=== PATIENT | male | born 1980 | race Caucasian/White ===

== ENCOUNTER 2016-07-17 18:23 | Emergency (ER) | payer MEDICARE, MEDICAID ==
[2016-07-17] MEDS ORDERED: HYDROmorphone 1 MG/ML SYRINGE IVP STA (19:01)
[2016-07-17] MEDS ORDERED: HYDROmorphone 1 MG/ML SYRINGE ONE (19:15)
[2016-07-17] MEDS ORDERED: IOPAMIDOL-300 100 ML VIAL IVP ONE (19:52)
[2016-07-17] MEDS ORDERED: KETOROLAC 60 MG/2 ML VIAL IVP STA (20:34)
[2016-07-17] MEDS ORDERED: KETOROLAC 30 MG/ML VIAL ONE (20:39)
== END 2016-07-17 20:57 | disposition home or self-care (01) ==
DX: R10.32 Left lower quadrant pain (principal); R03.0 Elevated blood-pressure reading, without diagnosis of hypertension; K42.9 Umbilical hernia without obstruction or gangrene; F31.9 Bipolar disorder, unspecified; F43.10 Post-traumatic stress disorder, unspecified; F17.200 Nicotine dependence, unspecified, uncomplicated
CPT/HCPCS: 36415; 74177; 80053; 80306; 81003; 83690; 85025; 96374; 96375; 99283; 99284; J1170; Q9967

== ENCOUNTER 2016-12-06 15:19 | Outpatient (CLI) | payer MEDICARE, MEDICAID ==
--- NOTE | 2016-12-06 17:11 | XRAY Report ---
EXAM: RIGHT HAND RADIOGRAPHY EXAM DATE: 12/06/2016 03:30 PM. CLINICAL HISTORY: Pain in right hand. COMPARISON: None. TECHNIQUE: 3 views. FINDINGS: Bones: Normal. No fractures or bone lesions. Joints: Normal. No subluxations. Soft Tissues: Normal. No soft tissue swelling. IMPRESSION: Normal hand radiography. [facility] Referring Provider Line: [phone] SITE ID: [id number]
== END 2016-12-06 15:20 | disposition home or self-care (01) ==
LOC: DI.N 15:19
PROVIDERS: ATTEND Nurse Practitioner Gerontology
DX: M79.641 Pain in right hand (principal)

== ENCOUNTER 2016-12-11 13:00 | Emergency (ER) | payer MEDICARE, MEDICAID ==
--- NOTE | 2016-12-11 13:11 | ED Physician Documentation ---
PD HPI UPPER EXT INJURY - Stated complaint Stated Complaint: ARM/HAND PX - Chief complaint Chief Complaint: Ext Problem - History obtained from History obtained from: Patient - History of Present Illness Location: Right, Shoulder, Forearm, Finger (thumb) Type of injury: Fall (he was carrying 2x4 wood in right hand and slipped, falling onto right side. The wood piece caused distraction mechanism to thumb base, and he had injury to elbow and shoulder. These have continued to hurt him , especially the thumb. Seen in Clinic yesterday and had IM injection vs. tirgger point of posterior shoulder, and was given forearm band for presumed tendonitis of elbow. xray of thumb without fracture, no focal treatment. He says his thumb is hurting more but the strap is helping the elbow.) Where injury occurred: Work Timing - onset: How many weeks ago (2) Timing - duration: Weeks (2) Improved by: Rest Worsened by: Moving (hurts to pull up or abduct thumb), Palpating Associated symptoms: Discolored (he had bruising of the thumb base initially.). No: Weakness, Numbness, Tingling Contributing factors: No: Anticoagulated, Prior ortho surgery Similar symptoms before: Has not had sx before Recently seen: Clinic (seen at clinic yesterday, see above) Review of Systems Constitutional: denies: Fever, Chills Skin: denies: Abrasion (s), Laceration (s) Musculoskeletal: denies: Neck pain, Back pain Neurologic: denies: Focal weakness, Numbness PD PAST MEDICAL HISTORY - Past Medical History Respiratory: None Psych: Bipolar disorder, Post traumatic stress disorder Musculoskeletal: None - Past Surgical History Past Surgical History: No - Present Medications Home Medications: Ambulatory Orders Medication Instructions Recorded Confirmed Gabapentin 1,200 mg PO TID 12/19/14 12/11/16 Olanzapine [Zyprexa] 20 mg PO DAILY 12/19/14 12/11/16 Bupropion HCl [Wellbutrin Xl] 300 mg PO DAILY 07/17/16 12/11/16 FLUoxetine [PROzac] 40 mg PO DAILY 07/17/16 12/11/16 Ranitidine HCl [Zantac] 300 mg PO DAILY 07/17/16 12/11/16 Oxycodone HCl/Acetaminophen 1 each PO Q6H PRN #15 tablet 12/11/16 [Percocet 5-325 mg Tablet] - Allergies Allergies/Adverse Reactions: Allergies Allergy/AdvReac Type Severity Reaction Status Date / Time Penicillins Allergy Intermediate Edema Verified 08/13/14 22:37 tramadol Allergy Intermediate Edema Verified 08/13/14 22:37 morphine Allergy Anaphylaxis Verified 07/17/16 18:29 Sulfa (Sulfonamide Allergy Unknown Verified 12/19/14 14:31 Antibiotics) ibuprofen AdvReac Nausea Verified 12/11/16 13:07 - Social History Does the pt smoke?: Yes Smoking Status: Current every day smoker Does the pt drink ETOH?: Yes Does the pt have substance abuse?: Yes - POLST Patient has POLST: No PD ED PE NORMAL - Vitals Vital signs reviewed: Yes - General General: Alert and oriented X 3, No acute distress, Well developed/nourished - Neck Neck: Supple, no meningeal sign, No bony TTP, No adenopathy - Derm Derm: Normal color, Warm and dry - Extremities Extremities: Other (right shoulder with some tenderness posteriorly; no AC tenderness. Right elbow with some tenderness lateral epicondyle without effusion , redness. Good ROM including flex/ext/rotational. Right thumb with tenderness at base and ulnar side and pain with UCL distraction but not obvious laxity, c/ w partial tear likely, though might be full tear partly healed after 2 weeks. ) - Neuro Neuro: No motor deficit, No sensory deficit Results - Vitals Vitals: Oxygen O2 Source Room air PD MEDICAL DECISION MAKING - ED course Complexity details: reviewed old records (xray from yesterday), considered differential, d/w patient Departure - Departure Disposition: Home, Self Care Clinical Impression: Right shoulder strain Qualifiers: Encounter type: initial encounter Qualified Code(s): S46.911A - Strain of unspecified muscle, fascia and tendon at shoulder and upper arm level, right arm , initial encounter Strain of elbow, right Qualifiers: Encounter type: initial encounter Qualified Code(s): S56.911A - Strain of unspecified muscles, fascia and tendons at forearm level, right arm, initial encounter Rupture of ulnar collateral ligament of right thumb Qualifiers: Encounter type: initial encounter Qualified Code(s): S63.641A - Sprain of metacarpophalangeal joint of right thumb, initial encounter Condition: Stable Record reviewed to determine appropriate education?: Yes Instructions: Skier's Thumb Follow-Up: Brynn Christine, DIAL PRINTER [Primary Care Provider] - Prescriptions: Oxycodone HCl/Acetaminophen [Percocet 5-325 mg Tablet] 1 each PO Q6H PRN #15 tablet PRN Reason: Pain Comments: Seems like a partial tear/tear of the ligament at the base of the thumb, but usually heals over a month. Use thumb splint to support thumb. There is apparently strain of the elbow and shoulder too, so less heavy use of the arm. Continue the forearm band to help with elbow tendon. Tylenol or oxycodone as needed for pains, for short term. Follow up PCP next week. Discharge Date/Time: 12/11/16 14:10
[2016-12-11] MEDS ORDERED: KETOROLAC 60 MG/2 ML VIAL IM STA (13:38)
[2016-12-11] MEDS ORDERED: oxyCOD/ACETAMIN 5 MG/325 MG TABLET PO STA (13:38)
[2016-12-11] MEDS ORDERED: oxyCOD/ACETAMIN 5 MG/325 MG TABLET PO ONE (13:44)
[2016-12-11] MEDS ORDERED: KETOROLAC 60 MG/2 ML VIAL ONE (13:44)
[2016-12-11 14:10] VITALS: BP 160/115
== END 2016-12-11 14:10 | disposition home or self-care (01) ==
LOC: ED 13:00
DX: S46.911A Strain of unspecified muscle, fascia and tendon at shoulder and upper arm level, right arm, initial encounter (principal); S63.641A Sprain of metacarpophalangeal joint of right thumb, initial encounter; S56.911A Strain of unspecified muscles, fascia and tendons at forearm level, right arm, initial encounter; W01.0XXA Fall on same level from slipping, tripping and stumbling without subsequent striking against object, initial encounter; Y93.89 Activity, other specified; Y99.0 Civilian activity done for income or pay; F17.200 Nicotine dependence, unspecified, uncomplicated
CPT/HCPCS: 96372; 99283; A9270

== ENCOUNTER 2017-01-05 12:05 | Emergency (ER) | payer MEDICARE, MEDICAID ==
--- NOTE | 2017-01-05 13:17 | ED Physician Documentation ---
History of Present Illness - Stated complaint Stated Complaint: LT FOOT INJ - Chief complaint Chief Complaint: Ext Problem - History obtained from History obtained from: Patient, Family - History of Present Illness Timing: How many days ago (several) Pain level max: 5 Pain level now: 5 Improved by: nothing Worsened by: walking - Additonal information Additional information: Patient is a 36-year-old male who presents to the emergency department with multiple medical problems, the first is bilateral lower extremity swelling for the past several weeks, recently the right has become more swollen than the left. He also complains of intermittent numbness to the bilateral feet, states stepped on a lit cigarette a few days ago causing a burn to the plantar aspect of the right foot, near the base of the second toe. Also complains of falling last night and striking his fifth toe on the left foot on a table last night. Noticed some bruising this morning. Denies any fevers or chills. Ran out of his lisinopril recently, and is going to follow-up with his doctor about this. He has no nausea or vomiting. No coughing. No back pain. 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 - Past Surgical History Past Surgical History: Yes Derm: Skin grafts - Present Medications Home Medications: Ambulatory Orders Medication Instructions Recorded Confirmed Gabapentin 1,200 mg PO BID 12/19/14 01/05/17 Olanzapine [Zyprexa] 15 mg PO DAILY 12/19/14 01/05/17 Bupropion HCl [Wellbutrin Xl] 75 mg PO DAILY 07/17/16 01/05/17 Ranitidine HCl [Zantac] 150 mg PO DAILY 07/17/16 01/05/17 Clindamycin HCl 300 mg PO Q6H #40 capsule 01/05/17 - Allergies Allergies/Adverse Reactions: Allergies Allergy/AdvReac Type Severity Reaction Status Date / Time Penicillins Allergy Intermediate Edema Verified 01/05/17 12:19 tramadol Allergy Intermediate Edema Verified 01/05/17 12:19 morphine Allergy Anaphylaxis Verified 01/05/17 12:19 Sulfa (Sulfonamide Allergy Unknown Verified 01/05/17 12:19 Antibiotics) ibuprofen AdvReac Nausea Verified 01/05/17 12:19 - Social History Does the pt smoke?: Yes Smoking Status: Current every day smoker Does the pt drink ETOH?: No Does the pt have substance abuse?: Yes Substance Use and Type: Marijuana - Immunizations Immunizations are current?: Yes - POLST Patient has POLST: No PD ED PE NORMAL - Vitals Vital signs reviewed: Yes - General General: Alert and oriented X 3, No acute distress - HEENT HEENT: Moist mucous membranes - Neck Neck: Supple, no meningeal sign - Cardiac Cardiac: RRR - Respiratory Respiratory: No respiratory distress, Clear bilaterally - Abdomen Abdomen: Soft, Non tender - Derm Derm: Warm and dry - Extremities Extremities: Other (B LE swelling, R> L. Erythema to the midfoot on the R leg. 1x1cm wound to the plantar aspect of the R foot. Mild ecchymosis to the base of the L 5th toe. Mild decreased sensation B. ) - Neuro Neuro: Alert and oriented X 3 - Psych Psych: Normal mood, Normal affect Results - Vitals Vitals: Vital Signs - 24 hr 01/05/17 01/05/17 01/05/17 12:10 12:17 15:12 Temperature 37.1 C 37.2 C 37.1 C Heart Rate 118 H 111 H 98 Respiratory 18 20 20 Rate Blood Pressure 190/100 H 161/96 H 152/95 H O2 Saturation 92 92 97 Oxygen O2 Source Room air - Rads (name of study) L foot xray Radiology: Prelim report reviewed, EMP read contemporaneously, See rad report ( No acute intracranial abnormality is identified. ) duplex US RLE Radiology: Prelim report reviewed, EMP read contemporaneously, See rad report ( no DVT) PD MEDICAL DECISION MAKING - ED course Complexity details: reviewed results, re-evaluated patient, considered differential, d/w patient, d/w family ED course: Patient is a 36-year-old male who presents with multiple complaints. He is found to have swelling and cellulitis to the right lower extremity. Will place on oral antibiotics and see how he progresses. No fevers. No chills. He is well-appearing, nontoxic. Afebrile. Also has a fracture of the left fifth toe , placed in a postoperative shoe for comfort. He states that he will follow-up with his doctor regarding his hypertension and his blood pressure medications. Patient counseled regarding signs and symptoms for which I believe and urgent re-evaluation would be necessary. Patient with good understanding of and agreement to plan and is comfortable going home at this time This document was made in part using voice recognition software. While efforts are made to proofread this document, sound alike and grammatical errors may occur. Wound was cleansed and bandaged in the emergency department Departure - Departure Disposition: 01 Home, Self Care Clinical Impression: Cellulitis Qualifiers: Site of cellulitis: extremity Site of cellulitis of extremity: lower extremity Laterality: right Qualified Code(s): L03.115 - Cellulitis of right lower limb Toe fracture, left Qualifiers: Encounter type: initial encounter Toe: lesser toe Fracture type: closed Phalanx : unspecified phalanx Fracture alignment: nondisplaced Qualified Code(s): S92.505A - Nondisplaced unspecified fracture of left lesser toe(s), initial encounter for closed fracture Condition: Good Instructions: ED Infec Skin Cellulitis, ED Fx Toe Closed Follow-Up: your,doctor in 1 week [Other] Prescriptions: Clindamycin HCl 300 mg PO Q6H #40 capsule Comments: Take all antibiotics until gone. Return if you worsen. The swelling and redness should decrease over the next few days. Your toe should heal without complication as well. Wear the postoperative shoe as this will help with the discomfort from walking and help to stabilize your foot. Discharge Date/Time: 01/05/17 15:12
--- NOTE | 2017-01-05 14:04 | Ultrasound Preliminary Report ---
Exam: US Duplex Ext Veins Right IMPRESSION: 1. No evidence of right lower extremity deep venous thrombosis. [facility] SITE ID: [id number]
--- NOTE | 2017-01-05 14:07 | Ultrasound Report ---
EXAM: RIGHT LOWER EXTREMITY VENOUS ULTRASOUND EXAM DATE: 01/05/2017 01:54 PM. CLINICAL HISTORY: Right lower semi-swelling for 5 days. Right lower extremity pain for 2 days. COMPARISON: None. TECHNIQUE: Real-time sonographic vascular imaging was performed by the shower doors and panels fabricator through the lower extremity utilizing both color-flow and Doppler spectral analysis. Multiple financial sales representative static gregor ges were saved for review. FINDINGS: Common Femoral Vein (CFV): Normal. CFV-GSV Junction: Normal. Profunda Femoral Vein (PFV): Normal. Femoral Vein (FV) Prox: Normal. Femoral Vein (FV) Mid: Normal. Femoral Vein (FV) Dist: Normal. Popliteal Vein: Normal. Posterior Tibial Veins: Normal. Peroneal Veins: Normal. Contralateral Side CFV: Normal. Other: None. IMPRESSION: 1. No evidence of right lower extremity deep venous thrombosis. [facility] Referring Provider Line: [phone] SITE ID: [id number]
--- NOTE | 2017-01-05 14:37 | XRAY Preliminary Report ---
Exam: XR Foot 3 View LT IMPRESSION: 1. Left fifth proximal and distal phalanx fractures. 2. Status post ORIF of distal left fifth metatarsal. [facility] SITE ID: [id number]
--- NOTE | 2017-01-05 14:39 | XRAY Report ---
EXAM: LEFT FOOT RADIOGRAPHY EXAM DATE: 01/05/2017 02:17 PM. CLINICAL HISTORY: L foot injury, base 5th toe. Toe pain. COMPARISON: None. TECHNIQUE: 3 views. FINDINGS: Bones: Minimally distracted fracture is present involving the left fifth distal phalanx as well as th e proximal third of the left fifth proximal phalanx. There has been prior fixation of the distal aspe ct of the left fifth metatarsal with a left lateral fixation plate and 4 fixation screws. Joints: Degenerative changes of the left mid foot and left first MTP joint. No dislocation. Soft Tissues: Soft tissue swelling. IMPRESSION: 1. Left fifth proximal and distal phalanx fractures. 2. Status post ORIF of distal left fifth metatarsal. [facility] Referring Provider Line: [phone] SITE ID: [id number]
[2017-01-05] MEDS ORDERED: CLINDAMYCIN 150 MG CAPSULE PO STA (14:50)
[2017-01-05] MEDS ORDERED: CLINDAMYCIN 150 MG CAPSULE PO ONE (14:55)
[2017-01-05 15:14] VITALS: BP 152/95
== END 2017-01-05 15:12 | disposition home or self-care (01) ==
LOC: ED 12:05
DX: S92.535A Nondisplaced fracture of distal phalanx of left lesser toe(s), initial encounter for closed fracture (principal); S92.515A Nondisplaced fracture of proximal phalanx of left lesser toe(s), initial encounter for closed fracture; X58.XXXA Exposure to other specified factors, initial encounter; L03.116 Cellulitis of left lower limb; I10 Essential (primary) hypertension; F17.200 Nicotine dependence, unspecified, uncomplicated
CPT/HCPCS: 73630; 93971; 99283; A9270

== ENCOUNTER 2017-03-07 12:55 | Emergency (ER) | payer MEDICARE, MEDICAID ==
[2017-03-07 13:31] LABS: PH,URINE 5.5 PH (5.0-7.5)
[2017-03-07 13:35] LABS: BILIRUBIN,URINE NEGATIVE (NEGATIVE); UA w/ MICROSCOPIC CHARGE YES
[2017-03-07 13:56] LABS: UR CULTURE IF IND NOT INDICATED; WBC,URINE 0-3 /HPF (0-3)
--- NOTE | 2017-03-07 14:46 | ED Physician Documentation ---
PD HPI ABD PAIN - Stated complaint Stated Complaint: ABD PX, VOMITTING, BACK PX, MALE - Chief complaint Chief Complaint: Abd Pain - History obtained from History obtained from: Patient - History of Present Illness Timing - onset: Other (36-year-old gentleman with bipolar disorder presents with 2 complaints. For the last 4 weeks he has had lower abdominal pain, constantly, the worsens after eating. It has started on the left lower quadrant and radiated across the pelvis as of about 2 weeks ago. He is mildly constipated. No nausea or vomiting with this. He also complains of intermittent priapism after starting invega 2 weeks ago, it is not active now.) Review of Systems Ten Systems: 10 systems reviewed and negative Constitutional: denies: Fever, Chills Throat: reports: Reviewed and negative Cardiac: reports: Chest pain / pressure Respiratory: reports: Reviewed and negative PD PAST MEDICAL HISTORY - Past Medical History Cardiovascular: Hypertension Respiratory: None Neuro: Seizure disorder, Other Psych: Bipolar disorder, Post traumatic stress disorder Musculoskeletal: None - Past Surgical History Past Surgical History: Yes Derm: Skin grafts - Present Medications Home Medications: Ambulatory Orders Medication Instructions Recorded Confirmed Gabapentin 1,200 mg PO BID 12/19/14 01/05/17 Olanzapine [Zyprexa] 10 mg PO DAILY 12/19/14 01/05/17 Paliperidone [Invega] 3 mg PO 03/07/17 - Allergies Allergies/Adverse Reactions: Allergies Allergy/AdvReac Type Severity Reaction Status Date / Time Penicillins Allergy Intermediate Edema Verified 01/05/17 12:19 tramadol Allergy Intermediate Edema Verified 01/05/17 12:19 morphine Allergy Anaphylaxis Verified 01/05/17 12:19 Sulfa (Sulfonamide Allergy Unknown Verified 01/05/17 12:19 Antibiotics) ibuprofen AdvReac Nausea Verified 01/05/17 12:19 lurasidone HCl * AdvReac Itching Verified 03/07/17 13:08 [From Latuda] - Social History Does the pt smoke?: Yes Smoking Status: Current every day smoker Does the pt drink ETOH?: No Does the pt have substance abuse?: Yes - Immunizations Immunizations are current?: Yes - POLST Patient has POLST: No PD ED PE NORMAL - Vitals Vital signs reviewed: Yes - General General: Alert and oriented X 3, No acute distress - Respiratory Respiratory: No respiratory distress, Clear bilaterally - Abdomen Abdomen: Normal bowel sounds, Soft, Non tender - Neuro Neuro: Alert and oriented X 3, Normal speech - Psych Psych: Normal mood, Normal affect Results - Vitals Vitals: Vital Signs - 24 hr 03/07/17 13:05 Temperature 36.0 C L Heart Rate 99 Respiratory 18 Rate Blood Pressure 170/111 H O2 Saturation 98 Oxygen O2 Source Room air - Labs Labs: Laboratory Tests 03/07/17 03/07/17 03/07/17 13:15 14:52 14:52 WBC 11.6 H RBC 4.82 Hgb 15.0 Hct 43.8 MCV 90.8 MCH 31.2 H MCHC 34.3 RDW 14.2 Plt Count 167 MPV 9.1 Neut # 8.5 H Lymph # 2.3 Brule # 0.6 Eos # 0.1 Baso # 0.1 Absolute Nucleated RBC 0.00 Nucleated RBCs 0.0 Sodium 137 Potassium 3.7 Chloride 97 L Carbon Dioxide 30 Anion Gap 10.0 BUN 8 Creatinine 0.9 Estimated GFR (MDRD) 95 Glucose 84 Calcium 9.2 Total Bilirubin 1.4 H AST 30 ALT 44 Alkaline Phosphatase 90 Total Protein 7.8 Albumin 4.6 Globulin 3.2 Albumin/Globulin Ratio 1.4 Lipase 34 Urine Color YELLOW Urine Clarity CLEAR Urine pH 5.5 Ur Specific [place] >=1.030 H Urine Protein NEGATIVE Urine Glucose (UA) NEGATIVE Urine Ketones NEGATIVE Urine Occult Blood SMALL H Urine Nitrite NEGATIVE Urine Bilirubin NEGATIVE Urine Urobilinogen 0.2 (NORMAL) Ur Leukocyte Esterase NEGATIVE Urine RBC 0-5 Urine WBC 0-3 Ur Squamous Epith Cells Not Reportable Urine Bacteria None Seen Urine Mucus Moderate Strands Ur Microscopic Review INDICATED Urine Culture Comments NOT INDICATED - Rads (name of study) CT KUB Radiology: EMP read contemporaneously (Mild diverticulosis, small hiatal and umbilical hernias.) PD MEDICAL DECISION MAKING - ED course ED course: Priapism is a known side effect of the antipsychotic he is on in the time course suggests that that is causative. I recommended that he talk with his psychiatric prescriber about an alternative. The abdominal pain worries him more than anything else, this is similar to his visit last July where no specific diagnosis was found, it is causing him a lot of anxiety and he felt better after negative workup. Departure - Departure Disposition: 01 Home, Self Care Clinical Impression: Abdominal pain Qualifiers: Abdominal location: lower abdomen, unspecified Qualified Code(s): R10.30 - Lower abdominal pain, unspecified Condition: Good Record reviewed to determine appropriate education?: Yes Instructions: ED Abdominal Pain Unkn Cause Male Comments: Talk with your prescriber at [facility] about the invega which is likely causing the painful erections (priapism). Return if this lasts or is persistent. Call your doctor to arrange a follow-up appointment, make the next available appointment. In the interim, return anytime if worse or if new symptoms develop. Your blood pressure was elevated today on check into the emergency department. This does not mean that you have hypertension, it is a common phenomenon to come to the emergency department and have elevated blood pressure. I recommend that she see your primary care physician within the week to have it rechecked when you are feeling better.
[2017-03-07 15:00] LABS: BASOPHILS # (AUTO) 0.1 10^3/uL (0.0-0.1); BASOPHILS % (AUTO) 0.6 %; EOSINOPHILS # (AUTO) 0.1 10^3/uL (0.0-0.7); HCT - HEMATOCRIT 43.8 % (42.0-52.0); LYMPHOCYTES # (AUTO) 2.3 10^3/uL (1.5-3.5); LYMPHOCYTES % (AUTO) 20.1 %; MEAN CORPUSCULAR HEMOGLOBIN 31.2 pg (27.0-31.0); MEAN CORPUSCULAR HGB CONC 34.3 g/dL (32.0-36.0); MEAN CORPUSCULAR VOLUME 90.8 fL (80.0-94.0); MEAN PLATELET VOLUME 9.1 fL (7.4-11.4); MONOCYTES # (AUTO) 0.6 10^3/uL (0.0-1.0); MONOCYTES % (AUTO) 5.3 %; NEUTROPHILS # (AUTO) 8.5 10^3/uL (1.5-6.6); RED BLOOD COUNT 4.82 10^6/uL (4.70-6.10); RED CELL DISTRIBUTION WIDTH 14.2 % (12.0-15.0); UNCORRECTED WHITE BLOOD COUNT 11.6 x10^3/uL; WHITE BLOOD COUNT 11.6 x10^3/uL (4.8-10.8)
[2017-03-07 15:13] LABS: ALBUMIN/GLOBULIN RATIO 1.4 (1.0-2.2); BILIRUBIN,TOTAL 1.4 mg/dL (0.2-1.0); CALCIUM 9.2 mg/dL (8.5-10.3); CREATININE 0.9 mg/dL (0.6-1.2); POTASSIUM 3.7 mmol/L (3.5-5.0); TOTAL PROTEIN 7.8 g/dL (6.7-8.2)
--- NOTE | 2017-03-07 15:48 | CT Preliminary Report ---
Exam: CT Abdomen/Pelvis W/O IMPRESSION: 1. No kidney or ureteral stones or obstruction. 2. Mild diverticulosis without diverticulitis or other acute bowel abnormality. 3. Small hiatal hernia. 4. Stable small fat-containing umbilical hernia. [facility] SITE ID: [id number]
--- NOTE | 2017-03-07 15:50 | CT Report ---
EXAM: CT ABDOMEN AND PELVIS (CT KUB) EXAM DATE: 03/07/2017 03:19 PM. CLINICAL HISTORY: Right flank pain and generalized abdomen pain. COMPARISONS: 07/17/2016. TECHNIQUE: Routine axial helical CT imaging was performed through the abdomen and pelvis without IV c ontrast. Reconstructions: Coronal and sagittal. In accordance with CT protocol optimization, one or more of the following dose reduction techniques w ere utilized for this exam: automated exposure control, adjustment of mA and/or KV based on patient s ize, or use of iterative reconstructive technique. FINDINGS: Lung Bases: Small hiatal hernia, otherwise unremarkable. Right Kidney/Ureter: No stones, hydronephrosis, or hydroureter. No perinephric fat stranding. Left Kidney/Ureter: No stones, hydronephrosis, or hydroureter. No perinephric fat stranding. Other Solid Organs: Noncontrast images of the solid organs are grossly unremarkable. Gallbladder/Bile Ducts: Unremarkable. Peritoneal Cavity: No free fluid, free air or mine adenopathy. Mild diverticulosis, otherwise the jose wel is grossly unremarkable. Normal appendix noted. Pelvic Organs: The prostate and bladder are unremarkable. Vasculature: Unremarkable. Other: Stable small fat-containing umbilical hernia. IMPRESSION: 1. No kidney or ureteral stones or obstruction. 2. Mild diverticulosis without diverticulitis or other acute bowel abnormality. 3. Small hiatal hernia. 4. Stable small fat-containing umbilical hernia. [facility] Referring Provider Line: [phone] SITE ID: [id number]
[2017-03-07 16:31] VITALS: BP 151/91
== END 2017-03-07 16:31 | disposition home or self-care (01) ==
LOC: ED 12:55
DX: R10.30 Lower abdominal pain, unspecified (principal); I10 Essential (primary) hypertension; F17.200 Nicotine dependence, unspecified, uncomplicated
CPT/HCPCS: 36415; 74176; 80053; 81001; 81003; 83690; 85025; 87086; 99283; 99284

== ENCOUNTER 2017-03-14 13:35 | Outpatient (CLI) | payer MEDICARE, MEDICAID ==
[2017-03-14 19:18] LABS: BASOPHILS # (AUTO) 0.1 10^3/uL (0.0-0.1); EOSINOPHILS # (AUTO) 0.2 10^3/uL (0.0-0.7); EOSINOPHILS % (AUTO) 2.3 %; HCT - HEMATOCRIT 42.9 % (42.0-52.0); HGB - HEMOGLOBIN 14.4 g/dL (14.0-18.0); LYMPHOCYTES # (AUTO) 2.8 10^3/uL (1.5-3.5); MEAN CORPUSCULAR HEMOGLOBIN 31.2 pg (27.0-31.0); MEAN CORPUSCULAR HGB CONC 33.5 g/dL (32.0-36.0); MEAN CORPUSCULAR VOLUME 93.3 fL (80.0-94.0); MEAN PLATELET VOLUME 9.9 fL (7.4-11.4); MONOCYTES # (AUTO) 0.6 10^3/uL (0.0-1.0); MONOCYTES % (AUTO) 6.8 %; NEUTROPHILS # (AUTO) 5.4 10^3/uL (1.5-6.6); NEUTROPHILS % (AUTO) 58.9 %; NUCLEATED RED BLOOD CELLS AUTO 0.1 /100WBC; RED CELL DISTRIBUTION WIDTH 14.3 % (12.0-15.0); UNCORRECTED WHITE BLOOD COUNT 9.2 x10^3/uL; WHITE BLOOD COUNT 9.2 x10^3/uL (4.8-10.8)
[2017-03-14 19:42] LABS: ALBUMIN/GLOBULIN RATIO 1.6 (1.0-2.2); BILIRUBIN,TOTAL 0.7 mg/dL (0.2-1.0); CALCIUM 8.6 mg/dL (8.5-10.3); CREATININE 0.8 mg/dL (0.6-1.2); POTASSIUM 3.6 mmol/L (3.5-5.0); TOTAL PROTEIN 6.5 g/dL (6.7-8.2)
== END 2017-03-14 13:36 | disposition home or self-care (01) ==
LOC: LAB.N 13:35
PROVIDERS: ATTEND Nurse Practitioner Gerontology
DX: D72.829 Elevated white blood cell count, unspecified (principal); R10.9 Unspecified abdominal pain
CPT/HCPCS: 36415; 80053; 85025

== ENCOUNTER 2017-09-03 16:25 | Emergency (ER) | payer MEDICARE, MEDICAID ==
[2017-09-03 17:03] LABS: BASOPHILS % (AUTO) 0.5 %; EOSINOPHILS % (AUTO) 0.3 %; HGB - HEMOGLOBIN 16.1 g/dL (14.0-18.0); LYMPHOCYTES # (AUTO) 3.1 10^3/uL (1.5-3.5); LYMPHOCYTES % (AUTO) 33.5 %; MEAN CORPUSCULAR HEMOGLOBIN 31.1 pg (27.0-31.0); MEAN CORPUSCULAR HGB CONC 33.4 g/dL (32.0-36.0); MEAN CORPUSCULAR VOLUME 93.2 fL (80.0-94.0); MEAN PLATELET VOLUME 9.6 fL (7.4-11.4); MONOCYTES # (AUTO) 0.5 10^3/uL (0.0-1.0); NEUTROPHILS # (AUTO) 5.6 10^3/uL (1.5-6.6); NEUTROPHILS % (AUTO) 60.7 %; PLT - PLATELET COUNT 211 10^3/uL (130-450); RED BLOOD COUNT 5.16 10^6/uL (4.70-6.10); RED CELL DISTRIBUTION WIDTH 14.1 % (12.0-15.0); WHITE BLOOD COUNT 9.2 x10^3/uL (4.8-10.8)
[2017-09-03 17:13] LABS: ALBUMIN 4.8 g/dL (3.2-5.5); ALBUMIN/GLOBULIN RATIO 1.5 (1.0-2.2); CALCIUM 9.1 mg/dL (8.5-10.3); CREATININE 0.9 mg/dL (0.6-1.2); TOTAL PROTEIN 7.9 g/dL (6.7-8.2)
[2017-09-03 17:58] LABS: BILIRUBIN,URINE NEGATIVE (NEGATIVE); GLUCOSE, URINE (UA) NEGATIVE (NEGATIVE); KETONES,URINE (UA) NEGATIVE (NEGATIVE); LEUKOCYTE ESTERASE, URINE NEGATIVE (NEGATIVE); NITRITE,URINE NEGATIVE (NEGATIVE); OCCULT BLOOD,URINE NEGATIVE (NEGATIVE); PH,URINE 5.5 PH (5.0-7.5); PROTEIN,URINE NEGATIVE (NEGATIVE); UROBILINOGEN,URINE 0.2 (NORMAL) E.U./dL (NORMAL)
[2017-09-03 18:02] LABS: CLARITY,URINE CLEAR (CLEAR)
--- NOTE | 2017-09-03 18:37 | ED Physician Documentation ---
PD HPI ABD PAIN - Stated complaint Stated Complaint: ABD PX FROM LIFTING - Chief complaint Chief Complaint: Abd Pain - History obtained from History obtained from: Patient - History of Present Illness Timing - onset: How many weeks ago (few weeks to a month of increased low back pain over his baseline. Also noted some upper abd pain intermittently, not associated directly with eating. Has had URI symptoms with cough and abd upper hurts when he coughs.) Timing - duration: Weeks Timing - details: Intermittant Quality: Aching, Pain Location: Other (upper abd both sides.) Radiation: Lower back Improved by: No: Eating Worsened by: No: Eating Associated symptoms: Nausea. No: Fever, Vomiting, Hematemesis, Diarrhea, Dysuria, Near syncope / syncope, Loss of appetite Similar symptoms before: No diagnosis (has chronic low back pain and so this feels familar though it is worse than usual, and he does not usually have upper abd pains.) Review of Systems Constitutional: denies: Fever, Chills Nose: denies: Rhinorrhea / runny nose, Congestion Throat: denies: Sore throat Cardiac: denies: Chest pain / pressure, Palpitations Respiratory: denies: Cough GI: reports: Abdominal Pain, Nausea, Constipation. denies: Abdominal Swelling, Vomiting, Diarrhea Skin: denies: Rash, Lesions PD PAST MEDICAL HISTORY - Past Medical History Cardiovascular: Hypertension Respiratory: None Neuro: Seizure disorder, Other Psych: Bipolar disorder, Post traumatic stress disorder Musculoskeletal: None - Past Surgical History Past Surgical History: Yes Derm: Skin grafts - Present Medications Home Medications: Ambulatory Orders Medication Instructions Recorded Confirmed Gabapentin 1,200 mg PO BID 12/19/14 01/05/17 Olanzapine [Zyprexa] 10 mg PO DAILY 12/19/14 01/05/17 Dexamethasone [Decadron] 4 mg PO DAILY #5 tablet 09/03/17 Divalproex Sodium [Depakote] 500 mg PO 09/03/17 Docusate Sodium [Dss] 250 mg PO DAILY #30 capsule 09/03/17 HYDROcod/ACETAM 5/325 [[place] 5/325] 1 tab PO Q6H PRN #15 tablet 09/03/17 Methocarbamol [Robaxin] 500 mg PO Q6H PRN #25 tablet 09/03/17 - Allergies Allergies/Adverse Reactions: Allergies Allergy/AdvReac Type Severity Reaction Status Date / Time Penicillins Allergy Intermediate Edema Verified 09/03/17 16:42 tramadol Allergy Intermediate Edema Verified 09/03/17 16:42 morphine Allergy Anaphylaxis Verified 09/03/17 16:42 Sulfa (Sulfonamide Allergy Unknown Verified 09/03/17 16:42 Antibiotics) ibuprofen AdvReac Nausea Verified 09/03/17 16:42 lurasidone HCl * AdvReac Itching Verified 09/03/17 16:42 [From Latuda] - Social History Does the pt smoke?: Yes Smoking Status: Current every day smoker Does the pt drink ETOH?: No Does the pt have substance abuse?: Yes - Immunizations Immunizations are current?: Yes - POLST Patient has POLST: No PD ED PE NORMAL - Vitals Vital signs reviewed: Yes (moderately talkative without pressuring nor tangential. Just a bit odd seem) - General General: Alert and oriented X 3, No acute distress, Well developed/nourished - HEENT HEENT: EOMI, Pharynx benign - Neck Neck: Supple, no meningeal sign, No adenopathy - Cardiac Cardiac: RRR, No murmur - Respiratory Respiratory: No respiratory distress - Abdomen Abdomen: Soft, Non distended, Other (tender mid to epigastric stomach area. ). No: Normal bowel sounds (diminished) - Back Back: No CVA TTP - Derm Derm: Normal color, Warm and dry - Extremities Extremities: No tenderness to palpate, Normal ROM s pain, No edema, No calf tenderness / cord - Neuro Neuro: Alert and oriented X 3, No motor deficit, Normal speech Results - Vitals Vitals: Oxygen O2 Source Room air - Labs Labs: Laboratory Tests 09/03/17 09/03/17 09/03/17 16:50 16:54 16:54 WBC 9.2 RBC 5.16 Hgb 16.1 Hct 48.1 MCV 93.2 MCH 31.1 H MCHC 33.4 RDW 14.1 Plt Count 211 MPV 9.6 Neut # 5.6 Lymph # 3.1 [place] # 0.5 Eos # 0.0 Baso # 0.0 Absolute Nucleated RBC 0.00 Nucleated RBC % 0.0 Sodium 140 Potassium 3.8 Chloride 104 Carbon Dioxide 24 Anion Gap 12.0 BUN 9 Creatinine 0.9 Estimated GFR (MDRD) 95 Glucose 96 Calcium 9.1 Total Bilirubin 1.0 AST 24 ALT 28 Alkaline Phosphatase 101 Total Protein 7.9 Albumin 4.8 Globulin 3.1 Albumin/Globulin Ratio 1.5 Lipase 87 H Urine Color YELLOW Urine Clarity CLEAR Urine pH 5.5 Ur Specific [place] >=1.030 H Urine Protein NEGATIVE Urine Glucose (UA) NEGATIVE Urine Ketones NEGATIVE Urine Occult Blood NEGATIVE Urine Nitrite NEGATIVE Urine Bilirubin NEGATIVE Urine Urobilinogen 0.2 (NORMAL) Ur Leukocyte Esterase NEGATIVE Ur Microscopic Review NOT INDICATED Urine Culture Comments NOT INDICATED PD MEDICAL DECISION MAKING - ED course Complexity details: considered differential (has low back pain that was worse with lifting, but is having some upper abd pains at times, with normal GB U/S. consider gastric or duodenal. Then also consider muscular pain from coughing and lifting. he has also been constipated and the pain is improved by having BM couple of times. ), d/w patient Departure - Departure Disposition: 01 Home, Self Care Clinical Impression: Upper abdominal pain Low back pain Qualifiers: Chronicity: acute Back pain laterality: bilateral Sciatica presence: without sciatica Qualified Code(s): M54.5 - Low back pain Condition: Stable Record reviewed to determine appropriate education?: Yes Instructions: ED Abdominal Pain Unkn Cause, ED Low Back Pain Injury Follow-Up: Brynn Christine ARNP [Primary Care Provider] - Prescriptions: Dexamethasone [Decadron] 4 mg PO DAILY #5 tablet Docusate Sodium [Dss] 250 mg PO DAILY #30 capsule HYDROcod/ACETAM 5/325 [[place] 5/325] 1 tab PO Q6H PRN #15 tablet PRN Reason: Pain Methocarbamol [Robaxin] 500 mg PO Q6H PRN #25 tablet PRN Reason: Spasms Comments: For the abdomen pain, I do not know the cause for sure. There is no signs of gallstones or inflammation of the gallbladder. Liver and pancreas numbers appeared good on blood tests. It may been intestinal and related to constipation perhaps. For the low back, use heat and gentle stretching. Decadron daily for 5 days for inflammation. Robaxin muscle relaxant. Add Tylenol or hydrocodone if needed for pain. Use a daily stool softener initially twice daily for the first few days. Discharge Date/Time: 09/03/17 20:56
[2017-09-03] MEDS ORDERED: KETOROLAC 60 MG/2 ML VIAL IM STA (18:54)
[2017-09-03] MEDS ORDERED: TRIAMCINOLONE 40 MG/ML VIAL IM STA (18:55)
--- NOTE | 2017-09-03 20:17 | Ultrasound Preliminary Report ---
Exam: US ABDOMEN LIMITED IMPRESSION: 1. Normal. No cholelithiasis or cholecystitis. 2. Patient has been medicated such that the negative Olivas's sign is not reliable. [facility] SITE ID: [id number]
--- NOTE | 2017-09-03 20:26 | Ultrasound Report ---
EXAM: ABDOMEN ULTRASOUND LIMITED, RUQ EXAM DATE: 09/03/2017 07:54 PM. CLINICAL HISTORY: Intermittent right upper quadrant pain for one month. COMPARISON: No prior abdominal ultrasound. CT abdomen and pelvis 03/07/2017. TECHNIQUE: Real-time scanning was performed with static images obtained. FINDINGS: Liver: Moderate uniform increased echogenicity without focal mass lesions. 18.2 cm. Main portal vein flow: Hepatopetal. Gallbladder: Normal. No stones, wall thickening, or sonographic Olivas's sign. Please note that the p atient has been medicated. Biliary System: CBD measures 3.8 mm. No intrahepatic or extrahepatic ductal dilatation. Other: Normal right kidney. IMPRESSION: 1. Normal. No cholelithiasis or cholecystitis. 2. Patient has been medicated such that the negative Olivas's sign is not reliable. [facility] Referring Provider Line: [phone] SITE ID: [id number]
[2017-09-03] MEDS ORDERED: HYDROcod/ACETAM 5/325 MG TABLET PO STA (20:39)
[2017-09-03] MEDS ORDERED: METHOCARBAMOL 500 MG TABLET PO STA (20:39)
[2017-09-03 20:53] VITALS: BP 137/99
== END 2017-09-03 20:56 | disposition home or self-care (01) ==
LOC: ED 16:25
DX: R10.13 Epigastric pain (principal); M54.5 Low back pain; I10 Essential (primary) hypertension; F17.200 Nicotine dependence, unspecified, uncomplicated
CPT/HCPCS: 36415; 76705; 80053; 81003; 83690; 85025; 96372; 99283; A9270; 81001; 87086

== ENCOUNTER 2017-10-09 11:20 | Outpatient (CLI) | payer MEDICARE, MEDICAID ==
[2017-10-09 19:08] LABS: BASOPHILS # (AUTO) 0.1 10^3/uL (0.0-0.1); BASOPHILS % (AUTO) 0.6 %; EOSINOPHILS # (AUTO) 0.1 10^3/uL (0.0-0.7); HGB - HEMOGLOBIN 14.6 g/dL (14.0-18.0); LYMPHOCYTES # (AUTO) 3.9 10^3/uL (1.5-3.5); LYMPHOCYTES % (AUTO) 30.6 %; MEAN CORPUSCULAR HEMOGLOBIN 31.4 pg (27.0-31.0); MEAN CORPUSCULAR HGB CONC 32.7 g/dL (32.0-36.0); MEAN CORPUSCULAR VOLUME 96.1 fL (80.0-94.0); MEAN PLATELET VOLUME 10.3 fL (7.4-11.4); MONOCYTES # (AUTO) 0.7 10^3/uL (0.0-1.0); MONOCYTES % (AUTO) 5.4 %; NEUTROPHILS % (AUTO) 62.4 %; PLT - PLATELET COUNT 175 10^3/uL (130-450); RED BLOOD COUNT 4.65 10^6/uL (4.70-6.10); RED CELL DISTRIBUTION WIDTH 14.1 % (12.0-15.0); WHITE BLOOD COUNT 12.8 x10^3/uL (4.8-10.8)
[2017-10-09 19:19] LABS: HB2 TOTAL 16.3 g/dL; HEMOGLOBIN A1C 0.57 g/dL; HEMOGLOBIN A1C % 5.4 % (4.6-6.2)
[2017-10-09 19:29] LABS: ALBUMIN 4.2 g/dL (3.2-5.5); ALKALINE PHOSPHATASE 81 IU/L (42-121); ALT ALANINE AMINOTRANSFERASE 22 IU/L (10-60); AST ASPARTATE AMINOTRANSFERASE 19 IU/L (10-42); BILIRUBIN,DIRECT < 0.1 mg/dL (0.1-0.5); CHOLESTEROL 180 mg/dL; HDL CHOLESTEROL 30 mg/dL; LDL CHOLESTEROL,CALCULATED 127 mg/dL; LDL/HDL RATIO 4.2 (<3.6); TOTAL PROTEIN 6.8 g/dL (6.7-8.2); VALPROIC ACID (DEPAKOTE) 39.3 ug/mL; VLDL CHOLESTEROL 23 mg/dL
== END 2017-10-09 11:21 | disposition home or self-care (01) ==
LOC: LAB.N 11:20
PROVIDERS: ATTEND Registered Nurse
DX: F31.9 Bipolar disorder, unspecified (principal)
CPT/HCPCS: 36415; 80061; 80076; 80164; 83036; 83721; 85025

== ENCOUNTER 2017-11-20 08:48 | Outpatient (CLI) | payer MEDICARE, MEDICAID ==
[2017-11-20 12:39] LABS: VALPROIC ACID (DEPAKOTE) 45.5 ug/mL
== END 2017-11-20 08:49 | disposition home or self-care (01) ==
LOC: LAB.N 08:48
PROVIDERS: ATTEND Registered Nurse
DX: F31.9 Bipolar disorder, unspecified (principal)
CPT/HCPCS: 36415; 80164

== ENCOUNTER 2017-12-03 12:22 | Day surgery (SDC) | payer MEDICARE, MEDICAID ==
[2017-12-03] MEDS ORDERED: LACTATED RINGERS 1,000 ML IV ONE ×2 (13:05→14:05)
[2017-12-03] MEDS ORDERED: fentaNYL 250 MCG/5 ML VIAL IVP ONE (14:31)
[2017-12-03] MEDS ORDERED: MIDAZOLAM 2 MG/2 ML VIAL IVP ONE (14:31)
[2017-12-03 14:55] VITALS: BP 148/97
== END 2017-12-03 12:23 | disposition home or self-care (01) ==
LOC: SDS 12:22
PROVIDERS: ATTEND Internal Medicine
PROC: 0DB68ZX Excision of Stomach, Via Natural or Artificial Opening Endoscopic, Diagnostic (ICD-10-PCS; 2017-12-03)
PROC: 0DBM8ZX Excision of Descending Colon, Via Natural or Artificial Opening Endoscopic, Diagnostic (ICD-10-PCS; principal; 2017-12-03 13:30)
PROC: 0DB98ZX Excision of Duodenum, Via Natural or Artificial Opening Endoscopic, Diagnostic (ICD-10-PCS; 2017-12-03 13:30)
DX: K21.0 Gastro-esophageal reflux disease with esophagitis (principal); K44.9 Diaphragmatic hernia without obstruction or gangrene; K64.8 Other hemorrhoids; D12.4 Benign neoplasm of descending colon; F17.200 Nicotine dependence, unspecified, uncomplicated
CPT/HCPCS: 43239; 45380; J3010; J7120

== ENCOUNTER 2018-01-11 16:44 | Emergency (ER) | payer MEDICARE, MEDICAID ==
--- NOTE | 2018-01-11 18:08 | ED Physician Documentation ---
History of Present Illness - Stated complaint Stated Complaint: RT EAR PX - Chief complaint Chief Complaint: Heent - History obtained from History obtained from: Patient - History of Present Illness Timing: How many days ago (3) Pain level max: 4 Pain level now: 3 Improved by: nothing Worsened by: nothing - Additonal information Additional information: 37 year old male with R ear pain, nasal congestion and nausea for the past 3 days. States subjective fevers. Chills. Had diarrhea once. Nothing makes it better or worse. Review of Systems Ten Systems: 10 systems reviewed and negative Constitutional: reports: Fever, Chills Ears: reports: Ear pain Nose: reports: Rhinorrhea / runny nose, Congestion Skin: denies: Rash Musculoskeletal: denies: Neck pain, Back pain Neurologic: denies: Headache PD PAST MEDICAL HISTORY - Past Medical History Past Medical History: Yes Cardiovascular: Hypertension Respiratory: None Psych: Bipolar disorder, Post traumatic stress disorder Musculoskeletal: None - Past Surgical History Past Surgical History: Yes Derm: Skin grafts - Present Medications Home Medications: Ambulatory Orders Medication Instructions Recorded Confirmed Olanzapine [Zyprexa] 20 mg PO DAILY PM 12/19/14 01/05/17 Divalproex Sodium [Depakote] 1,000 mg BID 12/02/17 Gabapentin 800 mg QID 12/02/17 Azithromycin [Zithromax] 250 mg PO DAILY #4 tablet 01/11/18 Cetirizine HCl/Pseudoephedrine 1 each PO BID PRN #30 tab.er.12h 01/11/18 [Zyrtec-D Tablet] - Allergies Allergies/Adverse Reactions: Allergies Allergy/AdvReac Type Severity Reaction Status Date / Time Penicillins Allergy Intermediate Edema Verified 01/11/18 17:53 tramadol Allergy Intermediate Edema Verified 01/11/18 17:53 morphine Allergy Anaphylaxis Verified 01/11/18 17:53 Sulfa (Sulfonamide Allergy Unknown Verified 01/11/18 17:53 Antibiotics) ibuprofen AdvReac Nausea Verified 01/11/18 17:53 lurasidone HCl * AdvReac Itching Verified 01/11/18 17:53 [From Latuda] - Social History Does the pt smoke?: Yes Smoking Status: Current every day smoker Does the pt drink ETOH?: No Does the pt have substance abuse?: Yes Substance Use and Type: Marijuana - Immunizations Immunizations are current?: Yes - POLST Patient has POLST: No PD ED PE NORMAL - Vitals Vital signs reviewed: Yes - General General: Alert and oriented X 3, No acute distress, Well developed/nourished - HEENT HEENT: PERRL, Moist mucous membranes, Pharynx benign, Other (R TM normal. R ear canal with small abrasion. L TM is retracted with fluid present.) - Neck Neck: Supple, no meningeal sign, No adenopathy - Cardiac Cardiac: RRR, Strong equal pulses - Respiratory Respiratory: No respiratory distress, Clear bilaterally - Abdomen Abdomen: Soft, Non tender, Non distended - Back Back: No CVA TTP, No spinal TTP - Derm Derm: Warm and dry, No rash - Extremities Extremities: No edema - Neuro Neuro: Alert and oriented X 3 - Psych Psych: Normal mood, Normal affect Results - Vitals Vitals: Vital Signs - 24 hr 01/11/18 01/11/18 16:45 18:23 Temperature 36.4 C L 36.4 C L Heart Rate 83 60 Respiratory 18 16 Rate Blood Pressure 162/105 H 142/100 H O2 Saturation 97 97 Oxygen O2 Source Room air PD MEDICAL DECISION MAKING - ED course Complexity details: reviewed results, re-evaluated patient, considered differential, d/w patient ED course: Patient is a 37-year-old male with what appears to be a left acute otitis media. Also complains of a mild sore throat, therefore dexamethasone given. We will continue supportive care in place on decongestants as well. He is well- appearing, nontoxic. Afebrile. Tolerating p.o. without difficulty. No evidence of retropharyngeal or peritonsillar abscess. Patient counseled regarding signs and symptoms for which I believe and urgent re-evaluation would be necessary. Patient with good understanding of and agreement to plan and is comfortable going home at this time This document was made in part using voice recognition software. While efforts are made to proofread this document, sound alike and grammatical errors may occur. - Sepsis Event Vital Signs: Vital Signs - 24 hr 01/11/18 01/11/18 16:45 18:23 Temperature 36.4 C L 36.4 C L Heart Rate 83 60 Respiratory 18 16 Rate Blood Pressure 162/105 H 142/100 H O2 Saturation 97 97 Oxygen O2 Source Room air Departure - Departure Disposition: 01 Home, Self Care Clinical Impression: Viral syndrome Otitis media Qualifiers: Otitis media type: suppurative Chronicity: acute Laterality: bilateral Recurrence: not specified as recurrent Spontaneous tympanic membrane rupture: without spontaneous rupture Qualified Code(s): H66.003 - Acute suppurative otitis media without spontaneous rupture of ear drum, bilateral Condition: Good Instructions: ED Otitis Media Acute Adult, ED Viral Syndrome Follow-Up: Brynn Christine ARNP [Primary Care Provider] - Within 1 week Prescriptions: Azithromycin [Zithromax] 250 mg PO DAILY #4 tablet Cetirizine HCl/Pseudoephedrine [Zyrtec-D Tablet] 1 each PO BID PRN #30 tab.er.12h PRN Reason: Nasal Congestion Comments: Take all antibiotics until gone. Return if you worsen. Discharge Date/Time: 01/11/18 18:31
[2018-01-11] MEDS ORDERED: AZITHROMYCIN 250 MG TABLET PO STA (18:22)
[2018-01-11] MEDS ORDERED: DEXAMETHASONE 10 MG/ML VIAL PO STA (18:22)
[2018-01-11 18:24] VITALS: BP 142/100
[2018-01-11] MEDS ORDERED: CHERRY SYRUP 10 ML UDC PO ONE (18:39)
== END 2018-01-11 18:31 | disposition home or self-care (01) ==
LOC: ED 16:44
DX: H66.003 Acute suppurative otitis media without spontaneous rupture of ear drum, bilateral (principal); B34.9 Viral infection, unspecified; J02.9 Acute pharyngitis, unspecified; I10 Essential (primary) hypertension; F17.200 Nicotine dependence, unspecified, uncomplicated
CPT/HCPCS: 99283; A9270

== ENCOUNTER 2018-03-13 10:20 | Outpatient (CLI) | payer MEDICARE, MEDICAID ==
[2018-03-13 12:32] LABS: VALPROIC ACID (DEPAKOTE) 75.8 ug/mL
== END 2018-03-13 10:21 | disposition home or self-care (01) ==
LOC: LAB.N 10:20
PROVIDERS: ATTEND Registered Nurse
DX: R10.30 Lower abdominal pain, unspecified (principal); R30.0 Dysuria; F31.9 Bipolar disorder, unspecified; R39.12 Poor urinary stream; Z79.899 Other long term (current) drug therapy
CPT/HCPCS: 36415; 80164; 84153

== ENCOUNTER 2018-11-17 08:00 | Outpatient (CLI) | payer MEDICARE, MEDICAID ==
[2018-11-17 19:03] LABS: BASOPHILS # (AUTO) 0.1 10^3/uL (0.0-0.1); BASOPHILS % (AUTO) 0.6 %; EOSINOPHILS # (AUTO) 0.1 10^3/uL (0.0-0.7); EOSINOPHILS % (AUTO) 0.6 %; HGB - HEMOGLOBIN 15.1 g/dL (14.0-18.0); LYMPHOCYTES # (AUTO) 3.8 10^3/uL (1.5-3.5); LYMPHOCYTES % (AUTO) 26.6 %; MEAN CORPUSCULAR HEMOGLOBIN 31.6 pg (27.0-31.0); MEAN CORPUSCULAR HGB CONC 32.9 g/dL (32.0-36.0); MEAN CORPUSCULAR VOLUME 96.1 fL (80.0-94.0); MEAN PLATELET VOLUME 10.3 fL (7.4-11.4); MONOCYTES # (AUTO) 0.5 10^3/uL (0.0-1.0); MONOCYTES % (AUTO) 3.3 %; NEUTROPHILS # (AUTO) 9.8 10^3/uL (1.5-6.6); NEUTROPHILS % (AUTO) 68.9 %; PLT - PLATELET COUNT 186 10^3/uL (130-450); RED BLOOD COUNT 4.77 10^6/uL (4.70-6.10); RED CELL DISTRIBUTION WIDTH 13.6 % (12.0-15.0); WHITE BLOOD COUNT 14.3 x10^3/uL (4.8-10.8)
[2018-11-17 19:18] LABS: ALBUMIN 4.1 g/dL (3.2-5.5); ALBUMIN/GLOBULIN RATIO 1.6 (1.0-2.2); ALKALINE PHOSPHATASE 69 IU/L (42-121); ALT ALANINE AMINOTRANSFERASE 27 IU/L (10-60); AST ASPARTATE AMINOTRANSFERASE 23 IU/L (10-42); BILIRUBIN,TOTAL 0.6 mg/dL (0.2-1.0); BUN - BLOOD UREA NITROGEN 7 mg/dL (6-20); CALCIUM 8.7 mg/dL (8.5-10.3); CARBON DIOXIDE - CO2 25 mmol/L (21-32); CHLORIDE 105 mmol/L (101-111); CHOL/HDL RATIO 6.8 (<5.0); CHOLESTEROL 169 mg/dL; CREATININE 0.9 mg/dL (0.6-1.2); GFR - MDRD 94 (>89); GLUCOSE 94 mg/dL (70-100); HDL CHOLESTEROL 25 mg/dL; LDL CHOLESTEROL,CALCULATED 104 mg/dL; LDL/HDL RATIO 4.2 (<3.6); SODIUM 141 mmol/L (135-145); TOTAL PROTEIN 6.6 g/dL (6.7-8.2); VALPROIC ACID (DEPAKOTE) 30.1 ug/mL; VLDL CHOLESTEROL 40 mg/dL
== END 2018-11-17 23:59 | disposition home or self-care (01) ==
LOC: LAB.N 08:00
PROVIDERS: ATTEND Registered Nurse
DX: F31.9 Bipolar disorder, unspecified (principal); Z79.899 Other long term (current) drug therapy
CPT/HCPCS: 36415; 80053; 80061; 80164; 83721; 85025

== ENCOUNTER 2018-11-27 15:52 | Emergency (ER) | payer MEDICARE, MEDICAID ==
[2018-11-27 15:59] VITALS: BP 150/103
--- NOTE | 2018-11-27 18:03 | ED Physician Documentation ---
History of Present Illness - Stated complaint Stated Complaint: CAN'T SWALLOW/SOA - Chief complaint Chief Complaint: General - History obtained from History obtained from: Patient - History of Present Illness Timing: Other (He has basically long-term dysphasia, his psychiatrist thinks it may be related to the olanzapine. He has had a negative barium swallow and negative EGDs with the exception of gastritis and esophagitis. For the last week he has had increased difficulty swallowing especially his pills with a sensation of swelling especially in the right side of the neck radiating up into the occiput and down to both sides in both years. He has a mild runny nose and sore throat but no significant cough. Denies fevers.) Review of Systems Constitutional: denies: Fever, Chills Respiratory: denies: Dyspnea GI: denies: Abdominal Pain, Nausea, Vomiting : denies: Dysuria, Frequency PD PAST MEDICAL HISTORY - Past Medical History Cardiovascular: None, Hypertension Respiratory: None, Other Endocrine/Autoimmune: None GI: GERD, Hiatal hernia : Other HEENT: None Psych: Bipolar disorder, Depression, Anxiety, Post traumatic stress disorder, Other Musculoskeletal: None, Chronic back pain Derm: Other - Past Surgical History Past Surgical History: Yes General: EGD, Colonoscopy Ortho: Other Derm: Skin grafts - Present Medications Home Medications: Ambulatory Orders Medication Instructions Recorded Confirmed Olanzapine [Zyprexa] 20 mg PO DAILY PM 12/19/14 01/05/17 Gabapentin 800 mg QID 12/02/17 Divalproex Sodium [Depakote ER] 1,000 mg PO QPM 03/03/18 03/04/18 Azithromycin [Zithromax] 1 tab PO DAILY #6 tablet 11/27/18 - Allergies Allergies/Adverse Reactions: Allergies Allergy/AdvReac Type Severity Reaction Status Date / Time Penicillins Allergy Intermediate Edema Verified 11/27/18 15:59 tramadol Allergy Intermediate Edema Verified 11/27/18 15:59 morphine Allergy Anaphylaxis Verified 11/27/18 15:59 paliperidone [From Invega] Allergy painful Verified 11/27/18 15:59 erections Sulfa (Sulfonamide Allergy Unknown Verified 11/27/18 15:59 Antibiotics) ibuprofen AdvReac Nausea Verified 11/27/18 15:59 lurasidone HCl * AdvReac Itching Verified 11/27/18 15:59 [From Latuda] - Social History Does the pt smoke?: Yes Smoking Status: Current every day smoker Does the pt drink ETOH?: No Does the pt have substance abuse?: Yes - Immunizations Immunizations are current?: Yes - POLST Patient has POLST: No PD ED PE NORMAL - Vitals Vital signs reviewed: Yes - General General: Alert and oriented X 3, No acute distress - HEENT HEENT: Other (Modest right sided anterior cervical adenopathy with normal oropharynx and voice. Cranial nerves are normal.) - Neck Neck: Supple, no meningeal sign, No bony TTP - Cardiac Cardiac: RRR, No murmur - Respiratory Respiratory: No respiratory distress, Clear bilaterally - Abdomen Abdomen: Non tender - Neuro Neuro: Alert and oriented X 3, Normal speech Results - Vitals Vitals: Vital Signs - 24 hr 11/27/18 15:55 Temperature 36.3 C L Heart Rate 90 Respiratory 18 Rate Blood Pressure 150/103 H O2 Saturation 98 Oxygen O2 Source Room air PD MEDICAL DECISION MAKING - ED course ED course: This is a 38-year-old gentleman with psychiatric illness and anxiety presents with an acute worsening of his dysphasia which on examination is likely Related to mild case of lymphadenitis for which he is treated with antibiotics. He has an appoint with his primary care physician. Departure - Departure Disposition: 01 Home, Self Care Clinical Impression: Lymphadenitis Condition: Good Record reviewed to determine appropriate education?: Yes Instructions: ED Cervical Adenitis Abx Tx Prescriptions: Azithromycin [Zithromax] 1 tab PO DAILY #6 tablet Comments: Keep the appointment as scheduled with your primary care physician, return for new or worsening symptoms.
== END 2018-11-27 18:07 | disposition home or self-care (01) ==
LOC: ED 15:52
DX: I88.9 Nonspecific lymphadenitis, unspecified (principal); R13.10 Dysphagia, unspecified; F41.9 Anxiety disorder, unspecified; I10 Essential (primary) hypertension; K21.9 Gastro-esophageal reflux disease without esophagitis; F17.200 Nicotine dependence, unspecified, uncomplicated
CPT/HCPCS: 99283

== ENCOUNTER 2018-12-16 08:00 | Outpatient (CLI) | payer MEDICARE, MEDICAID ==
[2018-12-16 19:32] LABS: HGB - HEMOGLOBIN 15.1 g/dL (14.0-18.0); LYMPHOCYTES % (AUTO) 34.1 %; MEAN CORPUSCULAR HEMOGLOBIN 31.6 pg (27.0-31.0); MEAN CORPUSCULAR HGB CONC 32.3 g/dL (32.0-36.0); MEAN CORPUSCULAR VOLUME 97.9 fL (80.0-94.0); MEAN PLATELET VOLUME 11.7 fL (7.4-11.4); NEUTROPHILS % (AUTO) 59.3 %; PLT - PLATELET COUNT 207 10^3/uL (130-450); RED BLOOD COUNT 4.78 10^6/uL (4.70-6.10); WHITE BLOOD COUNT 11.1 x10^3/uL (4.8-10.8)
[2018-12-16 19:33] LABS: BASOPHILS # (AUTO) 0.1 10^3/uL (0.0-0.1); BASOPHILS % (AUTO) 0.5 %; EOSINOPHILS # (AUTO) 0.1 10^3/uL (0.0-0.7); EOSINOPHILS % (AUTO) 0.8 %; LYMPHOCYTES # (AUTO) 3.8 10^3/uL (1.5-3.5); MONOCYTES # (AUTO) 0.6 10^3/uL (0.0-1.0); NEUTROPHILS # (AUTO) 6.6 10^3/uL (1.5-6.6)
[2018-12-16 19:44] LABS: CALCIUM 9.1 mg/dL (8.5-10.3)
== END 2018-12-16 23:59 | disposition home or self-care (01) ==
LOC: LAB.N 08:00
PROVIDERS: ATTEND Physician Assistant Medical
DX: E04.9 Nontoxic goiter, unspecified (principal)
CPT/HCPCS: 36415; 80048; 84443; 85025

== ENCOUNTER 2018-12-24 17:14 | Outpatient (CLI) | payer MEDICARE, MEDICAID ==
--- NOTE | 2018-12-25 08:30 | Ultrasound Report ---
Reason: ENLARGED THYROID, DIFFICULTY SWALLOWING Procedure Date: 12/24/2018 Accession Number: [id number] / [id number] Procedure: US - Head or Neck Soft Tissue CPT Code: FULL RESULT: EXAM: THYROID ULTRASOUND EXAM DATE: 12/24/2018 05:54 PM. CLINICAL HISTORY: ENLARGED THYROID, DIFFICULTY SWALLOWING. COMPARISON: None. TECHNIQUE: Real time sonographic imaging of the thyroid was performed by the planning management it specialist. Multiple shared services representative static images were saved for review. FINDINGS: THYROID GLAND: Right Lobe: 5.6 x 2 x 1.9 cm, volume 11.5 cc. Normal background echotexture. Right Lobe Nodules: None. Left Lobe: 5.7 x 1.4 x 1.6 cm, volume 6.4 cc. Normal background echotexture. Left Lobe Nodules: None. Isthmus: 0.37 cm AP. Isthmic Nodules: None. LYMPH NODES: No adenopathy demonstrated in the central or lateral compartment. OTHER: None. IMPRESSION: Normal thyroid ultrasound. Management recommendations are based on 2015 [place] [employer] Management Guidelines for Adult Patients with Thyroid Nodules and Differentiated Thyroid Cancer. [facility]
== END 2018-12-24 17:15 | disposition home or self-care (01) ==
LOC: DI 17:14
PROVIDERS: ATTEND Physician Assistant Medical
DX: E04.9 Nontoxic goiter, unspecified (principal); R13.10 Dysphagia, unspecified
CPT/HCPCS: 76536

== ENCOUNTER 2019-03-02 08:00 | Outpatient (CLI) | payer MEDICARE, MEDICAID | END 2019-03-02 23:59 | LOC: LAB.R 08:00 | PROVIDERS: ATTEND Physician Assistant Medical | DX: R13.10 Dysphagia, unspecified (principal) | CPT/HCPCS: 87070; 87077 ==

== ENCOUNTER 2019-05-24 10:20 | Outpatient (CLI) | payer MEDICARE, MEDICAID ==
--- NOTE | 2019-05-24 12:26 | SLEEP CARE CONSULTATION ---
Information from patient questionnaire entered by Pat Isaac. I have reviewed and concur with the information entered by Pat Isaac. This document represents the service I personally performed and the decisions made by me, Abigail Peterson MD, [facility]. History of Present Illness Reason for Visit: New patient Chief Complaint: reports: Unrefreshed sleep, Other (startling awake,trouble falling/staying asleep) Duration of Symptoms: years Usual bedtime: 2100 Time it takes to fall asleep: 2-3 hours Snores at night: No Observed to quit breathing while asleep: No Sleeps alone due to snoring: No Number of times waking at night: 3-10 Reasons for waking at night: reports: Gasping for air, Pain Toss, Turn, or Twitch while sleeping: Yes Recalls having dreams: Yes Usually gets out of bed at: 0600 Feels refreshed in the morning: No Morning headache: No Sleepy or fatigued during the day: Yes Ever fallen asleep while driving: No Takes day naps: Yes Dreams during day naps: No Prior sleep studies: No Additional HPI information: I had the pleasure of seeing Mr. Isaac today regarding the possibility of him having a sleep disorder. As you know, he is a 38 year old gentleman who complains of insomnia all his life. He took trazodone for decades because he did not want to be dependent on it. He complains of waking up gasping for air at night. The patient tells me that he normally goes to bed around 9 pm, and it takes him approximately 2 3 hours to fall asleep. He has not been told that he snores loudly or irregularly at night. He has never been observed to stop breathing in his sleep. His can still sleep in the same bed. He can recall waking up on the average of 3 - 10 times during the night. Most of the time he wakes up because of pain. He has awakened occasionally because of his own snoring, choking, and having to gasp for air. There is a lot of tossing and turning in his sleep. He has somniloquy (sleep talking) but not somnambulism (sleep walking). Generally he can recall having dreams. In the morning he usually gets up out of the bed around 6 - 9 a.m. not feeling refreshed nor rested. He usually does not have a morning headache. During the day he complains of feeling sleepy and fatigued. His score on [place] Sleepiness Scale is 4 out of 24. He has never fallen asleep while driving nor has had any accident due to sleepiness. He usually takes naps during the day. Upon falling asleep during the day he denies having vivid dreams. He has never had sleep paralysis, experienced cataplexy but reports symptoms of restless leg syndrome. He reports having impaired concentration during the day. Subjective Initial [place] Sleepiness Scale score: 4 Past Medical History Past Medical History: reports: Dysphagia, Anxiety, Depression, Mood disorder, GERD, Other (BiPolar, PTSD, Seizure disorder, chronic back pain) Social History The patient's occupation is not employed. Patient is and lives in [place]. Have you smoked in the past 12 months: Yes Cigarettes per day (20/pack): 20 Years of smokin Smoking Pack Years: 20.0 Alcohol use: No Caffeine use: Yes Caffeine amount and frequency: pot of coffee/day Family History Family history of sleep disordered breathing: No Family Hx Sleep Apnea: Father: Snoring Allergies and Home Medications Drug allergies reviewed: Yes Home medication list reviewed: Yes Allergy and home medication list: Meds: olanzapine, lansoprazole, and gabapentin Allergies: penicillin, sulfa drugs, and morphine Review of Systems Cardiovascular: reports: high blood pressure Respiratory: denies: shortness of breath, wheeze, sputum production, chronic cough, other Gastrointestinal: reports: heartburn, difficulty swallowing, other (GERD) Urinary: denies: incontinence, frequency, urgency, impotence, other Neurological: reports: seizure Psychiatric: reports: anxiety, depression, mood disorder Ear/Nose/Throat: reports: wisdom teeth removed Endocrine: denies: thyroid disease, history of goiter, sluggishness, too hot or cold, excessive thirst, increased appetite, increased urination, unexplained weakness, other Musculoskeletal: reports: joint pain, back pain, muscle pain or cramping Immunologic: denies: sneezing, rash, itching, allergies to food or environment, other Physical Exam Vital signs obtained and entered by: Dr. Peterson Blood Pressure: 164/110 Cuff size: regular Heart Rate: 106 O2 Saturation: 95 Height: 5 ft 11 in Weight: 234 lb Body Mass Index: 32.6 BMI Classification: Obesity Class 1 Neck circumference: 17 Mood/affect: normal HEENT: No craniofacial malformation Nostrils: patent to airflow Turbinates: normal Septum: midline Mouth and throat: narrow oropharynx Soft palate: long Hard palate: normal Uvula: normal Uvula visualization: 50% Mallampati Class II Tongue: normal in size Tonsils: small Chin and jaw: normal size and position Neck: normal w/o lymphadenopathy or thyromegaly Heart: regular rate and rhythm Lungs: wheeze Abdomen: soft, non-tender Extremities: no edema or clubbing Neurologic: intact, no focal deficits Impression and Plan IMPRESSION: 1. Possible Obstructive Sleep Apnea-Hypopnea Syndrome, as suggested by history of frequent awakenings during the night, nocturnal choking, unrefreshed sleep, cognitive impairment, and daytime hypersomnolence. Narrow oropharynx and obesity are common predisposing factors for obstructive sleep apnea-hypopnea syndrome. Pathophysiology of sleep-disordered breathing was discussed. I recommend proceeding to polysomnography to confirm the diagnosis and to assess severity. If he has significant sleep disordered breathing, a manual CPAP titration study will also be performed to find the optimal treatment pressure. I informed the patient of what the sleep studies involve and after some discussion, he agreed to proceed. 2. Insomnia, due to excessive time spent in bed at night and naps during the day. He also smokes heavily and nicotine is an alerting substance. Because of his social situation and agoraphobia, insomnia will be hard to treat. I reassured him that overall he is getting enough sleep. Plan: 1. Schedule polysomnography + manual CPAP titration study 2. Avoid long distance driving or when feeling sleepy. 3. Avoid alcohol, sedative and muscle relaxant around bedtime. 4. Attempt to lose weight. 5. Quit smoking cigarettes, at least in the evening. 6. Allow no more than 8 hours a day for sleeping, naps included. 7. Return in 1 to 2 weeks after the study to discuss results and initiate therapy. I spent 100% of this 20 minute visit face to face with the patient with greater than 50% of this was spent time counseling the patient and coordination of care.
[2019-05-24 12:27] VITALS: BP 164/110
== END 2019-05-24 10:21 | disposition home or self-care (01) ==
LOC: SC 10:20
PROVIDERS: ATTEND Internal Medicine Pulmonary Disease
DX: G47.10 Hypersomnia, unspecified (principal); G47.8 Other sleep disorders; R41.89 Other symptoms and signs involving cognitive functions and awareness; G47.00 Insomnia, unspecified; F17.210 Nicotine dependence, cigarettes, uncomplicated; E66.9 Obesity, unspecified; Z68.32 Body mass index [BMI] 32.0-32.9, adult
CPT/HCPCS: 99203; G0463; 99212

== ENCOUNTER 2019-06-20 20:15 | Outpatient (CLI) | payer MEDICARE, MEDICAID | END 2019-06-20 20:16 | disposition home or self-care (01) | LOC: SC 20:15 | PROVIDERS: ATTEND Internal Medicine Pulmonary Disease | DX: G47.10 Hypersomnia, unspecified (principal); R00.0 Tachycardia, unspecified | CPT/HCPCS: 95810 ==

== ENCOUNTER 2019-07-13 10:56 | Outpatient (CLI) | payer MEDICARE, MEDICAID ==
--- NOTE | 2019-07-13 11:39 | SLEEP CARE CONSULTATION ---
Information from patient questionnaire entered by Pat Isaac. I have reviewed and concur with the information entered by Pat Isaac. This document represents the service I personally performed and the decisions made by me, Abigail Peterson MD, [facility]. History of Present Illness Initial [place] Sleepiness Scale score: 4 Current [place] Sleepiness Scale score: 5 Additional HPI information: HPI: Mr. Isaac returned with his for follow up of the sleep study he had on 06/20/2019. The polysomnography showed that the patient had normal sleep efficiency. The sleep architecture was normal as well. Respiratory monitoring showed no significant sleep disordered breathing (AHI = 0.8) or hypoxia (ade oxygen saturation of 88%). The patient slept adequately in supine position (supine AHI = 0.6; non-supine = 1.07). Snore was loud in intensity. There was no significant periodic leg movement of sleep. Cardiac rhythm was normal sinus rhythm with occasional sinus tachycardia.. No abnormal behavior (parasomnia) observed during the night. The patient was informed of these findings. I explained to him that except for occasional sinus tachycardia, the sleep study was normal. The patient states that he was on lisinopril a few months ago but stopped taking it because he cannot swallow pills. His insomnia is better with less time spent in bed. Allergies and Home Medications Drug allergies reviewed: Yes Home medication list reviewed: Yes Allergy and home medication list: Current Medications: olanzapine, lansoprazole, and gabapentin. Allergies: penicillin, sulfa drugs, and morphine Review of Systems Review of systems same as previous: Yes Physical Exam Height: 5 ft 11 in Weight: 234 lb Body Mass Index: 32.6 BMI Classification: Obesity Class 1 Impression and Plan IMPRESSION: 1. Sinus Tachycardia - ICD R00.1. during sleep with heart rate averaging at 86 beats per minute and as high as 114 beats per minute. Further evaluation is recommended. 2. Insomnia, due to excessive time spent in bed, in turn, secondary to depression. The patient working on limiting time spent in bed to no more than 8 hours a night and no naps during the day. PLAN: 1. follow up with primary care provider 2. Return to the sleep center on as needed basis. I spent 100% of this visit face to face with the patient with greater than 50% of this was spent time counseling the patient and coordination of care.
== END 2019-07-13 10:57 | disposition home or self-care (01) ==
LOC: SC 10:56
PROVIDERS: ATTEND Internal Medicine Pulmonary Disease
DX: R00.0 Tachycardia, unspecified (principal); G47.00 Insomnia, unspecified; E66.9 Obesity, unspecified; Z68.32 Body mass index [BMI] 32.0-32.9, adult
CPT/HCPCS: 99213; G0463; 99212

== ENCOUNTER 2019-08-19 13:08 | Outpatient (CLI) | payer MEDICARE, MEDICAID ==
--- NOTE | 2019-08-19 15:56 | XRAY Report ---
Reason: FOOT PAIN Procedure Date: 08/19/2019 Accession Number: [id number] / [id number] Procedure: XRN - Foot 3 View RT CPT Code: Final Report FULL RESULT: EXAM: RIGHT FOOT RADIOGRAPHY EXAM DATE: 08/19/2019 01:26 PM. CLINICAL HISTORY: FOOT PAIN. Heel pain for 2 weeks when standing. Pain now extending to the medial ankle. COMPARISON: RT FOOT 02/04/2006 12:24 PM. TECHNIQUE: 3 views. FINDINGS: Bones: Tiny Achilles calcaneal enthesophyte. No fractures or bone lesions. Joints: Normal. No subluxations. Soft Tissues: Normal. No soft tissue swelling. IMPRESSION: Negative right foot series without findings to explain pain. RADIA
== END 2019-08-19 13:09 | disposition home or self-care (01) ==
LOC: DI.N 13:08
PROVIDERS: ATTEND Family Medicine
DX: M79.671 Pain in right foot (principal)

== ENCOUNTER 2019-08-23 19:12 | Emergency (ER) | payer MEDICARE, MEDICAID ==
[2019-08-23] MEDS ORDERED: KETOROLAC 60 MG/2 ML VIAL IM STA (19:30)
--- NOTE | 2019-08-23 19:32 | ED Physician Documentation ---
PD HPI BACK PAIN - Stated complaint Stated Complaint: BACK PAIN - Chief complaint Chief Complaint: Back Pain - History obtained from History obtained from: Patient - History of Present Illness Timing - onset: Other (38-year-old gentleman with chronic recurrent back pain presents with an increase of his usual since yesterday after moving furniture. His low back pain radiating the left leg with some tingling in the left leg but denies saddle anesthesia, fever, incontinence, or numbness. He has had this many times before and says a Toradol shot is always helpful.) Review of Systems Constitutional: denies: Fever, Chills, Myalgias Cardiac: denies: Chest pain / pressure GI: denies: Nausea, Vomiting, Diarrhea : denies: Dysuria, Frequency, Hesitancy, Incontinent PD PAST MEDICAL HISTORY - Past Medical History Past Medical History: Yes Cardiovascular: None, Hypertension Respiratory: None, Other Endocrine/Autoimmune: None GI: GERD, Hiatal hernia : Other HEENT: None Psych: Bipolar disorder, Depression, Anxiety, Post traumatic stress disorder, Other Musculoskeletal: None, Chronic back pain Derm: Other - Past Surgical History Past Surgical History: Yes General: EGD, Colonoscopy Ortho: Other Derm: Skin grafts - Present Medications Home Medications: Ambulatory Orders Medication Instructions Recorded Confirmed Olanzapine [Zyprexa] 20 mg PO DAILY PM 12/19/14 01/05/17 Gabapentin 400 mg QID 12/02/17 Hydrocodone/Acetaminophen 1 - 2 each PO Q6H PRN #7 tablet 08/23/19 [Hydrocodon-Acetaminophen 5-325] Lansoprazole [Prevacid] 15 mg PO DAILY 08/23/19 08/23/19 - Allergies Allergies/Adverse Reactions: Allergies Allergy/AdvReac Type Severity Reaction Status Date / Time Penicillins Allergy Intermediate Edema Verified 08/23/19 19:18 tramadol Allergy Intermediate Edema Verified 08/23/19 19:18 Cephalosporins Allergy Unknown Verified 08/23/19 19:18 morphine Allergy Anaphylaxis Verified 08/23/19 19:18 paliperidone [From Invega] Allergy painful Verified 08/23/19 19:18 erections Sulfa (Sulfonamide Allergy Unknown Verified 08/23/19 19:18 Antibiotics) ibuprofen AdvReac Nausea Verified 08/23/19 19:18 lurasidone HCl * AdvReac Itching Verified 03/09/20 19:18 [From Latuda] - Social History Does the pt smoke?: Yes Smoking Status: Current every day smoker Does the pt drink ETOH?: No Does the pt have substance abuse?: Yes - Immunizations Immunizations are current?: Yes - POLST Patient has POLST: No PD ED PE NORMAL - Vitals Vital signs reviewed: Yes - General General: Alert and oriented X 3, Other (He appears comfortable at rest but winces a little bit with motion) - Back Back: No spinal TTP, Other (The patient has equal and normal Achilles and patellar reflexes bilaterally. Normal sensation in all areas of the legs. Patient denies saddle anesthesia. Normal strength in flexion-extension at the ankles, knees, and flexion of the hips.) - Extremities Extremities: No deformity Results - Vitals Vitals: Vital Signs - 24 hr 08/23/19 19:15 Temperature 37.2 C Heart Rate 97 Respiratory 16 Rate Blood Pressure 166/108 H O2 Saturation 99 Oxygen O2 Source Room air PD MEDICAL DECISION MAKING - ED course ED course: This patient has seemingly uncomplicated musculoskeletal back pain. The patient has no "red flags." Specifically denies IV drug use, fevers, incontinence, saddle anesthesia. Spinal epidural abscess was considered, given that the patient has no fever, is not diabetic, has no spinal tenderness, does not use IV drugs, and has no bilateral neurologic symptoms, the diagnosis of spinal epidural abscess is considered exceedingly unlikely. Departure - Departure Disposition: 01 Home, Self Care Clinical Impression: Sciatica Qualifiers: Laterality: left Qualified Code(s): M54.32 - Sciatica, left side Condition: Good Record reviewed to determine appropriate education?: Yes Instructions: ED Sciatica Prescriptions: Hydrocodone/Acetaminophen [Hydrocodon-Acetaminophen 5-325] 1 - 2 each PO Q6H PRN #7 tablet PRN Reason: pain Comments: Call your doctor to arrange a follow-up appointment, make the next available appointment. In the interim, return anytime if worse or if new symptoms develop.
[2019-08-23 19:49] VITALS: BP 156/103
== END 2019-08-23 19:51 | disposition home or self-care (01) ==
LOC: ED 19:12
DX: M54.42 Lumbago with sciatica, left side (principal); I10 Essential (primary) hypertension; F17.200 Nicotine dependence, unspecified, uncomplicated
CPT/HCPCS: 96372; 99283

== ENCOUNTER 2019-09-24 15:06 | Emergency (ER) | payer MEDICARE, MEDICAID ==
[2019-09-24 15:29] VITALS: BP 156/95
[2019-09-24] MEDS ORDERED: MELOXICAM 7.5 MG TABLET PO STA (16:18)
--- NOTE | 2019-09-24 16:21 | ED Physician Documentation ---
History of Present Illness - Stated complaint Stated Complaint: LT ARM PX/TINGLING - Chief complaint Chief Complaint: Ext Problem - History obtained from History obtained from: Patient - History of Present Illness Timing: How many days ago (3-4) Pain level max: 7 Pain level now: 6 - Additonal information Additional information: 38-year-old male presents to the emergency department with a left neck shoulder and arm pain for the past 3 to 4 days. Occasionally burning sensation down the inner aspect of the arm. Worse with movement and better with rest. Has not taken anything for this. Does not recall any trauma. No back pain. No fevers. No recent illnesses. Does not use IV drugs. Review of Systems Constitutional: denies: Fever, Chills Throat: denies: Sore throat Cardiac: denies: Chest pain / pressure, Palpitations Respiratory: denies: Cough GI: denies: Vomiting, Diarrhea Skin: denies: Rash Musculoskeletal: denies: Back pain Neurologic: denies: Focal weakness, Confused, Altered mental status PD PAST MEDICAL HISTORY - Past Medical History Cardiovascular: None, Hypertension Respiratory: None, Other Endocrine/Autoimmune: None GI: GERD, Hiatal hernia : Other HEENT: None Psych: Bipolar disorder, Depression, Anxiety, Post traumatic stress disorder, Other Musculoskeletal: None, Chronic back pain Derm: Other - Past Surgical History Past Surgical History: Yes General: EGD, Colonoscopy Ortho: Other Derm: Skin grafts - Present Medications Home Medications: Ambulatory Orders Medication Instructions Recorded Confirmed Olanzapine [Zyprexa] 20 mg PO DAILY PM 12/19/14 01/05/17 Gabapentin 400 mg QID 12/02/17 Hydrocodone/Acetaminophen 1 - 2 each PO Q6H PRN #7 tablet 08/23/19 [Hydrocodon-Acetaminophen 5-325] Lansoprazole [Prevacid] 15 mg PO DAILY 08/23/19 08/23/19 Meloxicam [Mobic] 7.5 mg PO BID PRN #20 tablet 09/24/19 - Allergies Allergies/Adverse Reactions: Allergies Allergy/AdvReac Type Severity Reaction Status Date / Time Penicillins Allergy Intermediate Edema Verified 09/24/19 15:29 tramadol Allergy Intermediate Edema Verified 09/24/19 15:29 Cephalosporins Allergy Unknown Verified 09/24/19 15:29 morphine Allergy Anaphylaxis Verified 09/24/19 15:29 paliperidone [From Invega] Allergy painful Verified 09/24/19 15:29 erections Sulfa (Sulfonamide Allergy Unknown Verified 09/24/19 15:29 Antibiotics) ibuprofen AdvReac Nausea Verified 09/24/19 15:29 lurasidone HCl * AdvReac Itching Verified 09/24/19 15:29 [From Latuda] - Social History Does the pt smoke?: Yes Smoking Status: Current every day smoker Does the pt drink ETOH?: No Does the pt have substance abuse?: Yes - Immunizations Immunizations are current?: Yes - POLST Patient has POLST: No PD ED PE NORMAL - Vitals Vital signs reviewed: Yes - General General: Alert and oriented X 3, No acute distress, Well developed/nourished - HEENT HEENT: Moist mucous membranes - Neck Neck: Supple, no meningeal sign, No bony TTP, No JVD, No bruit - Cardiac Cardiac: RRR - Respiratory Respiratory: No respiratory distress, Clear bilaterally - Derm Derm: Warm and dry - Extremities Extremities: No deformity, Other (Mild pain with range of motion of the left shoulder, positive Spurling test to the left. Neurovascularly intact. Normal pulses. No swelling.) - Neuro Neuro: Alert and oriented X 3 - Psych Psych: Normal mood, Normal affect Results - Vitals Vitals: Vital Signs - 24 hr 09/24/19 09/24/19 15:26 16:37 Temperature 37.1 C Heart Rate 107 H 88 Respiratory 16 Rate Blood Pressure 156/95 H O2 Saturation 96 100 Oxygen O2 Source Room air PD MEDICAL DECISION MAKING - ED course Complexity details: considered differential, d/w patient ED course: Patient with what appears to be a left cervical radiculopathy. He cannot take steroids due to his bipolar with jory. We will trial on NSAIDs. No JVD. No bruits. No evidence of dissection. Patient counseled regarding signs and symptoms for which I believe and urgent re-evaluation would be necessary. Patient with good understanding of and agreement to plan and is comfortable going home at this time This document was made in part using voice recognition software. While efforts are made to proofread this document, sound alike and grammatical errors may occur. Departure - Departure Disposition: 01 Home, Self Care Clinical Impression: Cervical radiculopathy Condition: Good Instructions: ED Cervical Radiculopathy Follow-Up: Sandeep Rodas PA-C [Primary Care Provider] - Within 1 week Prescriptions: Meloxicam [Mobic] 7.5 mg PO BID PRN #20 tablet PRN Reason: Pain Comments: Return if you worsen. Follow up with your doctor for further care. This should improve over the next week.
== END 2019-09-24 16:38 | disposition home or self-care (01) ==
LOC: ED 15:06
DX: M54.12 Radiculopathy, cervical region (principal); I10 Essential (primary) hypertension; F31.9 Bipolar disorder, unspecified
CPT/HCPCS: 99282; 99284; A9270

== ENCOUNTER 2019-11-23 08:50 | Emergency (ER) | payer MEDICARE, MEDICAID ==
--- NOTE | 2019-11-23 09:43 | ED Physician Documentation ---
PD HPI BACK PAIN - Stated complaint Stated Complaint: BACK PX - Chief complaint Chief Complaint: Back Pain - History obtained from History obtained from: Patient, Family - History of Present Illness Timing - onset: How many days ago (5) Timing - duration: Days (5) Timing - details: Gradual onset, Still present Location: Lower, Left Quality: Pain, Spasm, Sharp, Similar to prior episodes Associated symptoms: Other (felt like he needed to go but then not and when he looked he had already gone.). No: Fever, Weakness, Numbness, Incontinent of urine, Unable to urinate, Hematuria, Incontinent of stool Improves with: Rest, Position Worsened by: Movement Contributing factors: Lifting, Twisting Similar symptoms before: Diagnosis (sciatica) Recently seen: Not recently seen - Additional information Additional information: 39-year-old bipolar male with a history of sciatica has developed symptoms over the past 5 days he has been using a heating pack ice and he is not getting relief. His symptoms have worsened his knee gave out on him yesterday when he tried to walk. Review of Systems Constitutional: denies: Fever, Chills, Myalgias Eyes: denies: Decreased vision Ears: denies: Ear pain Nose: denies: Congestion Throat: denies: Sore throat Cardiac: denies: Chest pain / pressure Respiratory: denies: Cough GI: denies: Abdominal Pain, Nausea, Vomiting : denies: Dysuria, Frequency, Incontinent Musculoskeletal: reports: Back pain, Extremity pain. denies: Neck pain Neurologic: denies: Generalized weakness, Focal weakness, Numbness PD PAST MEDICAL HISTORY - Past Medical History Cardiovascular: None, Hypertension Respiratory: None, Other Endocrine/Autoimmune: None GI: GERD, Hiatal hernia : Other HEENT: None Psych: Bipolar disorder, Depression, Anxiety, Post traumatic stress disorder, Other Musculoskeletal: None, Chronic back pain Derm: Other - Past Surgical History Past Surgical History: Yes General: EGD, Colonoscopy Ortho: Other Derm: Skin grafts - Present Medications Home Medications: Ambulatory Orders Medication Instructions Recorded Confirmed Olanzapine [Zyprexa] 20 mg PO DAILY PM 12/19/14 01/05/17 Gabapentin 400 mg QID 12/02/17 Hydrocodone/Acetaminophen 1 - 2 each PO Q6H PRN #7 tablet 08/23/19 [Hydrocodon-Acetaminophen 5-325] Lansoprazole [Prevacid] 15 mg PO DAILY 08/23/19 08/23/19 Meloxicam [Mobic] 7.5 mg PO BID PRN #20 tablet 09/24/19 Cyclobenzaprine [Flexeril] 10 mg PO TID PRN #20 tablet 11/23/19 Hydrocodone/Acetaminophen 1 - 2 each PO Q6H PRN #14 tablet 11/23/19 [Hydrocodon-Acetaminophen 5-325] - Allergies Allergies/Adverse Reactions: Allergies Allergy/AdvReac Type Severity Reaction Status Date / Time Penicillins Allergy Intermediate Edema Verified 09/24/19 15:29 tramadol Allergy Intermediate Edema Verified 09/24/19 15:29 Cephalosporins Allergy Unknown Verified 09/24/19 15:29 morphine Allergy Anaphylaxis Verified 09/24/19 15:29 paliperidone [From Invega] Allergy painful Verified 09/24/19 15:29 erections Sulfa (Sulfonamide Allergy Unknown Verified 09/24/19 15:29 Antibiotics) ibuprofen AdvReac Nausea Verified 09/24/19 15:29 lurasidone HCl * AdvReac Itching Verified 09/24/19 15:29 [From Latuda] - Social History Does the pt smoke?: Yes Smoking Status: Current every day smoker Does the pt drink ETOH?: No Does the pt have substance abuse?: Yes - Immunizations Immunizations are current?: Yes - POLST Patient has POLST: No PD ED PE NORMAL - Vitals Vital signs reviewed: Yes (hypertensive ) - HEENT HEENT: Atraumatic, PERRL, EOMI - Respiratory Respiratory: No respiratory distress - Back Back: No CVA TTP, No spinal TTP, Other (There is pain specifically to the left sciatic notch. There is no midline tenderness, no mass or redness. ) - Derm Derm: Normal color, Warm and dry, No rash - Extremities Extremities: No deformity, No edema - Neuro Neuro: Alert and oriented X 3, blower feeder dyed raw stock 2-12 intact, No motor deficit, No sensory deficit, Normal speech Eye Opening: Spontaneous Motor: Obeys Commands Verbal: Oriented GCS Score: 15 - Psych Psych: Normal mood, Normal affect Results - Vitals Vitals: Vital Signs - 24 hr 11/23/19 08:56 Temperature 36.9 C Heart Rate 99 Respiratory 16 Rate Blood Pressure 148/98 H O2 Saturation 97 Oxygen O2 Source Room air PD MEDICAL DECISION MAKING - ED course Complexity details: reviewed results, re-evaluated patient, considered differential, d/w patient, d/w family ED course: 39-year-old male with sciatica on the left side has a bipolar disorder and steroids have caused jory. Previously. He states that he expects that he will get some relief with use of the Toradol. And he request this specifically. I have offered pain medication a muscle relaxant and the patient is grateful to have access to pain relief.He is administered Toradol 60 mg IM.I have recommended to the patient that he seek MRI of the back and to seek this urgently if he has more symptoms of cauda equina syndrome. Specifically I have asked him to return for numbness to the perineum incontinence of stool or bladder. Departure - Departure Disposition: 01 Home, Self Care Clinical Impression: Sciatica Qualifiers: Laterality: left Qualified Code(s): M54.32 - Sciatica, left side Condition: Stable Instructions: ED Sciatica Follow-Up: [facility] [Provider Group] Prescriptions: Cyclobenzaprine [Flexeril] 10 mg PO TID PRN #20 tablet PRN Reason: Spasms Hydrocodone/Acetaminophen [Hydrocodon-Acetaminophen 5-325] 1 - 2 each PO Q6H PRN #14 tablet PRN Reason: pain Comments: Today you are being treated for sciatica and one symptom that you had, with being unaware of a bowel movement, is concerning for something called cauda equina syndrome. If you have further symptoms similar to this or you notice numbness to the perineum follow-up urgently for MRI of the lumbar spine. This is a study that requires prior authorization from your primary care doctor.
[2019-11-23] MEDS: KETOROLAC 60 MG/2 ML VIAL IM STA (09:54)
[2019-11-23 10:14] VITALS: BP 161/103
== END 2019-11-23 10:17 | disposition home or self-care (01) ==
LOC: ED 08:50
DX: M54.42 Lumbago with sciatica, left side (principal); I10 Essential (primary) hypertension; F31.9 Bipolar disorder, unspecified; F17.200 Nicotine dependence, unspecified, uncomplicated
CPT/HCPCS: 96372; 99283; 99284

== ENCOUNTER 2019-12-19 22:38 | Emergency (ER) | payer MEDICARE, MEDICAID ==
[2019-12-19 22:50] VITALS: BP 133/78
[2019-12-19] MEDS ORDERED: LIDOCAINE 1% 2 ML VIAL ONE (23:36)
[2019-12-20] MEDS ORDERED: BACITRACIN ZINC OINT 1 PACKET TOP STA (00:03)
--- NOTE | 2019-12-20 00:07 | ED Physician Documentation ---
PD HPI LOWER EXT INJURY - Stated complaint Stated Complaint: LT LEG KNIFE WOUND - Chief complaint Chief Complaint: Laceration - History obtained from History obtained from: Patient - Additional information Additional information: Patient comes emergency department complaining of a laceration to his left lower extremity with a knife, while cutting an apple on his lap. Patient states the knife slipped through and stabbed him in his medial thigh. Patient denies any other injuries. He states the wound does not hurt unless he stands up to walk at which time he feels a sharp pain. Patient states that he is not sure exactly how far the knife went in but he suspects maybe an inch. He denies any numbness or tingling in his lower leg. He states the knife did cut through his pants. Patient does note that his last tetanus shot was within the last 10 years. Review of Systems Ten Systems: 10 systems reviewed and negative Constitutional: reports: Reviewed and negative Eyes: reports: Reviewed and negative Ears: reports: Reviewed and negative Nose: reports: Reviewed and negative Throat: reports: Reviewed and negative Cardiac: reports: Reviewed and negative Respiratory: reports: Reviewed and negative GI: reports: Reviewed and negative : reports: Reviewed and negative Skin: reports: Laceration (s) Musculoskeletal: reports: Reviewed and negative Neurologic: reports: Reviewed and negative Psychiatric: reports: Reviewed and negative Endocrine: reports: Reviewed and negative Immunocompromised: reports: Reviewed and negative PD PAST MEDICAL HISTORY - Past Medical History Past Medical History: Yes Cardiovascular: None, Hypertension Respiratory: None, Other Endocrine/Autoimmune: None GI: GERD, Hiatal hernia : Other HEENT: None Psych: Bipolar disorder, Depression, Anxiety, Post traumatic stress disorder, Other Musculoskeletal: None, Chronic back pain Derm: Other - Past Surgical History Past Surgical History: Yes General: EGD, Colonoscopy Ortho: Other Derm: Skin grafts - Present Medications Home Medications: Ambulatory Orders Medication Instructions Recorded Confirmed Olanzapine [Zyprexa] 20 mg PO DAILY PM 12/19/14 12/19/19 Gabapentin 400 mg QID 12/02/17 12/19/19 Lansoprazole [Prevacid] 15 mg PO DAILY 08/23/19 12/19/19 Meloxicam [Mobic] 7.5 mg PO BID PRN #20 tablet 09/24/19 12/19/19 Cyclobenzaprine [Flexeril] 10 mg PO TID PRN #20 tablet 11/23/19 12/19/19 Escitalopram Oxalate [Lexapro] 5 mg PO QPM 12/19/19 12/19/19 - Allergies Allergies/Adverse Reactions: Allergies Allergy/AdvReac Type Severity Reaction Status Date / Time Penicillins Allergy Intermediate Edema Verified 12/19/19 22:46 tramadol Allergy Intermediate Edema Verified 12/19/19 22:46 Cephalosporins Allergy Unknown Verified 12/19/19 22:46 morphine Allergy Anaphylaxis Verified 12/19/19 22:46 paliperidone [From Invega] Allergy painful Verified 12/19/19 22:46 erections Sulfa (Sulfonamide Allergy Unknown Verified 12/19/19 22:46 Antibiotics) ibuprofen AdvReac Nausea Verified 12/19/19 22:46 lurasidone HCl * AdvReac Itching Verified 12/19/19 22:46 [From Latuda] - Social History Does the pt smoke?: Yes Smoking Status: Current every day smoker Does the pt drink ETOH?: No Does the pt have substance abuse?: Yes - Immunizations Immunizations are current?: Yes - POLST Patient has POLST: No PD ED PE NORMAL - Vitals Vital signs reviewed: Yes - General General: Alert and oriented X 3, No acute distress, Well developed/nourished - HEENT HEENT: Atraumatic, PERRL, EOMI, Moist mucous membranes - Neck Neck: Supple, no meningeal sign - Cardiac Cardiac: Strong equal pulses - Respiratory Respiratory: No respiratory distress - Derm Derm: Normal color, Warm and dry, No rash, Other (2 cm laceration to the medial aspect of the patient's mid left thigh. Bleeding is controlled. Adipose tissue is noted within the wound. No muscular injury is visible. No foreign body.) - Extremities Extremities: No deformity, No edema, Other (Patient has intact range of motion, though flexion at the knee does cause pain in the area of the laceration.) - Neuro Neuro: Alert and oriented X 3, reclamation supervisor 2-12 intact, No motor deficit, No sensory deficit, Normal speech - Psych Psych: Normal mood, Normal affect Results - Vitals Vitals: Oxygen O2 Source Room air Procedures - Laceration (location) L leg Length in cm: 2 Wound type: Linear, Into subcut fat, Clean Neurovascular status: Sensory intact, Motor intact, Vascular intact Tendon involvement: No: Tendon Injury Anesthesia: Lidocaine 1% Wound Preparation: Betadine, Irrigated copiously NS, Wound explored. No: FB identified (4.0) Skin layer closure: Nylon, Size #-0 - enter number (4.0), Sutures - enter # (4) Other: Patient tolerated well, No complications, Neurovascular intact, Dressing applied, Tetanus UTD Complexity: Intermediate PD MEDICAL DECISION MAKING - ED course Complexity details: considered differential, d/w patient, d/w family ED course: Patient's wound was repaired as above. We have discussed home management of the wound, as well as the usual indications for return. We have discussed that patient should have his sutures removed in 7 days, and we have also discussed the signs of infection. Departure - Departure Disposition: 01 Home, Self Care Clinical Impression: Laceration Condition: Stable Instructions: ED Laceration Ext Sutr Stap Tape Comments: Please keep your wound clean and dry, in general. You may let water and soap run over it in the shower, but do not immerse, rub, or scrub the wound until the sutures are removed.You should have the sutures removed in 7 days by a medical professional, either walk-in clinic, urgent care, or your primary care physician's office. If you cannot be seen in any of the settings, please return to the emergency department for suture removal. If you develop redness or swelling spreading away from the wound, or if the wound had dried, but becomes moist and "mushy" and begins to have drainage, you should have the wound rechecked immediately, also. Discharge Date/Time: 12/20/19 00:15
== END 2019-12-20 00:15 | disposition home or self-care (01) ==
LOC: ED 22:38
DX: S71.112A Laceration without foreign body, left thigh, initial encounter (principal); W26.0XXA Contact with knife, initial encounter; Y93.G1 Activity, food preparation and clean up; F17.200 Nicotine dependence, unspecified, uncomplicated; M51.36 Other intervertebral disc degeneration, lumbar region; M51.37 Other intervertebral disc degeneration, lumbosacral region; M47.26 Other spondylosis with radiculopathy, lumbar region; M47.817 Spondylosis without myelopathy or radiculopathy, lumbosacral region; M48.061 Spinal stenosis, lumbar region without neurogenic claudication
CPT/HCPCS: 12031; 72148; 99282; A9270

== ENCOUNTER 2019-12-20 15:51 | Outpatient (CLI) | payer MEDICARE, MEDICAID ==
--- NOTE | 2019-12-20 17:27 | MRI Report ---
PROCEDURE: Lumbar Spine W/O INDICATIONS: SCATICA, LT TECHNIQUE: Noncontrast sagittal T1 spin echo and T2 fast echo, sagittal STIR, axial T1 and T2 fast spin echo thr ough the lumbar spine. In cases with scoliosis, additional coronal T2 fast spin echo may be performe d. COMPARISON: None. FINDINGS: Image quality: Excellent. Alignment and Curvature: There is normal bony alignment. Bone Marrow: Marrow is of normal overall signal. No acute vertebral body compression fractures. Spinal Cord: Conus medullaris terminates at the T12 level. Visualized cord demonstrates normal sign al and size. Paraspinous Soft Tissues: No paravertebral masses. T12-L1: Normal in appearance. L1-L2: Normal in appearance. L2-L3: Normal in appearance. L3-L4: Loss of disc signal. Mild, diffuse disc bulge. No central stenosis. Mild bilateral neural fo raminal narrowing. No neural compression. L4-L5: Loss of disc signal. Mild, diffuse disc bulge. Mild bilateral facet hypertrophy. Mild narrow ing of the central canal. Moderate to severe right and mild left neural foraminal narrowing with slig ht compression of the exiting right L4 nerve root. Fissure noted in the left central posterior annulu s. L5-S1: Loss of disc signal. Mild, diffuse disc bulge. Mild bilateral facet hypertrophy. No central stenosis. No neural foraminal narrowing. No neural compression. Fissure noted in the posterior left c entral annulus. IMPRESSION: 1. Mild multilevel degenerative disc disease. 2. Mild multilevel facet arthropathy. 3. Mild L4-L5 central canal narrowing. 4. Moderate to severe right and mild left L4-L5 neural foraminal narrowing. Mild bilateral L3-L4 neur al foraminal narrowing. 5. Slight compression of the exiting right L4 nerve root secondary to right L4-L5 neural foraminal na rrowing. Please correlate with clinical data. 6. L4-L5 and L5-S1 disc annulus fissures. Reviewed by: Jackie Burnette MD, PhD on 12/20/2019 5:26 PM PDT Approved by: Jackie Burnette MD, PhD on 12/20/2019 5:26 PM PDT Station ID: [id number]
== END 2019-12-20 15:52 | disposition home or self-care (01) ==
LOC: DI 15:51
PROVIDERS: ATTEND Family Medicine
DX: M51.36 Other intervertebral disc degeneration, lumbar region (principal); M51.37 Other intervertebral disc degeneration, lumbosacral region; M47.26 Other spondylosis with radiculopathy, lumbar region; M47.817 Spondylosis without myelopathy or radiculopathy, lumbosacral region; M48.061 Spinal stenosis, lumbar region without neurogenic claudication
CPT/HCPCS: 72148

== ENCOUNTER 2020-01-06 08:00 | Outpatient (CLI) | payer MEDICARE, MEDICAID | END 2020-01-06 08:01 | disposition home or self-care (01) | LOC: LAB.R 08:00 | PROVIDERS: ATTEND Family Medicine | DX: J06.9 Acute upper respiratory infection, unspecified (principal) ==

== ENCOUNTER 2020-04-05 08:00 | Outpatient (CLI) | payer MEDICARE, MEDICAID ==
--- NOTE | 2020-04-05 14:45 | XRAY Report ---
PROCEDURE: Foot 3 View LT INDICATIONS: L FOOT PAIN TECHNIQUE: 3 views of the foot were acquired. COMPARISON: X-ray foot 01/05/2017. FINDINGS: Bones: No fractures or dislocations. No suspicious bony lesions. ORIF of the distal fifth metatars al is again noted. Hardware is intact without evidence of hardware fracture or periprosthetic looseni ng. Ill-defined lucency is noted at the base of the fifth proximal phalanx, also noted in 2017. Soft tissues: No tibiotalar joint effusion. Achilles tendon appears normal. IMPRESSION: 1. Fifth metacarpal ORIF, stable. 2. No visualized acute fracture or dislocation. However, occult injury cannot be excluded. Recommend short interval imaging follow-up in 7-10 days as clinically indicated for additional evaluation. Reviewed by: Faiza Haney MD on 04/05/2020 2:43 PM PDT Approved by: Faiza Haney MD on 04/05/2020 2:43 PM PDT Station ID: [id number]
== END 2020-04-05 23:59 | disposition home or self-care (01) ==
LOC: DI.WCP 08:00
PROVIDERS: ATTEND Nurse Practitioner Family
DX: M79.672 Pain in left foot (principal)

== ENCOUNTER 2020-04-20 21:06 | Outpatient (CLI) | payer MEDICARE, MEDICAID | END 2020-04-20 21:07 | disposition home or self-care (01) | LOC: COV 21:06 | PROVIDERS: ATTEND Family Medicine | DX: R05 Cough (principal); M79.10 Myalgia, unspecified site; R53.83 Other fatigue; R68.83 Chills (without fever); R09.81 Nasal congestion; R11.2 Nausea with vomiting, unspecified; Z20.828 Contact with and (suspected) exposure to other viral communicable diseases ==

== ENCOUNTER 2020-05-09 11:45 | Outpatient (CLI) | payer MEDICARE, MEDICAID | END 2020-05-09 23:59 | disposition home or self-care (01) | LOC: LAB.R 11:45 | PROVIDERS: ATTEND Family Medicine | DX: J06.9 Acute upper respiratory infection, unspecified (principal); Z20.828 Contact with and (suspected) exposure to other viral communicable diseases ==

== ENCOUNTER 2020-07-12 12:11 | Outpatient (CLI) | payer MEDICARE, MEDICAID ==
[2020-07-12 19:12] LABS: BASOPHILS # (AUTO) 0.1 10^3/uL (0.0-0.1); BASOPHILS % (AUTO) 0.4 %; EOSINOPHILS # (AUTO) 0.1 10^3/uL (0.0-0.7); EOSINOPHILS % (AUTO) 0.4 %; HGB - HEMOGLOBIN 15.7 g/dL (14.0-18.0); LYMPHOCYTES # (AUTO) 2.9 10^3/uL (1.5-3.5); LYMPHOCYTES % (AUTO) 21.6 %; MEAN CORPUSCULAR HEMOGLOBIN 33.3 pg (27.0-31.0); MEAN CORPUSCULAR HGB CONC 33.3 g/dL (32.0-36.0); MEAN PLATELET VOLUME 11.8 fL (7.4-11.4); MONOCYTES # (AUTO) 0.7 10^3/uL (0.0-1.0); MONOCYTES % (AUTO) 4.8 %; NEUTROPHILS # (AUTO) 9.8 10^3/uL (1.5-6.6); NEUTROPHILS % (AUTO) 72.4 %; PLT - PLATELET COUNT 231 10^3/uL (130-450); RED BLOOD COUNT 4.72 10^6/uL (4.70-6.10); RED CELL DISTRIBUTION WIDTH 14.4 % (12.0-15.0); WHITE BLOOD COUNT 13.5 x10^3/uL (4.8-10.8)
[2020-07-12 19:16] LABS: ALBUMIN 4.3 g/dL (3.2-5.5); ALBUMIN/GLOBULIN RATIO 1.7 (1.0-2.2); BILIRUBIN,TOTAL 0.6 mg/dL (0.2-1.0); CALCIUM 8.9 mg/dL (8.5-10.3); CREATININE 0.8 mg/dL (0.6-1.2); TOTAL PROTEIN 6.8 g/dL (6.7-8.2)
== END 2020-07-12 23:59 | disposition home or self-care (01) ==
LOC: LAB.N 12:11
PROVIDERS: ATTEND Family Medicine
DX: R10.9 Unspecified abdominal pain (principal)
CPT/HCPCS: 36415; 80053; 85025

== ENCOUNTER 2020-07-13 11:43 | Outpatient (CLI) | payer MEDICARE, MEDICAID ==
[2020-07-13] MEDS ORDERED: IOVERSOL 320 100 ML VIAL IVP ONE ×2 (11:57→13:40)
[2020-07-13] MEDS ORDERED: IOPAMIDOL-300 50 ML VIAL ONE (11:57)
[2020-07-13] MEDS ORDERED: IOPAMIDOL-300 50 ML VIAL PO ONE (13:39)
--- NOTE | 2020-07-13 17:14 | CT Report ---
PROCEDURE: Abdomen/Pelvis W INDICATIONS: ABD PAIN CONTRAST: IV CONTRAST: Optiray 320 ml: 100 PO CONTRAST: Isovue 300 ml50 TECHNIQUE: After the administration of both oral and weight appropriate dose of intravenous contrast, 5 mm thick sections acquired from the diaphragms to the symphysis. 5 mm thick coronal and sagittal reformats w ere acquired. For radiation dose reduction, the following was used: automated exposure control, adj ustment of mA and/or kV according to patient size. COMPARISON: 07/17/2016. FINDINGS: Image quality: Excellent. ABDOMEN: Lung bases: Lung bases are clear. Heart size is normal. Solid organs: Liver and spleen are normal in size and enhancement. Gallbladder is within normal phillips its. Biliary system is non dilated. Pancreas enhances normally. No adrenal nodules. Kidneys demon strate normal size and enhancement, without hydronephrosis. Peritoneum and bowel: A few scant colonic diverticula are noted. No evidence for acute diverticuliti s. Normal appendix. Bowel loops demonstrate normal wall thickness and caliber. No free fluid or air. Nodes and vessels: No retroperitoneal or mesenteric adenopathy by size criteria. Aorta and inferior vena cava are normal in size. Miscellaneous: Small fat-containing umbilical hernia without acute inflammation. PELVIS: Genitourinary: Bladder wall thickness is normal for degree of distention. Miscellaneous: No inguinal hernias or adenopathy. Bones: No suspicious bony lesions. No acute vertebral body compression fractures. IMPRESSION: 1. CT abdomen and pelvis without acute abnormalities. 2. A few scant colonic diverticula without evidence for acute diverticulitis. 3. Normal appendix. 4. Small fat-containing umbilical hernia without acute inflammation. Reviewed by: Flaco Peterson MD on 07/13/2020 5:13 PM PST Approved by: Flaco Peterson MD on 07/13/2020 5:13 PM PST Station ID: [id number]
== END 2020-07-13 11:44 | disposition home or self-care (01) ==
LOC: DI 11:43
PROVIDERS: ATTEND Family Medicine
DX: K57.90 Diverticulosis of intestine, part unspecified, without perforation or abscess without bleeding (principal); K42.9 Umbilical hernia without obstruction or gangrene
CPT/HCPCS: 74177; Q9967

== ENCOUNTER 2020-09-21 19:27 | Emergency (ER) | payer MEDICARE, MEDICAID ==
[2020-09-21 19:45] LABS: BASOPHILS # (AUTO) 0.1 10^3/uL (0.0-0.1); BASOPHILS % (AUTO) 0.4 %; BILIRUBIN,URINE NEGATIVE (NEGATIVE); EOSINOPHILS # (AUTO) 0.2 10^3/uL (0.0-0.7); EOSINOPHILS % (AUTO) 1.4 %; GLUCOSE, URINE (UA) NEGATIVE (NEGATIVE); HCT - HEMATOCRIT 45.1 % (42.0-52.0); HGB - HEMOGLOBIN 15.1 g/dL (14.0-18.0); KETONES,URINE (UA) NEGATIVE (NEGATIVE); LEUKOCYTE ESTERASE, URINE NEGATIVE (NEGATIVE); LYMPHOCYTES # (AUTO) 3.1 10^3/uL (1.5-3.5); LYMPHOCYTES % (AUTO) 23.5 %; MEAN CORPUSCULAR HEMOGLOBIN 32.9 pg (27.0-31.0); MEAN CORPUSCULAR HGB CONC 33.5 g/dL (32.0-36.0); MEAN CORPUSCULAR VOLUME 98.3 fL (80.0-94.0); MEAN PLATELET VOLUME 10.5 fL (7.4-11.4); MONOCYTES # (AUTO) 0.9 10^3/uL (0.0-1.0); MONOCYTES % (AUTO) 6.6 %; NEUTROPHILS # (AUTO) 8.9 10^3/uL (1.5-6.6); NEUTROPHILS % (AUTO) 67.8 %; NITRITE,URINE NEGATIVE (NEGATIVE); OCCULT BLOOD,URINE NEGATIVE (NEGATIVE); PLT - PLATELET COUNT 216 10^3/uL (130-450); PROTEIN,URINE NEGATIVE (NEGATIVE); RED BLOOD COUNT 4.59 10^6/uL (4.70-6.10); RED CELL DISTRIBUTION WIDTH 14.1 % (12.0-15.0); UROBILINOGEN,URINE 0.2 (NORMAL) E.U./dL (NORMAL); WHITE BLOOD COUNT 13.2 x10^3/uL (4.8-10.8)
[2020-09-21 19:48] LABS: CLARITY,URINE CLEAR (CLEAR)
[2020-09-21 19:58] LABS: ALBUMIN 4.4 g/dL (3.2-5.5); ALBUMIN/GLOBULIN RATIO 1.5 (1.0-2.2); BILIRUBIN,TOTAL 0.6 mg/dL (0.2-1.0); CALCIUM 8.8 mg/dL (8.5-10.3); CREATININE 0.8 mg/dL (0.6-1.2); POTASSIUM 3.8 mmol/L (3.5-5.0); TOTAL PROTEIN 7.4 g/dL (6.7-8.2)
[2020-09-21] MEDS ORDERED: IOPAMIDOL-300 100 ML VIAL ONE (20:28)
--- NOTE | 2020-09-21 20:29 | ED Physician Documentation ---
PD HPI ABD PAIN - Stated complaint Stated Complaint: RT FLANK PX - Chief complaint Chief Complaint: Abd Pain - History obtained from History obtained from: Patient - Additional information Additional information: Patient comes emergency department chief complaint of right upper quadrant and right flank pain creasing for the last several days. Patient states that symptoms started actually on the left side and patient felt as though he was constipated. He states he has not been able to have a "full" bowel movement for about the last week or week and a half. He has been able to have bowel movemen ts but states he does not feel that he fully evacuates. He has been taking a mineral oil laxative which does not seem to be really helping. Patient states he has been a little nauseated but denies vomiting. He states he has been so anxious wondering what is wrong but he has not been able to sleep at night and now his right neck feels tight. Patient denies chest pain. He states it is hard to get a deep breath because of the discomfort in his right upper quadrant. No history of gallstones. Patient denies fevers or chills. No dysuria. No blood in his urine. He states he now has a hemorrhoid from pushing so hard to try to get his stools out. No other complaints at this time. Review of Systems Ten Systems: 10 systems reviewed and negative Constitutional: reports: Reviewed and negative Eyes: reports: Reviewed and negative Ears: reports: Reviewed and negative Nose: reports: Reviewed and negative Throat: reports: Reviewed and negative Cardiac: reports: Reviewed and negative Respiratory: reports: Reviewed and negative GI: reports: Abdominal Pain, Nausea, Constipation. denies: Vomiting : reports: Reviewed and negative Skin: reports: Reviewed and negative Musculoskeletal: reports: Reviewed and negative Neurologic: reports: Reviewed and negative Psychiatric: reports: Reviewed and negative Endocrine: reports: Reviewed and negative Immunocompromised: reports: Reviewed and negative PD PAST MEDICAL HISTORY - Past Medical History Cardiovascular: None, Hypertension Respiratory: None, Other Endocrine/Autoimmune: None GI: GERD, Hiatal hernia : Other HEENT: None Psych: Bipolar disorder, Depression, Anxiety, Post traumatic stress disorder, Other Musculoskeletal: None, Chronic back pain Derm: Other - Past Surgical History Past Surgical History: Yes General: EGD, Colonoscopy Ortho: Other Derm: Skin grafts - Present Medications Home Medications: Ambulatory Orders Medication Instructions Recorded Confirmed Olanzapine [Zyprexa] 20 mg PO DAILY PM 12/19/14 09/21/20 Gabapentin 400 mg QID 12/02/17 09/21/20 Lansoprazole [Prevacid] 15 mg PO DAILY 08/23/19 09/21/20 Escitalopram Oxalate [Lexapro] 5 mg PO QPM 12/19/19 09/21/20 buprenorphine HCL [Buprenorphine 8 mg SL BID 09/21/20 09/21/20 HCl] - Allergies Allergies/Adverse Reactions: Allergies Allergy/AdvReac Type Severity Reaction Status Date / Time Penicillins Allergy Intermediate Edema Verified 09/21/20 19:29 tramadol Allergy Intermediate Edema Verified 09/21/20 19:29 Cephalosporins Allergy Unknown Verified 09/21/20 19:29 morphine Allergy Anaphylaxis Verified 09/21/20 19:29 paliperidone [From Invega] Allergy painful Verified 09/21/20 19:29 erections Sulfa (Sulfonamide Allergy Unknown Verified 09/21/20 19:29 Antibiotics) ibuprofen AdvReac Nausea Verified 09/21/20 19:29 lurasidone HCl * AdvReac Itching Verified 09/21/20 19:29 [From Latuda] - Social History Does the pt smoke?: Yes Smoking Status: Current every day smoker Does the pt drink ETOH?: No Does the pt have substance abuse?: Yes - Immunizations Immunizations are current?: Yes - POLST Patient has POLST: No PD ED PE NORMAL - Vitals Vital signs reviewed: Yes - General General: Alert and oriented X 3, No acute distress, Well developed/nourished - HEENT HEENT: Atraumatic, PERRL, EOMI, Moist mucous membranes - Neck Neck: Supple, no meningeal sign - Cardiac Cardiac: RRR, No murmur, Strong equal pulses - Respiratory Respiratory: No respiratory distress, Clear bilaterally - Abdomen Abdomen: Soft, Non distended, Other (Moderate right upper and mid quadrant tenderness, no rebound or guarding. Mild right flank tenderness.) - Back Back: Other (Mild right CVA tenderness. No left CVA tenderness.) - Derm Derm: Normal color, Warm and dry, No rash - Extremities Extremities: No deformity, No edema, No calf tenderness / cord - Neuro Neuro: Alert and oriented X 3, joint setter 2-12 intact, Normal speech - Psych Psych: Normal mood, Normal affect Results - Vitals Vitals: Oxygen O2 Source Room air - Labs Labs: Laboratory Tests 09/21/20 09/21/20 09/21/20 19:42 19:42 19:42 WBC 13.2 H RBC 4.59 L Hgb 15.1 Hct 45.1 MCV 98.3 H MCH 32.9 H MCHC 33.5 RDW 14.1 Plt Count 216 MPV 10.5 Neut # (Auto) 8.9 H Lymph # (Auto) 3.1 [place] # (Auto) 0.9 Eos # (Auto) 0.2 Baso # (Auto) 0.1 Absolute Nucleated RBC 0.00 Nucleated RBC % 0.0 Sodium 134 L Potassium 3.8 Chloride 100 L Carbon Dioxide 25 Anion Gap 9.0 BUN 8 Creatinine 0.8 Estimated GFR (MDRD) 108 Glucose 118 H Calcium 8.8 Total Bilirubin 0.6 AST 18 ALT 14 Alkaline Phosphatase 106 Total Protein 7.4 Albumin 4.4 Globulin 3.0 Albumin/Globulin Ratio 1.5 Lipase 35 Urine Color YELLOW Urine Clarity CLEAR Urine pH 6.0 Ur Specific [place] 1.015 Urine Protein NEGATIVE Urine Glucose (UA) NEGATIVE Urine Ketones NEGATIVE Urine Occult Blood NEGATIVE Urine Nitrite NEGATIVE Urine Bilirubin NEGATIVE Urine Urobilinogen 0.2 (NORMAL) Ur Leukocyte Esterase NEGATIVE Ur Microscopic Review NOT INDICATED Urine Culture Comments NOT INDICATED - Rads (name of study) CT abd/pelvis Radiology: Final report received, EMP read indepedently, See rad report PD MEDICAL DECISION MAKING - ED course Complexity details: reviewed results, re-evaluated patient, considered differential, d/w patient ED course: The patient was worked up with laboratory studies and urinalysis, all of which were unremarkable. CT scan of the abdomen and pelvis was performed, and showed no acute pathology. There was some nondistention of the distal colon with suggestion of mild wall thickening according to radiologist which could be normal or possibly mild colitis. The patient had not had diarrhea suggestive of colitis, and his symptoms were more toward the right upper quadrant. I discussed with the patient that his CT findings do not suggest a backup of stool at this point and that it is best to leave off use of the laxatives. I explain ed to him that we have not found a emergent cause of his symptoms, and have attempted to discuss symptomatic management with the patient. However, because patient became irate at the suggestion that he did not have the findings he expected, stating that "I came here for nothing" and yelling at physician, stating that he was not given anything to eat or drink here and was dissatisfied with his care. I did explain to him that when being evaluated for abdominal discomfort, especially with CT imaging, nothing is given orally in terms of food or drink, in case of the need of surgery. Patient became even angrier, yelling that "nobody ever came in to give me another blanket!" and then became more upset when the right sided bed railing was lowered for him instead of the left. Patient is discharged home. He is given the usual indications for return. Departure - Departure Disposition: Home, Self Care Clinical Impression: Abdominal pain Qualifiers: Abdominal location: right upper quadrant Qualified Code(s): R10.11 - Right upper quadrant pain Condition: Stable Instructions: ED Abdominal Pain Unkn Cause Comments: Your labs and CT scan look good. There is actually no evidence of backup of stool in your bowels, and if anything, your large intestine appears to be fairly well empty. Most likely, the gurgling you are experiencing is because of the laxative you are taking, which does cause greater hyperactivity of the intestines, as well as more fluid output into the intestines. At this point in time, it is best if you transition off the laxatives and instead, focus on eating a higher fiber diet, which includes more fresh fruits and vegetables. No emergent condition has been found at this time. Please follow-up with your doctor as needed. Discharge Date/Time: 09/21/20 22:00
[2020-09-21] MEDS ORDERED: IOPAMIDOL-300 100 ML VIAL IVP ONE (20:56)
--- NOTE | 2020-09-21 21:11 | CT Report ---
PROCEDURE: Abdomen/Pelvis W INDICATIONS: R abd pain CONTRAST: IV CONTRAST: Isovue 300 ml: 100 PO CONTRAST: *NO PO CONTRAST TECHNIQUE: After the administration of intravenous contrast, 5 mm thick sections acquired from the diaphragms to the symphysis. 5 mm thick coronal and sagittal reformats were acquired. For radiation dose reducti on, the following was used: automated exposure control, adjustment of mA and/or kV according to dipak ent size. COMPARISON: None. FINDINGS: Image quality: Excellent. ABDOMEN: Lung bases: Lung bases are clear. Heart size is normal. There is a small hiatal hernia. Solid organs: Evaluation of the liver demonstrates no focal hepatic lesions. Gallbladder appears wit hin normal limits without calcified gallstones. Biliary system is non dilated. The spleen is normal in size. Pancreas enhances normally without peripancreatic fat stranding or fluid collections. No ad renal nodules. Kidneys demonstrate no hydronephrosis. Peritoneum and bowel: Small bowel loops demonstrate normal wall thickness and caliber. The appendix i s normal in appearance. The descending and sigmoid colon are nondistended with suggestion of mild wal l thickening. There is colonic diverticulosis without acute diverticulitis. No free fluid or air. Nodes and vessels: No retroperitoneal or mesenteric adenopathy by size criteria. Aorta and inferior vena cava are normal in size. Miscellaneous: No ventral hernias. PELVIS: Genitourinary: Bladder wall thickness is normal. Miscellaneous: No inguinal hernias or adenopathy. Bones: No suspicious bony lesions. No vertebral body compression fractures. IMPRESSION: 1. No definite acute findings to correlate with patient's right abdominal pain. Specifically, no appe ndicitis or obstructive uropathy. 2. Nondistention of the distal colon with suggestion of mild wall thickening which may represent a mi ld colitis or artifact from nondistention. Reviewed by: Brian Fernández MD on 09/21/2020 9:09 PM PDT Approved by: Brian Fernández MD on 09/21/2020 9:09 PM PDT Station ID: [id number]
[2020-09-21 22:12] VITALS: BP 135/86
== END 2020-09-21 22:00 | disposition home or self-care (01) ==
LOC: ED 19:27
DX: R10.11 Right upper quadrant pain (principal); R11.0 Nausea; I10 Essential (primary) hypertension; F17.200 Nicotine dependence, unspecified, uncomplicated
CPT/HCPCS: 36415; 74177; 80053; 81003; 83690; 85025; 99284; Q9967; 81001; 87086

== ENCOUNTER 2020-11-20 13:18 | Outpatient (CLI) | payer MEDICARE, MEDICAID ==
--- NOTE | 2020-11-20 14:16 | XRAY Report ---
PROCEDURE: Shoulder 2 View RT INDICATIONS: STRAIN OF MUSCLE AND TENDONS, RIGHT SHOULDER TECHNIQUE: 2 views of the shoulder were acquired. COMPARISON: None. FINDINGS: Bones: No fractures or dislocations. No suspicious bony lesions. Visualized ribs appear intact. M oderate articular osteophyte formation at the, clavicular joint. Mild periarticular osteophyte format ion at the glenohumeral joint. Soft tissues: No suspicious soft tissue calcifications. IMPRESSION: Osteoarthritis. No acute fracture. No osseous lesion. If symptoms and/or clinical suspic ion for pathology continue, further assessment with repeat plain films, or advanced imaging (e.g., CT , MRI, or bone scan) is recommended for further assessment. Reviewed by: Sherrill St MD on 11/20/2020 2:15 PM PDT Approved by: Sherrill St MD on 11/20/2020 2:15 PM PDT Station ID: [id number]
== END 2020-11-20 23:59 | disposition home or self-care (01) ==
LOC: DI.N 13:18
PROVIDERS: ATTEND Family Medicine
DX: M19.011 Primary osteoarthritis, right shoulder (principal)

== ENCOUNTER 2021-02-09 17:23 | Outpatient (CLI) | payer MEDICARE, MEDICAID | END 2021-02-09 17:24 | disposition critical access hospital (66) | LOC: EMS 17:23 | DX: R07.9 Chest pain, unspecified (principal); R10.9 Unspecified abdominal pain; K59.00 Constipation, unspecified | CPT/HCPCS: A0425; A0429 ==

== ENCOUNTER 2021-02-09 17:45 | Emergency (ER) | payer MEDICARE, MEDICAID ==
[2021-02-09] MEDS ORDERED: MAGNESIUM CITRATE 296 ML BOTTLE PO STA (17:52)
--- NOTE | 2021-02-09 17:53 | ED Physician Documentation ---
PD HPI ABD PAIN - Stated complaint Stated Complaint: AB PX, CHEST PX - History obtained from History obtained from: Patient - Additional information Additional information: 40-year-old gentleman with history of hypertension, bipolar disorder. He has been constipated for the last 3 days despite laxatives, has had no bowel output. Started develop increasing abdominal tightness and feeling like there is a doughnut around his waist. Yesterday pain radiated up into the chest and left arm. Seen at the urgent care and EKG was done but sent here for further evaluation. Patient notes it started with an ingrown hair on the left side of the groin. Review of Systems Ten Systems: 10 systems reviewed and negative Constitutional: reports: Reviewed and negative Ears: reports: Reviewed and negative Nose: reports: Reviewed and negative Throat: reports: Reviewed and negative PD PAST MEDICAL HISTORY - Past Medical History Cardiovascular: None, Hypertension Respiratory: None, Other Endocrine/Autoimmune: None GI: GERD, Hiatal hernia : Other HEENT: None Psych: Bipolar disorder, Depression, Anxiety, Post traumatic stress disorder, Other Musculoskeletal: None, Chronic back pain Derm: Other - Past Surgical History Past Surgical History: Yes General: EGD, Colonoscopy Ortho: Other Derm: Skin grafts - Present Medications Home Medications: Ambulatory Orders Medication Instructions Recorded Confirmed OLANZapine [Zyprexa] 20 mg PO DAILY PM 12/19/14 09/21/20 Gabapentin 400 mg QID 12/02/17 09/21/20 Lansoprazole [Prevacid] 15 mg PO DAILY 08/23/19 09/21/20 Escitalopram Oxalate [Lexapro] 5 mg PO QPM 12/19/19 09/21/20 buprenorphine HCL [Buprenorphine 8 mg SL BID 09/21/20 09/21/20 HCl] - Allergies Allergies/Adverse Reactions: Allergies Allergy/AdvReac Type Severity Reaction Status Date / Time Penicillins Allergy Intermediate Edema Verified 02/09/21 18:00 tramadol Allergy Intermediate Edema Verified 02/09/21 18:00 Cephalosporins Allergy Unknown Verified 02/09/21 18:00 morphine Allergy Anaphylaxis Verified 02/09/21 18:00 paliperidone [From Invega] Allergy painful Verified 02/09/21 18:00 erections Sulfa (Sulfonamide Allergy Unknown Verified 02/09/21 18:00 Antibiotics) ibuprofen AdvReac Nausea Verified 02/09/21 18:00 lurasidone HCl * AdvReac Itching Verified 02/09/21 18:00 [From Latuda] - Social History Does the pt smoke?: Yes Smoking Status: Current every day smoker Does the pt drink ETOH?: No Does the pt have substance abuse?: Yes - Immunizations Immunizations are current?: Yes - POLST Patient has POLST: No PD ED PE NORMAL - Vitals Vital signs reviewed: Yes - General General: Alert and oriented X 3, No acute distress - HEENT HEENT: PERRL, EOMI - Neck Neck: Supple, no meningeal sign, No bony TTP - Cardiac Cardiac: RRR, No murmur - Respiratory Respiratory: No respiratory distress, Clear bilaterally - Abdomen Abdomen: Other (There is a small ingrown hair on the left side of the groin without real signs of infection. Abdomen is otherwise soft and nontender, may be slightly distended.) - Derm Derm: Normal color, Warm and dry - Extremities Extremities: Other (Trace symmetric pitting pedal edema) - Neuro Neuro: Alert and oriented X 3, Normal speech Results - Vitals Vitals: Vital Signs - 24 hr 02/09/21 02/09/21 02/09/21 17:50 18:13 19:05 Temperature 37.2 C Heart Rate 69 74 Respiratory 16 18 18 Rate Blood Pressure 145/92 H 147/97 H O2 Saturation 93 93 Oxygen O2 Source Room air - EKG (time done) 1827 Rate: Rate (enter#) (59) Rhythm: NSR [place]: Normal Intervals: Normal [place] QRS: Normal Ischemia: Normal ST segments - Labs Labs: Laboratory Tests 02/09/21 02/09/21 02/09/21 18:02 18:02 18:02 WBC 11.4 H RBC 4.52 L Hgb 14.4 Hct 43.6 MCV 96.5 H MCH 31.9 H MCHC 33.0 RDW 13.7 Plt Count 187 MPV 10.8 Neut # (Auto) 7.7 H Lymph # (Auto) 2.9 [place] # (Auto) 0.6 Eos # (Auto) 0.1 Baso # (Auto) 0.0 Absolute Nucleated RBC 0.00 Nucleated RBC % 0.0 Sodium 138 Potassium 4.0 Chloride 104 Carbon Dioxide 26 Anion Gap 8.0 BUN 12 Creatinine 0.9 Estimated GFR (MDRD) 93 Glucose 108 H Calcium 8.6 Magnesium 2.1 Total Bilirubin 0.7 AST 23 ALT 22 Alkaline Phosphatase 99 Troponin I High Sens 3.0 Total Protein 7.0 Albumin 4.3 Globulin 2.7 Albumin/Globulin Ratio 1.6 - Rads (name of study) 1v chest xr Radiology: EMP read contemporaneously (NAD) ct a/p Radiology: EMP read contemporaneously PD MEDICAL DECISION MAKING - ED course ED course: 40-year-old gentleman presents with very odd abdominal pain, rating to the legs and the now the chest and left arm. No pertinent positive findings on work-up here. No evidence of active coronary disease. CT of the belly was normal. Chest x-ray normal. He was quite frustrated. States that this always happens to him. He is very anxious but declined anxiety medicines. He is using marijuana heavily and daily and discussed with him that this may be causative but he is reluctant to quit as that is what he is using for his anxiety. He states he has had several upper and lower endoscopies with findings only of esophagitis. He is on a PPI. Departure - Departure Disposition: 01 Home, Self Care Clinical Impression: Abdominal pain Qualifiers: Abdominal location: generalized Qualified Code(s): R10.84 - Generalized abdominal pain Condition: Good Record reviewed to determine appropriate education?: Yes Instructions: ED Abdominal Pain Unkn Cause Male Comments: I know is frustrating not to have a specific cause for your symptoms. I do wonder if your heavy marijuana use might be relevant, and I recommend quitting for a couple months to see if that helps. Also close follow-up with your primary care physician and psychiatrist. Return if you worsen.
[2021-02-09] MEDS ORDERED: IOPAMIDOL-300 50 ML VIAL ONE (18:03)
[2021-02-09 18:05] LABS: BASOPHILS % (AUTO) 0.4 %; EOSINOPHILS # (AUTO) 0.1 10^3/uL (0.0-0.7); EOSINOPHILS % (AUTO) 0.9 %; HCT - HEMATOCRIT 43.6 % (42.0-52.0); HGB - HEMOGLOBIN 14.4 g/dL (14.0-18.0); LYMPHOCYTES # (AUTO) 2.9 10^3/uL (1.5-3.5); LYMPHOCYTES % (AUTO) 25.4 %; MEAN CORPUSCULAR HEMOGLOBIN 31.9 pg (27.0-31.0); MEAN CORPUSCULAR VOLUME 96.5 fL (80.0-94.0); MEAN PLATELET VOLUME 10.8 fL (7.4-11.4); MONOCYTES # (AUTO) 0.6 10^3/uL (0.0-1.0); MONOCYTES % (AUTO) 5.3 %; NEUTROPHILS # (AUTO) 7.7 10^3/uL (1.5-6.6); NEUTROPHILS % (AUTO) 67.6 %; PLT - PLATELET COUNT 187 10^3/uL (130-450); RED BLOOD COUNT 4.52 10^6/uL (4.70-6.10); RED CELL DISTRIBUTION WIDTH 13.7 % (12.0-15.0); WHITE BLOOD COUNT 11.4 x10^3/uL (4.8-10.8)
[2021-02-09 18:18] LABS: ALBUMIN 4.3 g/dL (3.2-5.5); ALBUMIN/GLOBULIN RATIO 1.6 (1.0-2.2); BILIRUBIN,TOTAL 0.7 mg/dL (0.2-1.0); CALCIUM 8.6 mg/dL (8.5-10.3); CREATININE 0.9 mg/dL (0.6-1.2); MAGNESIUM 2.1 mg/dL (1.7-2.8)
--- NOTE | 2021-02-09 18:24 | XRAY Report ---
PROCEDURE: Chest 1 View X-Ray INDICATIONS: chest pain TECHNIQUE: One view of the chest was acquired. COMPARISON: 02/08/2015. FINDINGS: Surgical changes and devices: None. Lungs and pleura: No pleural effusions or pneumothorax. Lungs are clear. Mediastinum: Mediastinal contours appear normal. Heart size is normal. Bones and chest wall: No suspicious bony lesions. Overlying soft tissues appear unremarkable. IMPRESSION: No acute cardiopulmonary disease process. Reviewed by: Jackie Burnette MD, PhD on 02/09/2021 6:23 PM PDT Approved by: Jackie Burnette MD, PhD on 02/09/2021 6:23 PM PDT Station ID: [id number]
--- NOTE | 2021-02-09 19:11 | CT Report ---
PROCEDURE: Abdomen/Pelvis W INDICATIONS: IV onlly, abd pain CONTRAST: IV CONTRAST: Isovue 300 ml: 100 PO CONTRAST: *NO PO CONTRAST TECHNIQUE: After the administration of intravenous contrast, 5 mm thick sections acquired from the diaphragms to the symphysis. 5 mm thick coronal and sagittal reformats were acquired. For radiation dose reducti on, the following was used: automated exposure control, adjustment of mA and/or kV according to dipak ent size. COMPARISON: None. FINDINGS: Image quality: Excellent. ABDOMEN: Lung bases: Lung bases are clear. Heart size is normal. Solid organs: Liver and spleen are normal in size and enhancement. Gallbladder is normal. Biliary system is non dilated. Pancreas enhances normally. No adrenal nodules. Kidneys demonstrate normal size and enhancement, without hydronephrosis. Peritoneum and bowel: Bowel loops demonstrate normal wall thickness and caliber. Few scattered colon ic diverticuli without evidence diverticulitis No free fluid or air. Appendix is normal. Nodes and vessels: No retroperitoneal or mesenteric adenopathy by size criteria. Aorta and inferior vena cava are normal in size. Miscellaneous: Small fat-containing paraumbilical hernia. PELVIS: Genitourinary: Bladder wall thickness is normal. Miscellaneous: No inguinal hernias or adenopathy. Bones: No suspicious bony lesions. No vertebral body compression fractures. Spine degenerative disc disease and facet arthropathy are noted. IMPRESSION: No acute disease process. Reviewed by: Jackie Burntete MD, PhD on 02/09/2021 7:09 PM PDT Approved by: Jackie Burnette MD, PhD on 02/09/2021 7:09 PM PDT Station ID: [id number]
[2021-02-09] MEDS ORDERED: IOPAMIDOL-300 50 ML VIAL IVP ONE (19:16)
[2021-02-09 20:02] VITALS: BP 139/93
== END 2021-02-09 20:01 | disposition home or self-care (01) ==
LOC: EDUNIT# → ED 17:45 → SUPCPDRO 17:45 → ED 20:01
DX: R10.84 Generalized abdominal pain (principal); I10 Essential (primary) hypertension; F17.200 Nicotine dependence, unspecified, uncomplicated
CPT/HCPCS: 36415; 71045; 74177; 80053; 83735; 84484; 85025; 93005; 99284; A9270; Q9967

== ENCOUNTER 2021-05-03 11:59 | Outpatient (CLI) | payer MEDICARE, MEDICAID ==
--- NOTE | 2021-05-03 16:20 | XRAY Report ---
PROCEDURE: Foot 2 View LT INDICATIONS: LEFT FOOT PAIN TECHNIQUE: 2 views of the foot were acquired. COMPARISON: Plain films dated 04/05/2020 are not available for comparison FINDINGS: Bones: No acute fractures or dislocations. No suspicious bony lesions. ORIF of the fifth metacarpa l neck. Ununited fracture of the distal portion of the proximal phalanx of the fifth digit involving the distal interphalangeal joint, which appears chronic. Soft tissues: No tibiotalar joint effusion. Achilles tendon appears normal. IMPRESSION: 1. Postsurgical sequelae. 2. 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 Reviewed by: Sherrill St MD on 05/03/2021 4:19 PM PST Approved by: Sherrill St MD on 05/03/2021 4:19 PM PST Station ID: [id number]
== END 2021-05-03 23:59 | disposition home or self-care (01) ==
LOC: DI.N 11:59
PROVIDERS: ATTEND Nurse Practitioner
DX: S92.532K Displaced fracture of distal phalanx of left lesser toe(s), subsequent encounter for fracture with nonunion (principal)

== ENCOUNTER 2021-05-07 16:00 | Outpatient (CLI) | payer MEDICARE, MEDICAID | END 2021-05-07 23:59 | disposition home or self-care (01) | LOC: LAB 16:00 | PROVIDERS: ATTEND Physician Assistant Medical | DX: R05.9 Cough, unspecified (principal); Z20.822 Contact with and (suspected) exposure to COVID-19 ==

== ENCOUNTER 2021-05-15 22:50 | Outpatient (CLI) | payer MEDICARE, MEDICAID | END 2021-05-15 22:51 | disposition critical access hospital (66) | LOC: EMS 22:50 | DX: S00.11XA Contusion of right eyelid and periocular area, initial encounter (principal); M25.522 Pain in left elbow; W01.198A Fall on same level from slipping, tripping and stumbling with subsequent striking against other object, initial encounter; Y92.002 Bathroom of unspecified non-institutional (private) residence as the place of occurrence of the external cause | CPT/HCPCS: A0425; A0429 ==

== ENCOUNTER 2021-05-15 23:07 | Emergency (ER) | payer MEDICARE, MEDICAID ==
--- NOTE | 2021-05-16 00:26 | ED Physician Documentation ---
PD HPI Fall - Stated complaint Stated Complaint: FELL, LEFT SHOULDER/NECK PAIN, EYE LAC - Chief complaint Chief Complaint: Trauma Hd/Nk - History obtained from History obtained from: Patient, EMS - History of Present Illness Mechanism of injury: Lost balance (see narrative, below (thinks he started to f all asleep while standing and by the time he realized he was falling, it was too late to right himself)) Fall distance: Standing position Where injury occurred: Home Timing - onset: Enter time (approximately 9:30 PM tonight), Today Injury(ies) location: Head, Face Pain level now: 4 Quality of pain: Pain Associated symptoms: No: LOC, AMS, Neck pain Contributing factors: No: Anticoagulated, Intoxicated Recently seen: Not recently seen - Additional information Additional information: BIBA. patient says he fell while standing in his bathroom at home tonight at approximately 9:30 PM. He says he was very tired and thinks he started to fall asleep while standing, causing him to fall. he struck his face on the edge of the bathtub. He does not think he lost consciousness. He denies generalized headache although he has pain and swelling right eye/right periorbit. PD PAST MEDICAL HISTORY - Past Medical History Cardiovascular: None, Hypertension Respiratory: None, Other Endocrine/Autoimmune: None GI: GERD, Hiatal hernia : Other HEENT: None Psych: Bipolar disorder, Depression, Anxiety, Post traumatic stress disorder, Other Musculoskeletal: None, Chronic back pain Derm: Other - Past Surgical History Past Surgical History: Yes General: EGD, Colonoscopy Ortho: Other Derm: Skin grafts - Present Medications Home Medications: Ambulatory Orders Medication Instructions Recorded Confirmed OLANZapine [Zyprexa] 20 mg PO DAILY PM 12/19/14 09/21/20 Gabapentin 400 mg QID 12/02/17 09/21/20 Lansoprazole [Prevacid] 15 mg PO DAILY 08/23/19 09/21/20 Escitalopram Oxalate [Lexapro] 5 mg PO QPM 12/19/19 09/21/20 buprenorphine HCL [Buprenorphine 8 mg SL BID 09/21/20 09/21/20 HCl] - Allergies Allergies/Adverse Reactions: Allergies Allergy/AdvReac Type Severity Reaction Status Date / Time Penicillins Allergy Intermediate Edema Verified 02/09/21 18:00 tramadol Allergy Intermediate Edema Verified 02/09/21 18:00 Cephalosporins Allergy Unknown Verified 02/09/21 18:00 morphine Allergy Anaphylaxis Verified 02/09/21 18:00 paliperidone [From Invega] Allergy painful Verified 02/09/21 18:00 erections Sulfa (Sulfonamide Allergy Unknown Verified 02/09/21 18:00 Antibiotics) ibuprofen AdvReac Nausea Verified 02/09/21 18:00 lurasidone HCl * AdvReac Itching Verified 02/09/21 18:00 [From Latuda] - Social History Does the pt smoke?: Yes Smoking Status: Current every day smoker Does the pt drink ETOH?: No Does the pt have substance abuse?: Yes Substance Use and Type: Marijuana - Immunizations Immunizations are current?: Yes - POLST Patient has POLST: No PD ED PE NORMAL - Vitals Vital signs reviewed: Yes - General General: No acute distress, Well developed/nourished, Other (drowsy but awakens to voice, answers appropriately and follows commands) - HEENT HEENT: PERRL, EOMI, Other (right periorbital swelling and echymosis) - Neck Neck: No bony TTP, Other (cervical collar in place) - Cardiac Cardiac: RRR, No murmur - Respiratory Respiratory: No respiratory distress, Clear bilaterally - Abdomen Abdomen: Soft, Non tender - Neuro Neuro: rubber off 2-12 intact, No motor deficit, No sensory deficit, Normal speech Eye Opening: To Voice Motor: Obeys Commands Verbal: Oriented GCS Score: 14 PD ED PE EXPANDED - HEENT HEENT: Other (0.5 cm laceration immediately medial and inferior to right inner canthus. two lower lid (right) lacerations , each 0.5 cm length, without extrusion of soft/adipose tissue) HEENT Visual: 1 - laceration (0.5 cm laceration) 2 - laceration (0.5 cm laceration) Results - Vitals Vitals: Vital Signs - 24 hr 05/15/21 05/15/21 05/16/21 23:16 23:48 00:00 Temperature 36.6 C Heart Rate 78 76 Respiratory 20 19 Rate Blood Pressure 164/104 H 137/106 H O2 Saturation 94 92 88 L 05/16/21 05/16/21 05/16/21 00:01 00:30 02:46 Temperature Heart Rate 69 68 Respiratory Rate Blood Pressure 133/88 H 148/90 H O2 Saturation 96 94 94 05/16/21 04:00 Temperature Heart Rate 66 Respiratory 16 Rate Blood Pressure 153/97 H O2 Saturation 93 Oxygen O2 Source Room air - Labs Labs: Laboratory Tests 05/16/21 05/16/21 01:34 01:34 WBC 12.0 H RBC 4.52 L Hgb 14.0 Hct 43.5 MCV 96.2 H MCH 31.0 MCHC 32.2 RDW 13.2 Plt Count 167 MPV 11.4 Neut # (Auto) 7.1 H Lymph # (Auto) 3.5 [place] # (Auto) 1.1 H Eos # (Auto) 0.3 Baso # (Auto) 0.1 Absolute Nucleated RBC 0.00 Nucleated RBC % 0.0 Sodium 137 Potassium 4.3 Chloride 100 L Carbon Dioxide 29 Anion Gap 8.0 BUN 17 Creatinine 0.8 Estimated GFR (MDRD) 107 Glucose 94 Calcium 8.8 - Rads (name of study) CT head Radiology: Prelim report reviewed, See rad report CT cervical spine Radiology: Prelim report reviewed, See rad report CT orbits Radiology: Prelim report reviewed, See rad report PD MEDICAL DECISION MAKING - ED course Complexity details: reviewed results, re-evaluated patient, considered differential, d/w patient ED course: CT cervical spine interpreted as "no acute fracture" by radiologist. Cervical collar removed by me and he has FROM neck flexion, extension, rotation ( right/left) without pain. CT orbits demonstrates right nasal bone fracture as well as right orbital floor fracture. On reexam, EOMI and he denies double vision (clinical exam is inconsistent with entrapment) CTH demonstrates "8 mm hyperdensity involving the left frontal region which is suspicious for extra-axial versus small petechial hemorrhage. Recommend follow- up in [address]" (per radiology). I discussed these results with patient and recommended he stay in ED so that we can repeat the CT head as per radiologist's recommendation. I explained the finding and the concern that it could represents bleeding inside of the skull, a potentially serious finding which, if it were to progress in size, could lead to permanent disability and if untreated. The best way to determine if it is increasing in size would be to monitor him in the emergency department for 6 hours for worsening symptoms, and then to repeat the CT 6 hours after initial scan. He expressed understanding of this and was agreeable to stay. However, he subsequently abruptly left the ED. I heard him yelling about frustration that someone was waiting for hours in the parking lot for him but he left before I was able to reassess him and try to persuade him to wait until the repeat CT could be performed. I also had concerns regarding the small laceration that is medial and inferior to his right inner canthus (the lower lid lacerations were also to be reassessed, but initial impression is they would not need suture repair). my concern was proximity to lacrimal duct. Due to his leaving the ED, I was unable to reassess these injuries Departure - Departure Disposition: ED Elope Clinical Impression: Fall Qualifiers: Encounter type: initial encounter Qualified Code(s): W19.XXXA - Unspecified fall, initial encounter Nasal bone fracture Qualifiers: Encounter type: initial encounter Fracture type: closed Qualified Code(s): S02.2XXA - Fracture of nasal bones, initial encounter for closed fracture Orbital floor fracture Qualifiers: Encounter type: initial encounter Fracture type: closed Laterality: right Qualified Code(s): S02.31XA - Fracture of orbital floor, right side, initial encounter for closed fracture Condition: Stable Discharge Date/Time: 05/16/21 05:04
[2021-05-16 01:43] LABS: BASOPHILS # (AUTO) 0.1 10^3/uL (0.0-0.1); BASOPHILS % (AUTO) 0.4 %; EOSINOPHILS # (AUTO) 0.3 10^3/uL (0.0-0.7); EOSINOPHILS % (AUTO) 2.1 %; HCT - HEMATOCRIT 43.5 % (42.0-52.0); LYMPHOCYTES # (AUTO) 3.5 10^3/uL (1.5-3.5); LYMPHOCYTES % (AUTO) 28.9 %; MEAN CORPUSCULAR HGB CONC 32.2 g/dL (32.0-36.0); MEAN CORPUSCULAR VOLUME 96.2 fL (80.0-94.0); MEAN PLATELET VOLUME 11.4 fL (7.4-11.4); MONOCYTES # (AUTO) 1.1 10^3/uL (0.0-1.0); MONOCYTES % (AUTO) 8.8 %; NEUTROPHILS # (AUTO) 7.1 10^3/uL (1.5-6.6); NEUTROPHILS % (AUTO) 59.4 %; PLT - PLATELET COUNT 167 10^3/uL (130-450); RED BLOOD COUNT 4.52 10^6/uL (4.70-6.10); RED CELL DISTRIBUTION WIDTH 13.2 % (12.0-15.0)
[2021-05-16 01:50] LABS: CALCIUM 8.8 mg/dL (8.5-10.3); CREATININE 0.8 mg/dL (0.6-1.2); POTASSIUM 4.3 mmol/L (3.5-5.0)
--- NOTE | 2021-05-16 01:53 | CT Report ---
PROCEDURE: CERVICAL SPINE WO INDICATIONS: fall, neck pain TECHNIQUE: Noncontrast 3 mm thick sections acquired from the skull base to the T4 level. Sagittal and coronal r eformats were then constructed. For radiation dose reduction, the following was used: automated exp osure control, adjustment of mA and/or kV according to patient size. COMPARISON: None. FINDINGS: Image quality: Excellent. Bones: No fractures or dislocations. Straightening of the normal lordotic curvature. Scattered mult ilevel endplate spurring and diffuse facet arthropathy. Diffuse mild to moderate mid to lower cervica l disc space narrowing. Visualized superior ribs are intact. Soft tissues: Prevertebral soft tissues are normal in thickness. No paravertebral hematomas. No ap ical pneumothoraces. IMPRESSION: No acute fracture Reviewed by: Eleuterio Loomis MD on 05/16/2021 1:52 AM PST Approved by: Eleuterio Loomis MD on 05/16/2021 1:52 AM PST Station ID: [id number]
--- NOTE | 2021-05-16 02:00 | CT Report ---
PROCEDURE: ORBITS WO INDICATIONS: fall, head injury, right eye injury TECHNIQUE: Noncontrast 3.0 mm axial images acquired through the orbits. COMPARISON: None. FINDINGS: Image quality: Excellent. Orbits: Globes are symmetrical. No metallic foreign bodies. The optic nerves are normal in size. No retrobulbar masses or fat abnormalities. The extra-ocular muscles are normal and symmetrical in a ppearance. Lacrimal glands are normal in size. Optic chiasm is normal. Intracranial: Visualized portions of the cerebral hemispheres, brainstem, and spinal cord are normal . Bones and sinuses: Right nasal bone fracture. Right orbital floor fracture. There is presentation the region of the right ostiomeatal complex. Right periorbital and facial soft tissue swelling IMPRESSION: Right periorbital and facial soft tissue swelling. Normal CT appearance of the right globe and lens. No definite retro-orbital abnormality. Right nasal bone fracture. Right orbital floor fracture. Reviewed by: Eleuterio Babin MD on 05/16/2021 1:58 AM PST Approved by: Eleuterio Babin MD on 05/16/2021 1:58 AM PST Station ID: [id number]
--- NOTE | 2021-05-16 02:03 | CT Report ---
PROCEDURE: HEAD WO INDICATIONS: fall, head injury TECHNIQUE: Noncontrast 4.5 mm thick angled axial sections acquired from the foramen magnum to the vertex. For r adiation dose reduction, the following was used: automated exposure control, adjustment of mA and/or kV according to patient size. COMPARISON: None. FINDINGS: Image quality: Excellent. CSF spaces: Basal cisterns are patent. No extra-axial fluid collections. Ventricles are normal in size and shape. Brain: No midline shift. No intracranial masses. Hypodensity involving the left frontal region, whi ch could be extra-axial versus parenchymal Boudreaux-white matter interface is normal. Skull and face: Right nasal bone fracture. Right facial soft tissue swelling. Indeterminate Sinuses: Visualized sinuses and mastoids are clear. IMPRESSION: Right facial soft tissue swelling and right nasal bone fracture. 8 mm hyperdensity involving the left frontal region which is suspicious for extra-axial versus small petechial hemorrhage. Recommend follow-up in [address] Findings (including all critical results) and findings of the contemporaneous orbital CT and recommen dations were personally telephoned and discussed with Dr. Bob on 05-16-21 01:58 Reviewed by: Eleuterio Babin MD on 05/16/2021 2:02 AM PST Approved by: Eleuterio Babin MD on 05/16/2021 2:02 AM PST Station ID: [id number]
[2021-05-16 04:07] VITALS: BP 153/97
== END 2021-05-16 05:04 | disposition left against medical advice (07) ==
LOC: EDUNIT# → SUPCPDRO 23:07 → ED 23:07
DX: S01.111A Laceration without foreign body of right eyelid and periocular area, initial encounter (principal); S02.2XXA Fracture of nasal bones, initial encounter for closed fracture; S06.9X0A Unspecified intracranial injury without loss of consciousness, initial encounter; S02.31XA Fracture of orbital floor, right side, initial encounter for closed fracture; W22.8XXA Striking against or struck by other objects, initial encounter; W18.39XA Other fall on same level, initial encounter; Y92.002 Bathroom of unspecified non-institutional (private) residence as the place of occurrence of the external cause; I10 Essential (primary) hypertension; F17.200 Nicotine dependence, unspecified, uncomplicated
CPT/HCPCS: 0202U; 36415; 80048; 85025; 99283; 99284

== ENCOUNTER 2021-05-16 11:21 | Emergency (ER) | payer MEDICARE, MEDICAID ==
[2021-05-16 11:28] VITALS: BP 166/100
--- NOTE | 2021-05-16 12:24 | CT Report ---
PROCEDURE: HEAD WO INDICATIONS: possible bleed last night, recheck TECHNIQUE: Noncontrast 4.5 mm thick angled axial sections acquired from the foramen magnum to the vertex. For r adiation dose reduction, the following was used: automated exposure control, adjustment of mA and/or kV according to patient size. COMPARISON: 05/16/2021 at 0111 hours. FINDINGS: Image quality: Excellent. CSF spaces: Basal cisterns are patent. No extra-axial fluid collections. Ventricles are normal in size and shape. Brain: No midline shift. No intracranial masses or hemorrhage. Boudreaux-white matter interface is norm al. Skull and face: Calvarium and visualized facial bones are intact, without suspicious lesions. Sinuses: Visualized sinuses and mastoids are clear. IMPRESSION: 1. No acute intracranial disease process. 2. No intracranial hemorrhage. Reviewed by: Jackie Burnette MD, PhD on 05/16/2021 12:23 PM PST Approved by: Jackie Burnette MD, PhD on 05/16/2021 12:23 PM PST Station ID: [id number]
--- NOTE | 2021-05-16 13:00 | ED Physician Documentation ---
PD HPI HEAD INJURY - Stated complaint Stated Complaint: FACE INJURY/RETURN VISIT - Chief complaint Chief Complaint: Trauma Hd/Nk - History obtained from History obtained from: Patient - Additional information Additional information: Patient comes emergency department chief complaint of head injury yesterday and returning to find out CT results. Patient states that yesterday while in the emergency department, he had a panic attack and became upset and left. Patient states he was called at home and told to come back. He states he feels very contrite and regretful about his behavior yesterday and just wants to make sure everything is okay. The patient denies any new pain or other symptoms since leaving. No vomiting, increasing headache, or neurologic compromise. He states he continues to have little bit of blurry vision in his right eye but this does not seem to be worsening. No diplopia. Review of patient's records reveals that he had CT scans of the cervical spine, which was unremarkable, the face, which showed nondisplaced nasal bone and orbital floor fractures on the right, and a head CT, which showed a possible petechial hemorrhage in the left frontal lobe. A repeat CT was recommended in 6 hours, but the patient had already left the emergency department. Review of Systems Ten Systems: 10 systems reviewed and negative Constitutional: reports: Reviewed and negative Eyes: reports: Reviewed and negative Ears: reports: Reviewed and negative Nose: reports: Reviewed and negative Throat: reports: Reviewed and negative Cardiac: reports: Reviewed and negative Respiratory: reports: Reviewed and negative GI: reports: Reviewed and negative : reports: Reviewed and negative Skin: reports: Reviewed and negative Musculoskeletal: reports: Reviewed and negative Neurologic: reports: Head injury Psychiatric: reports: Reviewed and negative Endocrine: reports: Reviewed and negative Immunocompromised: reports: Reviewed and negative PD PAST MEDICAL HISTORY - Past Medical History Cardiovascular: None, Hypertension Respiratory: None, Other Endocrine/Autoimmune: None GI: GERD, Hiatal hernia : Other HEENT: None Psych: Bipolar disorder, Depression, Anxiety, Post traumatic stress disorder, Other Musculoskeletal: None, Chronic back pain Derm: Other - Past Surgical History Past Surgical History: Yes General: EGD, Colonoscopy Ortho: Other Derm: Skin grafts - Present Medications Home Medications: Ambulatory Orders Medication Instructions Recorded Confirmed OLANZapine [Zyprexa] 20 mg PO DAILY PM 12/19/14 09/21/20 Gabapentin 400 mg QID 12/02/17 09/21/20 Lansoprazole [Prevacid] 15 mg PO DAILY 08/23/19 09/21/20 Escitalopram Oxalate [Lexapro] 5 mg PO QPM 12/19/19 09/21/20 buprenorphine HCL [Buprenorphine 8 mg SL BID 09/21/20 09/21/20 HCl] Cefpodoxime Proxetil [Vantin] 100 mg PO Q12H #14 tablet 05/16/21 - Allergies Allergies/Adverse Reactions: Allergies Allergy/AdvReac Type Severity Reaction Status Date / Time Penicillins Allergy Intermediate Edema Verified 05/16/21 11:25 tramadol Allergy Intermediate Edema Verified 05/16/21 11:25 Cephalosporins Allergy Unknown Verified 05/16/21 11:25 morphine Allergy Anaphylaxis Verified 05/16/21 11:25 paliperidone [From Invega] Allergy painful Verified 05/16/21 11:25 erections Sulfa (Sulfonamide Allergy Unknown Verified 05/16/21 11:25 Antibiotics) ibuprofen AdvReac Nausea Verified 05/16/21 11:25 lurasidone HCl * AdvReac Itching Verified 05/16/21 11:25 [From Latuda] - Social History Does the pt smoke?: Yes Smoking Status: Current every day smoker Does the pt drink ETOH?: No Does the pt have substance abuse?: Yes Substance Use and Type: Marijuana - Immunizations Immunizations are current?: Yes - POLST Patient has POLST: No PD ED PE NORMAL - Vitals Vital signs reviewed: Yes - General General: Alert and oriented X 3, No acute distress, Well developed/nourished - HEENT HEENT: PERRL, EOMI, Moist mucous membranes, Other (Moderate edema periorbitally on the right, with periorbital contusion. No entrapment. 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, Normal speech - Psych Psych: Normal mood, Normal affect Results - Vitals Vitals: Vital Signs - 24 hr 05/16/21 05/16/21 11:25 11:35 Temperature 36.8 C Heart Rate 90 Respiratory 18 18 Rate Blood Pressure 166/100 H O2 Saturation 94 Oxygen O2 Source Room air - Rads (name of study) CT head Radiology: Final report received, EMP read indepedently, See rad report (Negative) PD MEDICAL DECISION MAKING - ED course Complexity details: reviewed results, re-evaluated patient, considered differential, d/w patient ED course: The patient was sent for repeat head CT, which was read as negative by the radiologist. He was started on antibiotics for his orbital floor fracture. I discussed with him that he will need to follow-up with maxillofacial surgery regarding his orbital floor fracture. He does not have any entrapment and should continue the antibiotics. We discussed the usual indications for return. Departure - Departure Disposition: 01 Home, Self Care Clinical Impression: Orbital floor fracture Qualifiers: Encounter type: initial encounter Fracture type: closed Laterality: right Qualified Code(s): S02.31XA - Fracture of orbital floor, right side, initial encounter for closed fracture Closed head injury Qualifiers: Encounter type: initial encounter Qualified Code(s): S09.90XA - Unspecified injury of head, initial encounter Nasal bone fracture Qualifiers: Encounter type: initial encounter Fracture type: closed Qualified Code(s): S02.2XXA - Fracture of nasal bones, initial encounter for closed fracture Condition: Stable Instructions: ED Head Injury Closed, ED Fx Face, ED Fx Nasal Conf W X Ray Follow-Up: YOEL JENSEN [Physician No Access] - Yoel Jensen DDS [Provider Admit Priv/Credential] - Prescriptions: Cefpodoxime Proxetil [Vantin] 100 mg PO Q12H #14 tablet Comments: Your CT scan of the head today showed no evidence of any bleeding. Your CT scan of the face from yesterday showed breaks in both the bone of your nose as well as the bottom of your eye socket. It is important you take antibiotics for this, as the bacteria from the sinus, which sits right underneath the bottom of your eye socket, can spread up into your eye socket when the bone is broken. Is important that you follow-up with Dr. Jensen, the maxillofacial surgeon, to determine whether you need a surgical repair or not.
[2021-05-16] MEDS: CEFPODOXIME PROXETIL 100 MG TABLET PO STA (13:02)
== END 2021-05-16 13:19 | disposition home or self-care (01) ==
LOC: ED 11:21
DX: S01.111A Laceration without foreign body of right eyelid and periocular area, initial encounter (principal); S02.2XXA Fracture of nasal bones, initial encounter for closed fracture; S06.9X0A Unspecified intracranial injury without loss of consciousness, initial encounter; S02.31XA Fracture of orbital floor, right side, initial encounter for closed fracture; W22.8XXA Striking against or struck by other objects, initial encounter; W18.39XA Other fall on same level, initial encounter; Y92.002 Bathroom of unspecified non-institutional (private) residence as the place of occurrence of the external cause; I10 Essential (primary) hypertension; F17.200 Nicotine dependence, unspecified, uncomplicated
CPT/HCPCS: 36415; 70450; 70480; 72125; 80048; 85025; 99283; 99284; A9270; 0202U

== ENCOUNTER 2021-05-23 10:25 | Outpatient (CLI) | payer MEDICARE, MEDICAID ==
--- NOTE | 2021-05-23 12:08 | XRAY Report ---
PROCEDURE: Chest 2 View X-Ray INDICATIONS: ACUTE BRONCHITIS TECHNIQUE: 2 view(s) of the chest. COMPARISON: February 09, 2021. FINDINGS: SUPPORT DEVICES: None. LUNGS/PLEURA: No focal consolidation, pleural effusion or space-occupying pneumothorax. MEDIASTINUM: The cardiomediastinal silhouette is within normal limits. BONES/SOFT TISSUES: No acute abnormality. IMPRESSION: 1.No acute cardiopulmonary abnormality. Reviewed by: Jonathan Cary MD on 05/23/2021 12:06 PM [facility] Approved by: Jonathan Cary MD on 05/23/2021 12:06 PM [facility] Station ID: [id number]
== END 2021-05-23 10:26 | disposition home or self-care (01) ==
LOC: DI.N 10:25
PROVIDERS: ATTEND Family Medicine
DX: J20.9 Acute bronchitis, unspecified (principal); R05.9 Cough, unspecified

== ENCOUNTER 2021-06-26 08:00 | Outpatient (CLI) | payer MEDICARE, MEDICAID | END 2021-06-26 23:59 | LOC: LAB.N 08:00 | PROVIDERS: ATTEND Nurse Practitioner | DX: R05.9 Cough, unspecified (principal); R06.2 Wheezing; Z20.822 Contact with and (suspected) exposure to COVID-19 | CPT/HCPCS: 87275; 87276; U0004 ==

== ENCOUNTER 2021-09-12 14:29 | Outpatient (CLI) | payer MEDICARE, MEDICAID | END 2021-09-12 14:30 | disposition EMS.NT | LOC: EMS 14:29 | DX: F41.9 Anxiety disorder, unspecified (principal); I10 Essential (primary) hypertension ==

== ENCOUNTER 2022-03-21 08:35 | Outpatient (CLI) | payer MEDICARE, MEDICAID ==
[2022-03-21 12:06] LABS: BASOPHILS # (AUTO) 0.1 10^3/uL (0.0-0.1); BASOPHILS % (AUTO) 0.5 %; EOSINOPHILS # (AUTO) 0.2 10^3/uL (0.0-0.7); EOSINOPHILS % (AUTO) 1.9 %; HCT - HEMATOCRIT 45.4 % (42.0-52.0); HGB - HEMOGLOBIN 15.2 g/dL (14.0-18.0); LYMPHOCYTES # (AUTO) 3.1 10^3/uL (1.5-3.5); LYMPHOCYTES % (AUTO) 34.4 %; MEAN CORPUSCULAR HEMOGLOBIN 31.8 pg (27.0-31.0); MEAN CORPUSCULAR HGB CONC 33.5 g/dL (32.0-36.0); MEAN PLATELET VOLUME 10.9 fL (7.4-11.4); MONOCYTES # (AUTO) 0.6 10^3/uL (0.0-1.0); NEUTROPHILS # (AUTO) 5.1 10^3/uL (1.5-6.6); NEUTROPHILS % (AUTO) 55.7 %; PLT - PLATELET COUNT 222 10^3/uL (130-450); RED BLOOD COUNT 4.78 10^6/uL (4.70-6.10); RED CELL DISTRIBUTION WIDTH 13.6 % (12.0-15.0); WHITE BLOOD COUNT 9.1 x10^3/uL (4.8-10.8)
[2022-03-21 12:42] LABS: ALBUMIN 3.9 g/dL (3.2-5.5); ALBUMIN/GLOBULIN RATIO 1.4 (1.0-2.2); ALKALINE PHOSPHATASE 91 IU/L (42-121); ALT ALANINE AMINOTRANSFERASE 24 IU/L (10-60); AST ASPARTATE AMINOTRANSFERASE 24 IU/L (10-42); BILIRUBIN,TOTAL 0.8 mg/dL (0.2-1.0); BUN - BLOOD UREA NITROGEN 10 mg/dL (6-20); CALCIUM 8.8 mg/dL (8.5-10.3); CARBON DIOXIDE - CO2 31 mmol/L (21-32); CHLORIDE 102 mmol/L (101-111); CHOL/HDL RATIO 4.9 (<5.0); CHOLESTEROL 171 mg/dL; CREATININE 0.8 mg/dL (0.6-1.2); GFR - MDRD 107 (>89); GLUCOSE 96 mg/dL (70-100); HDL CHOLESTEROL 35 mg/dL; LDL CHOLESTEROL,CALCULATED 104 mg/dL; POTASSIUM 4.1 mmol/L (3.5-5.0); SODIUM 137 mmol/L (135-145); THYROID STIMULATING HORMONE 0.86 uIU/mL (0.34-5.60); TOTAL PROTEIN 6.7 g/dL (6.7-8.2); TRIGLYCERIDES 159 mg/dL; VLDL CHOLESTEROL 32 mg/dL
[2022-03-21 12:56] LABS: ESTIMATED AVERAGE GLUCOSE 114 mg/dL (70-100); HEMOGLOBIN A1c% 5.6 % (4.27-6.07)
== END 2022-03-21 08:36 | disposition home or self-care (01) ==
LOC: LAB.N 08:35
PROVIDERS: ATTEND Nurse Practitioner
DX: R53.83 Other fatigue (principal); Z13.220 Encounter for screening for lipoid disorders; E66.9 Obesity, unspecified; R06.02 Shortness of breath
CPT/HCPCS: 36415; 80053; 80061; 83036; 83721; 83880; 84443; 85025

== ENCOUNTER 2022-04-21 09:07 | Outpatient (CLI) | payer MEDICARE, MEDICAID | END 2022-04-21 09:08 | disposition critical access hospital (66) | LOC: EMS 09:07 | DX: R53.1 Weakness (principal); R47.81 Slurred speech; R45.89 Other symptoms and signs involving emotional state | CPT/HCPCS: A0425; A0429 ==

== ENCOUNTER 2022-04-21 09:27 | Emergency (ER) | payer MEDICARE, MEDICAID ==
[2022-04-21] MEDS ORDERED: iohexoL-300 100 ML VIAL IVP ONE (09:50)
[2022-04-21] MEDS ORDERED: iohexoL-300 100 ML VIAL ONE (09:55)
--- NOTE | 2022-04-21 10:01 | CT Report ---
PROCEDURE: Head W/O Contrast - Stroke Protocol INDICATIONS: Neuro deficit, acute, stroke suspected TECHNIQUE: Noncontrast 4.5 mm thick angled axial sections acquired from the foramen magnum to the vertex, with c oronal reformats. For radiation dose reduction, the following was used: automated exposure control, adjustment of mA and/or kV according to patient size. COMPARISON: FINDINGS: Image quality: Excellent. CSF spaces: Basal cisterns are patent. No extra-axial fluid collections. Ventricles are normal in size and shape. Brain: No midline shift. No intracranial masses or hemorrhage. Boudreaux-white matter interface is norm al. Skull and face: Calvarium and visualized facial bones are intact, without suspicious lesions. Sinuses: Visualized sinuses and mastoids are clear. IMPRESSION: Unremarkable CT brain This study fulfills neurological imaging criteria for inclusion or exclusion of acute stroke therapie s based on available published neurological imaging guidelines. Note: Critical results were discussed with Dr. Armstrong at 8:59 AM [place] time on 04/21/2022 Reviewed by: Rod Gann MD on 04/21/2022 9:00 AM AKST Approved by: Rod Gann MD on 04/21/2022 9:00 AM AKST Station ID: [id number]
--- NOTE | 2022-04-21 10:08 | CT Report ---
PROCEDURE: CT angiogram neck with contrast INDICATIONS: CVA CONTRAST: 80ml omni 300 TECHNIQUE: After the administration of intravenous contrast, 1.5 mm axial sections acquired from the aortic arch to the [place]. For radiation dose reduction, the following was used: automated exposure control, adjustment of mA and/or kV according to patient size. COMPARISON: None. FINDINGS: Image quality: Excellent. Carotid system: The great vessels demonstrate a conventional anatomy as they arise from the aortic a rch. The origins of the common carotid arteries appear patent. The common carotid arteries demonstr ate normal calibers and courses. The bifurcation regions appear normal bilaterally. The internal ca rotid arteries demonstrate normal caliber and course. Posterior circulation: The origins of the vertebral arteries appear patent. The more superior porti ons of the vertebral arteries demonstrate normal course and caliber. They join to form a normal appe aring basilar artery. Soft tissues: Visualized neck soft tissues demonstrate no suspicious abnormalities. The thyroid is normal in size and there are no incidental findings. Incidental submandibular adenopathy measures up to 1.2 cm Bones: No suspicious bony lesions. Visualized cervical spine appears normally aligned. Degenerati ve disc disease and arthropathy in the cervical spine. IMPRESSION: Unremarkable CT angiogram the neck. No stenosis. Incidental degenerative disc disease and arthropathy in the cervical spine The estimate of stenosis included in the report of the imaging study was calculated using the NASCET method Reviewed by: Rod Gann MD on 04/21/2022 9:06 AM [place] Approved by: Rod Gann MD on 04/21/2022 9:06 AM [place] Station ID: [id number]
--- NOTE | 2022-04-21 10:12 | CT Report ---
PROCEDURE: CT angiogram brain with contrast INDICATIONS: CVA CONTRAST: 80ml omni 300 TECHNIQUE: Precontrast 4.5 mm thick angled axial sections acquired from the foramen magnum to the ve rtex. After the administration of intravenous contrast, 1 mm thick sections acquired through the Ci rcle of [place]. Postcontrast 4.5 mm thick sections then re-acquired from the foramen magnum to the v ertex. For radiation dose reduction, the following was used: automated exposure control, adjustment of mA and/or kV according to patient size. COMPARISON: None FINDINGS: Image quality: Excellent. Anterior circulation: Intracranial internal carotid arteries are normal in size and flow. The flow within the paired anterior cerebral arteries is normal and symmetric. The flow within the middle cer ebral arteries is normal and symmetric. The anterior communicating artery is seen. No aneurysms are seen. Posterior circulation: Visualized portions of the vertebral arteries demonstrate normal caliber, and join to form a normal appearing basilar artery. Flow within the posterior cerebral arteries is norm al and symmetric. No aneurysms are seen. CSF spaces: Ventricles are normal in size and shape. Basal cisterns are patent. No extra-axial flu id collections. Brain: No midline shift. No intracranial bleeds or masses. Boudreaux-white matter interface appears int act. Skull and face: Calvarium and facial bones appear intact, without suspicious lesions. Sinuses: Visualized sinuses and mastoids are clear. IMPRESSION: Unremarkable CT angiogram of the brain. No large vessel occlusion, aneurysm or vascular malformation Reviewed by: Rod Gann MD on 04/21/2022 9:[address] [facility] Approved by: Rod Gann MD on 04/21/2022 9:[address] [facility] Station ID: [id number]
--- NOTE | 2022-04-21 10:16 | ED Physician Documentation ---
History of Present Illness - Stated complaint Stated Complaint: R SIDED WEAKNESS - Additonal information Additional information: Patient 41-year-old malePast medical significant for hypertension, depression, anxiety, chronic back pain presenting to the emergency department with right- sided weakness. Reports for 1 week he has been having episodes of left-sided facial numbness and left upper extremity weakness. Today woke up with a pain in the back of his neck. States that this developed into right-sided facial numbness and right upper extremity weakness this morning at approximately 8:20 AM. Review of Systems Ten Systems: 10 systems reviewed and negative Constitutional: denies: Fever Eyes: denies: Loss of vision Ears: denies: Loss of hearing Nose: denies: Rhinorrhea / runny nose Throat: denies: Dental pain / toothache Cardiac: denies: Chest pain / pressure Respiratory: denies: Dyspnea GI: denies: Abdominal Pain, Nausea, Vomiting : denies: Dysuria Skin: denies: Rash Musculoskeletal: reports: Neck pain Neurologic: reports: Focal weakness, Numbness Psychiatric: denies: Depressed Endocrine: denies: Polydypsia PD PAST MEDICAL HISTORY - Past Medical History Cardiovascular: None, Hypertension Respiratory: None, Other Endocrine/Autoimmune: None GI: GERD, Hiatal hernia : Other HEENT: None Psych: Bipolar disorder, Depression, Anxiety, Post traumatic stress disorder, Other Musculoskeletal: None, Chronic back pain Derm: Other - Past Surgical History Past Surgical History: Yes General: EGD, Colonoscopy Ortho: Other Derm: Skin grafts - Present Medications Home Medications: Ambulatory Orders Medication Instructions Recorded Confirmed OLANZapine [Zyprexa] 20 mg PO DAILY PM 12/19/14 04/21/22 Lansoprazole [Prevacid] 15 mg PO DAILY 08/23/19 04/21/22 Escitalopram Oxalate [Lexapro] 5 mg PO QPM 12/19/19 04/21/22 buprenorphine HCL [Buprenorphine 8 mg SL BID 09/21/20 04/21/22 HCl] Aspirin EC [Ecotrin] 325 mg PO DAILY #30 tablet 04/21/22 Furosemide [Lasix] 20 mg PO DAILY 04/21/22 04/21/22 Gabapentin [Neurontin] 600 mg PO TID 04/21/22 04/21/22 hydroCHLOROthiazide [Hydrodiuril] 25 mg PO DAILY 04/21/22 04/21/22 - Allergies Allergies/Adverse Reactions: Allergies Allergy/AdvReac Type Severity Reaction Status Date / Time Penicillins Allergy Intermediate Edema Verified 04/21/22 09:51 tramadol Allergy Intermediate Edema Verified 04/21/22 09:51 Cephalosporins Allergy Unknown Verified 04/21/22 09:51 morphine Allergy Anaphylaxis Verified 04/21/22 09:51 paliperidone [From Invega] Allergy painful Verified 04/21/22 09:51 erections Sulfa (Sulfonamide Allergy Unknown Verified 04/21/22 09:51 Antibiotics) ibuprofen AdvReac Nausea Verified 04/21/22 09:51 lurasidone HCl * AdvReac Itching Verified 04/21/22 09:51 [From Latuda] - Social History Does the pt smoke?: Yes Smoking Status: Current every day smoker Does the pt drink ETOH?: No Does the pt have substance abuse?: Yes - Immunizations Immunizations are current?: Yes - POLST Patient has POLST: No PD ED PE NORMAL - Vitals Vital signs reviewed: Yes - General General: Alert and oriented X 3, No acute distress, Well developed/nourished - HEENT HEENT: Atraumatic - Neck Neck: Supple, no meningeal sign, No bony TTP, No adenopathy, Thyroid normal - Cardiac Cardiac: RRR, No gallop, Strong equal pulses - Respiratory Respiratory: No respiratory distress, Clear bilaterally - Abdomen Abdomen: Normal bowel sounds - Male Male : Deferred - Rectal Rectal: Deferred - Back Back: No CVA TTP, No spinal TTP - Derm Derm: Normal color - Extremities Extremities: No deformity, No edema - Neuro Neuro: Alert and oriented X 3, No sensory deficit, Normal speech, Other (Right- sided facial droop, right upper extremity 4/5) Results - Vitals Vitals: Vital Signs - 24 hr 04/21/22 04/21/22 04/21/22 09:51 10:25 12:16 Temperature 36.6 C Heart Rate 72 67 62 Respiratory 18 14 12 Rate Blood Pressure 137/89 H 129/82 H 114/74 O2 Saturation 95 92 94 Oxygen O2 Source Room air - EKG (time done) 1056 Rate: Rate (enter#) (67) Rhythm: NSR [place]: Normal Intervals: Normal UT QRS: Normal Ischemia: Normal ST segments Compare to prior EKG: Old EKG unavailable Computer interpretation: Agree with computer - Labs Labs: Laboratory Tests 04/21/22 04/21/22 10:26 10:26 WBC 8.7 RBC 4.55 L Hgb 14.1 Hct 44.0 MCV 96.7 H MCH 31.0 MCHC 32.0 RDW 13.6 Plt Count 167 MPV 11.2 Neut # (Auto) 4.8 Lymph # (Auto) 3.0 [place] # (Auto) 0.6 Eos # (Auto) 0.2 Baso # (Auto) 0.0 Absolute Nucleated RBC 0.00 Nucleated RBC % 0.0 Sodium 138 Potassium 3.8 Chloride 98 L Carbon Dioxide 30 Anion Gap 10.0 BUN 13 Creatinine 1.0 Estimated GFR (MDRD) 82 L Glucose 90 Calcium 8.6 Total Bilirubin 0.5 AST 35 ALT 24 Alkaline Phosphatase 96 Total Protein 6.9 Albumin 4.2 Globulin 2.7 Albumin/Globulin Ratio 1.6 Lipase 45 PD MEDICAL DECISION MAKING - ED course Complexity details: reviewed results, re-evaluated patient, d/w patient ED course: Patient 41-year-old male presenting to the emergency department with right-sided facial droop and right upper extremity weakness. Some facial droop and strength differential noted on initial evaluation. Stroke protocol was started in the emergency department. Blood sugars were reported to be normal per EMS. Patient protecting his airway on arrival. Sent directly for CT. CT, CTA of the head and neck were both benign. Labs obtained in the emergency department were also within normal limits are generally nonactionable. EKG nonacute. On reevaluation patient symptoms had resolved.Overall his presentation is concerning for transient ischemic attack. He does have history of hypertension but was notably hypertensive while in the emergency department. He was offered hospitalization which he is declined at this time. A long and detailed discussion with him about the possibility of recurrent, worsening or remarkable/irreversible symptoms. We discussed the possibility of permanent disability and . He verbalized understanding of these things. 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 Given that his symptoms have resolved at this time and the benign imaging we have available of his head and neck I will initiate a regular strength aspirin and refer for follow-up with primary care. He was given clear follow-up instructions as well as explicit return precautions prior to discharge. Departure - Departure Disposition: 01 Home, Self Care Clinical Impression: TIA (transient ischemic attack) Instructions: ED Transient Ischemic Attack Prescriptions: Aspirin EC [Ecotrin] 325 mg PO DAILY #30 tablet Comments: Thank you for allowing us to care for you today at [facility]. Today in the emergency department you are diagnosed with a transient ischemic attack. As we discussed the chest and we are able to perform in the emergency department today including the CT of your head as well as the scans of the blood vessels in your neck and the base of your brain were all very reassuring howev er I am concerned that You are experiencing what are known as transient ischemic attacks, sometimes referred to as "mini strokes". These are strokelike symptoms that resolved within 24 hours of the onset and can sometimes predict an increased risk for massive or irreversible stroke. You were offered hospitalization which at this time you have declined. I would like you to begin taking a full-strength aspirin daily to decrease your risk. It is very important that you follow-up with your primary care doctor soon as possible in order to make an appointment for medical recheck and further test ing. If it anytime your symptoms return or you have similar symptoms of facial numbness, weakness or weakness that lateralizes to 1 side of your body it is very important that you contact emergency medical services and return to the emergency department as soon as possible.
[2022-04-21 10:31] LABS: BASOPHILS % (AUTO) 0.5 %; EOSINOPHILS # (AUTO) 0.2 10^3/uL (0.0-0.7); EOSINOPHILS % (AUTO) 2.6 %; HGB - HEMOGLOBIN 14.1 g/dL (14.0-18.0); MEAN CORPUSCULAR VOLUME 96.7 fL (80.0-94.0); MEAN PLATELET VOLUME 11.2 fL (7.4-11.4); MONOCYTES # (AUTO) 0.6 10^3/uL (0.0-1.0); MONOCYTES % (AUTO) 6.8 %; NEUTROPHILS # (AUTO) 4.8 10^3/uL (1.5-6.6); NEUTROPHILS % (AUTO) 54.8 %; PLT - PLATELET COUNT 167 10^3/uL (130-450); RED BLOOD COUNT 4.55 10^6/uL (4.70-6.10); RED CELL DISTRIBUTION WIDTH 13.6 % (12.0-15.0); WHITE BLOOD COUNT 8.7 x10^3/uL (4.8-10.8)
[2022-04-21 10:46] LABS: ALBUMIN 4.2 g/dL (3.2-5.5); ALBUMIN/GLOBULIN RATIO 1.6 (1.0-2.2); BILIRUBIN,TOTAL 0.5 mg/dL (0.2-1.0); CALCIUM 8.6 mg/dL (8.5-10.3); POTASSIUM 3.8 mmol/L (3.5-5.0); TOTAL PROTEIN 6.9 g/dL (6.7-8.2)
[2022-04-21] MEDS ORDERED: ASPIRIN 325 MG TABLET PO STA (13:05)
[2022-04-21 13:18] VITALS: BP 116/73
== END 2022-04-21 13:36 | disposition home or self-care (01) ==
LOC: EDUNIT# → ED 09:27
DX: G45.9 Transient cerebral ischemic attack, unspecified (principal); I10 Essential (primary) hypertension; F43.10 Post-traumatic stress disorder, unspecified; F31.9 Bipolar disorder, unspecified; F41.9 Anxiety disorder, unspecified
CPT/HCPCS: 36415; 70450; 70496; 70498; 80053; 83690; 85025; 93005; 99283; 99284; A9270; Q9967

== ENCOUNTER 2022-07-01 09:02 | Outpatient (CLI) | payer MEDICARE, MEDICAID ==
[2022-07-01 12:08] LABS: CALCIUM 9.3 mg/dL (8.5-10.3); CREATININE 0.9 mg/dL (0.6-1.2); POTASSIUM 4.3 mmol/L (3.5-5.0)
== END 2022-07-01 09:03 | disposition home or self-care (01) ==
LOC: LAB.N 09:02
PROVIDERS: ATTEND Family Medicine
DX: R60.0 Localized edema (principal)
CPT/HCPCS: 36415; 80048

== ENCOUNTER 2022-08-05 11:24 | Outpatient (CLI) | payer MEDICARE, MEDICAID ==
[2022-08-05 17:53] LABS: CALCIUM 10.2 mg/dL (8.5-10.3); POTASSIUM 4.7 mmol/L (3.5-5.0)
== END 2022-08-05 11:25 | disposition home or self-care (01) ==
LOC: LAB.N 11:24
PROVIDERS: ATTEND Family Medicine
DX: R60.0 Localized edema (principal)
CPT/HCPCS: 36415; 80048

== ENCOUNTER 2022-08-31 12:53 | Outpatient (CLI) | payer MEDICARE, MEDICAID | END 2022-08-31 12:58 | disposition left against medical advice (07) | LOC: EMS 12:53 | DX: U07.1 COVID-19 (principal); F41.9 Anxiety disorder, unspecified ==

== ENCOUNTER 2022-11-02 08:24 | Outpatient (CLI) | payer MEDICARE, MEDICAID | END 2022-11-02 08:25 | disposition critical access hospital (66) | LOC: EMS 08:24 | DX: R53.1 Weakness (principal); R42 Dizziness and giddiness; R45.1 Restlessness and agitation | CPT/HCPCS: A0425; A0429 ==

== ENCOUNTER 2022-11-02 08:47 | Emergency (ER) | payer MEDICARE, MEDICAID ==
[2022-11-02] MEDS ORDERED: SODIUM CHLORIDE 0.9% 1,000 ML IV STA (08:55)
[2022-11-02] MEDS ORDERED: cefTRIAXone 1 GM in SODIUM CHLORIDE 0.9% MINIBAG 100 ML IV STA (08:55)
[2022-11-02] MEDS ORDERED: DEXAMETHASONE 10 MG/ML VIAL IVP STA (08:56)
--- NOTE | 2022-11-02 09:01 | ED Physician Documentation ---
History of Present Illness - Stated complaint Stated Complaint: GEN WEAKNESS - History obtained from History obtained from: Patient, EMS - History of Present Illness Timing: How many days ago (3) - Additonal information Additional information: 40-year-old male reports 3 days of facial pain sinus congestion cough with dyspnea diaphoresis and weakness. Today his chief complaint is weakness. He feels it is difficult to even lift something with his arms. He feels lightheaded and dizzy. He has an inhaler and this has not been helping. He has been in to see the urologist recently was told he has some urinary retention. He has been having dysuria for the past 6 months. He was started on Flomax and has not started this medication yet. He indicates he has fluid retention and takes furosamide. Review of Systems Constitutional: reports: Chills, Sweats. denies: Fever Eyes: denies: Decreased vision Ears: denies: Ear pain Nose: reports: Rhinorrhea / runny nose, Congestion, Sinus pressure / pain Throat: reports: Sore throat Cardiac: denies: Chest pain / pressure, Palpitations Respiratory: reports: Dyspnea, Cough, Wheezing GI: denies: Abdominal Pain, Nausea, Vomiting, Constipation, Diarrhea : reports: Dysuria (Chronically for the past 6 months) PD PAST MEDICAL HISTORY - Past Medical History Cardiovascular: None, Hypertension Respiratory: None, Other Neuro: CVA, Migraines, Seizure disorder Endocrine/Autoimmune: None GI: GERD, Hiatal hernia : Other HEENT: None Psych: Bipolar disorder, Depression, Anxiety, Post traumatic stress disorder, Other Musculoskeletal: None, Chronic back pain Derm: Other - Past Surgical History Past Surgical History: Yes General: EGD, Colonoscopy Ortho: Other Derm: Skin grafts - Present Medications Home Medications: Ambulatory Orders Medication Instructions Recorded Confirmed OLANZapine [Zyprexa] 20 mg PO DAILY PM 12/19/14 04/21/22 Lansoprazole [Prevacid] 15 mg PO DAILY 08/23/19 04/21/22 Escitalopram Oxalate [Lexapro] 5 mg PO QPM 12/19/19 04/21/22 buprenorphine HCL [Buprenorphine 8 mg SL BID 09/21/20 04/21/22 HCl] Aspirin EC [Ecotrin] 325 mg PO DAILY #30 tablet 04/21/22 Furosemide [Lasix] 20 mg PO DAILY 11/06/22 11/06/22 Gabapentin [Neurontin] 600 mg PO TID 04/21/22 04/21/22 Cefdinir 300 mg PO BID #20 cap 11/02/22 - Allergies Allergies/Adverse Reactions: Allergies Allergy/AdvReac Type Severity Reaction Status Date / Time Penicillins Allergy Intermediate Edema Verified 11/02/22 09:10 tramadol Allergy Intermediate Edema Verified 11/02/22 09:10 Cephalosporins Allergy Unknown Verified 11/02/22 09:10 morphine Allergy Anaphylaxis Verified 11/02/22 09:10 paliperidone [From Invega] Allergy painful Verified 11/02/22 09:10 erections Sulfa (Sulfonamide Allergy Unknown Verified 11/02/22 09:10 Antibiotics) ibuprofen AdvReac Nausea Verified 11/02/22 09:10 lurasidone HCl * AdvReac Itching Verified 11/02/22 09:10 [From Latuda] - Social History Does the pt smoke?: Yes Smoking Status: Current every day smoker Does the pt drink ETOH?: No Does the pt have substance abuse?: Yes - Immunizations Immunizations are current?: Yes - POLST Patient has POLST: No PD ED PE NORMAL - Vitals Vital signs reviewed: Yes - General General: Alert and oriented X 3, No acute distress, Well developed/nourished, Other (appears to have been sweating with wet hair. no distress) - HEENT HEENT: Atraumatic, PERRL, EOMI, Other (both TM's are centrally erythemataous with distortion of the landmarks, .pharynx is generally inflammed) - Neck Neck: Supple, no meningeal sign, No bony TTP - Cardiac Cardiac: RRR, No murmur - Respiratory Respiratory: No respiratory distress, Other (scattered wheezes with fair air movement. ) - Abdomen Abdomen: Soft, Non tender - Back Back: No CVA TTP, No spinal TTP - Derm Derm: Normal color, Warm and dry, No rash - Extremities Extremities: No deformity, No edema - Neuro Neuro: Alert and oriented X 3, bowling ball grader and marker 2-12 intact, No motor deficit, No sensory deficit, Normal speech Eye Opening: Spontaneous Motor: Obeys Commands Verbal: Oriented GCS Score: 15 - Psych Psych: Normal mood, Normal affect Results - Vitals Vitals: Vital Signs - 24 hr 11/02/22 09:06 Temperature 36.8 C Heart Rate 74 Respiratory 20 Rate Blood Pressure 134/94 H O2 Saturation 100 Oxygen O2 Source Room air - Labs Labs: Laboratory Tests 11/02/22 11/02/22 11/02/22 09:25 09:25 09:25 WBC 8.3 RBC 4.81 Hgb 14.8 Hct 45.1 MCV 93.8 MCH 30.8 MCHC 32.8 RDW 13.6 Plt Count 184 MPV 11.2 Neut # (Auto) 5.5 Lymph # (Auto) 2.3 [place] # (Auto) 0.5 Eos # (Auto) 0.0 Baso # (Auto) 0.0 Absolute Nucleated RBC 0.00 Nucleated RBC % 0.0 Sodium 138 Potassium 4.3 Chloride 101 Carbon Dioxide 27 Anion Gap 10.0 BUN 18 Creatinine 0.8 Estimated GFR (MDRD) 106 Glucose 96 Calcium 9.1 Total Bilirubin 0.8 AST 25 ALT 19 Alkaline Phosphatase 98 Total Protein 7.5 Albumin 4.5 Globulin 3.0 Albumin/Globulin Ratio 1.5 Lipase 42 Urine Color Urine Clarity Urine pH Ur Specific [place] Urine Protein Urine Glucose (UA) Urine Ketones Urine Occult Blood Urine Nitrite Urine Bilirubin Urine Urobilinogen Ur Leukocyte Esterase Ur Microscopic Review Urine Culture Comments Nasal Adenovirus (PCR) NOT DETECTED Nasal B. parapertussis DNA (PCR) NOT DETECTED Nasal Coronavir 229E PCR NOT DETECTED Nasal Coronavir HKU1 PCR NOT DETECTED Nasal Coronavir NL63 PCR NOT DETECTED Nasal Coronavir OC43 PCR NOT DETECTED Nasal Enterovir/Rhinovir PCR NOT DETECTED Nasal Influenza B PCR NOT DETECTED Nasal Influenza A PCR NOT DETECTED Nasal Parainfluen 1 PCR NOT DETECTED Nasal Parainfluen 2 PCR NOT DETECTED Nasal Parainfluen 3 PCR NOT DETECTED Nasal Parainfluen 4 PCR NOT DETECTED Nasal RSV (PCR) NOT DETECTED Nasal B.pertussis DNA PCR NOT DETECTED Nasal C.pneumoniae (PCR) NOT DETECTED Naveed Human Metapneumo PCR NOT DETECTED Nasal M.pneumoniae (PCR) NOT DETECTED Nasal SARS-CoV-2 (PCR) NOT DETECTED 11/02/22 10:00 WBC RBC Hgb Hct MCV MCH MCHC RDW Plt Count MPV Neut # (Auto) Lymph # (Auto) [place] # (Auto) Eos # (Auto) Baso # (Auto) Absolute Nucleated RBC Nucleated RBC % Sodium Potassium Chloride Carbon Dioxide Anion Gap BUN Creatinine Estimated GFR (MDRD) Glucose Calcium Total Bilirubin AST ALT Alkaline Phosphatase Total Protein Albumin Globulin Albumin/Globulin Ratio Lipase Urine Color YELLOW Urine Clarity CLEAR Urine pH 6.5 Ur Specific [place] 1.010 Urine Protein NEGATIVE Urine Glucose (UA) NEGATIVE Urine Ketones NEGATIVE Urine Occult Blood NEGATIVE Urine Nitrite NEGATIVE Urine Bilirubin NEGATIVE Urine Urobilinogen 0.2 (NORMAL) Ur Leukocyte Esterase NEGATIVE Ur Microscopic Review NOT INDICATED Urine Culture Comments NOT INDICATED Nasal Adenovirus (PCR) Nasal B. parapertussis DNA (PCR) Nasal Coronavir 229E PCR Nasal Coronavir HKU1 PCR Nasal Coronavir NL63 PCR Nasal Coronavir OC43 PCR Nasal Enterovir/Rhinovir PCR Nasal Influenza B PCR Nasal Influenza A PCR Nasal Parainfluen 1 PCR Nasal Parainfluen 2 PCR Nasal Parainfluen 3 PCR Nasal Parainfluen 4 PCR Nasal RSV (PCR) Nasal B.pertussis DNA PCR Nasal C.pneumoniae (PCR) Naveed Human Metapneumo PCR Nasal M.pneumoniae (PCR) Nasal SARS-CoV-2 (PCR) - Rads (name of study) chest Relevant Findings:: Prelim report reviewed (Impression: No acute process.), EMP independent interpretation of test Procedures - IVC sono (time) 0845 Bedside IVC sono: IVC measures (cm) (1.35), IVC collapsed c insp (cm) (complete), Dehydration (mild about 1 liter deficit) PD Medical Decision Making - ED course Complexity details: reviewed results, re-evaluated patient, considered differential, d/w patient Reviewed Lab Results: We reviewed a complete blood count with normal white blood cell count, hemoglobin, hematocrit and platelets. We reviewed chemistries all of which were normal including electrolytes kidney and liver function. Urinalysis completely unremarkable and a BioFire PCR was negative for everything. These benign laboratory results indicate a likely benign process. ED course: 40-year-old male presents to the emergency department with complaints of weakness and sinusitis. On examination he has otitis and sinusitis and his chief complaints are dizziness and lightheadedness as well as weakness. I interrogated the patient's inferior vena cava with POCUS and found he was minimally dehydrated and we administered saline. The patient had improvement. He was treated for sinusitis with intravenous Rocephin and dexamethasone and at the conclusion of treatment felt much improved. I anticipated finding an electrolyte abnormality to account for his weakness and did not find this. I did not find weakness at discharge. Departure - Departure Disposition: 01 Home, Self Care Clinical Impression: Dehydration Otitis media Qualifiers: Otitis media type: suppurative Chronicity: acute Laterality: bilateral Recurrence: not specified as recurrent Spontaneous tympanic membrane rupture: without spontaneous rupture Qualified Code(s): H66.003 - Acute suppurative otitis media without spontaneous rupture of ear drum, bilateral Sinusitis Qualifiers: Sinusitis location: maxillary Chronicity: acute Recurrence: not specified as recurrent Qualified Code(s): J01.00 - Acute maxillary sinusitis, unspecified Instructions: ED Sinusitis Abx Tx, ED Otitis Media Acute Adult, ED Dehydration Follow-Up: Fernanda Davila ARNP [Primary Care Provider] - Prescriptions: Cefdinir 300 mg PO BID #20 cap Comments: Carroll, today it looks like you have sinusitis and dehydration. There is also evidence of infection in both middle ears. These have likely caused your symptoms. We have given you a dose of dexamethasone which should aid in the drainage of your sinuses in your ears and we have E scribed some antibiotic to the [facility] [place]. Our expectation is continued improvement.
--- NOTE | 2022-11-02 09:17 | XRAY Report ---
PROCEDURE: Chest 1 View X-Ray INDICATIONS: chest pain TECHNIQUE: One view of the chest was acquired. COMPARISON: 05/23/2021 FINDINGS: Surgical changes and devices: None. Lungs and pleura: No pleural effusions or pneumothorax. Lungs are clear. Mediastinum: Mediastinal contours appear normal. Heart size is normal. Bones and chest wall: No suspicious bony lesions. Overlying soft tissues appear unremarkable. IMPRESSION: No acute process. Reviewed by: Sherrill St MD on 11/02/2022 8:15 AM [facility] Approved by: Sherrill St MD on 11/02/2022 8:15 AM [facility] Station ID: [id number]
[2022-11-02 09:41] LABS: BASOPHILS % (AUTO) 0.4 %; EOSINOPHILS % (AUTO) 0.4 %; HCT - HEMATOCRIT 45.1 % (42.0-52.0); HGB - HEMOGLOBIN 14.8 g/dL (14.0-18.0); LYMPHOCYTES # (AUTO) 2.3 10^3/uL (1.5-3.5); LYMPHOCYTES % (AUTO) 27.6 %; MEAN CORPUSCULAR HEMOGLOBIN 30.8 pg (27.0-31.0); MEAN CORPUSCULAR HGB CONC 32.8 g/dL (32.0-36.0); MEAN CORPUSCULAR VOLUME 93.8 fL (80.0-94.0); MEAN PLATELET VOLUME 11.2 fL (7.4-11.4); MONOCYTES # (AUTO) 0.5 10^3/uL (0.0-1.0); MONOCYTES % (AUTO) 6.1 %; NEUTROPHILS # (AUTO) 5.5 10^3/uL (1.5-6.6); NEUTROPHILS % (AUTO) 65.3 %; PLT - PLATELET COUNT 184 10^3/uL (130-450); RED BLOOD COUNT 4.81 10^6/uL (4.70-6.10); RED CELL DISTRIBUTION WIDTH 13.6 % (12.0-15.0); WHITE BLOOD COUNT 8.3 x10^3/uL (4.8-10.8)
[2022-11-02] MEDS ORDERED: cefTRIAXone 1 GM VIAL ONE (09:44)
[2022-11-02 10:25] LABS: BILIRUBIN,URINE NEGATIVE (NEGATIVE); GLUCOSE, URINE (UA) NEGATIVE (NEGATIVE); KETONES,URINE (UA) NEGATIVE (NEGATIVE); LEUKOCYTE ESTERASE, URINE NEGATIVE (NEGATIVE); NITRITE,URINE NEGATIVE (NEGATIVE); OCCULT BLOOD,URINE NEGATIVE (NEGATIVE); PH,URINE 6.5 PH (5.0-7.5); PROTEIN,URINE NEGATIVE (NEGATIVE); UROBILINOGEN,URINE 0.2 (NORMAL) E.U./dL (NORMAL)
[2022-11-02 10:32] LABS: CLARITY,URINE CLEAR (CLEAR)
[2022-11-02 10:37] LABS: ALBUMIN 4.5 g/dL (3.2-5.5); ALBUMIN/GLOBULIN RATIO 1.5 (1.0-2.2); B. PARAPERTUSSIS- RESP PCR PAN NOT DETECTED; B. PERTUSSIS- RESP PCR PANEL NOT DETECTED; BILIRUBIN,TOTAL 0.8 mg/dL (0.2-1.0); C. PNEUMONIAE- RESP PCR PANEL NOT DETECTED; CALCIUM 9.1 mg/dL (8.5-10.3); CORONAVIRUS 229E-RESP PCR NOT DETECTED; CORONAVIRUS HKU1-RESP PCR NOT DETECTED; CORONAVIRUS NL63-RESP PCR NOT DETECTED; CORONAVIRUS OC43-RESP PCR NOT DETECTED; CREATININE 0.8 mg/dL (0.6-1.2); HUMAN METAPNEUMOVIRUS NOT DETECTED; INFLUENZA A- RESP PCR PANEL NOT DETECTED; INFLUENZA B - RESP PCR PANEL NOT DETECTED; M. PNEUMONIAE- RESP PCR PANEL NOT DETECTED; PARAINFLUENZA VIRUS 1 NOT DETECTED; PARAINFLUENZA VIRUS 2 NOT DETECTED; PARAINFLUENZA VIRUS 3 NOT DETECTED; PARAINFLUENZA VIRUS 4 NOT DETECTED; POTASSIUM 4.3 mmol/L (3.5-5.0); RHINOVIRUS/ENTEROVIRUS NOT DETECTED; RSV- RESP PCR PANEL NOT DETECTED; SARS-CoV-2 -RESP PCR PANEL NOT DETECTED; TOTAL PROTEIN 7.5 g/dL (6.7-8.2)
[2022-11-02 12:13] VITALS: BP 134/89
== END 2022-11-02 12:16 | disposition home or self-care (01) ==
LOC: EDUNIT# → EDSEX → ED 08:47
DX: E86.0 Dehydration (principal); H66.003 Acute suppurative otitis media without spontaneous rupture of ear drum, bilateral; J01.00 Acute maxillary sinusitis, unspecified; F17.200 Nicotine dependence, unspecified, uncomplicated; Z20.822 Contact with and (suspected) exposure to COVID-19
CPT/HCPCS: 36415; 80053; 81001; 81003; 83690; 85025; 87086; 87633; 96361; 96365; 96375; 99284

== ENCOUNTER 2022-11-08 09:50 | Emergency (ER) | payer MEDICARE, MEDICAID ==
[2022-11-08 09:59] VITALS: BP 143/95
== END 2022-11-08 11:09 | disposition left against medical advice (07) ==
LOC: ED 09:50
DX: Z53.21 Procedure and treatment not carried out due to patient leaving prior to being seen by health care provider (principal)

== ENCOUNTER 2022-11-11 09:45 | Outpatient (CLI) | payer MEDICARE, MEDICAID | END 2022-11-11 23:59 | disposition critical access hospital (66) | LOC: EMS 09:45 | DX: M54.2 Cervicalgia (principal); R42 Dizziness and giddiness; R20.2 Paresthesia of skin; V00.831A Fall from motorized mobility scooter, initial encounter | CPT/HCPCS: A0425; A0429 ==

== ENCOUNTER 2022-11-11 10:05 | Emergency (ER) | payer MEDICARE, MEDICAID ==
[2022-11-11] MEDS ORDERED: CETIRIZINE 10 MG TABLET PO STA (10:18)
[2022-11-11] MEDS ORDERED: methocarbamoL 500 MG TABLET PO STA (10:18)
[2022-11-11] MEDS ORDERED: DEXAMETHASONE 10 MG/ML VIAL PO STA (10:19)
[2022-11-11] MEDS ORDERED: CHERRY SYRUP 10 ML UDC PO ONE (10:19)
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
[2022-11-11 11:50] VITALS: BP 138/82
== END 2022-11-11 12:16 | disposition home or self-care (01) ==
LOC: EDUNIT# → ED 10:05
DX: H92.02 Otalgia, left ear (principal); S16.1XXA Strain of muscle, fascia and tendon at neck level, initial encounter; W05.2XXA Fall from non-moving motorized mobility scooter, initial encounter; Y93.I9 Activity, other involving external motion; F17.200 Nicotine dependence, unspecified, uncomplicated
CPT/HCPCS: 72125; 99284; A9270

== ENCOUNTER 2022-11-16 05:44 | Outpatient (CLI) | payer MEDICARE, MEDICAID | END 2022-11-16 16:39 | disposition critical access hospital (66) | LOC: EMS 05:44 | DX: R10.32 Left lower quadrant pain (principal); R10.814 Left lower quadrant abdominal tenderness; K59.00 Constipation, unspecified; R11.2 Nausea with vomiting, unspecified | CPT/HCPCS: A0425; A0429 ==

== ENCOUNTER 2022-11-16 06:00 | Emergency (ER) | payer MEDICARE, MEDICAID ==
[2022-11-16] MEDS ORDERED: SODIUM CHLORIDE 0.9% 1,000 ML IV STA (06:14)
[2022-11-16] MEDS ORDERED: BUPRENORPHINE 0.3 MG/ML VIAL IVP ONE (06:15)
--- NOTE | 2022-11-16 06:30 | ED Physician Documentation ---
History of Present Illness - Stated complaint Stated Complaint: ABD PX - Chief complaint Chief Complaint: Abd Pain - History obtained from History obtained from: Patient - History of Present Illness Timing: How many days ago (2) Pain level max: 6 Pain level now: 6 - Additonal information Additional information: Patient is a 42-year-old male who presents to the emergency department with abdominal pain. He states that this has been ongoing for the past several days. Most of the pain is in the left lower quadrant. He states he has had constipation and nausea. He states that he has had 2 manually disimpact himself. He also states that his penis and scrotum feel swollen. No fevers. Has had some chills. No cough. No congestion. He takes Suboxone for pain at home. Review of Systems Constitutional: reports: Chills. denies: Fever Ears: denies: Ear pain Nose: denies: Rhinorrhea / runny nose, Congestion Throat: denies: Oral lesions / sores, Sore throat Cardiac: denies: Chest pain / pressure, Palpitations Respiratory: denies: Dyspnea, Cough, Wheezing GI: reports: Constipation. denies: Diarrhea Skin: denies: Rash Musculoskeletal: denies: Neck pain, Back pain Neurologic: denies: Focal weakness, Numbness, Headache PD PAST MEDICAL HISTORY - Past Medical History Cardiovascular: None, Hypertension Respiratory: None, Other Neuro: CVA, Migraines, Seizure disorder Endocrine/Autoimmune: None GI: GERD, Hiatal hernia : Other HEENT: None Psych: Bipolar disorder, Depression, Anxiety, Post traumatic stress disorder, Other Musculoskeletal: None, Chronic back pain Derm: Other - Past Surgical History Past Surgical History: Yes General: EGD, Colonoscopy Ortho: Other Derm: Skin grafts - Present Medications Home Medications: Ambulatory Orders Medication Instructions Recorded Confirmed Lansoprazole [Prevacid] 15 mg PO DAILY 08/23/19 11/11/22 buprenorphine HCL [Buprenorphine 8 mg SL TID 09/21/20 11/11/22 HCl] Aspirin EC [Ecotrin] 325 mg PO DAILY #30 tablet 04/21/22 11/11/22 Furosemide [Lasix] 40 mg PO DAILY 04/21/22 11/11/22 Gabapentin [Neurontin] 600 mg PO QID 04/21/22 11/11/22 Acetaminophen [Acetaminophen Extra 500 mg PO QID PRN #50 tablet 11/11/22 Strength] Albuterol Sulf [Ventolin Hfa 1 - 2 puffs INH Q4HR PRN 11/11/22 11/11/22 Inhaler] Cetirizine [ZyrTEC] 10 mg PO BID #20 tablet 11/11/22 Doxycycline [Vibramycin] 100 mg PO BID 11/11/22 11/11/22 Lisinopril [Zestril] 20 mg PO DAILY 11/11/22 11/11/22 Venlafaxine HCl [Effexor Xr] 150 mg PO DAILY 11/11/22 11/11/22 dexAMETHasone [Decadron] 4 mg PO DAILY #5 tablet 11/11/22 methocarbamoL [Robaxin] 500 mg PO Q6H PRN #30 tablet 11/11/22 ziprasidone HCL [Geodon] 40 mg PO DAILY PM 11/11/22 11/11/22 - Allergies Allergies/Adverse Reactions: Allergies Allergy/AdvReac Type Severity Reaction Status Date / Time Penicillins Allergy Intermediate Edema Verified 11/11/22 10:12 tramadol Allergy Intermediate Edema Verified 11/11/22 10:12 cefdinir Allergy Itching Verified 11/11/22 10:21 cephalexin Allergy Rash Verified 11/11/22 10:18 Cephalosporins Allergy Unknown Verified 11/11/22 10:12 morphine Allergy Anaphylaxis Verified 11/11/22 10:12 paliperidone [From Invega] Allergy painful Verified 11/11/22 10:12 erections Sulfa (Sulfonamide Allergy Unknown Verified 11/11/22 10:12 Antibiotics) ziprasidone [From Geodon] Allergy Unknown Verified 11/16/22 06:16 ibuprofen AdvReac Nausea Verified 11/11/22 10:12 lurasidone HCl * AdvReac Itching Verified 11/11/22 10:12 [From Latuda] - Social History Does the pt smoke?: Yes Smoking Status: Current every day smoker Does the pt drink ETOH?: No Does the pt have substance abuse?: Yes - Immunizations Immunizations are current?: Yes - POLST Patient has POLST: No PD ED PE NORMAL - Vitals Vital signs reviewed: Yes - General General: Alert and oriented X 3, No acute distress - HEENT HEENT: PERRL - Neck Neck: Supple, no meningeal sign - Cardiac Cardiac: RRR, Strong equal pulses - Respiratory Respiratory: No respiratory distress, Clear bilaterally - Abdomen Abdomen: Normal bowel sounds, Soft, Non distended, Other (Tender to palpation left lower quadrant. No peritoneal signs. Otherwise benign abdominal exam) - Male Male : Other (Normal external exam. No significant scrotal or penile swelling.) - Back Back: No spinal TTP - Derm Derm: Warm and dry - Extremities Extremities: No edema, No calf tenderness / cord - Neuro Neuro: Alert and oriented X 3 - Psych Psych: Normal mood, Normal affect Results - Vitals Vitals: Vital Signs - 24 hr 11/16/22 06:09 Temperature 36.8 C Heart Rate 75 Respiratory 18 Rate Blood Pressure 134/81 H O2 Saturation 95 Oxygen O2 Source Room air - Labs Labs: Laboratory Tests 11/16/22 06:42 WBC 13.7 H RBC 4.75 Hgb 14.8 Hct 44.0 MCV 92.6 MCH 31.2 H MCHC 33.6 RDW 13.6 Plt Count 185 MPV 11.1 Neut # (Auto) 8.3 H Lymph # (Auto) 4.5 H Tyrrell # (Auto) 0.7 Eos # (Auto) 0.1 Baso # (Auto) 0.1 Absolute Nucleated RBC 0.00 Nucleated RBC % 0.0 - Rads (name of study) CT abdomen pelvis Relevant Findings:: See rad report PD Medical Decision Making - ED course Complexity details: considered differential, d/w patient ED course: 42-year-old male with constipation and abdominal pain. I do not see any visible swelling on his scrotum or penis. He is awaiting laboratory testing and CT scan at the time of signout. Please see Dr. Schmidt's note for final disposition. Patient is well-appearing, nontoxic. Afebrile. Disposition will be based upon findings of laboratory testing and CT This document was made in part using voice recognition software. While efforts are made to proofread this document, sound alike and grammatical errors may occur. Departure - Departure Clinical Impression: Abdominal pain Qualifiers: Abdominal location: left lower quadrant Qualified Code(s): R10.32 - Left lower quadrant pain Condition: Stable
[2022-11-16 06:51] LABS: BASOPHILS # (AUTO) 0.1 10^3/uL (0.0-0.1); BASOPHILS % (AUTO) 0.4 %; EOSINOPHILS # (AUTO) 0.1 10^3/uL (0.0-0.7); EOSINOPHILS % (AUTO) 0.9 %; HGB - HEMOGLOBIN 14.8 g/dL (14.0-18.0); LYMPHOCYTES # (AUTO) 4.5 10^3/uL (1.5-3.5); LYMPHOCYTES % (AUTO) 32.9 %; MEAN CORPUSCULAR HEMOGLOBIN 31.2 pg (27.0-31.0); MEAN CORPUSCULAR HGB CONC 33.6 g/dL (32.0-36.0); MEAN CORPUSCULAR VOLUME 92.6 fL (80.0-94.0); MEAN PLATELET VOLUME 11.1 fL (7.4-11.4); MONOCYTES # (AUTO) 0.7 10^3/uL (0.0-1.0); MONOCYTES % (AUTO) 5.2 %; NEUTROPHILS # (AUTO) 8.3 10^3/uL (1.5-6.6); NEUTROPHILS % (AUTO) 60.2 %; PLT - PLATELET COUNT 185 10^3/uL (130-450); RED BLOOD COUNT 4.75 10^6/uL (4.70-6.10); RED CELL DISTRIBUTION WIDTH 13.6 % (12.0-15.0); WHITE BLOOD COUNT 13.7 x10^3/uL (4.8-10.8)
[2022-11-16 07:01] LABS: BILIRUBIN,URINE NEGATIVE (NEGATIVE); GLUCOSE, URINE (UA) NEGATIVE (NEGATIVE); KETONES,URINE (UA) 15 mg/dL (NEGATIVE); LEUKOCYTE ESTERASE, URINE NEGATIVE (NEGATIVE); NITRITE,URINE NEGATIVE (NEGATIVE); OCCULT BLOOD,URINE NEGATIVE (NEGATIVE); PROTEIN,URINE NEGATIVE (NEGATIVE); UROBILINOGEN,URINE 0.2 (NORMAL) E.U./dL (NORMAL)
[2022-11-16 07:02] LABS: CLARITY,URINE CLEAR (CLEAR)
[2022-11-16 07:36] LABS: ALBUMIN 4.3 g/dL (3.2-5.5); ALBUMIN/GLOBULIN RATIO 1.7 (1.0-2.2); BILIRUBIN,TOTAL 0.9 mg/dL (0.2-1.0); CALCIUM 8.8 mg/dL (8.5-10.3); CREATININE 0.8 mg/dL (0.6-1.2); POTASSIUM 3.6 mmol/L (3.5-5.0); TOTAL PROTEIN 6.9 g/dL (6.7-8.2)
--- NOTE | 2022-11-16 08:18 | CT Report ---
PROCEDURE: ABDOMEN/PELVIS W INDICATIONS: LLQ Abdominal pain, diverticulitis suspected CONTRAST: 100ml omni 350 TECHNIQUE: After the administration of IV contrast, 5 mm thick sections acquired from the diaphragms to the symp hysis. 5 mm thick coronal and sagittal reformats were acquired. For radiation dose reduction, the f ollowing was used: automated exposure control, adjustment of mA and/or kV according to patient size. COMPARISON: 09/21/2020 FINDINGS: Image quality: Excellent. Lung bases and heart: Dependent atelectasis in posterior aspect of bilateral lung bases are seen. Hea rt size is normal, no pericardial effusion. Liver: No solid mass. Gallbladder and biliary tree: Gallbladder is within normal limits. No biliary ductal dilatation. Spleen: No splenomegaly. Pancreas: No pancreatic ductal dilation. Adrenals: No adrenal nodule. Kidneys and ureters: No hydronephrosis. No renal cystic lesion which requires follow up. No solid mas s. Bowel and peritoneum: There is no bowel obstruction. No gastric or small bowel wall thickening.. Appe ndix is visualized and is within normal limits. Mild sigmoid colon diverticulosis is seen. Questionab le colonic wall thickening and minimal amount of pericolonic fat stranding involving proximal sigmoid colon in left lower quadrant is seen, very early diverticulitis is suspected. No abscess collection. No free fluid of free air. Lymph nodes: No central or retroperitoneal adenopathy. Vessels: No infrarenal aortic aneurysm. PELVIS Reproductive organs: Unremarkable. Bladder: No abnormal wall thickening, accounting for underdistension. Pelvic lymph nodes: No pelvic adenopathy by size criteria. Bones: No aggressive osseous abnormality. Other: No significant ventral or inguinal hernia. IMPRESSION: 1. Finding is concerning for very early diverticulitis involving proximal sigmoid colon in left lower quadrant. No signs of perforation or abscess collection. 2. No bowel obstruction. Normal appendix. No free fluid of free air. Reviewed by: Kanu Steinberg MD on 11/16/2022 8:16 AM PDT Approved by: Kanu Steinberg MD on 11/16/2022 8:16 AM PDT Station ID: [id number]
[2022-11-16] MEDS ORDERED: MAG HYDROX/AL HYDROX/SIMETH 30 ML UDC PO STA (08:42)
[2022-11-16] MEDS ORDERED: LACTATED RINGERS 1,000 ML IV STA (08:42)
[2022-11-16] MEDS ORDERED: levoFLOXacin 500 MG/100 ML 500 MG/100 ML BAG IV STA (08:42)
[2022-11-16] MEDS ORDERED: FAMOTIDINE 20 MG/2 ML VIAL IVP STA (08:43)
[2022-11-16] MEDS ORDERED: diazePAM INJ 5 MG/ML SYRINGE IVP STA (08:43)
[2022-11-16] MEDS ORDERED: KETOROLAC 15 MG/ML VIAL IVP STA (08:43)
[2022-11-16 10:24] VITALS: BP 148/93
--- NOTE | 2022-11-16 11:01 | ED Physician Documentation ---
ED Addendum - Addendum Addendum: 11/16/22 10:55 The patient care was picked up on change of shift. He was pending the CT and then report. He was having some increased pain in the abdomen and also complained of anxiety. He did describe difficulties with oral intake in the past week or so with irritation of the distal esophagus and stomach. He has a history of reflux. He states he felt like some food and pills were getting stuck in her to have to cough them up. He has been able to drink fluids. He does take lansoprazole regularly. He had been on doxycycline for an ear infection and some anti-inflammatory of Decadron for his of fluid. These may have irritated his gastritis. He also had been started on Geodon for anxiety and had reaction to that with feeling of muscle stiffness. That may be contributing as well. Subsequently the CT report came back showing likely early diverticulitis. Shared decision and discussion is to go with some stool softener and antibiotic for it. We will avoid anti-inflammatories with his other symptoms. I wrote prescriptions for him for the antibiotic and stool softener and diazepam muscle relaxant and. Also added sacral fate to help with his esophagitis type symptoms. No obvious abnormality on the CT scan around the esophageal or stomach area. However it can be irritated. Here in the ER he was given more IV fluids, antiemetic, small dose of diazepam and famotidine. He states these helped quite a bit. He is drinking fluids okay. I given initial dose Levaquin IV for the diverticulitis as he is allergic to penicillin, cephalosporin, sulfa and I think metronidazole would bother his stomach more. I did write for liquid versions of medications to help with his intake. If he persists with esophageal/stomach discomfort, consideration would be for evaluation by surgery or possible EGD. Could also consider H. pylori testing. Disposition: The patient is discharged home in improved condition Diagnoses: 1. Left lower abdominal pain 2. Early diverticulitis 3. Exacerbation of gastritis 4. GERD 5. Anxiety
== END 2022-11-16 10:22 | disposition home or self-care (01) ==
LOC: EDUNIT# → ED 06:00
DX: K21.9 Gastro-esophageal reflux disease without esophagitis (principal); F41.9 Anxiety disorder, unspecified; K29.70 Gastritis, unspecified, without bleeding; R10.32 Left lower quadrant pain; I10 Essential (primary) hypertension; F17.200 Nicotine dependence, unspecified, uncomplicated
CPT/HCPCS: 36415; 74177; 80053; 81003; 83690; 85025; 96374; 96375; 99283; A9270; J0592; J7120; Q9967; 81001; 87086

== ENCOUNTER 2022-12-23 07:14 | Outpatient (CLI) | payer MEDICARE, MEDICAID ==
[2022-12-23 13:17] LABS: BASOPHILS % (AUTO) 0.4 %; EOSINOPHILS # (AUTO) 0.1 10^3/uL (0.0-0.7); EOSINOPHILS % (AUTO) 0.8 %; HCT - HEMATOCRIT 45.6 % (42.0-52.0); HGB - HEMOGLOBIN 15.2 g/dL (14.0-18.0); LYMPHOCYTES # (AUTO) 2.2 10^3/uL (1.5-3.5); LYMPHOCYTES % (AUTO) 23.9 %; MEAN CORPUSCULAR HEMOGLOBIN 31.3 pg (27.0-31.0); MEAN CORPUSCULAR HGB CONC 33.3 g/dL (32.0-36.0); MONOCYTES # (AUTO) 0.5 10^3/uL (0.0-1.0); MONOCYTES % (AUTO) 5.4 %; NEUTROPHILS # (AUTO) 6.4 10^3/uL (1.5-6.6); NEUTROPHILS % (AUTO) 69.2 %; PLT - PLATELET COUNT 222 10^3/uL (130-450); RED BLOOD COUNT 4.85 10^6/uL (4.70-6.10); RED CELL DISTRIBUTION WIDTH 13.3 % (12.0-15.0); WHITE BLOOD COUNT 9.3 x10^3/uL (4.8-10.8)
[2022-12-23 13:43] LABS: ALBUMIN 4.3 g/dL (3.2-5.5); ALBUMIN/GLOBULIN RATIO 1.3 (1.0-2.2); ALKALINE PHOSPHATASE 89 IU/L (42-121); ALT ALANINE AMINOTRANSFERASE 34 IU/L (10-60); AST ASPARTATE AMINOTRANSFERASE 33 IU/L (10-42); BILIRUBIN,TOTAL 0.9 mg/dL (0.2-1.0); BUN - BLOOD UREA NITROGEN 12 mg/dL (6-20); CALCIUM 9.1 mg/dL (8.5-10.3); CARBON DIOXIDE - CO2 29 mmol/L (21-32); CHLORIDE 105 mmol/L (101-111); CHOL/HDL RATIO 5.6 (<5.0); CHOLESTEROL 224 mg/dL; GFR - MDRD 82 (>89); GLUCOSE 139 mg/dL (70-100); HDL CHOLESTEROL 40 mg/dL; LDL CHOLESTEROL,CALCULATED 156 mg/dL; LDL/HDL RATIO 3.9 (<3.6); POTASSIUM 3.8 mmol/L (3.5-5.0); SODIUM 140 mmol/L (135-145); TOTAL PROTEIN 7.5 g/dL (6.7-8.2); TRIGLYCERIDES 139 mg/dL; VLDL CHOLESTEROL 28 mg/dL
[2022-12-23 13:45] LABS: ESTIMATED AVERAGE GLUCOSE 120 mg/dL (70-100); HEMOGLOBIN A1c% 5.8 % (4.27-6.07)
[2022-12-23 13:56] LABS: THYROID STIMULATING HORMONE 0.88 uIU/mL (0.34-5.60)
== END 2022-12-23 07:15 | disposition home or self-care (01) ==
LOC: LAB.N 07:14
PROVIDERS: ATTEND Nurse Practitioner Family
DX: R07.9 Chest pain, unspecified (principal); E66.9 Obesity, unspecified
CPT/HCPCS: 36415; 80053; 80061; 83036; 83721; 84443; 85025

== ENCOUNTER 2022-12-27 08:00 | Outpatient (CLI) | payer MEDICARE, MEDICAID ==
[2022-12-27 12:11] LABS: BASOPHILS % (AUTO) 0.3 %; EOSINOPHILS % (AUTO) 0.3 %; HCT - HEMATOCRIT 46.2 % (42.0-52.0); HGB - HEMOGLOBIN 15.4 g/dL (14.0-18.0); LYMPHOCYTES # (AUTO) 1.7 10^3/uL (1.5-3.5); LYMPHOCYTES % (AUTO) 18.5 %; MEAN CORPUSCULAR HEMOGLOBIN 31.2 pg (27.0-31.0); MEAN CORPUSCULAR HGB CONC 33.3 g/dL (32.0-36.0); MEAN CORPUSCULAR VOLUME 93.5 fL (80.0-94.0); MEAN PLATELET VOLUME 12.1 fL (7.4-11.4); MONOCYTES # (AUTO) 0.4 10^3/uL (0.0-1.0); MONOCYTES % (AUTO) 4.7 %; NEUTROPHILS # (AUTO) 7.1 10^3/uL (1.5-6.6); NEUTROPHILS % (AUTO) 75.9 %; PLT - PLATELET COUNT 226 10^3/uL (130-450); RED BLOOD COUNT 4.94 10^6/uL (4.70-6.10); RED CELL DISTRIBUTION WIDTH 13.3 % (12.0-15.0); WHITE BLOOD COUNT 9.3 x10^3/uL (4.8-10.8)
[2022-12-27 12:59] LABS: ALBUMIN 4.4 g/dL (3.2-5.5); ALBUMIN/GLOBULIN RATIO 1.3 (1.0-2.2); BILIRUBIN,TOTAL 0.8 mg/dL (0.2-1.0); CALCIUM 9.5 mg/dL (8.5-10.3); CREATININE 0.8 mg/dL (0.6-1.2); POTASSIUM 3.7 mmol/L (3.5-5.0); TOTAL PROTEIN 7.7 g/dL (6.7-8.2)
== END 2022-12-27 08:15 | disposition home or self-care (01) ==
LOC: LAB.N 08:00
PROVIDERS: ATTEND Family Medicine
DX: R10.32 Left lower quadrant pain (principal)
CPT/HCPCS: 36415; 80053; 85025

== ENCOUNTER 2022-12-28 09:01 | Outpatient (CLI) | payer MEDICARE, MEDICAID ==
[2022-12-28] MEDS ORDERED: iohexoL-300 100 ML VIAL ONE (09:13)
[2022-12-28] MEDS ORDERED: DIATR MEGLU/DIATRIZOATE SODIUM 120 ML BOTTLE ONE (09:13)
[2022-12-28] MEDS ORDERED: DIATRIZOATE MEGLU/DIATRIZO SOD 30 ML BOTTLE PO ONE (10:46)
[2022-12-28] MEDS ORDERED: iohexoL-300 100 ML VIAL IVP ONE (10:46)
--- NOTE | 2022-12-28 20:54 | CT Report ---
PROCEDURE: ABDOMEN/PELVIS W INDICATIONS: LLQ ABDOMINAL PAIN CONTRAST: 100ml omni 300 TECHNIQUE: After the administration of oral and intravenous contrast, 5 mm thick sections acquired from the diap hragms to the symphysis. 5 mm thick coronal and sagittal reformats were acquired. For radiation dos e reduction, the following was used: automated exposure control, adjustment of mA and/or kV accordin g to patient size. COMPARISON: 11/16/2022 FINDINGS: Image quality: Excellent. Lung bases and heart: Unremarkable. Liver: Hepatic steatosis. No solid hepatic lesions. Gallbladder and biliary tree: No radiopaque stones or wall thickening. No biliary dilation. Spleen: No splenomegaly. Pancreas: No pancreatic ductal dilation. Adrenals: No adrenal nodule. Kidneys and ureters: No hydronephrosis. No renal cystic lesion which requires follow up. No solid mas s. Bilateral ureters are normal in course and caliber. Bowel and peritoneum: No bowel distension. No pathologic free fluid. Diverticulosis without evidence of diverticulitis. Normal appendix. Lymph nodes: No central or retroperitoneal adenopathy. Vessels: No infrarenal aortic aneurysm. PELVIS Reproductive organs: Unremarkable. Bladder: No abnormal wall thickening, accounting for underdistension. Pelvic lymph nodes: No pelvic adenopathy by size criteria. Bones: No aggressive osseous abnormality. No acute compression fractures. Other: Small fat-containing umbilical hernia without acute inflammation. IMPRESSION: 1. CT abdomen and pelvis without acute abnormalities to explain patient's left lower quadrant abdomin al pain. 2. Colonic diverticulosis without acute diverticulitis. 3. Normal appendix. 4. Mild hepatic steatosis. 5. Fat-containing umbilical hernia without acute inflammation. Reviewed by: Flaco Peterson MD on 12/28/2022 7:53 PM ANTHONY Approved by: Flaco Peterson MD on 12/28/2022 7:53 PM AKDT Station ID: [id number]
== END 2022-12-28 09:02 | disposition home or self-care (01) ==
LOC: DI 09:01
PROVIDERS: ATTEND Family Medicine
DX: R10.32 Left lower quadrant pain (principal); K57.30 Diverticulosis of large intestine without perforation or abscess without bleeding; K76.0 Fatty (change of) liver, not elsewhere classified; K42.9 Umbilical hernia without obstruction or gangrene
CPT/HCPCS: 74177; Q9963; Q9967

== ENCOUNTER 2023-02-18 11:30 | Outpatient (CLI) | payer MEDICARE, MEDICAID ==
[2023-02-18 17:57] LABS: BASOPHILS # (AUTO) 0.1 10^3/uL (0.0-0.1); BASOPHILS % (AUTO) 0.8 %; EOSINOPHILS # (AUTO) 0.1 10^3/uL (0.0-0.7); EOSINOPHILS % (AUTO) 0.9 %; HCT - HEMATOCRIT 40.7 % (42.0-52.0); HGB - HEMOGLOBIN 13.3 g/dL (14.0-18.0); LYMPHOCYTES # (AUTO) 1.9 10^3/uL (1.5-3.5); LYMPHOCYTES % (AUTO) 21.8 %; MEAN CORPUSCULAR HGB CONC 32.7 g/dL (32.0-36.0); MEAN CORPUSCULAR VOLUME 97.8 fL (80.0-94.0); MEAN PLATELET VOLUME 11.4 fL (7.4-11.4); MONOCYTES # (AUTO) 0.5 10^3/uL (0.0-1.0); MONOCYTES % (AUTO) 5.9 %; NEUTROPHILS # (AUTO) 6.1 10^3/uL (1.5-6.6); NEUTROPHILS % (AUTO) 70.4 %; PLT - PLATELET COUNT 194 10^3/uL (130-450); RED BLOOD COUNT 4.16 10^6/uL (4.70-6.10); RED CELL DISTRIBUTION WIDTH 13.2 % (12.0-15.0); WHITE BLOOD COUNT 8.6 x10^3/uL (4.8-10.8)
[2023-02-18 18:13] LABS: ALBUMIN/GLOBULIN RATIO 1.9 (1.0-2.2); BILIRUBIN,TOTAL 0.4 mg/dL (0.2-1.0); CREATININE 0.8 mg/dL (0.6-1.3); POTASSIUM 4.5 mmol/L (3.5-4.5); TOTAL PROTEIN 6.1 g/dL (6.4-8.9)
== END 2023-02-18 11:45 | disposition home or self-care (01) ==
LOC: LAB.N 11:30
PROVIDERS: ATTEND Nurse Practitioner
DX: R10.9 Unspecified abdominal pain (principal)
CPT/HCPCS: 36415; 80053; 82150; 83690; 85025

== ENCOUNTER 2023-03-02 10:57 | Emergency (ER) | payer MEDICARE, MEDICAID ==
[2023-03-02 11:36] LABS: BASOPHILS # (AUTO) 0.1 10^3/uL (0.0-0.1); BASOPHILS % (AUTO) 0.7 %; EOSINOPHILS # (AUTO) 0.1 10^3/uL (0.0-0.7); EOSINOPHILS % (AUTO) 0.4 %; HCT - HEMATOCRIT 41.5 % (42.0-52.0); HGB - HEMOGLOBIN 13.8 g/dL (14.0-18.0); LYMPHOCYTES % (AUTO) 26.7 %; MEAN CORPUSCULAR HGB CONC 33.3 g/dL (32.0-36.0); MEAN CORPUSCULAR VOLUME 93.3 fL (80.0-94.0); MEAN PLATELET VOLUME 10.4 fL (7.4-11.4); MONOCYTES # (AUTO) 0.7 10^3/uL (0.0-1.0); MONOCYTES % (AUTO) 5.8 %; NEUTROPHILS # (AUTO) 7.5 10^3/uL (1.5-6.6); NEUTROPHILS % (AUTO) 66.1 %; PLT - PLATELET COUNT 233 10^3/uL (130-450); RED BLOOD COUNT 4.45 10^6/uL (4.70-6.10); RED CELL DISTRIBUTION WIDTH 12.8 % (12.0-15.0); WHITE BLOOD COUNT 11.3 x10^3/uL (4.8-10.8)
[2023-03-02 11:49] LABS: ALBUMIN 4.7 g/dL (3.2-5.5); BILIRUBIN,TOTAL 0.6 mg/dL (0.2-1.0); CALCIUM 9.5 mg/dL (8.5-10.3); CREATININE 0.9 mg/dL (0.6-1.3); POTASSIUM 4.3 mmol/L (3.5-4.5); TOTAL PROTEIN 7.1 g/dL (6.4-8.9)
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
[2023-03-02] MEDS ORDERED: KETOROLAC 15 MG/ML VIAL IVP STA (13:06)
[2023-03-02] MEDS ORDERED: LIDOCAINE VISCOUS 2% 15 ML ORAL SYRINGE MM STA (14:00)
[2023-03-02] MEDS ORDERED: MAG HYDROX/AL HYDROX/SIMETH 30 ML UDC PO STA (14:00)
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
[2023-03-02] MEDS ORDERED: IOVERSOL 320 100 ML VIAL IVP ONE (15:05)
[2023-03-02 15:06] VITALS: BP 128/82; O2SAT 98
== END 2023-03-02 15:41 | disposition home or self-care (01) ==
LOC: ED 10:57
DX: S30.1XXA Contusion of abdominal wall, initial encounter (principal); W22.09XA Striking against other stationary object, initial encounter; Y93.I9 Activity, other involving external motion; F17.200 Nicotine dependence, unspecified, uncomplicated
CPT/HCPCS: 36415; 74177; 80053; 83690; 85025; 96374; 99284; A9270; Q9967

== ENCOUNTER 2023-03-17 11:03 | Outpatient (CLI) | payer MEDICARE, MEDICAID | END 2023-03-17 11:04 | disposition critical access hospital (66) | LOC: EMS 11:03 | DX: R07.89 Other chest pain (principal); R10.13 Epigastric pain; R06.02 Shortness of breath; R53.1 Weakness; R51.9 Headache, unspecified; R50.9 Fever, unspecified | CPT/HCPCS: A0425; A0429 ==

== ENCOUNTER 2023-03-17 11:24 | Emergency (ER) | payer MEDICARE, MEDICAID ==
[2023-03-17 11:52] LABS: BASOPHILS % (AUTO) 0.4 %; EOSINOPHILS % (AUTO) 0.1 %; HCT - HEMATOCRIT 43.8 % (42.0-52.0); HGB - HEMOGLOBIN 14.8 g/dL (14.0-18.0); LYMPHOCYTES # (AUTO) 1.8 10^3/uL (1.5-3.5); LYMPHOCYTES % (AUTO) 16.8 %; MEAN CORPUSCULAR HEMOGLOBIN 31.4 pg (27.0-31.0); MEAN CORPUSCULAR HGB CONC 33.8 g/dL (32.0-36.0); MEAN PLATELET VOLUME 10.8 fL (7.4-11.4); MONOCYTES # (AUTO) 0.5 10^3/uL (0.0-1.0); MONOCYTES % (AUTO) 5.1 %; NEUTROPHILS % (AUTO) 77.3 %; PLT - PLATELET COUNT 205 10^3/uL (130-450); RED BLOOD COUNT 4.71 10^6/uL (4.70-6.10); RED CELL DISTRIBUTION WIDTH 13.2 % (12.0-15.0); WHITE BLOOD COUNT 10.4 x10^3/uL (4.8-10.8)
[2023-03-17 12:06] LABS: ALBUMIN 4.7 g/dL (3.2-5.5); ALBUMIN/GLOBULIN RATIO 1.9 (1.0-2.2); BILIRUBIN,TOTAL 0.7 mg/dL (0.2-1.0); CALCIUM 9.7 mg/dL (8.5-10.3); CREATININE 0.9 mg/dL (0.6-1.3); TOTAL PROTEIN 7.2 g/dL (6.4-8.9)
--- NOTE | 2023-03-17 12:10 | ED Physician Documentation ---
History of Present Illness - Stated complaint Stated Complaint: CP/SOA - Chief complaint Chief Complaint: Resp - Additonal information Additional information: 42-year-old male presents emergency department for constellation of symptoms. Most distressing to him is chest fullness and heaviness especially when supine. He has occasionally had substernal chest pain with radiation to the left arm though none right now. He is scheduled to have a heart monitor placed in the next upcoming weeks. He also has tenderness just below the xiphoid process of his abdomen. States he has GERD but this feels different. No fevers. He does have a cough but not worse in intensity than normal. No sputum production. He is 1/2 pack/day tobacco user. He has also noticed over the last several weeks he is having spikes in his blood pressure to 155/100. Reports compliance with his lisinopril. Review of Systems Eyes: reports: Reviewed and negative Nose: reports: Congestion Cardiac: reports: Chest pain / pressure, Palpitations Respiratory: reports: Dyspnea, Cough. denies: Hemoptysis, Wheezing GI: reports: Abdominal Pain. denies: Nausea, Vomiting : reports: Reviewed and negative Skin: reports: Reviewed and negative PD PAST MEDICAL HISTORY - Past Medical History Cardiovascular: None, Hypertension Respiratory: None, Other Neuro: CVA, Migraines, Seizure disorder Endocrine/Autoimmune: None GI: GERD, Hiatal hernia : Other HEENT: None Psych: Bipolar disorder, Depression, Anxiety, Post traumatic stress disorder, Other Musculoskeletal: None, Chronic back pain Derm: Other - Past Surgical History Past Surgical History: Yes General: EGD, Colonoscopy Ortho: Other Derm: Skin grafts - Present Medications Home Medications: Ambulatory Orders Medication Instructions Recorded Confirmed Lansoprazole [Prevacid] 15 mg PO DAILY 08/23/19 11/11/22 buprenorphine HCL [Buprenorphine 8 mg SL TID 09/21/20 11/11/22 HCl] Aspirin EC [Ecotrin] 325 mg PO DAILY #30 tablet 04/21/22 11/11/22 Furosemide [Lasix] 40 mg PO DAILY 04/21/22 11/11/22 Gabapentin [Neurontin] 600 mg PO QID 04/21/22 11/11/22 Acetaminophen [Acetaminophen Extra 500 mg PO QID PRN #50 tablet 11/11/22 Strength] Albuterol Sulf [Ventolin Hfa 1 - 2 puffs INH Q4HR PRN 11/11/22 11/11/22 Inhaler] Cetirizine [ZyrTEC] 10 mg PO BID #20 tablet 11/11/22 Doxycycline [Vibramycin] 100 mg PO BID 11/11/22 11/11/22 Lisinopril [Zestril] 20 mg PO DAILY 11/11/22 11/11/22 Venlafaxine HCl [Effexor Xr] 150 mg PO DAILY 11/11/22 11/11/22 dexAMETHasone [Decadron] 4 mg PO DAILY #5 tablet 11/11/22 methocarbamoL [Robaxin] 500 mg PO Q6H PRN #30 tablet 11/11/22 ziprasidone HCL [Geodon] 40 mg PO DAILY PM 11/11/22 11/11/22 Ciprofloxacin 500 mg PO BID 7 Days #70 ml 11/16/22 Docusate Sodium 100 mg PO DAILY 10 Days #100 ml 11/16/22 Sucralfate [Carafate] 1 gm PO ACHS 5 Days #200 ml 11/16/22 diazePAM [Diazepam] 5 mg PO BID PRN 5 Days #50 ml 11/16/22 Sucralfate [Carafate] 1 gm PO ACHS #60 tablet 03/02/23 - Allergies Allergies/Adverse Reactions: Allergies Allergy/AdvReac Type Severity Reaction Status Date / Time cefdinir Allergy Severe Itching Verified 11/20/22 14:50 cephalexin Allergy Severe Rash Verified 11/20/22 14:50 Cephalosporins Allergy Severe Unknown Verified 11/20/22 14:50 Penicillins Allergy Intermediate Edema Verified 11/11/22 10:12 tramadol Allergy Intermediate Edema Verified 11/11/22 10:12 morphine Allergy Anaphylaxis Verified 11/11/22 10:12 paliperidone [From Invega] Allergy painful Verified 11/11/22 10:12 erections Sulfa (Sulfonamide Allergy Unknown Verified 11/11/22 10:12 Antibiotics) ziprasidone [From Geodon] Allergy Unknown Verified 11/16/22 06:16 ibuprofen AdvReac Nausea Verified 11/11/22 10:12 lurasidone HCl * AdvReac Itching Verified 11/11/22 10:12 [From Latuda] - Social History Does the pt smoke?: Yes Smoking Status: Current every day smoker Does the pt drink ETOH?: No Does the pt have substance abuse?: Yes - Immunizations Immunizations are current?: Yes - POLST Patient has POLST: No PD ED PE NORMAL - General General: Alert and oriented X 3, No acute distress, Well developed/nourished - HEENT HEENT: Atraumatic - Neck Neck: Supple, no meningeal sign, No adenopathy - Cardiac Cardiac: RRR, No murmur - Respiratory Respiratory: No respiratory distress, Clear bilaterally - Abdomen Abdomen: Normal bowel sounds, Soft. No: Non tender (Mild epigastric tenderness without guarding or rebound. Negative Olivas's. Negative McBurney's.) - Back Back: No CVA TTP - Derm Derm: Warm and dry - Extremities Extremities: No deformity - Neuro Neuro: Alert and oriented X 3, hydrostatic tester 2-12 intact Eye Opening: Spontaneous Motor: Obeys Commands Verbal: Oriented GCS Score: 15 Results - Vitals Vitals: Vital Signs - 24 hr 03/17/23 11:28 Temperature 36.5 C Heart Rate 87 Respiratory 26 H Rate Blood Pressure 138/95 H O2 Saturation 99 Oxygen O2 Source Room air - EKG (time done) 1212 EKG releavant findings:: EKG personally interpreted by author of this note. Relevant findings are: Rate: Rate (enter#) (79) Rhythm: NSR [place]: Normal Intervals: Normal HI. No: Prolonged QT QRS: Low voltage Ischemia: ST elevation c/w repol Compare to prior EKG: Old EKG unavailable Computer interpretation: Agree with computer - Labs Labs: Laboratory Tests 03/17/23 03/17/23 03/17/23 11:47 11:47 11:47 WBC 10.4 RBC 4.71 Hgb 14.8 Hct 43.8 MCV 93.0 MCH 31.4 H MCHC 33.8 RDW 13.2 Plt Count 205 MPV 10.8 Neut # (Auto) 8.0 H Lymph # (Auto) 1.8 [place] # (Auto) 0.5 Eos # (Auto) 0.0 Baso # (Auto) 0.0 Absolute Nucleated RBC 0.00 Nucleated RBC % 0.0 Sodium 138 Potassium 4.0 Chloride 103 Carbon Dioxide 28 Anion Gap 7.0 BUN 12 Creatinine 0.9 Estimated GFR (MDRD) 93 Glucose 108 H Calcium 9.7 Total Bilirubin 0.7 AST 19 ALT 19 Alkaline Phosphatase 98 Troponin I High Sens 2.7 Total Protein 7.2 Albumin 4.7 Globulin 2.5 Albumin/Globulin Ratio 1.9 Lipase 25 - Rads (name of study) cxr Relevant Findings:: EMP independent interpretation of test (No acute cardiopulmonary process) PD Medical Decision Making - ED course Complexity details: reviewed results, re-evaluated patient, d/w patient ED course: 42-year-old male presents emergency department for evaluation of constellation of symptoms that include chest pressure and heaviness with some radiation to the left arm. This has been intermittent for several days. He also has a sensation of pain in his epigastric area but different than previous GERD. No nausea or vomiting. No melena. He is quite anxious. On presentation he is alert and well-appearing. Vital signs that showed just a mild hypertension but no other worrisome abnormalities. Cardiopulmonary auscultation was unremarkable. His EKG is interpreted by myself showed no acute ischemic findings. I did obtain CBC, electrolytes and troponin which were all essentially negative. Effectively ruling out ACS. Patient reports that he is scheduled to have a Holter monitor placed in this upcoming weeks which he should continue with. Chest x-ray did not show findings of pneumonia, pneumothorax or pleural effusion. Respiratory PCR is negative. PERC negative Clinically at this time there is no abnormalities detected on clinical exam or labs and x-ray. I have encouraged patient to follow closely with his primary care doctor. He is concerned that his blood pressure waxes and wanes to the 150s. He is encouraged to keep a journal of these pressures. This point he is discharged home in stable condition with usual emergent return precautions discussed. Departure - Departure Disposition: 01 Home, Self Care Clinical Impression: Chest discomfort Condition: Stable Comments: Carroll your labs EKG and chest x-ray today are all entirely normal in the emergency department. You are not having a heart attack. You do not have pneumonia. The viral testing is all negative. I suspect there is a component of some anxiety driving your symptoms. I would encourage you to continue follow-up with your primary care doctor for the heart monitor that is already been referred. With regards your blood pressure please check it each morning before you take your lisinopril and then check it several hours after the lisinopril. These values may help your doctor decide if you would need to be placed on additional blood pressure medications. Return immediately to the ER if you develop any sudden severe chest pain have fainting episodes or severe labored breath. Forms: PCP List
[2023-03-17] MEDS: MAG HYDROX/AL HYDROX/SIMETH 30 ML UDC PO STA (12:13)
[2023-03-17] MEDS: LIDOCAINE VISCOUS 2% 15 ML ORAL SYRINGE MM STA (12:13)
[2023-03-17 13:04] LABS: B. PARAPERTUSSIS- RESP PCR PAN NOT DETECTED; B. PERTUSSIS- RESP PCR PANEL NOT DETECTED; C. PNEUMONIAE- RESP PCR PANEL NOT DETECTED; CORONAVIRUS 229E-RESP PCR NOT DETECTED; CORONAVIRUS HKU1-RESP PCR NOT DETECTED; CORONAVIRUS NL63-RESP PCR NOT DETECTED; CORONAVIRUS OC43-RESP PCR NOT DETECTED; HUMAN METAPNEUMOVIRUS NOT DETECTED; INFLUENZA A- RESP PCR PANEL NOT DETECTED; INFLUENZA B - RESP PCR PANEL NOT DETECTED; M. PNEUMONIAE- RESP PCR PANEL NOT DETECTED; PARAINFLUENZA VIRUS 1 NOT DETECTED; PARAINFLUENZA VIRUS 2 NOT DETECTED; PARAINFLUENZA VIRUS 3 NOT DETECTED; PARAINFLUENZA VIRUS 4 NOT DETECTED; RHINOVIRUS/ENTEROVIRUS NOT DETECTED; RSV- RESP PCR PANEL NOT DETECTED; SARS-CoV-2 -RESP PCR PANEL NOT DETECTED
--- NOTE | 2023-03-17 13:05 | XRAY Report ---
PROCEDURE: Chest 1 View X-Ray INDICATIONS: chest pain TECHNIQUE: One view of the chest was acquired. COMPARISON: None. FINDINGS: Surgical changes and devices: None. Lungs and pleura: No pleural effusions or pneumothorax. Lungs are clear. Mediastinum: Mediastinal contours appear normal. Heart size is normal. Bones and chest wall: No suspicious bony lesions. Overlying soft tissues appear unremarkable. IMPRESSION: No acute cardiopulmonary process. Reviewed by: Raul Chao on 03/17/2023 1:03 PM PDT Approved by: Raul Chao on 03/17/2023 1:03 PM PDT Station ID: [id number]
[2023-03-17 13:24] VITALS: BP 135/89; O2SAT 100
== END 2023-03-17 13:21 | disposition home or self-care (01) ==
LOC: EDUNIT# → ED 11:24
DX: R07.89 Other chest pain (principal); I10 Essential (primary) hypertension; F17.200 Nicotine dependence, unspecified, uncomplicated; Z86.73 Personal history of transient ischemic attack (TIA), and cerebral infarction without residual deficits; Z79.82 Long term (current) use of aspirin; Z79.899 Other long term (current) drug therapy
CPT/HCPCS: 36415; 80053; 83690; 84484; 85025; 87633; 93005; 99283; 99284

== ENCOUNTER 2023-04-11 13:00 | Outpatient (CLI) | payer MEDICARE, MEDICAID | END 2023-04-11 13:15 | disposition home or self-care (01) | LOC: LAB.N 13:00 | PROVIDERS: ATTEND Family Medicine | DX: R39.9 Unspecified symptoms and signs involving the genitourinary system (principal) | CPT/HCPCS: 87077; 87086; 87181 ==

== ENCOUNTER 2023-05-18 08:09 | Outpatient (CLI) | payer MEDICARE, MEDICAID | END 2023-05-18 08:10 | disposition critical access hospital (66) | LOC: EMS 08:09 | DX: R10.84 Generalized abdominal pain (principal); K59.00 Constipation, unspecified; N50.812 Left testicular pain; N50.811 Right testicular pain; R42 Dizziness and giddiness | CPT/HCPCS: A0425; A0429 ==

== ENCOUNTER 2023-05-18 08:27 | Emergency (ER) | payer MEDICARE, MEDICAID ==
[2023-05-18] MEDS ORDERED: HYDROmorphone 0.5 MG/0.5 ML SYRINGE IVP STA (08:39)
[2023-05-18] MEDS ORDERED: ONDANSETRON 4 MG/2 ML VIAL IVP STA (08:39)
[2023-05-18] MEDS ORDERED: SODIUM CHLORIDE 0.9% 1,000 ML IV STA (08:39)
[2023-05-18] MEDS ORDERED: KETOROLAC 30 MG/ML VIAL IVP STA (08:39)
[2023-05-18 09:08] LABS: BASOPHILS % (AUTO) 0.5 %; EOSINOPHILS % (AUTO) 0.5 %; HCT - HEMATOCRIT 39.8 % (42.0-52.0); HGB - HEMOGLOBIN 13.3 g/dL (14.0-18.0); LYMPHOCYTES # (AUTO) 2.1 10^3/uL (1.5-3.5); LYMPHOCYTES % (AUTO) 28.6 %; MEAN CORPUSCULAR HEMOGLOBIN 30.9 pg (27.0-31.0); MEAN CORPUSCULAR HGB CONC 33.4 g/dL (32.0-36.0); MEAN CORPUSCULAR VOLUME 92.3 fL (80.0-94.0); MEAN PLATELET VOLUME 10.5 fL (7.4-11.4); MONOCYTES # (AUTO) 0.4 10^3/uL (0.0-1.0); MONOCYTES % (AUTO) 4.8 %; NEUTROPHILS # (AUTO) 4.9 10^3/uL (1.5-6.6); NEUTROPHILS % (AUTO) 65.5 %; PLT - PLATELET COUNT 197 10^3/uL (130-450); RED BLOOD COUNT 4.31 10^6/uL (4.70-6.10); RED CELL DISTRIBUTION WIDTH 13.1 % (12.0-15.0); WHITE BLOOD COUNT 7.4 x10^3/uL (4.8-10.8)
[2023-05-18 09:10] LABS: BILIRUBIN,URINE NEGATIVE (NEGATIVE); GLUCOSE, URINE (UA) NEGATIVE (NEGATIVE); KETONES,URINE (UA) NEGATIVE (NEGATIVE); LEUKOCYTE ESTERASE, URINE NEGATIVE (NEGATIVE); NITRITE,URINE NEGATIVE (NEGATIVE); OCCULT BLOOD,URINE NEGATIVE (NEGATIVE); PROTEIN,URINE NEGATIVE (NEGATIVE); UROBILINOGEN,URINE 0.2 (NORMAL) E.U./dL (NORMAL)
[2023-05-18 09:17] LABS: CLARITY,URINE CLEAR (CLEAR)
[2023-05-18 09:22] LABS: ALBUMIN 4.4 g/dL (3.2-5.5); ALBUMIN/GLOBULIN RATIO 2.3 (1.0-2.2); BILIRUBIN,TOTAL 0.4 mg/dL (0.2-1.0); CALCIUM 9.3 mg/dL (8.5-10.3); CREATININE 0.8 mg/dL (0.6-1.3); POTASSIUM 4.3 mmol/L (3.5-4.5); TOTAL PROTEIN 6.3 g/dL (6.4-8.9)
--- NOTE | 2023-05-18 09:54 | ED Physician Documentation ---
PD HPI ABD PAIN - Stated complaint Stated Complaint: ABD PX - Chief complaint Chief Complaint: Abd Pain - History obtained from History obtained from: Patient, EMS - Additional information Additional information: The patient presents to the emergency department via EMS for a variety of complaints including left-sided abdominal pain, suprapubic abdominal pain, bilateral testicular swelling and retraction, left arm weakness, and constipation. The patient states that he has been having left upper abdominal pain and cramping with some nausea over the past few days. He has not been able to eat very much because of this and has also felt constipated. He has tried taking [id number] laxatives but states he just produces a few lumps of stool here and there. He states that he has some pain in his rectal area when he tries to defecate. He also has noticed a pain in the suprapubic area but denies any dysuria. No penile discharge. He states that this morning, he woke up and noticed that both testicles seem to be retracted and his scrotum felt swollen on both sides. He denies any pain in his testicles per se. The patient denies any fevers or chills. He states that he has been feeling as though his left arm "loses power" after few minutes of use. This is also been going on for few days. He states the strength feels normal initially and then his arm just starts to feel weak after A few minutes of use. He denies any weakness anywhere else. No changes in his ability to speak, swallow, or see. He has no history of strokelike symptoms. He does have a history of seizure disorder, but the last time he had a seizure was 6 months ago and that was just when they changed his meds. His only other medical problems are GERD and hypertension. He is a smoker. No other complaints at this time. PD PAST MEDICAL HISTORY - Past Medical History Cardiovascular: None, Hypertension Respiratory: None, Other Neuro: CVA, Migraines, Seizure disorder Endocrine/Autoimmune: None GI: GERD, Hiatal hernia : Retention, Other HEENT: None Psych: Bipolar disorder, Depression, Anxiety, Post traumatic stress disorder, Other Musculoskeletal: None, Chronic back pain Derm: Other - Past Surgical History Past Surgical History: Yes General: EGD, Colonoscopy Ortho: Other Derm: Skin grafts - Present Medications Home Medications: Ambulatory Orders Medication Instructions Recorded Confirmed Lansoprazole [Prevacid] 30 mg PO DAILY 03/09/20 12/05/23 Furosemide [Lasix] 20 mg PO DAILY 04/21/22 05/20/23 Albuterol Sulf [Ventolin Hfa 1 - 2 puffs INH Q4HR PRN 11/11/22 05/20/23 Inhaler] Lisinopril [Zestril] 10 mg PO DAILY 11/11/22 05/20/23 Sucralfate [Carafate] 1 gm PO ACHS 5 Days #200 ml 11/16/22 05/20/23 Alfuzosin HCl [Alfuzosin HCl ER] 10 mg PO DAILY 05/18/23 05/20/23 Buprenorphine HCl/Naloxone HCl 2 each SL DAILY 05/18/23 05/20/23 [Buprenorphine-Nalox 8-2Mg Film] Celecoxib 200 mg PO DAILY 05/18/23 05/20/23 Lisdexamfetamine Dimesylate 30 mg PO DAILY 05/18/23 05/20/23 [Vyvanse] OXcarbazepine [Trileptal] 300 mg PO BID 05/18/23 05/20/23 Doxycycline [Vibramycin] 100 mg PO BID 05/20/23 05/20/23 Lidocaine Viscous 2% [Xylocaine 5 ml PO Q4H PRN #100 ml 05/20/23 Viscous 2%] - Allergies Allergies/Adverse Reactions: Allergies Allergy/AdvReac Type Severity Reaction Status Date / Time cefdinir Allergy Severe Itching Verified 05/20/23 07:32 cephalexin Allergy Severe Rash Verified 05/20/23 07:32 Cephalosporins Allergy Severe Unknown Verified 05/20/23 07:32 Penicillins Allergy Intermediate Edema Verified 05/20/23 07:32 tramadol Allergy Intermediate Edema Verified 05/20/23 07:32 morphine Allergy Anaphylaxis Verified 05/20/23 07:32 paliperidone [From Invega] Allergy painful Verified 05/20/23 07:32 erections Sulfa (Sulfonamide Allergy Unknown Verified 05/20/23 07:32 Antibiotics) ziprasidone [From Geodon] Allergy Unknown Verified 05/20/23 07:32 ibuprofen AdvReac Nausea Verified 05/20/23 07:32 lurasidone HCl * AdvReac Itching Verified 05/20/23 07:32 [From Latuda] - Social History Does the pt smoke?: Yes Smoking Status: Current every day smoker Does the pt drink ETOH?: No Does the pt have substance abuse?: Yes - Immunizations Immunizations are current?: Yes - POLST Patient has POLST: No PD ED PE NORMAL - Vitals Vital signs reviewed: Yes - General General: Alert and oriented X 3, No acute distress, Well developed/nourished - HEENT HEENT: Atraumatic, EOMI, Moist mucous membranes - Neck Neck: Supple, no meningeal sign - Cardiac Cardiac: RRR, No murmur - Respiratory Respiratory: No respiratory distress, Clear bilaterally - Abdomen Abdomen: Soft, Non distended, Other (Moderate tenderness palpation left upper quadrant and suprapubic area, no rebound or guarding.) - Male Male : 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 No obvious scrotal swelling. Testicles are descended bilaterally and nontender. Symmetrical in size. No obvious hernia. No scrotal skin changes, including erythema, induration, or rash. No penile lesions.) - Rectal Rectal: Other (Moderate tenderness of the prostate, no obvious nodules or enlargement, no gross blood. Light brown stool. No mass.) - Derm Derm: Normal color, Warm and dry, No rash - Extremities Extremities: No deformity, No edema - Neuro Neuro: Alert and oriented X 3, Other (Grossly intact.) - Psych Psych: Normal mood, Normal affect Results - Vitals Vitals: Oxygen O2 Source Room air - Labs Labs: Microbiology 05/18/23 08:42 Occult Blood - Final Stool Laboratory Tests 05/18/23 05/18/23 05/18/23 08:45 08:51 08:51 WBC 7.4 RBC 4.31 L Hgb 13.3 L Hct 39.8 L MCV 92.3 MCH 30.9 MCHC 33.4 RDW 13.1 Plt Count 197 MPV 10.5 Neut # (Auto) 4.9 Lymph # (Auto) 2.1 [place] # (Auto) 0.4 Eos # (Auto) 0.0 Baso # (Auto) 0.0 Absolute Nucleated RBC 0.00 Nucleated RBC % 0.0 Sodium 134 L Potassium 4.3 Chloride 99 L Carbon Dioxide 29 Anion Gap 6.0 BUN 10 Creatinine 0.8 Estimated GFR (MDRD) 106 Glucose 115 H Calcium 9.3 Total Bilirubin 0.4 AST 17 ALT 12 Alkaline Phosphatase 95 Total Protein 6.3 L Albumin 4.4 Globulin 1.9 L Albumin/Globulin Ratio 2.3 H Lipase 30 Urine Color YELLOW Urine Clarity CLEAR Urine pH 6.0 Ur Specific Alexander <=1.005 Urine Protein NEGATIVE Urine Glucose (UA) NEGATIVE Urine Ketones NEGATIVE Urine Occult Blood NEGATIVE Urine Nitrite NEGATIVE Urine Bilirubin NEGATIVE Urine Urobilinogen 0.2 (NORMAL) Ur Leukocyte Esterase NEGATIVE Ur Microscopic Review NOT INDICATED Urine Culture Comments NOT INDICATED - Rads (name of study) CT abd/pelvis Relevant Findings:: Final report received, See rad report (neg) US testicles Relevant Findings:: Final report received, See rad report (Bilateral hydrocele) PD Medical Decision Making - ED course Complexity details: reviewed results, re-evaluated patient, considered differential, d/w patient ED course: The patient was worked up with labs, urinalysis, ultrasound of the testicles, and CT scan of the abdomen and pelvis. Workup is unremarkable. We have discussed the need for follow-up and the usual indications for return. No emergent condition identified. Departure - Departure Disposition: 01 Home, Self Care Clinical Impression: Hydrocele of testis Abdominal pain Qualifiers: Abdominal location: unspecified location Qualified Code(s): R10.9 - Unspecified abdominal pain Condition: Stable Instructions: ED Abdominal Pain Unkn Cause Male Comments: Extensive testing today looks good. Your urinalysis is negative and your labs look good. Your ultrasound of the testicles reveals a little bit of fluid in your scrotal sacs but otherwise, does not show any abnormalities or findings of concern otherwise. Your CT scan does not show any concerning abnormalities. There is no evidence of prostatitis at this time. In general, we would expect fever, elevated white blood cell count, positive urinalysis, and possibly findings on CT scan. You will need to follow-up with your primary doctor regarding your ongoing symptoms. Please take your home medications as needed. Forms: PCP List Discharge Date/Time: 05/18/23 13:46
--- NOTE | 2023-05-18 10:45 | Ultrasound Report ---
PROCEDURE: Testicle w/Doppler Limited INDICATIONS: bilateral testicular pain/swelling TECHNIQUE: Real-time scanning was performed of the scrotum and testicles, with image documentation. Color and p ulse Doppler interrogation was performed of both testicles. COMPARISON: None. FINDINGS: Right: Testicle is normal in size at 4.6 x 2.5 x 3.0 cm, and homogenous in echotexture. Epididymis is normal in overall size and morphology. Small hydrocele. No varicoceles. Overlying scrotal skin i s normal in thickness. Left: Testicle is normal in size at 4.5 x 2.9 x 3.6 cm, and homogeneous in echotexture. Epididymis is normal in overall size and morphology. Small hydrocele. No varicoceles. Overlying scrotal skin i s normal in thickness. Doppler: Color and pulse Doppler demonstrate normal and symmetric arterial flow in both testicles. IMPRESSION: Small bilateral testicular hydroceles. No evidence of torsion or infection. Reviewed by: Raul Chao on 05/18/2023 9:44 AM [facility] Approved by: Raul Chao on 05/18/2023 9:44 AM [facility] Station ID: [id number]
--- NOTE | 2023-05-18 11:29 | CT Report ---
PROCEDURE: ABDOMEN/PELVIS W INDICATIONS: low abd pain, rectal pain CONTRAST: 100ml omni 300 TECHNIQUE: After the administration of intravenous contrast, 5 mm thick sections acquired from the diaphragms to the symphysis. 5 mm thick coronal and sagittal reformats were acquired. For radiation dose reducti on, the following was used: automated exposure control, adjustment of mA and/or kV according to dipak ent size. COMPARISON: 03/02/2023 FINDINGS: Image quality: Excellent. Lung bases and heart: Unremarkable. Liver: No solid mass. Gallbladder and biliary tree: No radiopaque stones or wall thickening. No biliary dilation. Spleen: No splenomegaly. Calcified granuloma. Pancreas: No pancreatic ductal dilation. Adrenals: No adrenal nodule. Kidneys and ureters: No hydronephrosis. No renal cystic lesion which requires follow up. No solid mas s. Bowel and peritoneum: No bowel distension. No pathologic free fluid. Diverticulosis without evidence of diverticulitis. Lymph nodes: No central or retroperitoneal adenopathy. Vessels: No infrarenal aortic aneurysm. PELVIS Reproductive organs: Unremarkable. Bladder: No abnormal wall thickening, accounting for underdistension. Pelvic lymph nodes: No pelvic adenopathy by size criteria. Bones: No aggressive osseous abnormality. Other: Small focal hernia containing fat. IMPRESSION: No acute abnormality. Reviewed by: Raul Chao on 05/18/2023 10:28 AM [facility] Approved by: Raul Chao on 05/18/2023 10:28 AM [facility] Station ID: [id number]
[2023-05-18] MEDS: HYDROcod/ACETAM 5/325 MG TABLET PO STA ×2 (13:29→13:30)
[2023-05-18] MEDS ORDERED: iohexoL-300 100 ML VIAL IVP ONE (13:43)
[2023-05-18 13:54] VITALS: BP 154/89; O2SAT 98
== END 2023-05-18 13:46 | disposition home or self-care (01) ==
LOC: EDUNIT# → ED 08:27
DX: N43.3 Hydrocele, unspecified (principal); R10.2 Pelvic and perineal pain; F17.200 Nicotine dependence, unspecified, uncomplicated; I10 Essential (primary) hypertension
CPT/HCPCS: 36415; 74177; 76870; 80053; 81003; 82272; 83690; 85025; 93976; 96374; 99283; 99284; J1170; Q9967; 81001; 82270; 87086

== ENCOUNTER 2023-05-20 07:09 | Outpatient (CLI) | payer MEDICARE, MEDICAID | END 2023-05-20 23:59 | disposition critical access hospital (66) | LOC: EMS 07:09 | DX: R10.33 Periumbilical pain (principal); R05.9 Cough, unspecified; K59.00 Constipation, unspecified | CPT/HCPCS: A0425; A0429 ==

== ENCOUNTER 2023-05-20 07:27 | Emergency (ER) | payer MEDICARE, MEDICAID ==
[2023-05-20] MEDS ORDERED: ALBUTEROL NEB 2.5 MG/3 ML INH STA (08:02)
[2023-05-20] MEDS ORDERED: LIDOCAINE VISCOUS 2% 15 ML UDC MM STA (08:03)
[2023-05-20] MEDS ORDERED: MAG HYDROX/AL HYDROX/SIMETH 30 ML UDC PO STA (08:03)
[2023-05-20] MEDS ORDERED: ACETAMINOPHEN 325 MG TABLET PO STA (08:04)
[2023-05-20] MEDS ORDERED: FUROSEMIDE 20 MG TABLET PO STA (08:04)
[2023-05-20 08:18] LABS: BASOPHILS % (AUTO) 0.5 %; EOSINOPHILS % (AUTO) 0.3 %; HCT - HEMATOCRIT 39.8 % (42.0-52.0); HGB - HEMOGLOBIN 13.4 g/dL (14.0-18.0); LYMPHOCYTES # (AUTO) 1.7 10^3/uL (1.5-3.5); LYMPHOCYTES % (AUTO) 27.4 %; MEAN CORPUSCULAR HEMOGLOBIN 30.7 pg (27.0-31.0); MEAN CORPUSCULAR HGB CONC 33.7 g/dL (32.0-36.0); MEAN CORPUSCULAR VOLUME 91.3 fL (80.0-94.0); MEAN PLATELET VOLUME 10.1 fL (7.4-11.4); MONOCYTES # (AUTO) 0.3 10^3/uL (0.0-1.0); MONOCYTES % (AUTO) 4.7 %; NEUTROPHILS # (AUTO) 4.1 10^3/uL (1.5-6.6); NEUTROPHILS % (AUTO) 66.8 %; PLT - PLATELET COUNT 204 10^3/uL (130-450); RED BLOOD COUNT 4.36 10^6/uL (4.70-6.10); RED CELL DISTRIBUTION WIDTH 12.9 % (12.0-15.0); WHITE BLOOD COUNT 6.2 x10^3/uL (4.8-10.8)
--- NOTE | 2023-05-20 08:26 | XRAY Report ---
PROCEDURE: Chest 1 View X-Ray INDICATIONS: chest pain TECHNIQUE: One view of the chest was acquired. COMPARISON: 03/17/2023. FINDINGS: Surgical changes and devices: None. Lungs and pleura: No pleural effusions or pneumothorax. Lungs are clear. Mediastinum: Mediastinal contours appear normal. Heart size is normal. Bones and chest wall: No suspicious bony lesions. Overlying soft tissues appear unremarkable. IMPRESSION: No acute cardiopulmonary process. Reviewed by: Artis Fraser MD on 05/20/2023 8:24 AM PST Approved by: Artis Fraser MD on 05/20/2023 8:24 AM PST Station ID: [id number]
[2023-05-20 08:36] LABS: ALBUMIN 4.6 g/dL (3.2-5.5); ALBUMIN/GLOBULIN RATIO 2.4 (1.0-2.2); BILIRUBIN,TOTAL 0.5 mg/dL (0.2-1.0); CALCIUM 9.5 mg/dL (8.5-10.3); CREATININE 0.8 mg/dL (0.6-1.3); MAGNESIUM 1.8 mg/dL (1.7-2.3); POTASSIUM 4.4 mmol/L (3.5-4.5); TOTAL PROTEIN 6.5 g/dL (6.4-8.9)
--- NOTE | 2023-05-20 10:07 | ED Physician Documentation ---
PD HPI ABD PAIN - Stated complaint Stated Complaint: ABD PX/SINUS INFECTION - Chief complaint Chief Complaint: Abd Pain - History obtained from History obtained from: Patient - History of Present Illness Timing - onset: How many days ago (has had cough for 1 week or more, with some pain in epigastric to sternal chest with cough. Has some dyspnea. Seen recently for this at walk in and Rx Doxycycline for sinus infection. Having epigastric pain now with coughing and with eating.) Timing - details: Gradual onset, Intermittant Quality: Cramping, Aching, Pain Location: Epigastric Radiation: Chest Improved by: No: Eating, Vomiting Worsened by: Eating Associated symptoms: Nausea. No: Fever, Vomiting, Diarrhea, Constipation, Melena Similar symptoms before: Has not had sx before Recently seen: Clinic (walk in 5 days ago for sinus symptoms and cough. Rx Doxycycline.) Review of Systems Constitutional: denies: Fever, Chills Cardiac: reports: Chest pain / pressure. denies: Palpitations, Pedal edema, Calf pain Respiratory: reports: Dyspnea, Cough. denies: Hemoptysis GI: reports: Abdominal Pain. denies: Nausea, Vomiting, Diarrhea, Bloody / black stool Neurologic: denies: Generalized weakness, Near syncope PD PAST MEDICAL HISTORY - Past Medical History Past Medical History: Yes Cardiovascular: Hypertension Respiratory: None, Other Neuro: CVA, Migraines, Seizure disorder Endocrine/Autoimmune: None GI: GERD, Hiatal hernia, Other : Retention, Other HEENT: None Psych: Depression, Anxiety, Post traumatic stress disorder, Other Musculoskeletal: None, Chronic back pain Derm: Other - Past Surgical History Past Surgical History: Yes General: EGD, Colonoscopy Ortho: Other Derm: Skin grafts - Present Medications Home Medications: Ambulatory Orders Medication Instructions Recorded Confirmed Lansoprazole [Prevacid] 30 mg PO DAILY 08/23/19 05/20/23 Furosemide [Lasix] 20 mg PO DAILY 04/21/22 05/20/23 Albuterol Sulf [Ventolin Hfa 1 - 2 puffs INH Q4HR PRN 11/11/22 05/20/23 Inhaler] Lisinopril [Zestril] 10 mg PO DAILY 11/11/22 05/20/23 Sucralfate [Carafate] 1 gm PO ACHS 5 Days #200 ml 11/16/22 05/20/23 Alfuzosin HCl [Alfuzosin HCl ER] 10 mg PO DAILY 05/18/23 05/20/23 Buprenorphine HCl/Naloxone HCl 2 each SL DAILY 05/18/23 05/20/23 [Buprenorphine-Nalox 8-2Mg Film] Celecoxib 200 mg PO DAILY 05/18/23 05/20/23 Lisdexamfetamine Dimesylate 30 mg PO DAILY 05/18/23 05/20/23 [Vyvanse] OXcarbazepine [Trileptal] 300 mg PO BID 05/18/23 05/20/23 Doxycycline [Vibramycin] 100 mg PO BID 05/20/23 05/20/23 Lidocaine Viscous 2% [Xylocaine 5 ml PO Q4H PRN #100 ml 05/20/23 Viscous 2%] - Allergies Allergies/Adverse Reactions: Allergies Allergy/AdvReac Type Severity Reaction Status Date / Time cefdinir Allergy Severe Itching Verified 05/20/23 07:32 cephalexin Allergy Severe Rash Verified 05/20/23 07:32 Cephalosporins Allergy Severe Unknown Verified 05/20/23 07:32 Penicillins Allergy Intermediate Edema Verified 05/20/23 07:32 tramadol Allergy Intermediate Edema Verified 05/20/23 07:32 morphine Allergy Anaphylaxis Verified 05/20/23 07:32 paliperidone [From Invega] Allergy painful Verified 05/20/23 07:32 erections Sulfa (Sulfonamide Allergy Unknown Verified 05/20/23 07:32 Antibiotics) ziprasidone [From Geodon] Allergy Unknown Verified 05/20/23 07:32 ibuprofen AdvReac Nausea Verified 05/20/23 07:32 lurasidone HCl * AdvReac Itching Verified 05/20/23 07:32 [From Latuda] - Social History Does the pt smoke?: Yes Smoking Status: Current every day smoker Does the pt drink ETOH?: No Does the pt have substance abuse?: Yes Substance Use and Type: Marijuana - Immunizations Immunizations are current?: Yes - POLST Patient has POLST: No PD ED PE NORMAL - Vitals Vital signs reviewed: Yes - General General: Alert and oriented X 3, No acute distress, Well developed/nourished - Cardiac Cardiac: RRR, No murmur - Respiratory Respiratory: Clear bilaterally, Other (no chestwall tenderness) - Abdomen Abdomen: Normal bowel sounds, Soft, Non distended, No organomegaly, Other (tender without guarding nor percussion tender in epigsric area. ) Results - Vitals Vitals: Vital Signs - 24 hr 05/20/23 05/20/23 05/20/23 07:32 08:22 10:14 Temperature 37.3 C Heart Rate 81 80 86 Respiratory 16 16 14 Rate Blood Pressure 159/94 H 156/99 H O2 Saturation 92 98 Oxygen O2 Source Room air - Labs Labs: Laboratory Tests 05/20/23 05/20/23 08:11 08:11 WBC 6.2 RBC 4.36 L Hgb 13.4 L Hct 39.8 L MCV 91.3 MCH 30.7 MCHC 33.7 RDW 12.9 Plt Count 204 MPV 10.1 Neut # (Auto) 4.1 Lymph # (Auto) 1.7 [place] # (Auto) 0.3 Eos # (Auto) 0.0 Baso # (Auto) 0.0 Absolute Nucleated RBC 0.00 Nucleated RBC % 0.0 Sodium 130 L Potassium 4.4 Chloride 96 L Carbon Dioxide 30 Anion Gap 4.0 L BUN 9 Creatinine 0.8 Estimated GFR (MDRD) 106 Glucose 105 H Calcium 9.5 Magnesium 1.8 Total Bilirubin 0.5 AST 17 ALT 13 Alkaline Phosphatase 104 Total Protein 6.5 Albumin 4.6 Globulin 1.9 L Albumin/Globulin Ratio 2.4 H Lipase 26 - Rads (name of study) chest xray Relevant Findings:: Prelim report reviewed, EMP independent interpretation of test (no acute process: no PTX, effusion, infiltrates.) PD Medical Decision Making - ED course Complexity details: reviewed results (Has normal amylase and LFTs, as well as no change in Hgb from recent labs. chest xray is clear without pneumonia, fluid, ptx, effusion.), re-evaluated patient (improved with GI cocktail.), considered differential (The patient could have some musclar upper abd pain from coughing with some increase with cough. However does get much improved with GI cocktail so likely an element of gastritis from Doxycyccline he is on for sinusitis.), d/w patient Departure - Departure Disposition: 01 Home, Self Care Clinical Impression: Acute epigastric pain, Cough, Edema Condition: Stable Record reviewed to determine appropriate education?: Yes Instructions: ED Epigastric Pain [facility] Prescriptions: Lidocaine Viscous 2% [Xylocaine Viscous 2%] 5 ml PO Q4H PRN #100 ml PRN Reason: Pain Comments: Your chest x-ray is clear without any signs of pneumonia. You can continue with the doxycycline for your sinus and if you did have some element of bronchitis bacterial it would cover that well as well. Continue with your albuterol inhaler 2 to 3 puffs 4 times daily regularly for the next several days to week and then as needed. Your blood tests again are good today without any signs of developing an inflammation of the pancreas or liver. I presume the pain you are having is potentially muscular from coughing though I would consider some irritation of the stomach (gastritis/esophagitis) from illness and possibly a side effect of the doxycycline. Be sure to take the Doxy with some food. Continue with your current acid reducing medicine. Add in the Carafate particularly at night before bed but also couple times during the day. Antacid such as Maalox or Mylanta if needed. He you can combine into that the viscous lidocaine that we gave you here that seemed helpful. I sent your prescription to the [facility] [place] pharmacy. Follow-up with your primary care. Follow-up with GI to schedule the upper endoscopy. For your leg and scrotal swelling, I would suggest doubling your furosemide for the next 4 to 5 days and see if that improves it and then return to your normal dose. Forms: PCP List Discharge Date/Time: 05/20/23 10:13
[2023-05-20 10:24] VITALS: BP 156/99; O2SAT 98
== END 2023-05-20 10:13 | disposition home or self-care (01) ==
LOC: EDSEX → EDUNIT# → ED 07:27
DX: R05.9 Cough, unspecified (principal); R10.13 Epigastric pain; R60.9 Edema, unspecified; I10 Essential (primary) hypertension; F17.200 Nicotine dependence, unspecified, uncomplicated
CPT/HCPCS: 36415; 71045; 80053; 83690; 83735; 85025; 94640; 99284; A9270

== ENCOUNTER 2023-05-21 23:30 | Outpatient (CLI) | payer MEDICARE, MEDICAID | END 2023-05-21 23:59 | disposition EMS.NT | LOC: EMS 23:30 | DX: R10.9 Unspecified abdominal pain (principal); R11.0 Nausea; F41.9 Anxiety disorder, unspecified ==

== ENCOUNTER 2023-05-27 19:49 | Outpatient (CLI) | payer MEDICARE, MEDICAID | END 2023-05-27 19:50 | disposition EMS.NT | LOC: EMS 19:49 | DX: Z03.89 Encounter for observation for other suspected diseases and conditions ruled out (principal) ==

== ENCOUNTER 2023-05-30 10:05 | Outpatient (CLI) | payer MEDICARE, MEDICAID ==
[2023-05-30 12:12] LABS: BILIRUBIN,URINE NEGATIVE (NEGATIVE); GLUCOSE, URINE (UA) NEGATIVE (NEGATIVE); KETONES,URINE (UA) NEGATIVE (NEGATIVE); LEUKOCYTE ESTERASE, URINE NEGATIVE (NEGATIVE); NITRITE,URINE NEGATIVE (NEGATIVE); OCCULT BLOOD,URINE NEGATIVE (NEGATIVE); PROTEIN,URINE NEGATIVE (NEGATIVE); UROBILINOGEN,URINE 0.2 (NORMAL) E.U./dL (NORMAL)
[2023-05-30 12:15] LABS: BASOPHILS % (AUTO) 0.3 %; EOSINOPHILS # (AUTO) 0.1 10^3/uL (0.0-0.7); EOSINOPHILS % (AUTO) 0.5 %; HCT - HEMATOCRIT 43.8 % (42.0-52.0); HGB - HEMOGLOBIN 14.8 g/dL (14.0-18.0); LYMPHOCYTES # (AUTO) 3.1 10^3/uL (1.5-3.5); LYMPHOCYTES % (AUTO) 30.6 %; MEAN CORPUSCULAR HEMOGLOBIN 30.9 pg (27.0-31.0); MEAN CORPUSCULAR HGB CONC 33.8 g/dL (32.0-36.0); MEAN CORPUSCULAR VOLUME 91.4 fL (80.0-94.0); MEAN PLATELET VOLUME 10.6 fL (7.4-11.4); MONOCYTES # (AUTO) 0.6 10^3/uL (0.0-1.0); MONOCYTES % (AUTO) 5.7 %; NEUTROPHILS # (AUTO) 6.3 10^3/uL (1.5-6.6); NEUTROPHILS % (AUTO) 62.6 %; PLT - PLATELET COUNT 246 10^3/uL (130-450); RED BLOOD COUNT 4.79 10^6/uL (4.70-6.10); RED CELL DISTRIBUTION WIDTH 13.2 % (12.0-15.0)
[2023-05-30 12:35] LABS: ALBUMIN 4.7 g/dL (3.2-5.5); BILIRUBIN,TOTAL 0.6 mg/dL (0.2-1.0); CALCIUM 9.9 mg/dL (8.5-10.3); CREATININE 0.8 mg/dL (0.6-1.3); POTASSIUM 4.5 mmol/L (3.5-4.5)
[2023-05-30 12:39] LABS: CLARITY,URINE CLEAR (CLEAR); RBC,URINE 0-5 /HPF (0-5); WBC,URINE 0-3 /HPF (0-3)
[2023-05-30 12:40] LABS: BACTERIA,URINE Rare /HPF (None Seen); CASTS, URINE 0-2 Hyaline Casts /LPF; EPITHELIAL CELLS,UR RARE Renal Tubular /HPF (<= Few); SQUAMOUS EPITHELIAL CELL,UR RARE Squamous (<= Few)
[2023-05-30 12:41] LABS: MUCUS,URINE Moderate Strands
== END 2023-05-30 10:06 | disposition home or self-care (01) ==
LOC: LAB.N 10:05
PROVIDERS: ATTEND Nurse Practitioner
DX: R10.13 Epigastric pain (principal)
CPT/HCPCS: 36415; 80053; 81001; 82150; 83690; 85025; 87086

== ENCOUNTER 2023-06-05 09:54 | Outpatient (CLI) | payer MEDICARE, MEDICAID | END 2023-06-05 09:55 | disposition EMS.NT | LOC: EMS 09:54 | DX: R14.0 Abdominal distension (gaseous) (principal); M54.50 Low back pain, unspecified; F41.9 Anxiety disorder, unspecified ==

== ENCOUNTER 2023-06-11 12:37 | Outpatient (CLI) | payer MEDICARE, MEDICAID ==
--- NOTE | 2023-06-11 21:24 | Ultrasound Report ---
PROCEDURE: Testicle INDICATIONS: BACK PAIN, TESTICULAR PAIN TECHNIQUE: Real-time scanning was performed of the scrotum and testicles, with image documentation. Color and p ulse Doppler interrogation was performed of both testicles. COMPARISON: Testicular ultrasound 05/18/2023. CT abdomen pelvis 05/18/2023. FINDINGS: Right: Testicle is normal in size at 4.4 x 2.7 x 2.2 cm, and homogenous in echotexture. Epididymis is normal in overall size and morphology. Small hydrocele. No varicoceles. Overlying scrotal skin i s normal in thickness. Left: Testicle is normal in size at 4.5 x 2.8 x 2.2 cm, and homogeneous in echotexture. Epididymis is normal in overall size and morphology. Small hydrocele. No varicoceles. Overlying scrotal skin i s normal in thickness. Doppler: Color and pulse Doppler demonstrate normal and symmetric arterial flow in both testicles. IMPRESSION: 1. No testicular mass. 2. Small bilateral hydroceles. No varicocele. 3. No epididymitis demonstrated. No torsion. Reviewed by: Toni Dill MD on 06/11/2023 9:23 PM PST Approved by: Toni Dill MD on 06/11/2023 9:23 PM PST Station ID: [id number]
== END 2023-06-11 12:38 | disposition home or self-care (01) ==
LOC: DI 12:37
PROVIDERS: ATTEND Nurse Practitioner
DX: N43.3 Hydrocele, unspecified (principal); N45.1 Epididymitis

== ENCOUNTER 2023-06-13 09:28 | Outpatient (CLI) | payer MEDICARE, MEDICAID ==
--- NOTE | 2023-06-13 11:28 | MRI Report ---
PROCEDURE: LUMBAR SPINE WO INDICATIONS: BACK PAIN, TESTICULAR PAIN TECHNIQUE: Noncontrast sagittal T1 spin echo and T2 fast echo, sagittal STIR, axial T1 and T2 fast spin echo thr ough the lumbar spine. In cases with scoliosis, additional coronal T2 fast spin echo may be performe d. COMPARISON: 12/20/2019 FINDINGS: Image quality: Diagnostic. Alignment and Curvature: There is normal bony alignment. Bone Marrow: Marrow is of normal overall signal. No acute vertebral body compression fractures. Spinal Cord: Conus medullaris terminates at the T12-L1 level. Visualized cord demonstrates normal s ignal and size. Paraspinous Soft Tissues: No paravertebral masses. T12-L1: Normal in appearance. L1-L2: Normal in appearance. L2-L3: No significant abnormality is seen. L3-L4: The disc height is relatively well preserved. Moderate disc bulge is seen at this level. A superimposed central disc protrusion is seen. Moderate facet hypertrophy is seen. There is at least moderate bilateral neuroforaminal narrowing seen, left worse than right. Mild central canal narrowin g is seen. These degenerative changes have progressed when compared to the prior examination. L4-L5: The disc height is well-preserved. There is loss of disc signal seen. At least moderate di sc bulge is seen, with a mild central disc protrusion. At least moderate facet hypertrophy can be see n. There is at least moderate left-sided and moderate to severe right-sided neuroforaminal narrowing. Compression is seen upon the exiting nerve roots. Moderate central canal narrowing is seen. These d egenerative changes have mildly progressed when compared to the prior examination. L5-S1: Mild loss of disc height and disc signal are seen. Mild disc bulge is seen. A superimposed central disc protrusion is seen. There is at least moderate right-sided and moderate left-sided face t hypertrophy. There is moderate left-sided and at least moderate right-sided neuroforaminal narrowin g. There is a degree of compression seen upon the exiting right L5 nerve root. Minimal central canal narrowing is seen. These degenerative changes have progressed when compared to the prior examination. IMPRESSION: Lower lumbar spine degenerative changes are seen, which have progressed compared to 2020. Reviewed by: Warren Sánchez MD on 06/13/2023 10:27 AM [place] Approved by: Warren Sánchez MD on 06/13/2023 10:27 AM [place] Station ID: [id number]
== END 2023-06-13 09:29 | disposition home or self-care (01) ==
LOC: DI 09:28
PROVIDERS: ATTEND Nurse Practitioner
DX: M51.16 Intervertebral disc disorders with radiculopathy, lumbar region (principal); M48.061 Spinal stenosis, lumbar region without neurogenic claudication; M47.26 Other spondylosis with radiculopathy, lumbar region; M51.17 Intervertebral disc disorders with radiculopathy, lumbosacral region; M47.27 Other spondylosis with radiculopathy, lumbosacral region; M48.07 Spinal stenosis, lumbosacral region

== ENCOUNTER 2023-06-25 10:36 | Outpatient (CLI) | payer MEDICARE, MEDICAID ==
--- NOTE | 2023-07-02 11:21 | Ultrasound Report ---
PROCEDURE: Pelvic Limited INDICATIONS: RIGHT TESTICULAR PAIN TECHNIQUE: Real-time transabdominal scanning was of the region of interest of the bilateral groin. COMPARISON: Testicular/scrotal ultrasound dated 06/11/2023. Ultrasound dated 06/11/2023, 05/18/2023. CT 05/18/2020.. FINDINGS: Fat-containing right inguinal hernia is noted; its neck measures 1 x 0.8 cm. No inguinal hernia seen on left side. IMPRESSION: Right inguinal hernia seen. Reviewed by: Evelio Banda MD on 06/25/2023 12:17 PM PST Approved by: Evelio Banda MD on 06/25/2023 12:17 PM PST Station ID: [id number]
== END 2023-06-25 10:37 | disposition home or self-care (01) ==
LOC: DI 10:36
PROVIDERS: ATTEND Nurse Practitioner
DX: N50.811 Right testicular pain (principal); K40.90 Unilateral inguinal hernia, without obstruction or gangrene, not specified as recurrent

== ENCOUNTER 2023-06-29 06:54 | Emergency (ER) | payer MEDICARE, MEDICAID ==
[2023-06-29 08:12] VITALS: BP 148/95; O2SAT 96
[2023-06-29] MEDS ORDERED: KETOROLAC 30 MG/ML VIAL IM STA (08:18)
[2023-06-29] MEDS ORDERED: DEXAMETHASONE 10 MG/ML VIAL PO STA (08:21)
[2023-06-29] MEDS ORDERED: CHERRY SYRUP 10 ML UDC PO ONE (08:21)
--- NOTE | 2023-06-29 08:26 | ED Physician Documentation ---
PD HPI NECK PAIN - Stated complaint Stated Complaint: neck/back px - Chief complaint Chief Complaint: Back Pain - History obtained from History obtained from: Patient - History of Present Illness Timing - onset: How many weeks ago (2) Timing - duration: Weeks (2) Timing - details: Gradual onset, Still present Location: Upper, Mid, Lower, Right Quality: Pain, Spasm, Sharp, Similar to prior episodes Associated symptoms: Other (constipation and urinary retention). No: Fever, W eakness, Numbness, Incontinent of urine, Unable to urinate, Hematuria, Incontinent of stool Improves with: Rest, Position, Meds Contributing factors: Other (falls in past 3 months) Similar symptoms before: Diagnosis (back pain) Recently seen: Clinic (seen at urgent care yesterday had imagning done this week of lower back with findings.), Other - Additional information Additional information: 42-year-old Carroll Isaac presents to the emergency department this morning with pain in his back difficulty with constipation and urination. He has been in to see the urologist and he has been in to see the neurosurgeon. He had MRI done he has had some findings of L4 canal narrowing. He has appointment to see the neurosurgeon in follow-up in 2 days time. He does feel that he is emptying his bladder and he takes medication for his prostate. Review of Systems Constitutional: denies: Fever Nose: denies: Congestion Throat: denies: Sore throat Respiratory: denies: Cough GI: denies: Abdominal Pain, Nausea, Vomiting : denies: Dysuria, Frequency Skin: denies: Rash, Lesions Musculoskeletal: reports: Neck pain, Back pain PD PAST MEDICAL HISTORY - Past Medical History Cardiovascular: Hypertension Respiratory: None, Other Neuro: CVA, Migraines, Seizure disorder Endocrine/Autoimmune: None GI: GERD, Hiatal hernia, Other : Retention, Other HEENT: None Psych: Depression, Anxiety, Post traumatic stress disorder, Other Musculoskeletal: None, Chronic back pain Derm: Other - Past Surgical History Past Surgical History: Yes General: EGD, Colonoscopy Ortho: Other Derm: Skin grafts - Present Medications Home Medications: Ambulatory Orders Medication Instructions Recorded Confirmed Lansoprazole [Prevacid] 30 mg PO DAILY 08/23/19 06/29/23 Furosemide [Lasix] 20 mg PO DAILY 04/21/22 06/29/23 Albuterol Sulf [Ventolin Hfa 1 - 2 puffs INH Q4HR PRN 11/11/22 06/29/23 Inhaler] Lisinopril [Zestril] 10 mg PO DAILY 11/11/22 06/29/23 Alfuzosin HCl [Alfuzosin HCl ER] 10 mg PO DAILY 05/18/23 06/29/23 Buprenorphine HCl/Naloxone HCl 1 each SL BID 05/18/23 06/29/23 [Buprenorphine-Nalox 8-2Mg Film] Celecoxib 200 mg PO DAILY 05/18/23 06/29/23 Lisdexamfetamine Dimesylate 30 mg PO DAILY 05/18/23 06/29/23 [Vyvanse] OXcarbazepine [Trileptal] 300 mg PO BID 05/18/23 06/29/23 Gabapentin [Neurontin] 800 mg PO TID 06/29/23 06/29/23 Meloxicam 7.5 mg PO BID PRN #150 ml 06/29/23 - Allergies Allergies/Adverse Reactions: Allergies Allergy/AdvReac Type Severity Reaction Status Date / Time cefdinir Allergy Severe Itching Verified 06/29/23 06:59 cephalexin Allergy Severe Rash Verified 06/29/23 06:59 Cephalosporins Allergy Severe Unknown Verified 06/29/23 06:59 Penicillins Allergy Intermediate Edema Verified 06/29/23 06:59 tramadol Allergy Intermediate Edema Verified 06/29/23 06:59 morphine Allergy Anaphylaxis Verified 06/29/23 06:59 paliperidone [From Invega] Allergy painful Verified 06/29/23 06:59 erections Sulfa (Sulfonamide Allergy Unknown Verified 06/29/23 06:59 Antibiotics) ziprasidone [From Geodon] Allergy Unknown Verified 06/29/23 06:59 ibuprofen AdvReac Nausea Verified 06/29/23 06:59 lurasidone HCl * AdvReac Itching Verified 06/29/23 06:59 [From Latuda] - Social History Does the pt smoke?: Yes Smoking Status: Current every day smoker Does the pt drink ETOH?: No Does the pt have substance abuse?: Yes - Immunizations Immunizations are current?: Yes - POLST Patient has POLST: No PD ED PE NORMAL - Vitals Vital signs reviewed: Yes (hypertensive ) - General General: Alert and oriented X 3, No acute distress, Well developed/nourished - HEENT HEENT: Atraumatic, PERRL, EOMI - Neck Neck: Supple, no meningeal sign, No bony TTP - Cardiac Cardiac: RRR, No murmur - Respiratory Respiratory: No respiratory distress, Clear bilaterally - Abdomen Abdomen: Normal bowel sounds, Soft, Non tender, No organomegaly, Other (mild suprapubic distention like a full bladder but not an over full bladder) - Back Back: No CVA TTP, No spinal TTP - Derm Derm: Normal color, Warm and dry, No rash - Extremities Extremities: No deformity, No edema - Neuro Neuro: Alert and oriented X 3, trial paralegal 2-12 intact, No motor deficit, No sensory deficit, Normal speech Eye Opening: Spontaneous Motor: Obeys Commands Verbal: Oriented GCS Score: 15 - Psych Psych: Normal mood, Normal affect Results - Vitals Vitals: Vital Signs - 24 hr 06/29/23 06/29/23 06:59 08:03 Temperature 36.5 C Heart Rate 78 81 Respiratory 20 18 Rate Blood Pressure 137/92 H 148/95 H O2 Saturation 97 96 Oxygen O2 Source Room air PD Medical Decision Making - ED course Complexity details: reviewed old records, re-evaluated patient, considered differential, d/w patient ED course: 42-year-old male with chronic back pain presents today with back pain. He is administered Toradol and dexamethasone with some improvement in his pain. I evaluated the patient at the bedside and thought he might have a full bladder. I used POCUS and found that he did have urine in his bladder right after voiding. A formal bladder scan was obtained showing 550 mL of urine. He was able to urinate again following this and again a similar amount. I have asked patient to follow-up with urology as it does appear he is having some issue with completely emptying his bladder and I do not believe this is related to his back specifically. He has follow-up set up already with Dr. Curry Guillen and with the [facility] neurosurgeon. Departure - Departure Disposition: 01 Home, Self Care Clinical Impression: Occipital neuralgia of right side, Urinary retention with incomplete bladder emptying Condition: Stable Instructions: ED Retention Urinary Male Follow-Up: Phuong Melton PA-C [Physician No Access] - Curry Guillen MD [Provider Admit Priv/Credential] - Fernanda Davila ARNP [Provider Admit Priv/Credential] - Prescriptions: Meloxicam 7.5 mg PO BID PRN #150 ml PRN Reason: pain Comments: Carroll, today it looks like the pain you are having in your neck is related to muscle spasm in the muscles in your neck pinching a nerve. We have given you some dexamethasone and Toradol and this should help today with this pain. We also found today that you appear to have some urinary retention with 550 mL of urine left in your bladder after voiding. This does not require placement of a Zaidi catheter today but it does require a visit to the urologist for further workup. Follow-up with your surgeon tomorrow regarding your back pain. The findings on the MRI may not have anything to do with the urinary retention and you may not require a surgery. I have e-scribed some meloxicam solution to the [facility] in [place]. This is an anti-inflammatory for your back pain. Follow up with Dr. Guillen about your prostate as it appears you are having multiple symptoms that are likely due to the urinary retention. (Constipation, lower abdominal pain and back pain). Discharge Date/Time: 06/29/23 09:02
== END 2023-06-29 09:02 | disposition home or self-care (01) ==
LOC: EDUNIT# → ED 06:54
DX: M54.81 Occipital neuralgia (principal); R33.9 Retention of urine, unspecified; F17.200 Nicotine dependence, unspecified, uncomplicated
CPT/HCPCS: 51798; 96372; 99283; 99284; A9270

== ENCOUNTER 2023-07-02 11:53 | Outpatient (CLI) | payer MEDICARE, MEDICAID ==
--- NOTE | 2023-07-02 15:30 | XRAY Report ---
PROCEDURE: Chest 2V INDICATIONS: BRONCHITIS,COUGH TECHNIQUE: 2 views of the chest were acquired. COMPARISON: Chest x-ray 1223. FINDINGS: Surgical changes and devices: None. Lungs and pleura: No pleural effusions or pneumothorax. Lungs are clear. Mediastinum: Mediastinal contours appear normal. Heart size is normal. Bones and chest wall: No suspicious bony lesions. Overlying soft tissues appear unremarkable. IMPRESSION: No acute cardiopulmonary process. Reviewed by: Emerson Andersen MD on 07/02/2023 3:28 PM [facility] Approved by: Emerson Andersen MD on 07/02/2023 3:28 PM PST Station ID: [id number]
== END 2023-07-02 11:54 | disposition home or self-care (01) ==
LOC: DI 11:53
PROVIDERS: ATTEND Family Medicine
DX: J20.9 Acute bronchitis, unspecified (principal); R05.9 Cough, unspecified

== ENCOUNTER 2023-07-07 06:56 | Outpatient (CLI) | payer MEDICARE, MEDICAID ==
--- NOTE | 2023-07-07 20:34 | MRI Report ---
PROCEDURE: Cervical Spine WO INDICATIONS: NECK PAIN TECHNIQUE: Noncontrast sagittal T1 spin echo and T2 fast spin echo, sagittal STIR, foraminal oblique sagittal T2 fast spin echo, and axial gradient echo or T2 fast spin echo through the cervical spine. COMPARISON: None. FINDINGS: Image quality: Excellent. Alignment and Curvature: There is normal bony alignment. Bone Marrow: Marrow demonstrates normal overall signal. Spinal Cord: Visualized spinal cord has normal size and signal. No cerebellar tonsillar herniation. Paraspinous Soft Tissues: No paravertebral masses. Prevertebral soft tissues are normal in thicknes s. C2-C3: No significant abnormality is seen. C3-C4: The disc height is well-preserved. There is loss of disc signal seen. Mild to moderate dis c osteophyte complex is seen, which is eccentric to the left. Mild facet hypertrophy is seen. Moder ate bilateral neural foraminal narrowing is seen. Mild central canal narrowing is seen. C4-C5: Mild to moderate loss of disc height and disc signal can be seen. Mild disc osteophyte compl ex is seen. Moderate facet hypertrophy is seen. Moderate bilateral neural foraminal narrowing is seen. No significant central canal narrowing is seen. C5-C6: Mild loss of disc height and disc signal are seen. Mild to moderate disc osteophyte complex i s seen, which is eccentric to the left. Bridging anterior osteophytes can be seen on the left, as on series 3 image 21. Mild facet hypertrophy is seen. There is moderate to severe left-sided and modera te right-sided neuroforaminal narrowing. Moderate central canal narrowing is seen. Associated mass effect is seen upon the ventral spinal cord. C6-C7: Moderate loss of disc height and signal are seen. Moderate disc osteophyte complex is seen, w ith a central/left disc osteophyte protrusion. There is also a right subarticular disc osteophyte pro trusion seen. Moderate to severe bilateral neuroforaminal narrowing can be seen. Moderate to severe c entral canal narrowing is seen, with associated mass effect upon the ventral spinal cord. C7-T1: The disc height is relatively well preserved. Moderate disc osteophyte complex is seen. Mil d facet hypertrophy is seen. Mild bilateral neural foraminal narrowing is seen. No significant ce ntral canal narrowing is seen. IMPRESSION: Multiple levels of premature cervical spine degenerative change can be seen, which are overall worst at the C6-C7 level. Reviewed by: Warren Sánchez MD on 07/07/2023 7:33 PM [place] Approved by: Warren Sánchez MD on 07/07/2023 7:33 PM [facility] Station ID: [id number]
== END 2023-07-07 06:57 | disposition home or self-care (01) ==
LOC: DI 06:56
PROVIDERS: ATTEND Nurse Practitioner
DX: M47.812 Spondylosis without myelopathy or radiculopathy, cervical region (principal); M48.02 Spinal stenosis, cervical region

== ENCOUNTER 2023-08-13 09:00 | Outpatient (CLI) | payer MEDICARE, MEDICAID ==
[2023-08-13 11:50] LABS: BASOPHILS % (AUTO) 0.5 %; EOSINOPHILS # (AUTO) 0.2 10^3/uL (0.0-0.7); EOSINOPHILS % (AUTO) 2.1 %; HCT - HEMATOCRIT 46.1 % (42.0-52.0); LYMPHOCYTES # (AUTO) 2.6 10^3/uL (1.5-3.5); LYMPHOCYTES % (AUTO) 31.9 %; MEAN CORPUSCULAR HEMOGLOBIN 31.3 pg (27.0-31.0); MEAN CORPUSCULAR HGB CONC 32.5 g/dL (32.0-36.0); MEAN PLATELET VOLUME 11.5 fL (7.4-11.4); MONOCYTES # (AUTO) 0.4 10^3/uL (0.0-1.0); MONOCYTES % (AUTO) 5.4 %; NEUTROPHILS # (AUTO) 4.9 10^3/uL (1.5-6.6); NEUTROPHILS % (AUTO) 59.9 %; PLT - PLATELET COUNT 211 10^3/uL (130-450); RED CELL DISTRIBUTION WIDTH 13.3 % (12.0-15.0); WHITE BLOOD COUNT 8.1 x10^3/uL (4.8-10.8)
[2023-08-13 11:57] LABS: BILIRUBIN,URINE NEGATIVE (NEGATIVE); GLUCOSE, URINE (UA) NEGATIVE (NEGATIVE); KETONES,URINE (UA) NEGATIVE (NEGATIVE); LEUKOCYTE ESTERASE, URINE NEGATIVE (NEGATIVE); NITRITE,URINE NEGATIVE (NEGATIVE); OCCULT BLOOD,URINE NEGATIVE (NEGATIVE); PROTEIN,URINE NEGATIVE (NEGATIVE); UROBILINOGEN,URINE 0.2 (NORMAL) E.U./dL (NORMAL)
[2023-08-13 12:06] LABS: CLARITY,URINE CLEAR (CLEAR); RBC,URINE None Seen /HPF (0-5); SQUAMOUS EPITHELIAL CELL,UR NONE SEEN (<= Few); WBC,URINE 0-3 /HPF (0-3)
[2023-08-13 12:07] LABS: BACTERIA,URINE None Seen /HPF (None Seen)
[2023-08-13 16:50] LABS: ALBUMIN 4.9 g/dL (3.2-5.5); ALBUMIN/GLOBULIN RATIO 1.8 (1.0-2.2); BILIRUBIN,TOTAL 0.5 mg/dL (0.2-1.0); CALCIUM 10.1 mg/dL (8.5-10.3); CREATININE 0.8 mg/dL (0.6-1.3); POTASSIUM 4.3 mmol/L (3.5-4.5); TOTAL PROTEIN 7.6 g/dL (6.4-8.9)
== END 2023-08-13 09:01 | disposition home or self-care (01) ==
LOC: LAB.N 09:00
PROVIDERS: ATTEND Nurse Practitioner
DX: R10.9 Unspecified abdominal pain (principal)
CPT/HCPCS: 36415; 80053; 81001; 82150; 83690; 84153; 85025; 87086

== ENCOUNTER 2023-08-23 12:29 | Outpatient (CLI) | payer MEDICARE, MEDICAID ==
--- NOTE | 2023-08-24 20:06 | Ultrasound Report ---
PROCEDURE: Testicle INDICATIONS: Bilateral testicular swelling, pain, pulling sensation within the testes TECHNIQUE: Real-time scanning was performed of the scrotum and testicles, with image documentation. Color and p ulse Doppler interrogation was performed of both testicles. COMPARISON: Testicular ultrasound on June 11, 2023 FINDINGS: Right: Testicle is normal in size at 4.4 x 2.5 x 2.8 cm, and homogenous in echotexture. Epididymis is normal in overall size and morphology. Small hydrocele, decreased in size compared to prior. No va ricoceles. Overlying scrotal skin is normal in thickness. Left: Testicle is normal in size at 3.7 x 2.1 x 3.1 cm, and homogeneous in echotexture. Epididymis is normal in overall size and morphology. Small hydrocele, decreased in size compared to prior. No va ricoceles. Overlying scrotal skin is normal in thickness. Doppler: Color and pulse Doppler demonstrate normal and symmetric arterial flow in both testicles. IMPRESSION: 1.Normal sonographic appearance of the bilateral testicles and epididymis. 2.Small bilateral hydroceles, decreased in size compared to prior. Reviewed by: Radha Rivera MD on 08/24/2023 8:05 PM PDT Approved by: Radha Rivera MD on 08/24/2023 8:05 PM PDT Station ID: [id number]
== END 2023-08-23 12:30 | disposition home or self-care (01) ==
LOC: DI 12:29
PROVIDERS: ATTEND Nurse Practitioner
DX: N43.3 Hydrocele, unspecified (principal)

== ENCOUNTER 2023-09-01 09:33 | Emergency (ER) | payer MEDICARE, MEDICAID ==
[2023-09-01 10:05] LABS: BASOPHILS # (AUTO) 0.1 10^3/uL (0.0-0.1); BASOPHILS % (AUTO) 0.6 %; EOSINOPHILS # (AUTO) 0.1 10^3/uL (0.0-0.7); EOSINOPHILS % (AUTO) 0.9 %; HCT - HEMATOCRIT 47.6 % (42.0-52.0); HGB - HEMOGLOBIN 15.6 g/dL (14.0-18.0); LYMPHOCYTES # (AUTO) 2.4 10^3/uL (1.5-3.5); LYMPHOCYTES % (AUTO) 22.5 %; MEAN CORPUSCULAR HEMOGLOBIN 30.9 pg (27.0-31.0); MEAN CORPUSCULAR HGB CONC 32.8 g/dL (32.0-36.0); MEAN CORPUSCULAR VOLUME 94.3 fL (80.0-94.0); MEAN PLATELET VOLUME 10.7 fL (7.4-11.4); MONOCYTES # (AUTO) 0.5 10^3/uL (0.0-1.0); NEUTROPHILS # (AUTO) 7.5 10^3/uL (1.5-6.6); NEUTROPHILS % (AUTO) 70.7 %; PLT - PLATELET COUNT 233 10^3/uL (130-450); RED BLOOD COUNT 5.05 10^6/uL (4.70-6.10); RED CELL DISTRIBUTION WIDTH 13.5 % (12.0-15.0); WHITE BLOOD COUNT 10.6 x10^3/uL (4.8-10.8)
[2023-09-01 10:10] LABS: BILIRUBIN,URINE NEGATIVE (NEGATIVE); GLUCOSE, URINE (UA) NEGATIVE (NEGATIVE); KETONES,URINE (UA) NEGATIVE (NEGATIVE); LEUKOCYTE ESTERASE, URINE NEGATIVE (NEGATIVE); NITRITE,URINE NEGATIVE (NEGATIVE); OCCULT BLOOD,URINE TRACE-INTA (NEGATIVE); PH,URINE 5.5 PH (5.0-7.5); PROTEIN,URINE NEGATIVE (NEGATIVE); UROBILINOGEN,URINE 0.2 (NORMAL) E.U./dL (NORMAL)
[2023-09-01] MEDS: ONDANSETRON 4 MG/2 ML VIAL IVP STA (10:14)
[2023-09-01] MEDS: SODIUM CHLORIDE 0.9% 1,000 ML IV STA (10:16)
[2023-09-01 10:29] LABS: CLARITY,URINE CLEAR (CLEAR)
[2023-09-01 10:29] LABS: ALBUMIN 4.8 g/dL (3.2-5.5); ALBUMIN/GLOBULIN RATIO 1.8 (1.0-2.2); BILIRUBIN,TOTAL 0.7 mg/dL (0.2-1.0); CALCIUM 10.1 mg/dL (8.5-10.3); CREATININE 0.8 mg/dL (0.6-1.3); TOTAL PROTEIN 7.5 g/dL (6.4-8.9)
--- NOTE | 2023-09-01 10:50 | ED Physician Documentation ---
PD HPI ABD PAIN - Stated complaint Stated Complaint: ABD PX - Chief complaint Chief Complaint: Abd Pain - History obtained from History obtained from: Patient - Additional information Additional information: Patient is a 42-year-old male presenting for evaluation of Left lower abdominal pain which has been ongoing for the past week but worsening over the past day. He states he did have a bowel movement this morning. Some associated nausea but no vomiting. Does report a history of diverticulitis. No prior abdominal surgeries. He is scheduled to have a cystoscopy with urology later this week, Dr. Guillen. No fevers, chest pain, shortness of air. Denies blood in his urine. Nothing makes his symptoms better or worse. Reports decreased appetite yesterday but was able to eat 6 pieces of toast. Review of Systems Constitutional: denies: Fever Cardiac: denies: Chest pain / pressure Respiratory: denies: Dyspnea GI: reports: Abdominal Pain, Nausea. denies: Vomiting, Diarrhea, Bloody / black stool : denies: Hematuria PD PAST MEDICAL HISTORY - Past Medical History Cardiovascular: Hypertension Respiratory: Other Neuro: CVA, Migraines, Seizure disorder Endocrine/Autoimmune: None GI: GERD, Hiatal hernia, Diverticulitis, Other : Retention, Other HEENT: None Psych: Depression, Anxiety, Bipolar disorder, ADD/ADHD, Post traumatic stress disorder, Other Musculoskeletal: Osteoarthritis, Chronic back pain Derm: Other - Past Surgical History Past Surgical History: Yes General: EGD, Colonoscopy Ortho: Other Derm: Skin grafts - Present Medications Home Medications: Ambulatory Orders Medication Instructions Recorded Confirmed Furosemide [Lasix] 20 mg PO DAILY 04/21/22 09/01/23 Albuterol Sulf [Ventolin Hfa 1 - 2 puffs INH Q4HR PRN 11/11/22 09/01/23 Inhaler] Lisinopril [Zestril] 10 mg PO DAILY 11/11/22 09/01/23 Buprenorphine HCl/Naloxone HCl 1 each SL DAILY 05/18/23 09/01/23 [Buprenorphine-Nalox 8-2Mg Film] Celecoxib 100 mg PO BID 05/18/23 09/01/23 Lisdexamfetamine Dimesylate 30 mg PO DAILY 05/18/23 09/01/23 [Vyvanse] Gabapentin [Neurontin] 1,200 mg PO TID 06/29/23 09/01/23 Doxycycline Hyclate 100 mg PO BID #14 tab 09/01/23 OLANZapine [Zyprexa] 10 mg PO HS 09/01/23 09/01/23 Omeprazole 20 mg PO BID 09/01/23 09/01/23 Ondansetron Odt [Zofran] 4 mg TL Q6H PRN #10 tablet 09/01/23 - Allergies Allergies/Adverse Reactions: Allergies Allergy/AdvReac Type Severity Reaction Status Date / Time cefdinir Allergy Severe Itching Verified 09/01/23 09:39 cephalexin Allergy Severe Rash Verified 09/01/23 09:39 Cephalosporins Allergy Severe Unknown Verified 09/01/23 09:39 Penicillins Allergy Intermediate Edema Verified 09/01/23 09:39 tramadol Allergy Intermediate Edema Verified 09/01/23 09:39 morphine Allergy Anaphylaxis Verified 09/01/23 09:39 paliperidone [From Invega] Allergy painful Verified 09/01/23 09:39 erections Sulfa (Sulfonamide Allergy Unknown Verified 09/01/23 09:39 Antibiotics) ziprasidone [From Geodon] Allergy Unknown Verified 09/01/23 09:39 ibuprofen AdvReac Nausea Verified 09/01/23 09:39 lurasidone HCl * AdvReac Itching Verified 09/01/23 09:39 [From Latuda] - Social History Does the pt smoke?: Yes Smoking Status: Current every day smoker Does the pt drink ETOH?: No Does the pt have substance abuse?: Yes Substance Use and Type: Marijuana - Immunizations Immunizations are current?: Yes - POLST Patient has POLST: No PD ED PE NORMAL - General General: Alert and oriented X 3, No acute distress, Well developed/nourished - HEENT HEENT: Atraumatic, Moist mucous membranes, Pharynx benign - Neck Neck: Supple, no meningeal sign - Cardiac Cardiac: RRR, Strong equal pulses - Respiratory Respiratory: No respiratory distress, Clear bilaterally - Abdomen Abdomen: Normal bowel sounds, Soft, Non distended, Other (Left lower quadrant tenderness, no rebound, no guarding) - Derm Derm: Warm and dry - Neuro Neuro: Normal speech Results - Vitals Vitals: Vital Signs - 24 hr 09/01/23 09/01/23 09:39 12:37 Temperature 36.2 C L Heart Rate 94 66 Respiratory 18 14 Rate Blood Pressure 140/91 H 128/82 H O2 Saturation 96 98 Oxygen O2 Source Room air - Labs Labs: Laboratory Tests 09/01/23 09/01/23 09/01/23 09:50 09:55 09:55 WBC 10.6 RBC 5.05 Hgb 15.6 Hct 47.6 MCV 94.3 H MCH 30.9 MCHC 32.8 RDW 13.5 Plt Count 233 MPV 10.7 Neut # (Auto) 7.5 H Lymph # (Auto) 2.4 [place] # (Auto) 0.5 Eos # (Auto) 0.1 Baso # (Auto) 0.1 Absolute Nucleated RBC 0.00 Nucleated RBC % 0.0 Sodium 135 Potassium 4.0 Chloride 103 Carbon Dioxide 26 Anion Gap 6.0 BUN 12 Creatinine 0.8 Estimated GFR (MDRD) 106 Glucose 121 H Calcium 10.1 Total Bilirubin 0.7 AST 20 ALT 18 Alkaline Phosphatase 130 H Total Protein 7.5 Albumin 4.8 Globulin 2.7 Albumin/Globulin Ratio 1.8 Lipase 14 Urine Color YELLOW Urine Clarity CLEAR Urine pH 5.5 Ur Specific [place] 1.020 Urine Protein NEGATIVE Urine Glucose (UA) NEGATIVE Urine Ketones NEGATIVE Urine Occult Blood TRACE-INTA Urine Nitrite NEGATIVE Urine Bilirubin NEGATIVE Urine Urobilinogen 0.2 (NORMAL) Ur Leukocyte Esterase NEGATIVE Ur Microscopic Review NOT INDICATED Urine Culture Comments NOT INDICATED PD Medical Decision Making - ED course Complexity details: reviewed results, re-evaluated patient, d/w patient ED course: Pt with LLQ pain over the last week. Mild tenderness on exam. Vital signs stable. CBC, chemistries, urinalysis were reviewed without any significant findings. CT was obtained of the abdomen and pelvis. No findings in the abdomen or pelvis but there are some groundglass opacities in bilateral lungs. Patient does report having a cough recently. Will treat for pneumonia. Patient agreeable to the plan is feeling better after IV fluids and Zofran . Declined pain medications. Patient counseled on concerning symptoms to return for. Departure - Departure Disposition: 01 Home, Self Care Clinical Impression: Lower abdominal pain, Cough, Community acquired pneumonia Condition: Stable Instructions: ED Pneumonia Adult, ED Abdominal Pain Unkn Cause Male Prescriptions: Doxycycline Hyclate 100 mg PO BID #14 tab Ondansetron Odt [Zofran] 4 mg TL Q6H PRN #10 tablet PRN Reason: Nausea / Vomiting Comments: Your blood tests are reassuring. Your CAT scan does not show any abnormal findings in the abdomen or pelvis. There are concerns for possible pneumonia in the bases of your lungs. Given your cough I will treat you with an antibiotic. I sent your prescription to [facility]. I also sent a prescription for an antinausea medication. Return to the ER with any worsening symptoms. Forms: PCP List Discharge Date/Time: 09/01/23 12:38
[2023-09-01] MEDS ORDERED: iohexoL-300 100 ML VIAL ONE (11:26)
--- NOTE | 2023-09-01 12:12 | CT Report ---
PROCEDURE: Abdomen/Pelvis W INDICATIONS: LLQ tenderness x 1 week CONTRAST: Omni 300 100ml TECHNIQUE: After the administration of intravenous contrast, a CT scan of the abdomen and pelvis was performed. Images were recorded and evaluated at appropriate window settings. Reformats: coronal and sagittal. F or radiation dose reduction, the following was used: automated exposure control, adjustment of mA and /or kV according to patient size. COMPARISON: CT abdomen pelvis 05/18/2023 FINDINGS: Image quality: Diagnostic. Lower chest: Few small foci of patchy groundglass within the bilateral lower lobes, may be infectious or inflammatory in etiology. Liver: No solid mass. Gallbladder and biliary tree: No radiopaque stones or wall thickening. No biliary dilation. Spleen: No splenomegaly. Pancreas: No pancreatic ductal dilation. Adrenals: No adrenal nodule. Kidneys and ureters: No hydronephrosis. No renal cystic lesion which requires follow up. No solid mas s. Stomach, bowel and peritoneum: No bowel distension. No pathologic free fluid. Few colonic diverticula without evidence of acute diverticulitis. Normal appendix. Lymph nodes: No central or retroperitoneal adenopathy. Vessels: No infrarenal aortic aneurysm. Mild atherosclerotic vascular calcifications. PELVIS Reproductive organs: Unremarkable. Bladder: No abnormal wall thickening, accounting for underdistention. Pelvic lymph nodes: No pelvic adenopathy by size criteria. Bones: No aggressive osseous abnormality. Other: Small fat-containing ventral hernia.. IMPRESSION: 1.No acute findings within the abdomen or pelvis. 2.Small foci of groundglass within the bilateral lower lobe, may be infectious or inflammatory in khadijah ology. Reviewed by: Emerson Andersen MD on 09/01/2023 12:10 PM PDT Approved by: Emerson Andersen MD on 09/01/2023 12:10 PM PDT Station ID: [id number]
[2023-09-01] MEDS: iohexoL-300 100 ML VIAL IVP ONE (12:42)
[2023-09-01 12:43] VITALS: BP 128/82; O2SAT 98
== END 2023-09-01 12:38 | disposition home or self-care (01) ==
LOC: ED 09:33
DX: R10.32 Left lower quadrant pain (principal); J18.9 Pneumonia, unspecified organism; I10 Essential (primary) hypertension; F17.200 Nicotine dependence, unspecified, uncomplicated
CPT/HCPCS: 36415; 74177; 80053; 81003; 83690; 85025; 96374; 99284; Q9967; 81001; 87086

== ENCOUNTER 2023-09-08 08:39 | Outpatient (CLI) | payer MEDICARE, MEDICAID | END 2023-09-08 23:59 | disposition EMS.NT | LOC: EMS 08:39 | DX: R06.02 Shortness of breath (principal); R07.9 Chest pain, unspecified; R45.6 Violent behavior ==

== ENCOUNTER 2023-09-10 18:04 | Outpatient (CLI) | payer MEDICARE, MEDICAID | END 2023-09-10 23:59 | disposition EMS.NT | LOC: EMS 18:04 | DX: R20.0 Anesthesia of skin (principal); R45.89 Other symptoms and signs involving emotional state ==

== ENCOUNTER 2023-09-12 11:00 | Outpatient (CLI) | payer MEDICARE, MEDICAID ==
--- NOTE | 2023-09-12 13:56 | XRAY Report ---
PROCEDURE: Chest 2V INDICATIONS: SUBACUTE COUGH TECHNIQUE: 2 views of the chest were acquired. COMPARISON: 07/02/2023 FINDINGS: Surgical changes and devices: None. Lungs and pleura: Mild peribronchial thickening. No dense airspace disease. No pleural effusions. Mediastinum: Normal heart size Bones and chest wall: Unremarkable IMPRESSION: No dense airspace disease or pleural effusions. Mild peribronchial thickening may be seen with bronch itis or viral infection. Reviewed by: Surendra Weeks MD on 09/12/2023 1:55 PM PDT Approved by: Surendra Weeks MD on 09/12/2023 1:55 PM PDT Station ID: [id number]
== END 2023-09-12 11:15 | disposition home or self-care (01) ==
LOC: DI.N 11:00
PROVIDERS: ATTEND Physician Assistant
DX: R05.2 Subacute cough (principal)

== ENCOUNTER 2023-09-16 13:12 | Outpatient (CLI) | payer MEDICARE, MEDICAID | END 2023-09-16 23:59 | disposition critical access hospital (66) | LOC: EMS 13:12 | DX: R20.0 Anesthesia of skin (principal); M79.602 Pain in left arm; M79.605 Pain in left leg; R10.12 Left upper quadrant pain; R10.812 Left upper quadrant abdominal tenderness; R10.814 Left lower quadrant abdominal tenderness | CPT/HCPCS: A0425; A0427 ==

== ENCOUNTER 2023-09-16 13:13 | Emergency (ER) | payer MEDICARE, MEDICAID ==
[2023-09-16 14:11] LABS: BILIRUBIN,URINE NEGATIVE (NEGATIVE); GLUCOSE, URINE (UA) NEGATIVE (NEGATIVE); KETONES,URINE (UA) NEGATIVE (NEGATIVE); LEUKOCYTE ESTERASE, URINE NEGATIVE (NEGATIVE); NITRITE,URINE NEGATIVE (NEGATIVE); OCCULT BLOOD,URINE NEGATIVE (NEGATIVE); PROTEIN,URINE NEGATIVE (NEGATIVE); UROBILINOGEN,URINE 0.2 (NORMAL) E.U./dL (NORMAL)
[2023-09-16 14:25] LABS: CLARITY,URINE CLEAR (CLEAR)
[2023-09-16 14:28] LABS: BASOPHILS % (AUTO) 0.3 %; EOSINOPHILS # (AUTO) 0.1 10^3/uL (0.0-0.7); EOSINOPHILS % (AUTO) 1.1 %; HCT - HEMATOCRIT 41.5 % (42.0-52.0); HGB - HEMOGLOBIN 13.8 g/dL (14.0-18.0); LYMPHOCYTES # (AUTO) 2.1 10^3/uL (1.5-3.5); LYMPHOCYTES % (AUTO) 22.8 %; MEAN CORPUSCULAR HEMOGLOBIN 31.7 pg (27.0-31.0); MEAN CORPUSCULAR HGB CONC 33.3 g/dL (32.0-36.0); MEAN CORPUSCULAR VOLUME 95.2 fL (80.0-94.0); MEAN PLATELET VOLUME 10.5 fL (7.4-11.4); MONOCYTES # (AUTO) 0.6 10^3/uL (0.0-1.0); MONOCYTES % (AUTO) 6.2 %; NEUTROPHILS # (AUTO) 6.3 10^3/uL (1.5-6.6); NEUTROPHILS % (AUTO) 69.4 %; PLT - PLATELET COUNT 213 10^3/uL (130-450); RED BLOOD COUNT 4.36 10^6/uL (4.70-6.10); RED CELL DISTRIBUTION WIDTH 13.1 % (12.0-15.0); WHITE BLOOD COUNT 9.1 x10^3/uL (4.8-10.8)
[2023-09-16 14:55] LABS: ALBUMIN 4.4 g/dL (3.2-5.5); BILIRUBIN,TOTAL 0.7 mg/dL (0.2-1.0); CALCIUM 9.8 mg/dL (8.5-10.3); CREATININE 0.8 mg/dL (0.6-1.3); MAGNESIUM 1.7 mg/dL (1.7-2.3); POTASSIUM 3.6 mmol/L (3.5-4.5); TOTAL PROTEIN 6.6 g/dL (6.4-8.9)
--- NOTE | 2023-09-16 14:57 | ED Physician Documentation ---
History of Present Illness - Stated complaint Stated Complaint: CP/COUGH/BACK PX - Chief complaint Chief Complaint: General - Additonal information Additional information: 42-year-old male presents emergency department via ambulance coming from urgent care for a multitude of complaints. Patient has been seen in the emergency department at this ER as well as urgent care multiple times for complaints below. First complaint is patient feels like he is having left chest swelling he feels like the swelling comes and goes. He also complains That the skin on the bottom of his stomach is softer and more loose than the skin on the top of his stomach. He also complains of intermittent chest pain recently completed a full course of antibiotics doxycycline for pneumonia. He also has some intermittent testicular/scrotal swelling. He recently had a cystoscopy and given the fact that he was already on antibiotics for pneumonia he was not given additional antibiotics. He says that he also feels very anxious and new left arm tingling after PIV was placed. No fevers or chills no nausea vomiting no diarrhea. PD PAST MEDICAL HISTORY - Past Medical History Cardiovascular: Hypertension Respiratory: Other Neuro: CVA, Migraines, Seizure disorder Endocrine/Autoimmune: None GI: GERD, Hiatal hernia, Diverticulitis, Other : Retention, Other HEENT: None Psych: Depression, Anxiety, Bipolar disorder, ADD/ADHD, Post traumatic stress disorder, Other Musculoskeletal: Osteoarthritis, Chronic back pain Derm: Other - Past Surgical History Past Surgical History: Yes General: EGD, Colonoscopy Ortho: Other Derm: Skin grafts - Present Medications Home Medications: Ambulatory Orders Medication Instructions Recorded Confirmed Furosemide [Lasix] 20 mg PO DAILY 04/21/22 09/01/23 Albuterol Sulf [Ventolin Hfa 1 - 2 puffs INH Q4HR PRN 11/11/22 09/01/23 Inhaler] Lisinopril [Zestril] 10 mg PO DAILY 11/11/22 09/01/23 Buprenorphine HCl/Naloxone HCl 1 each SL DAILY 05/18/23 09/01/23 [Buprenorphine-Nalox 8-2Mg Film] Celecoxib 100 mg PO BID 05/18/23 09/01/23 Lisdexamfetamine Dimesylate 30 mg PO DAILY 05/18/23 09/01/23 [Vyvanse] Gabapentin [Neurontin] 1,200 mg PO TID 06/29/23 09/01/23 Doxycycline Hyclate 100 mg PO BID #14 tab 09/01/23 OLANZapine [Zyprexa] 10 mg PO HS 09/01/23 09/01/23 Omeprazole 20 mg PO BID 09/01/23 09/01/23 - Allergies Allergies/Adverse Reactions: Allergies Allergy/AdvReac Type Severity Reaction Status Date / Time cefdinir Allergy Severe Itching Verified 09/16/23 13:24 cephalexin Allergy Severe Rash Verified 09/16/23 13:24 Cephalosporins Allergy Severe Unknown Verified 09/16/23 13:24 Penicillins Allergy Intermediate Edema Verified 09/16/23 13:24 tramadol Allergy Intermediate Edema Verified 09/16/23 13:24 morphine Allergy Anaphylaxis Verified 09/16/23 13:24 paliperidone [From Invega] Allergy painful Verified 09/16/23 13:24 erections Sulfa (Sulfonamide Allergy Unknown Verified 09/16/23 13:24 Antibiotics) ziprasidone [From Geodon] Allergy Unknown Verified 09/16/23 13:24 lurasidone HCl * AdvReac Itching Verified 09/16/23 13:24 [From Latuda] - Social History Does the pt smoke?: Yes Smoking Status: Current every day smoker Does the pt drink ETOH?: No Does the pt have substance abuse?: Yes - Immunizations Immunizations are current?: Yes - POLST Patient has POLST: No PD ED PE NORMAL - Vitals Vital signs reviewed: Yes - General General: Alert and oriented X 3, No acute distress, Well developed/nourished - Cardiac Cardiac: RRR, No murmur, No gallop, Strong equal pulses - Respiratory Respiratory: No respiratory distress, Clear bilaterally - Abdomen Abdomen: Normal bowel sounds, Soft, Non tender, Non distended, No organomegaly - Back Back: No CVA TTP - Derm Derm: Normal color, Warm and dry, No rash - Extremities Extremities: No deformity, No tenderness to palpate, Normal ROM s pain, No edema, No calf tenderness / cord - Psych Psych: Normal mood, Normal affect Results - Vitals Vitals: Vital Signs - 24 hr 09/16/23 09/16/23 13:16 15:23 Temperature 37.1 C Heart Rate 78 89 Respiratory 16 20 Rate Blood Pressure 152/99 H 140/97 H O2 Saturation 98 96 Oxygen O2 Source Room air - Labs Labs: Laboratory Tests 0409/16/23 09/16/23 14:05 14:20 14:20 WBC 9.1 RBC 4.36 L Hgb 13.8 L Hct 41.5 L MCV 95.2 H MCH 31.7 H MCHC 33.3 RDW 13.1 Plt Count 213 MPV 10.5 Neut # (Auto) 6.3 Lymph # (Auto) 2.1 [place] # (Auto) 0.6 Eos # (Auto) 0.1 Baso # (Auto) 0.0 Absolute Nucleated RBC 0.00 Nucleated RBC % 0.0 Sodium 137 Potassium 3.6 Chloride 105 Carbon Dioxide 26 Anion Gap 6.0 BUN 11 Creatinine 0.8 Estimated GFR (MDRD) 106 Glucose 98 Calcium 9.8 Magnesium 1.7 Total Bilirubin 0.7 AST 17 ALT 16 Alkaline Phosphatase 113 Troponin I High Sens Total Protein 6.6 Albumin 4.4 Globulin 2.2 Albumin/Globulin Ratio 2.0 Urine Color YELLOW Urine Clarity CLEAR Urine pH 8.0 H Ur Specific [place] 1.015 Urine Protein NEGATIVE Urine Glucose (UA) NEGATIVE Urine Ketones NEGATIVE Urine Occult Blood NEGATIVE Urine Nitrite NEGATIVE Urine Bilirubin NEGATIVE Urine Urobilinogen 0.2 (NORMAL) Ur Leukocyte Esterase NEGATIVE 09/16/23 14:20 WBC RBC Hgb Hct MCV MCH MCHC RDW Plt Count MPV Neut # (Auto) Lymph # (Auto) [place] # (Auto) Eos # (Auto) Baso # (Auto) Absolute Nucleated RBC Nucleated RBC % Sodium Potassium Chloride Carbon Dioxide Anion Gap BUN Creatinine Estimated GFR (MDRD) Glucose Calcium Magnesium Total Bilirubin AST ALT Alkaline Phosphatase Troponin I High Sens < 2.3 L Total Protein Albumin Globulin Albumin/Globulin Ratio Urine Color Urine Clarity Urine pH Ur Specific [place] Urine Protein Urine Glucose (UA) Urine Ketones Urine Occult Blood Urine Nitrite Urine Bilirubin Urine Urobilinogen Ur Leukocyte Esterase PD Medical Decision Making - ED course ED course: 42-year-old male presents emergency department for multitude of complaints. When I went in to evaluate the patient for his testicular pain and scrotal swelling patient said that his symptoms had fully resolved and did not think this is warranted anymore. Labs are collected minimal anemia, hemoglobin 13.8, hematocrit 41.5. CHEM is unremarkable, troponin was also unremarkable, urinalysis was negative for any obvious signs of urinary tract infection symptoms. Patient reports that he is feeling significantly better he is given a dose of hydroxyzine and says that he does believe that his symptoms are most likely due to anxiety after his IV was removed his numbness and tingling to his left arm had fully resolved. Patient said that he would like to go home as he is feeling better and feeling safe to discharge. He is told to follow-up with primary care provider and given a small dose of hydroxyzine to help with anxiety and he is taking the bus home. All questions answered safe for discharge To Follow-Up with Urology If the Testicular/Scrotal Swelling Increases. Departure - Departure Disposition: Home, Self Care Clinical Impression: Scrotal pain, Anxiety Instructions: ED Panic Attack, ED Testicular Pain [facility] Comments: Thank you for trusting us with your care, we have evaluated you for A multitude of concerns that you are experiencing. We have completed labs as well as a urinalysis and we did not see any acute abnormalities or findings at this time your urine does not show any infection and your labs are quite reassuring. At this point, believe that you are safe for discharge we have given you a one-time dose of hydroxyzine also known as Atarax here in the emergency department to help with what you described as anxiety. If this seems to help you can follow- up with your primary care provider for medication refill of this. Please come back to the emergency department if your chest pain is starting to change in nature, increased dizziness, shortness of breath, or any other concerning symptoms. Forms: PCP List Discharge Date/Time: 09/16/23 15:35
[2023-09-16] MEDS: hydrOXYzine PAMOATE 25 MG CAPSULE PO STA (15:25)
[2023-09-16 15:35] VITALS: BP 140/97; O2SAT 96
[2023-09-16 18:57] LABS: CHLAMYDIA TRACHOMATIS DNA NEGATIVE (NEGATIVE); NEISSERIA GONORRHOEAE DNA NEGATIVE (NEGATIVE); TRICHOMONAS VAGINALIS DNA NEGATIVE (NEGATIVE)
== END 2023-09-16 15:35 | disposition home or self-care (01) ==
LOC: EDUNIT# → ED 13:13
DX: N50.82 Scrotal pain (principal); F41.9 Anxiety disorder, unspecified; I10 Essential (primary) hypertension; F17.200 Nicotine dependence, unspecified, uncomplicated; Z79.899 Other long term (current) drug therapy
CPT/HCPCS: 36415; 80053; 81003; 83735; 84484; 85025; 87491; 87591; 87661; 93005; 99283; A9270; 87081

== ENCOUNTER 2023-09-19 14:32 | Outpatient (CLI) | payer MEDICARE, MEDICAID | END 2023-09-19 23:59 | disposition EMS.NT | LOC: EMS 14:32 | DX: F41.9 Anxiety disorder, unspecified (principal); R10.9 Unspecified abdominal pain; N50.89 Other specified disorders of the male genital organs; M79.605 Pain in left leg; R05.9 Cough, unspecified; R42 Dizziness and giddiness ==

== ENCOUNTER 2023-09-20 11:32 | Emergency (ER) | payer MEDICARE, MEDICAID ==
[2023-09-20 11:40] VITALS: BP 131/68; O2SAT 100
--- NOTE | 2023-09-20 11:52 | ED Physician Documentation ---
PD HPI BACK PAIN - Stated complaint Stated Complaint: BACK PX - Chief complaint Chief Complaint: Back Pain - Additional information Additional information: 42-year-old male presents emergency department for multitude of complaints. He is well-known to this emergency department he has been here a total of 13 times within the last 12 months. Patient has had a multitude of quite extensive workups including chest x-rays, labs, EKGs, multiple CT abdomen pelvises, cervical spine MRIs, lumbar spine MRIs, pelvic ultrasounds, scrotal ultrasounds, foot x-rays and there has been no acute findings or abnormalities that could be causing what patient is complaining of. It is difficult to narrow down a specific complaint of the patient has as he has a multitude of complaints and concerns Through all these different testing and images there is been no significant findings or abnormalities that would cause requiring hospitalization. Cervical MRI revealed that he had degenerative changes seen worse at C6-C7 level multiple abdomen pelvis CTs which did not have any acute abnormal findings, scrotal ultrasound shows minimal hydroceles that have actually been overall improving multiple different chest x-rays which again did not show any acute findings or abnormalities he also had a lumbar spine MRI which again just showed us degenerative changes without any acute findings such as a possible spinal epidural abscess. At this point in time it is difficult to help differentiate what the patient's main concern is. Today patient says that he is convinced something is wrong with his spine because he had a coughing fit a couple weeks ago and he is having a hard time with possible left leg neuropathy and left lower extremity swelling. When I evaluate the left lower extremity there is absolutely no swelling no pitting edema. He complains of ongoing abdominal pain and discomfort but has no tenderness with palpation. Again it is very difficult to find 1 true source or reason that causes patient to continue to come to the emergency department. Patient says that he called 911 very frequently often times they do not bring him to the hospital but he says he started to feel like he is having a hard time sleeping getting more more anxious. PD PAST MEDICAL HISTORY - Past Medical History Past Medical History: Yes Cardiovascular: Hypertension Respiratory: Other Neuro: CVA, Migraines, Seizure disorder Endocrine/Autoimmune: None GI: GERD, Hiatal hernia, Diverticulitis, Other : Retention, Other HEENT: None Psych: Depression, Anxiety, Bipolar disorder, ADD/ADHD, Post traumatic stress disorder, Other Musculoskeletal: Osteoarthritis, Chronic back pain Derm: Other - Past Surgical History Past Surgical History: Yes General: EGD, Colonoscopy Ortho: Other Derm: Skin grafts - Present Medications Home Medications: Ambulatory Orders Medication Instructions Recorded Confirmed Furosemide [Lasix] 20 mg PO DAILY 04/21/22 09/20/23 Albuterol Sulf [Ventolin Hfa 1 - 2 puffs INH Q4HR PRN 11/11/22 09/20/23 Inhaler] Lisinopril [Zestril] 10 mg PO DAILY 11/11/22 09/20/23 Buprenorphine HCl/Naloxone HCl 1 each SL BID 05/18/23 09/20/23 [Buprenorphine-Nalox 8-2Mg Film] Celecoxib 100 mg PO BID 05/18/23 09/20/23 Lisdexamfetamine Dimesylate 30 mg PO DAILY 05/18/23 09/20/23 [Vyvanse] Gabapentin [Neurontin] 1,200 mg PO TID 06/29/23 09/20/23 OLANZapine [Zyprexa] 10 mg PO HS 09/01/23 09/20/23 Omeprazole 20 mg PO BID 09/01/23 09/20/23 Cyclobenzaprine [Flexeril] 10 mg PO TID PRN 6 Days #20 tablet 09/20/23 hydrOXYzine pamoate [Hydroxyzine 25 mg PO TID PRN #15 cap 09/20/23 Pamoate] - Allergies Allergies/Adverse Reactions: Allergies Allergy/AdvReac Type Severity Reaction Status Date / Time cefdinir Allergy Severe Itching Verified 09/20/23 11:35 cephalexin Allergy Severe Rash Verified 09/20/23 11:35 Cephalosporins Allergy Severe Unknown Verified 09/20/23 11:35 Penicillins Allergy Intermediate Edema Verified 09/20/23 11:35 tramadol Allergy Intermediate Edema Verified 09/20/23 11:35 morphine Allergy Anaphylaxis Verified 09/20/23 11:35 paliperidone [From Invega] Allergy painful Verified 09/20/23 11:35 erections Sulfa (Sulfonamide Allergy Unknown Verified 09/20/23 11:35 Antibiotics) ziprasidone [From Geodon] Allergy Unknown Verified 09/20/23 11:35 lurasidone HCl * AdvReac Itching Verified 09/20/23 11:35 [From Latuda] - Social History Does the pt smoke?: Yes Smoking Status: Current every day smoker Does the pt drink ETOH?: No Does the pt have substance abuse?: Yes Substance Use and Type: Marijuana - Immunizations Immunizations are current?: Yes - POLST Patient has POLST: No PD ED PE NORMAL - Vitals Vital signs reviewed: Yes - General General: Alert and oriented X 3, No acute distress, Well developed/nourished - HEENT HEENT: Atraumatic - Cardiac Cardiac: RRR - Respiratory Respiratory: No respiratory distress, Clear bilaterally - Abdomen Abdomen: Normal bowel sounds, Non tender - Derm Derm: Normal color, Warm and dry, No rash - Extremities Extremities: No deformity, No tenderness to palpate, Normal ROM s pain, No edema, No calf tenderness / cord - Neuro Neuro: Alert and oriented X 3, 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 We had a long conversation about patient's frequent ER visits and more frequent 911 calls to EMS. I informed him that having a coughing fit that has triggered some back pain does not warrant an MRI. I informed the patient that we could try a muscle relaxer but patient then goes on to say he is also having left lower extremity pain he is unable to walk he was seen by multitude of staff walking without difficulty without limping. I informed him that I do not believe that x-rays are warranted for his left lower extremity pain he then also started complaining of scrotal and testicular pain I informed him that he has had a multitude of tests including a cystoscopy and scrotal ultrasound and that I do not believe any further imaging was also warranted for this and he also again became quite escalated saying that I have not even looked at his genitalia today or the previous visit. I asked him if he is having any current genitalia pain and he denies. I informed the patient that it is very hard to distinguish what the major focus of his problem is and patient becomes quite combative hostile and angry very defensive saying that I am calling him crazy I try to calm him down with therapeutic communication letting him know that I want to help him but that at this point in time given how many tests he has had done I do not think any further workup is indicated. Patient says he does feel significant relief of his sciatica symptoms after a cyclobenzaprine. 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 Patient says that he just wants to leave and go back home to his therapy dog. Informed the patient to follow-up with his primary care provider to talk about maybe some medication adjustments to help with his coping right now. Patient then becomes more tearful and angry saying that his whole entire family has cut him out and his kids will not talk to him anymore. Patient is very all over the place and is very hard to have a calm conversation with him. He eventually apologizes for ranting and said that he just wants to go home. He denies any suicidal homicidal ideation or any auditory visual hallucinations. I am concerned about possible conversion disorder for this patient although I think he benefit from having this diagnosed by psychologist or neurologist. At this point in time no further emergent workup is indicated. Departure - Departure Disposition: 01 Home, Self Care Clinical Impression: Panic attack as reaction to stress, Sciatica of left side Instructions: ED Panic Attack, ED Sciatica Prescriptions: Cyclobenzaprine [Flexeril] 10 mg PO TID PRN 6 Days #20 tablet PRN Reason: Spasms hydrOXYzine pamoate [Hydroxyzine Pamoate] 25 mg PO TID PRN #15 cap PRN Reason: Anxiety Comments: Carroll, I am sorry that you are going through all the at home stressors that you are experiencing. We have given you a Cyclobenzaprine (muscle relaxer) here in the ER and it has appeared to help some of the multitude of symptoms you are experiencing. 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 Please follow up with your PCP about the things we have discussed today.
[2023-09-20] MEDS: CYCLOBENZAPRINE 10 MG TABLET PO STA (12:30)
== END 2023-09-20 13:16 | disposition home or self-care (01) ==
LOC: ED 11:32
DX: M54.32 Sciatica, left side (principal); G47.00 Insomnia, unspecified; F41.9 Anxiety disorder, unspecified; R10.32 Left lower quadrant pain; F43.9 Reaction to severe stress, unspecified; I10 Essential (primary) hypertension; F17.200 Nicotine dependence, unspecified, uncomplicated
CPT/HCPCS: 99283; A9270

== ENCOUNTER 2023-09-22 07:30 | Outpatient (CLI) | payer MEDICARE, MEDICAID ==
[2023-09-22 12:13] LABS: BASOPHILS # (AUTO) 0.1 10^3/uL (0.0-0.1); BASOPHILS % (AUTO) 0.6 %; EOSINOPHILS # (AUTO) 0.1 10^3/uL (0.0-0.7); EOSINOPHILS % (AUTO) 1.1 %; HCT - HEMATOCRIT 43.3 % (42.0-52.0); HGB - HEMOGLOBIN 14.3 g/dL (14.0-18.0); LYMPHOCYTES # (AUTO) 2.1 10^3/uL (1.5-3.5); MEAN CORPUSCULAR HEMOGLOBIN 32.1 pg (27.0-31.0); MEAN CORPUSCULAR VOLUME 97.1 fL (80.0-94.0); MEAN PLATELET VOLUME 11.2 fL (7.4-11.4); MONOCYTES # (AUTO) 0.4 10^3/uL (0.0-1.0); MONOCYTES % (AUTO) 4.8 %; NEUTROPHILS % (AUTO) 69.3 %; PLT - PLATELET COUNT 241 10^3/uL (130-450); RED BLOOD COUNT 4.46 10^6/uL (4.70-6.10); RED CELL DISTRIBUTION WIDTH 13.2 % (12.0-15.0); WHITE BLOOD COUNT 8.7 x10^3/uL (4.8-10.8)
== END 2023-09-22 07:45 | disposition home or self-care (01) ==
LOC: LAB.N 07:30
PROVIDERS: ATTEND Physician Assistant Medical
DX: R10.32 Left lower quadrant pain (principal); R30.0 Dysuria
CPT/HCPCS: 36415; 85025; 87086

== ENCOUNTER 2023-09-25 07:37 | Outpatient (CLI) | payer MEDICARE ==
--- NOTE | 2023-09-25 20:32 | XRAY Report ---
PROCEDURE: Chest 2V INDICATIONS: ACUTE BRONCHITIS TECHNIQUE: 2 views of the chest were acquired. COMPARISON: Chest x-ray 09/12/2023. FINDINGS: Surgical changes and devices: None. Lungs and pleura: No pleural effusions or pneumothorax. Lungs are clear. Mediastinum: Mediastinal contours appear normal. Heart size is normal. Bones and chest wall: No suspicious bony lesions. Overlying soft tissues appear unremarkable. IMPRESSION: No acute cardiopulmonary process. Reviewed by: Faiza Haney MD on 09/25/2023 8:31 PM PDT Approved by: Faiza Haney MD on 09/25/2023 8:31 PM PDT Station ID: [id number]
== END 2023-09-25 07:38 | disposition home or self-care (01) ==
LOC: DI.N 07:37
PROVIDERS: ATTEND Nurse Practitioner
DX: J20.9 Acute bronchitis, unspecified (principal)

== ENCOUNTER 2023-10-06 09:00 | Outpatient (CLI) | payer MEDICARE, MEDICAID ==
--- NOTE | 2023-10-06 14:02 | XRAY Report ---
Cervical Spine 2-3V HISTORY:: 42 years of age, STRAIN OF MUSCLE, FASCIA AND TENDON AT NECK LEVEL TECHNIQUE: Cervical Spine 2-3V COMPARISON: None. FINDINGS/IMPRESSION: Straightening of cervical spine. Vertebral body heights are well-maintained. Multilevel, mild degener ative disc disease of the cervical spine. No prevertebral soft tissue edema. No significant cervical facet arthropathy. Lateral mass of C1-2 well aligned. Reviewed by: Ava Stanley MD on 10/06/2023 2:01 PM PDT Approved by: Ava Stanley MD on 10/06/2023 2:01 PM PDT Station ID: [id number]
--- NOTE | 2023-10-06 14:19 | XRAY Report ---
PROCEDURE: Ribs w/PA Chest 3+V RT INDICATIONS: RIB PAIN, RIGHT SIDED TECHNIQUE: 2 views of the ribs were acquired, along with a single view chest. COMPARISON: Chest radiograph on 09/25/2023. FINDINGS: Surgical changes and devices: None. Bones and chest wall: No displaced right rib fracture. Lungs and pleura: No pleural effusions or pneumothorax. Lungs appear clear. Mediastinum: Mediastinal contours appear normal. Heart size is normal. IMPRESSION: No displaced right-sided rib fracture. Reviewed by: Ava Stanley MD on 10/06/2023 2:18 PM PDT Approved by: Ava Stanley MD on 10/06/2023 2:18 PM PDT Station ID: [email or web address]
== END 2023-10-06 09:15 | disposition home or self-care (01) ==
LOC: DI.N 09:00
PROVIDERS: ATTEND Family Medicine
DX: S16.1XXA Strain of muscle, fascia and tendon at neck level, initial encounter (principal); R07.81 Pleurodynia; M50.30 Other cervical disc degeneration, unspecified cervical region

== ENCOUNTER 2023-10-11 08:53 | Emergency (ER) | payer MEDICARE, MEDICAID ==
[2023-10-11 09:08] VITALS: O2SAT 97
[2023-10-11 09:27] LABS: BASOPHILS # (AUTO) 0.1 10^3/uL (0.0-0.1); BASOPHILS % (AUTO) 0.7 %; EOSINOPHILS # (AUTO) 0.3 10^3/uL (0.0-0.7); EOSINOPHILS % (AUTO) 3.5 %; HCT - HEMATOCRIT 44.3 % (42.0-52.0); HGB - HEMOGLOBIN 14.7 g/dL (14.0-18.0); LYMPHOCYTES # (AUTO) 3.2 10^3/uL (1.5-3.5); LYMPHOCYTES % (AUTO) 35.2 %; MEAN CORPUSCULAR HEMOGLOBIN 31.5 pg (27.0-31.0); MEAN CORPUSCULAR HGB CONC 33.2 g/dL (32.0-36.0); MEAN CORPUSCULAR VOLUME 94.9 fL (80.0-94.0); MEAN PLATELET VOLUME 10.3 fL (7.4-11.4); MONOCYTES # (AUTO) 0.6 10^3/uL (0.0-1.0); NEUTROPHILS % (AUTO) 54.3 %; PLT - PLATELET COUNT 230 10^3/uL (130-450); RED BLOOD COUNT 4.67 10^6/uL (4.70-6.10); WHITE BLOOD COUNT 9.2 x10^3/uL (4.8-10.8)
[2023-10-11 09:42] LABS: ALBUMIN 4.8 g/dL (3.2-5.5); BILIRUBIN,TOTAL 0.6 mg/dL (0.2-1.0); CALCIUM 9.8 mg/dL (8.5-10.3); CREATININE 0.8 mg/dL (0.6-1.3); POTASSIUM 3.4 mmol/L (3.5-4.5); TOTAL PROTEIN 7.2 g/dL (6.4-8.9)
[2023-10-11 09:48] LABS: TROPONIN I HIGH SENSITIVITY 3.4 ng/L (2.3-19.7)
[2023-10-11 09:52] LABS: BILIRUBIN,URINE NEGATIVE (NEGATIVE); GLUCOSE, URINE (UA) NEGATIVE (NEGATIVE); KETONES,URINE (UA) NEGATIVE (NEGATIVE); LEUKOCYTE ESTERASE, URINE NEGATIVE (NEGATIVE); NITRITE,URINE NEGATIVE (NEGATIVE); OCCULT BLOOD,URINE NEGATIVE (NEGATIVE); PROTEIN,URINE NEGATIVE (NEGATIVE); UROBILINOGEN,URINE 0.2 (NORMAL) E.U./dL (NORMAL)
[2023-10-11 09:53] LABS: CLARITY,URINE CLEAR (CLEAR)
--- NOTE | 2023-10-11 10:00 | ED Physician Documentation ---
PD HPI ABD PAIN - Stated complaint Stated Complaint: ABD PX - Chief complaint Chief Complaint: Abd Pain - History obtained from History obtained from: Patient - Additional information Additional information: Patient is a 42-year-old male presenting for evaluation of left lower quadrant pain that has been present for 3 days. He denies associated nausea or vomiting or diarrhea. No blood in stools. Denies hematuria or dysuria. Recently had a cystoscopy with Dr. Guillen without any significant findings. Has an upcoming appointment with GI next month. He states he has had episodes of this in the past before which has been related to diverticulitis and this feels the same. He states that usually feels better with antibiotics. Denies fever. He states that the pain sometimes feels like it radiates to the chest but does not currently. Review of Systems Constitutional: denies: Fever Cardiac: reports: Chest pain / pressure Respiratory: denies: Dyspnea GI: reports: Abdominal Pain. denies: Vomiting, Diarrhea : denies: Dysuria PD PAST MEDICAL HISTORY - Past Medical History Cardiovascular: Hypertension Respiratory: Other Neuro: CVA, Migraines, Seizure disorder Endocrine/Autoimmune: None GI: GERD, Hiatal hernia, Diverticulitis, Other : Retention, Other HEENT: None Psych: Depression, Anxiety, Bipolar disorder, ADD/ADHD, Post traumatic stress disorder, Other Musculoskeletal: Osteoarthritis, Chronic back pain Derm: Other - Past Surgical History Past Surgical History: Yes General: EGD, Colonoscopy Ortho: Other Derm: Skin grafts - Present Medications Home Medications: Ambulatory Orders Medication Instructions Recorded Confirmed Furosemide [Lasix] 20 mg PO DAILY 04/21/22 10/11/23 Albuterol Sulf [Ventolin Hfa 1 - 2 puffs INH Q4HR PRN 11/11/22 10/11/23 Inhaler] Lisinopril [Zestril] 10 mg PO DAILY 11/11/22 10/11/23 Buprenorphine HCl/Naloxone HCl 1 each SL BID 05/18/23 10/11/23 [Buprenorphine-Nalox 8-2Mg Film] Lisdexamfetamine Dimesylate 30 mg PO DAILY 05/18/23 10/11/23 [Vyvanse] Gabapentin [Neurontin] 1,200 mg PO TID 06/29/23 10/11/23 OLANZapine [Zyprexa] 10 mg PO HS 09/01/23 10/11/23 Omeprazole 20 mg PO BID 09/01/23 10/11/23 DULoxetine [Cymbalta] 30 mg PO DAILY 10/11/23 10/11/23 OXcarbazepine [Trileptal] 300 mg PO DAILY 10/11/23 10/11/23 PARoxetine [Paxil] 20 mg PO DAILY 10/11/23 10/11/23 metroNIDAZOLE [Flagyl] 500 mg PO TID 7 Days #21 tablet 10/11/23 - Allergies Allergies/Adverse Reactions: Allergies Allergy/AdvReac Type Severity Reaction Status Date / Time cefdinir Allergy Severe Itching Verified 10/11/23 09:01 cephalexin Allergy Severe Rash Verified 10/11/23 09:01 Cephalosporins Allergy Severe Unknown Verified 10/11/23 09:01 Penicillins Allergy Intermediate Edema Verified 10/11/23 09:01 tramadol Allergy Intermediate Edema Verified 10/11/23 09:01 ciprofloxacin Allergy Anaphylaxis Verified 10/11/23 10:30 morphine Allergy Anaphylaxis Verified 10/11/23 09:01 paliperidone [From Invega] Allergy painful Verified 10/11/23 09:01 erections Sulfa (Sulfonamide Allergy Unknown Verified 10/11/23 09:01 Antibiotics) ziprasidone [From Geodon] Allergy Unknown Verified 10/11/23 09:01 lurasidone HCl * AdvReac Itching Verified 10/11/23 09:01 [From Latuda] - Social History Does the pt smoke?: Yes Smoking Status: Current every day smoker Does the pt drink ETOH?: No Does the pt have substance abuse?: Yes Substance Use and Type: Marijuana - Immunizations Immunizations are current?: Yes - POLST Patient has POLST: No PD ED PE NORMAL - General General: Alert and oriented X 3, No acute distress, Well developed/nourished - HEENT HEENT: Atraumatic, Moist mucous membranes, Pharynx benign - Neck Neck: Supple, no meningeal sign - Cardiac Cardiac: RRR, Strong equal pulses - Respiratory Respiratory: No respiratory distress, Clear bilaterally - Abdomen Abdomen: Normal bowel sounds, Soft, Non distended, Other (Mild left lower quadrant tenderness, no rebound, no guarding, No palpable mass) - Derm Derm: Warm and dry - Neuro Neuro: Normal speech Results - Vitals Vitals: Vital Signs - 24 hr 10/11/23 10/11/23 08:58 10:12 Temperature 36.5 C Heart Rate 93 74 Respiratory 16 14 Rate Blood Pressure 155/91 H 142/74 H O2 Saturation 97 97 Oxygen O2 Source Room air - EKG (time done) 0906 EKG releavant findings:: EKG personally interpreted by author of this note. Relevant findings are: Rate 76, normal sinus rhythm, no STEMI, QTc 409 - Labs Labs: Laboratory Tests 10/11/23 10/11/23 10/11/23 09:21 09:21 09:43 WBC 9.2 RBC 4.67 L Hgb 14.7 Hct 44.3 MCV 94.9 H MCH 31.5 H MCHC 33.2 RDW 13.0 Plt Count 230 MPV 10.3 Neut # (Auto) 5.0 Lymph # (Auto) 3.2 [place] # (Auto) 0.6 Eos # (Auto) 0.3 Baso # (Auto) 0.1 Absolute Nucleated RBC 0.00 Nucleated RBC % 0.0 Sodium 137 Potassium 3.4 L Chloride 103 Carbon Dioxide 28 Anion Gap 6.0 BUN 12 Creatinine 0.8 Estimated GFR (MDRD) 106 Glucose 113 H Calcium 9.8 Total Bilirubin 0.6 AST 20 ALT 20 Alkaline Phosphatase 109 Troponin I High Sens 3.4 Total Protein 7.2 Albumin 4.8 Globulin 2.4 Albumin/Globulin Ratio 2.0 Lipase 34 Urine Color YELLOW Urine Clarity CLEAR Urine pH 6.0 Ur Specific [place] 1.010 Urine Protein NEGATIVE Urine Glucose (UA) NEGATIVE Urine Ketones NEGATIVE Urine Occult Blood NEGATIVE Urine Nitrite NEGATIVE Urine Bilirubin NEGATIVE Urine Urobilinogen 0.2 (NORMAL) Ur Leukocyte Esterase NEGATIVE Ur Microscopic Review NOT INDICATED Urine Culture Comments NOT INDICATED PD Medical Decision Making - ED course Complexity details: reviewed results, re-evaluated patient, d/w patient ED course: Pt is a 42 yo M with LLQ pain x 3 days, says this feels Similar to prior episodes of diverticulitis. Mild tenderness on exam with no rebound or guarding and no mass. Vital signs are stable. CBC and chemistries were reviewed and without significant findings other than potassium of 3.4 which was replaced orally. Patient has had multiple CT scans here recently and after discussion with the patient we have opted to hold on imaging today and to treat for presumptive diverticulitis as he states this feels similar.Patient however does have numerous antibiotic allergies and so was prescribed a course of metronidazole but unfortunately has allergies to quinolones and penicillins limiting options. He also stormed out angry during a conversation with him regarding antibiotic choices that we may have. 1025 - Pt became upset when I asked about his allergic reactions to antbiotics. Initially prescribed ciprofloxacin and metronidazole as he had a listed allergy to cephalosporins and penicillin so I was not able to prescribe Augmentin for his diverticulitis. Patient then told the nurse that he has an allergy to ciprofloxacin and when I ask him what his reaction is he states he has throat swelling. He states he has throat swelling to all the antibiotics that are listed.However when I use the word anaphylaxis to describe his reactions, patient became quite upset and states that he does not have anaphylaxis And it has not come to the hospital for his throat swelling reactions but just calls to get a new antibiotic.I explained that I was asking questions to determine what symptoms he has as a response to antibiotics as this may limit what antibiotic treatments he may get today as well as in the future. Patient started swearing and stormed out of the ER. Departure - Departure Disposition: 01 Home, Self Care Clinical Impression: Left lower quadrant abdominal pain, Diverticular disease, Chest pain Condition: Stable Instructions: ED Chest Pain Atypical Unkn Cause, ED Diverticulitis Prescriptions: metroNIDAZOLE [Flagyl] 500 mg PO TID 7 Days #21 tablet Comments: Your testing today is reassuring with normal white blood cell count and normal electrolytes other than a slightly low potassium which you were given replacement for.We also did testing to look at your heart and at this time do not see signs of a heart attack.Based on your history as well as your present ation today we are presuming your symptoms are related to early diverticulitis and we will start you on a course of antibiotics. I sent these prescriptions to [facility] in [place]. I would recommend close follow-up with your primary care doctor as well as keeping your GI appointment for next month. Return to the emergency department with any worsening symptoms. Forms: PCP List Discharge Date/Time: 10/11/23 10:34
[2023-10-11] MEDS: POTASSIUM BICARB 25 MEQ TABLET PO ONE (10:04)
--- NOTE | 2023-10-11 10:07 | XRAY Report ---
PROCEDURE: Chest 1V INDICATIONS: L sided CP TECHNIQUE: One view of the chest was acquired. COMPARISON: 10/06/2023, 09/25/2023 FINDINGS: Surgical changes and devices: None. Lungs and pleura: No pleural effusions or pneumothorax. Lungs are clear. Mediastinum: Mediastinal contours appear normal. Heart size is normal. Bones and chest wall: No suspicious bony lesions. Overlying soft tissues appear unremarkable. IMPRESSION: Unremarkable portable chest study, without a cause of left-sided chest pain identified. Reviewed by: Warren Sánchez MD on 10/11/2023 9:06 AM ANTHONY Approved by: Warren Sánchez MD on 10/11/2023 9:06 AM ANTHONY Station ID: [id number]
[2023-10-11 10:18] VITALS: BP 142/74
== END 2023-10-11 10:34 | disposition home or self-care (01) ==
LOC: ED 08:53
DX: K57.90 Diverticulosis of intestine, part unspecified, without perforation or abscess without bleeding (principal); R07.89 Other chest pain; E87.6 Hypokalemia; F17.200 Nicotine dependence, unspecified, uncomplicated; Z88.1 Allergy status to other antibiotic agents
CPT/HCPCS: 36415; 71045; 80053; 81003; 83690; 84484; 85025; 93005; 99284; A9270; 81001; 87086

== ENCOUNTER 2023-10-11 17:28 | Outpatient (CLI) | payer MEDICARE, MEDICAID | END 2023-10-11 23:59 | disposition left against medical advice (07) | LOC: EMS 17:28 | DX: F41.9 Anxiety disorder, unspecified (principal) ==

== ENCOUNTER 2023-10-12 05:26 | Outpatient (CLI) | payer MEDICARE, MEDICAID | END 2023-10-12 23:59 | disposition critical access hospital (66) | LOC: EMS 05:26 | DX: R09.89 Other specified symptoms and signs involving the circulatory and respiratory systems (principal); R07.9 Chest pain, unspecified; R06.4 Hyperventilation; M79.602 Pain in left arm; F41.0 Panic disorder [episodic paroxysmal anxiety] | CPT/HCPCS: A0425; A0429 ==

== ENCOUNTER 2023-10-12 05:46 | Emergency (ER) | payer MEDICARE, MEDICAID ==
--- NOTE | 2023-10-12 05:57 | ED Physician Documentation ---
History of Present Illness - Stated complaint Stated Complaint: CP/LEFT ARM PAIN - Chief complaint Chief Complaint: Cardiac - History obtained from History obtained from: Patient - Additonal information Additional information: HPI from patient. Patient was T+R from this ED yesterday. At that time, he was treated empirically for diverticulitis with metronidazole. (See MDM, below, for more details reg arding recent previous visits). Patient presents at this time due to sensation his throat "is closing up" (per patient). He last took a dose of the metronidazole at approximately 1 PM and the sensation of throat constriction started around 4 PM and has been persistent , though waxing and waning, since that time. He says he called EMS more than once but felt he "could wait it out" (per patient) until approximately 45 minutes [employer] when he felt he was having difficulty breathing and thus comes to ED. Denies rash, pruritis, lightheadedness. PD PAST MEDICAL HISTORY - Past Medical History Cardiovascular: Hypertension Respiratory: Other Neuro: CVA, Migraines, Seizure disorder Endocrine/Autoimmune: None GI: GERD, Hiatal hernia, Diverticulitis, Other : Retention, Other HEENT: None Psych: Depression, Anxiety, Bipolar disorder, ADD/ADHD, Post traumatic stress disorder, Other Musculoskeletal: Osteoarthritis, Chronic back pain Derm: Other - Past Surgical History Past Surgical History: Yes General: EGD, Colonoscopy Ortho: Other Derm: Skin grafts - Present Medications Home Medications: Ambulatory Orders Medication Instructions Recorded Confirmed Furosemide [Lasix] 20 mg PO DAILY 04/21/22 10/11/23 Albuterol Sulf [Ventolin Hfa 1 - 2 puffs INH Q4HR PRN 11/11/22 10/11/23 Inhaler] Lisinopril [Zestril] 10 mg PO DAILY 11/11/22 10/11/23 Buprenorphine HCl/Naloxone HCl 1 each SL BID 05/18/23 10/11/23 [Buprenorphine-Nalox 8-2Mg Film] Lisdexamfetamine Dimesylate 30 mg PO DAILY 05/18/23 10/11/23 [Vyvanse] Gabapentin [Neurontin] 1,200 mg PO TID 06/29/23 10/11/23 OLANZapine [Zyprexa] 10 mg PO HS 09/01/23 10/11/23 Omeprazole 20 mg PO BID 09/01/23 10/11/23 DULoxetine [Cymbalta] 30 mg PO DAILY 10/11/23 10/11/23 OXcarbazepine [Trileptal] 300 mg PO DAILY 10/11/23 10/11/23 PARoxetine [Paxil] 20 mg PO DAILY 10/11/23 10/11/23 metroNIDAZOLE [Flagyl] 500 mg PO TID 7 Days #21 tablet 10/11/23 LORazepam [Ativan] 1 mg PO TID PRN #14 tablet 10/12/23 - Allergies Allergies/Adverse Reactions: Allergies Allergy/AdvReac Type Severity Reaction Status Date / Time cefdinir Allergy Severe Itching Verified 10/12/23 06:00 cephalexin Allergy Severe Rash Verified 10/12/23 06:00 Cephalosporins Allergy Severe Unknown Verified 10/12/23 06:00 Penicillins Allergy Intermediate Edema Verified 10/12/23 06:00 tramadol Allergy Intermediate Edema Verified 10/12/23 06:00 ciprofloxacin Allergy Anaphylaxis Verified 10/12/23 06:00 morphine Allergy Anaphylaxis Verified 10/12/23 06:00 paliperidone [From Invega] Allergy painful Verified 10/12/23 06:00 erections Sulfa (Sulfonamide Allergy Unknown Verified 10/12/23 06:00 Antibiotics) ziprasidone [From Geodon] Allergy Unknown Verified 10/12/23 06:00 lurasidone HCl * AdvReac Itching Verified 10/12/23 06:00 [From Latuda] - Social History Does the pt smoke?: Yes Smoking Status: Current every day smoker Does the pt drink ETOH?: No Does the pt have substance abuse?: Yes - Immunizations Immunizations are current?: Yes - POLST Patient has POLST: No PD ED PE NORMAL - Vitals Vital signs reviewed: Yes - General General: Alert and oriented X 3, No acute distress, Well developed/nourished - HEENT HEENT: Moist mucous membranes - Cardiac Cardiac: RRR - Respiratory Respiratory: No respiratory distress, Clear bilaterally - Abdomen Abdomen: Soft, Non tender, Non distended PD ED PE EXPANDED - HEENT HEENT: Pharyngeal erythema (posterior o/p is erythematous, dry, and raw. it is widely patent although the uvula is noticeably edematous) - Male Male : Circumcised, Testes descended xuan. No: Tenderness Results - Vitals Vitals: Oxygen O2 Source Room air - Labs Labs: Laboratory Tests 10/12/23 10/12/23 06:04 06:04 WBC 9.0 RBC 4.50 L Hgb 14.0 Hct 42.6 MCV 94.7 H MCH 31.1 H MCHC 32.9 RDW 13.0 Plt Count 242 MPV 11.0 Neut # (Auto) 5.4 Lymph # (Auto) 2.6 [place] # (Auto) 0.7 Eos # (Auto) 0.2 Baso # (Auto) 0.1 Absolute Nucleated RBC 0.00 Nucleated RBC % 0.0 Sodium 137 Potassium 3.7 Chloride 103 Carbon Dioxide 27 Anion Gap 7.0 BUN 16 Creatinine 0.8 Estimated GFR (MDRD) 106 Glucose 106 H Calcium 9.9 Total Bilirubin 0.6 AST 18 ALT 17 Alkaline Phosphatase 111 Total Protein 6.6 Albumin 4.5 Globulin 2.1 Albumin/Globulin Ratio 2.1 Lipase 31 PD Medical Decision Making - ED course Complexity details: reviewed results, considered differential, d/w patient ED course: Unremarkable CBC, normal ER abdominal panel (glucose flagged as high at 106). I explained to patient that the latest medical literature does not support need for antibiotics for most cases of diverticulitis being discharged from ED or T+R from office practices (as opposed to being admitted/inpatient). Thus, I instructed him to stop taking the metronidazole, and I will not be prescribing any antibiotics at this time. He is in NAD and airway is widely patent although the mucous membranes of the posterior oropharynx are very dry, raw, and uvula is swollen. During ED stay, after my H+P but before d/c, he suddenly c/o throat swelling; at that time, he is making very loud, odd sounds as if he is repeatedly trying to clear mucous from the back of his throat. He does this for nearly ten minutes. There is no respiratory distress. He is not wheezing, tachypneic, stridorous. He speaks in full sentences. Out of an abundance of caution, he is given 10mg PO decadron. I suspect his enlarged uvula is intermittently making contact with the posterior- most aspect of his tongue, reproducing sensation of constriction as well as FB in that area that does not resolve with swallowing and thus he is trying to clear his throat of what feels like mucous or constriction. This action, in turn, will likely increase the edema of the uvula, worsening the cycle. If this is not the cause of his unease, there is no suggestion of an infectious or other emergent cause; allergic reaction ongoing (intermittently) from medication last taken several hours ago seems unlikely and can be helped with the PO decadron. On initial H+P, patient repeatedly wanted to discuss other c/o that are [id number] (based on review of his [facility] records),such as groin and testicular swelling and discomfort, as well as a painless bump in his left FA. he was redirectable: I asked that he stay focused on the reason he came to the ED tonight, which is concern for possible allergic reaction to recently prescribed antibiotic. Note that prior to d/c, patient became very anxious about sensation of his testes "pulled up inside of me". He insisted I inspect his testicles because he feels sensation that the both retract inside and this resolves by the time medical practitioners have examined him. This is why there is a MALE exam documented, above. As noted above, both testes are descended, normal size, and nontender, with normal lie. There is no scrotal swelling, either. He is given 1mg PO lorazepam and e-prescribed lorazepam. This was after a discus dustin in which he said he thinks anxiety might be playing a role in his symptoms. The behavior(s) exhibited on this ED visit certainly would support the idea that anxiety is playing a significant role in patient's level of concern with some of his signs/symptoms, as well as their perceived severity. Departure - Departure Disposition: 01 Home, Self Care Clinical Impression: Anxiety Condition: Good Instructions: ED Symptoms No Dx Prescriptions: LORazepam [Ativan] 1 mg PO TID PRN #14 tablet PRN Reason: Anxiety Comments: It is not clear if you are having symptoms as result of side effect and/or aller gic reaction, but, as we discussed, I recommend that you do not take anymore the metronidazole. This had been prescribed for possible diverticulitis, but the medical literature supports the idea of no antibiotics for mild cases of diverticulitis that are discharged home from emergency department. Thus, even if you have diverticulitis, at this time I do not feel that an antibiotic is needed. Follow-up with your primary care provider, next available appointment for reevaluation. I have providing you with a prescription for lorazepam to help with possible component of anxiety. Discharge Date/Time: 10/12/23 07:43
[2023-10-12 06:25] LABS: BASOPHILS # (AUTO) 0.1 10^3/uL (0.0-0.1); BASOPHILS % (AUTO) 0.7 %; EOSINOPHILS # (AUTO) 0.2 10^3/uL (0.0-0.7); EOSINOPHILS % (AUTO) 2.7 %; HCT - HEMATOCRIT 42.6 % (42.0-52.0); LYMPHOCYTES # (AUTO) 2.6 10^3/uL (1.5-3.5); LYMPHOCYTES % (AUTO) 29.3 %; MEAN CORPUSCULAR HEMOGLOBIN 31.1 pg (27.0-31.0); MEAN CORPUSCULAR HGB CONC 32.9 g/dL (32.0-36.0); MEAN CORPUSCULAR VOLUME 94.7 fL (80.0-94.0); MONOCYTES # (AUTO) 0.7 10^3/uL (0.0-1.0); MONOCYTES % (AUTO) 7.2 %; NEUTROPHILS # (AUTO) 5.4 10^3/uL (1.5-6.6); NEUTROPHILS % (AUTO) 59.8 %; PLT - PLATELET COUNT 242 10^3/uL (130-450)
[2023-10-12 06:30] VITALS: O2SAT 98
[2023-10-12 06:37] LABS: ALBUMIN 4.5 g/dL (3.2-5.5); ALBUMIN/GLOBULIN RATIO 2.1 (1.0-2.2); BILIRUBIN,TOTAL 0.6 mg/dL (0.2-1.0); CALCIUM 9.9 mg/dL (8.5-10.3); CREATININE 0.8 mg/dL (0.6-1.3); POTASSIUM 3.7 mmol/L (3.5-4.5); TOTAL PROTEIN 6.6 g/dL (6.4-8.9)
[2023-10-12] MEDS: LORazepam 0.5 MG TABLET PO STA (07:13)
[2023-10-12] MEDS: DEXAMETHASONE 10 MG/ML VIAL PO STA (07:42)
[2023-10-12] MEDS: CHERRY SYRUP 10 ML UDC PO ONE (07:42)
[2023-10-12 07:43] VITALS: BP 128/90
== END 2023-10-12 07:43 | disposition home or self-care (01) ==
LOC: EDUNIT# → ED 05:46
DX: F41.9 Anxiety disorder, unspecified (principal); I10 Essential (primary) hypertension; F17.200 Nicotine dependence, unspecified, uncomplicated; Z86.73 Personal history of transient ischemic attack (TIA), and cerebral infarction without residual deficits; Z79.899 Other long term (current) drug therapy
CPT/HCPCS: 36415; 80053; 83690; 85025; 99283; A9270

== ENCOUNTER 2023-11-20 10:33 | Outpatient (CLI) | payer MEDICARE, MEDICAID ==
[2023-11-20] MEDS: ALBUTEROL 1 PUFF INH STA (13:01)
== END 2023-11-20 10:34 | disposition home or self-care (01) ==
LOC: RT 10:33
PROVIDERS: ATTEND Nurse Practitioner
DX: J45.909 Unspecified asthma, uncomplicated (principal)
CPT/HCPCS: 94060; 94729

== ENCOUNTER 2023-12-03 07:45 | Outpatient (CLI) | payer MEDICARE, MEDICAID ==
--- NOTE | 2023-12-03 10:14 | XRAY Report ---
PROCEDURE: Chest 2V INDICATIONS: SHORTNESS OF BREATH TECHNIQUE: 2 views of the chest were acquired. COMPARISON: 10/11/2023. FINDINGS: Surgical changes and devices: None. Lungs and pleura: No pleural effusions or pneumothorax. Lungs are clear. Mediastinum: Mediastinal contours appear normal. Heart size is normal. Bones and chest wall: No suspicious bony lesions. Overlying soft tissues appear unremarkable. IMPRESSION: No acute cardiopulmonary process. Reviewed by: Emerson Andersen MD on 12/03/2023 10:13 AM PDT Approved by: Emerson Andersen MD on 12/03/2023 10:13 AM PDT Station ID: [id number]
== END 2023-12-03 08:00 | disposition home or self-care (01) ==
LOC: DI.N 07:45
PROVIDERS: ATTEND Physician Assistant
DX: R06.02 Shortness of breath (principal)

== ENCOUNTER 2023-12-04 13:14 | Outpatient (CLI) | payer MEDICARE, MEDICAID | END 2023-12-04 13:15 | disposition critical access hospital (66) | LOC: EMS 13:14 | DX: R10.9 Unspecified abdominal pain (principal); M54.9 Dorsalgia, unspecified; R61 Generalized hyperhidrosis; R11.0 Nausea; R30.9 Painful micturition, unspecified | CPT/HCPCS: A0425; A0429 ==

== ENCOUNTER 2023-12-04 13:38 | Emergency (ER) | payer MEDICARE, MEDICAID ==
--- NOTE | 2023-12-04 13:52 | ED Physician Documentation ---
PD HPI ABD PAIN - Stated complaint Stated Complaint: ABD PX - Chief complaint Chief Complaint: Abd Pain - History obtained from History obtained from: Patient - History of Present Illness Timing - onset: How many days ago (1-2) Timing - duration: Days (1-2) Timing - details: Gradual onset, Still present, Waxing and waning Quality: Cramping, Aching, Pain Location: RLQ Radiation: Right flank Improved by: No: Eating, Laying still Worsened by: Moving, Position (lying on right side). No: Eating, Breathing Associated symptoms: Nausea, Other (has had sore throat and some cough for several days, improving.). No: Fever, Vomiting, Diarrhea Similar symptoms before: Has not had sx before Review of Systems Constitutional: reports: Chills, Myalgias. denies: Fever Nose: reports: Congestion. denies: Rhinorrhea / runny nose Throat: reports: Sore throat Respiratory: reports: Cough GI: reports: Abdominal Pain, Nausea, Diarrhea. denies: Vomiting, Constipation : denies: Dysuria, Frequency Skin: denies: Rash, Lesions PD PAST MEDICAL HISTORY - Past Medical History Cardiovascular: Hypertension Respiratory: Other Neuro: CVA, Migraines, Seizure disorder Endocrine/Autoimmune: None GI: GERD, Hiatal hernia, Diverticulitis, Other : Retention, Other HEENT: None Psych: Depression, Anxiety, Bipolar disorder, ADD/ADHD, Post traumatic stress disorder, Other Musculoskeletal: Osteoarthritis, Chronic back pain Derm: Other - Past Surgical History Past Surgical History: Yes General: EGD, Colonoscopy Ortho: Other Derm: Skin grafts - Present Medications Home Medications: Ambulatory Orders Medication Instructions Recorded Confirmed Furosemide [Lasix] 20 mg PO DAILY 04/21/22 12/04/23 Albuterol Sulf [Ventolin Hfa 1 - 2 puffs INH Q4HR PRN 11/11/22 12/04/23 Inhaler] Lisinopril [Zestril] 10 mg PO DAILY 11/11/22 12/04/23 Buprenorphine HCl/Naloxone HCl 1 each SL BID 05/18/23 12/04/23 [Buprenorphine-Nalox 8-2Mg Film] Lisdexamfetamine Dimesylate 30 mg PO DAILY 05/18/23 12/04/23 [Vyvanse] Gabapentin [Neurontin] 1,200 mg PO TID 06/29/23 12/04/23 OLANZapine [Zyprexa] 10 mg PO HS 09/01/23 12/04/23 OXcarbazepine [Trileptal] 300 mg PO DAILY 10/11/23 12/04/23 PARoxetine [Paxil] 20 mg PO DAILY 10/11/23 12/04/23 PARoxetine HCL [Paxil] 30 mg PO DAILY 12/04/23 12/04/23 - Allergies Allergies/Adverse Reactions: Allergies Allergy/AdvReac Type Severity Reaction Status Date / Time cefdinir Allergy Severe Itching Verified 12/04/23 13:42 cephalexin Allergy Severe Rash Verified 12/04/23 13:42 Cephalosporins Allergy Severe Unknown Verified 12/04/23 13:42 Penicillins Allergy Intermediate Edema Verified 12/04/23 13:42 tramadol Allergy Intermediate Edema Verified 12/04/23 13:42 ciprofloxacin Allergy Anaphylaxis Verified 12/04/23 13:42 morphine Allergy Anaphylaxis Verified 12/04/23 13:42 paliperidone [From Invega] Allergy painful Verified 12/04/23 13:42 erections Sulfa (Sulfonamide Allergy Unknown Verified 12/04/23 13:42 Antibiotics) ziprasidone [From Geodon] Allergy Unknown Verified 12/04/23 13:42 lurasidone HCl * AdvReac Itching Verified 12/04/23 13:42 [From Latuda] - Social History Does the pt smoke?: Yes Smoking Status: Current every day smoker Does the pt drink ETOH?: No Does the pt have substance abuse?: Yes - Immunizations Immunizations are current?: Yes - POLST Patient has POLST: No PD ED PE NORMAL - Vitals Vital signs reviewed: Yes - General General: Alert and oriented X 3, No acute distress, Well developed/nourished - HEENT HEENT: Ears normal, Pharynx benign - Neck Neck: Supple, no meningeal sign, No adenopathy - Cardiac Cardiac: RRR, No murmur - Respiratory Respiratory: Clear bilaterally - Abdomen Abdomen: Normal bowel sounds, Soft, Non distended, Other (tender right lower to mid abdomen without guarding, percussion nor rebound. Some right flank tenderness. Liver and spleen do not feel enlarged. ) - Male Male : Deferred - Rectal Rectal: Deferred - Derm Derm: Normal color, Warm and dry Results - Vitals Vitals: Oxygen O2 Source Room air - Labs Labs: Laboratory Tests 12/04/23 12/04/23 12/04/23 14:04 14:04 14:08 WBC 10.4 RBC 4.58 L Hgb 14.4 Hct 43.3 MCV 94.5 H MCH 31.4 H MCHC 33.3 RDW 13.2 Plt Count 237 MPV 10.5 Neut # (Auto) 6.9 H Lymph # (Auto) 2.9 [place] # (Auto) 0.5 Eos # (Auto) 0.0 Baso # (Auto) 0.0 Absolute Nucleated RBC 0.00 Nucleated RBC % 0.0 Sodium 138 Potassium 3.7 Chloride 102 Carbon Dioxide 29 Anion Gap 7.0 BUN 16 Creatinine 1.0 Estimated GFR (MDRD) 82 L Glucose 106 H Calcium 10.0 Magnesium 1.9 Total Bilirubin 0.5 AST 17 ALT 15 Alkaline Phosphatase 138 H Total Protein 7.3 Albumin 4.8 Globulin 2.5 Albumin/Globulin Ratio 1.9 Lipase 24 Urine Color DARK YELLOW Urine Clarity CLEAR Urine pH 8.5 H Ur Specific [place] 1.020 Urine Protein TRACE Urine Glucose (UA) NEGATIVE Urine Ketones TRACE Urine Occult Blood NEGATIVE Urine Nitrite NEGATIVE Urine Bilirubin SMALL H Urine Urobilinogen 0.2 (NORMAL) Ur Leukocyte Esterase NEGATIVE Ur Microscopic Review NOT INDICATED Urine Culture Comments NOT INDICATED - Rads (name of study) abd/pelic CT Relevant Findings:: Final report received (no acute process. normal appendix, no adenopathy. ), EMP independent interpretation of test PD Medical Decision Making - ED course Complexity details: reviewed results (no axplanation for abd pain. No acute proc ess. Improved with IV fluids and meds. ), considered differential (has URI symptoms and now with right abd pain. Consider some colitis viral, but also need to eval fro appendix, GB, UTI, kidney stone, etc. ), d/w patient Departure - Departure Disposition: 01 Home, Self Care Clinical Impression: Right sided abdominal pain Condition: Stable Record reviewed to determine appropriate education?: Yes Instructions: ED Abdominal Pain Unkn Cause Male Comments: Your urine test and blood count are normal. Your chemistry panel did not show any electrolyte abnormalities nor liver or pancreas problems/inflammation. The CT scan did not show any Acute abnormalities. In particular no kidney stones, no signs of local infections. Normal appendix. You do have a small hernia in the left inguinal area in the bellybutton area. These do not seem to be trapped or swollen. Unclear the cause of your cramping and pain in the abdomen. It certainly can be some intestinal irritation related to the current viral illness that you have. Stay well-hydrated. Tylenol 500 to 650 mg 4 times a day to help with cramps or pains. Return if worsening. Forms: PCP List Discharge Date/Time: 12/04/23 16:54
[2023-12-04 14:12] LABS: BASOPHILS % (AUTO) 0.3 %; HCT - HEMATOCRIT 43.3 % (42.0-52.0); HGB - HEMOGLOBIN 14.4 g/dL (14.0-18.0); LYMPHOCYTES # (AUTO) 2.9 10^3/uL (1.5-3.5); LYMPHOCYTES % (AUTO) 27.7 %; MEAN CORPUSCULAR HEMOGLOBIN 31.4 pg (27.0-31.0); MEAN CORPUSCULAR HGB CONC 33.3 g/dL (32.0-36.0); MEAN CORPUSCULAR VOLUME 94.5 fL (80.0-94.0); MEAN PLATELET VOLUME 10.5 fL (7.4-11.4); MONOCYTES # (AUTO) 0.5 10^3/uL (0.0-1.0); MONOCYTES % (AUTO) 4.9 %; NEUTROPHILS # (AUTO) 6.9 10^3/uL (1.5-6.6); NEUTROPHILS % (AUTO) 66.9 %; PLT - PLATELET COUNT 237 10^3/uL (130-450); RED BLOOD COUNT 4.58 10^6/uL (4.70-6.10); RED CELL DISTRIBUTION WIDTH 13.2 % (12.0-15.0); WHITE BLOOD COUNT 10.4 x10^3/uL (4.8-10.8)
[2023-12-04 14:14] LABS: BILIRUBIN,URINE SMALL (NEGATIVE); GLUCOSE, URINE (UA) NEGATIVE (NEGATIVE); KETONES,URINE (UA) TRACE mg/dL (NEGATIVE); LEUKOCYTE ESTERASE, URINE NEGATIVE (NEGATIVE); NITRITE,URINE NEGATIVE (NEGATIVE); OCCULT BLOOD,URINE NEGATIVE (NEGATIVE); PH,URINE 8.5 PH (5.0-7.5); PROTEIN,URINE TRACE mg/dL (NEGATIVE); UROBILINOGEN,URINE 0.2 (NORMAL) E.U./dL (NORMAL)
[2023-12-04] MEDS: SODIUM CHLORIDE 0.9% 1,000 ML IV STA (14:14)
[2023-12-04] MEDS: KETOROLAC 15 MG/ML VIAL IVP STA (14:14)
[2023-12-04 14:15] LABS: CLARITY,URINE CLEAR (CLEAR)
[2023-12-04] MEDS: DROPERIDOL 5 MG/2 ML VIAL IVP STA (14:15)
[2023-12-04] MEDS ORDERED: iohexoL-300 100 ML VIAL ONE (14:34)
[2023-12-04 14:36] LABS: ALBUMIN 4.8 g/dL (3.2-5.5); ALBUMIN/GLOBULIN RATIO 1.9 (1.0-2.2); BILIRUBIN,TOTAL 0.5 mg/dL (0.2-1.0); MAGNESIUM 1.9 mg/dL (1.7-2.3); POTASSIUM 3.7 mmol/L (3.5-4.5); TOTAL PROTEIN 7.3 g/dL (6.4-8.9)
[2023-12-04] MEDS: iohexoL-300 100 ML VIAL IVP ONE (15:32)
--- NOTE | 2023-12-04 16:03 | CT Report ---
PROCEDURE: Abdomen/Pelvis W INDICATIONS: lower to right flank pain for few days CONTRAST: Omni 300 100ml TECHNIQUE: After the administration of intravenous contrast, a CT scan of the abdomen and pelvis was performed. Images were recorded and evaluated at appropriate window settings. Reformats: coronal and sagittal. F or radiation dose reduction, the following was used: automated exposure control, adjustment of mA and /or kV according to patient size. COMPARISON: 09/01/2023 FINDINGS: Image quality: Diagnostic. Lower chest: Unremarkable. Liver: No solid mass. Gallbladder: Within normal limits. Biliary tree: No intrahepatic or extrahepatic dilation, accounting for age. Spleen: No splenomegaly. Pancreas: No pancreatic ductal dilation. Adrenals: No adrenal nodule. Kidneys and ureters: No hydronephrosis. No renal cystic lesion which requires follow up. No solid mas s. Stomach, bowel and peritoneum: No gastric or small bowel dilation. No abnormal wall thickening. No pa thologic free fluid. A normal appendix is seen. Lymph nodes: No central or retroperitoneal adenopathy. Vessels: No infrarenal aortic aneurysm. Patent portal vein. PELVIS Reproductive organs: Unremarkable. Bladder: No abnormal wall thickening, accounting for underdistention. Pelvic lymph nodes: No pelvic adenopathy by size criteria. Bones: No aggressive osseous abnormality. Other: A mild fat-containing periumbilical hernia is seen. There is a minimal fat-containing left ing uinal hernia. IMPRESSION: No cause of right flank pain can be seen. No right-sided hydronephrosis can be seen. Normal appendix. Additional findings: Mild fat-containing periumbilical hernia Minimal fat-containing left inguinal hernia Reviewed by: Warren Sánchez MD on 12/04/2023 3:01 PM AKDT Approved by: Warren Sánchez MD on 12/04/2023 3:01 PM AKDT Station ID: [id number]
[2023-12-04 16:56] VITALS: BP 133/86; O2SAT 100
== END 2023-12-04 16:54 | disposition home or self-care (01) ==
LOC: ED 13:38
DX: R10.31 Right lower quadrant pain (principal); I10 Essential (primary) hypertension; F17.200 Nicotine dependence, unspecified, uncomplicated
CPT/HCPCS: 36415; 74177; 80053; 81003; 83690; 83735; 85025; 96374; 96375; 99284; Q9967; 81001; 87086

== ENCOUNTER 2023-12-07 08:10 | Emergency (ER) | payer MEDICARE, MEDICAID ==
[2023-12-07 08:31] VITALS: O2SAT 100
--- NOTE | 2023-12-07 09:06 | XRAY Report ---
PROCEDURE: Chest 1V INDICATIONS: cough TECHNIQUE: One view of the chest was acquired. COMPARISON: Chest radiograph 12/03/2023. FINDINGS: Surgical changes and devices: None. Lungs and pleura: No pleural effusions or pneumothorax. Lungs are clear. Mediastinum: Mediastinal contours appear normal. Heart size is normal. Bones and chest wall: No suspicious bony lesions. Overlying soft tissues appear unremarkable. IMPRESSION: No acute cardiopulmonary process. Reviewed by: Janessa Varner MD, PhD on 12/07/2023 8:05 AM ANTHONY Approved by: Janessa Varner MD, PhD on 12/07/2023 8:05 AM ANTHONY Station ID: [id number]
[2023-12-07] MEDS: ALPRAZolam 0.25 MG TABLET PO STA (09:11)
[2023-12-07] MEDS: predniSONE 20 MG TABLET PO STA (09:12)
--- NOTE | 2023-12-07 10:16 | ED Physician Documentation ---
History of Present Illness - Stated complaint Stated Complaint: ABD HERNIA - Chief complaint Chief Complaint: Abd Pain - History obtained from History obtained from: Patient - Additonal information Additional information: The patient comes to the emergency department chief complaint of abdominal pain and concern over hernia. Patient states he was told he had hernia couple of days ago when he was here and he is worried that something is wrong with the hernia. He states that it just hurts around his bellybutton. He states the bulge is soft but he is concerned about it being there. No nausea or vomiting. No change in bowel movements. No fevers or chills. Patient states he has been getting some heartburn too. No other complaints at this time. He had a CT when he was seen here last time that showed both a left inguinal and an umbilical hernia. Both contained fat. PD PAST MEDICAL HISTORY - Past Medical History Cardiovascular: Hypertension Respiratory: Other Neuro: CVA, Migraines, Seizure disorder Endocrine/Autoimmune: None GI: GERD, Hiatal hernia, Diverticulitis, Other : Retention, Other HEENT: None Psych: Depression, Anxiety, Bipolar disorder, ADD/ADHD, Post traumatic stress disorder, Other Musculoskeletal: Osteoarthritis, Chronic back pain Derm: Other - Past Surgical History Past Surgical History: Yes General: EGD, Colonoscopy Ortho: Other Derm: Skin grafts - Present Medications Home Medications: Ambulatory Orders Medication Instructions Recorded Confirmed Furosemide [Lasix] 20 mg PO DAILY 04/21/22 12/15/23 Albuterol Sulf [Ventolin Hfa 1 - 2 puffs INH Q4HR PRN 11/11/22 12/15/23 Inhaler] Lisinopril [Zestril] 10 mg PO DAILY 11/11/22 12/15/23 Buprenorphine HCl/Naloxone HCl 1 each SL BID 05/18/23 12/15/23 [Buprenorphine-Nalox 8-2Mg Film] Lisdexamfetamine Dimesylate 30 mg PO DAILY 05/18/23 12/15/23 [Vyvanse] Gabapentin [Neurontin] 600 mg PO QID 06/29/23 12/15/23 OLANZapine [Zyprexa] 10 mg PO HS 09/01/23 12/15/23 OXcarbazepine [Trileptal] 10 mg PO BID 10/11/23 12/15/23 PARoxetine [Paxil] 20 mg PO DAILY 10/11/23 12/15/23 Benzonatate [Tessalon] 100 mg PO TID #30 cap 12/07/23 12/15/23 Azithromycin [Zithromax] 250 mg PO DAILY #6 tablet 12/15/23 Mupirocin 2% Oint [Bactroban 2% 1 applic TOP BID #50 gm 12/15/23 Oint] - Allergies Allergies/Adverse Reactions: Allergies Allergy/AdvReac Type Severity Reaction Status Date / Time cefdinir Allergy Severe Itching Verified 12/15/23 07:53 cephalexin Allergy Severe Rash Verified 12/15/23 07:53 Cephalosporins Allergy Severe Unknown Verified 12/15/23 07:53 Penicillins Allergy Intermediate Edema Verified 12/15/23 07:53 tramadol Allergy Intermediate Edema Verified 12/15/23 07:53 ciprofloxacin Allergy Anaphylaxis Verified 12/15/23 07:53 morphine Allergy Anaphylaxis Verified 12/15/23 07:53 paliperidone [From Invega] Allergy painful Verified 12/15/23 07:53 erections Sulfa (Sulfonamide Allergy Unknown Verified 12/15/23 07:53 Antibiotics) ziprasidone [From Geodon] Allergy Unknown Verified 12/15/23 07:53 lurasidone HCl * AdvReac Itching Verified 12/15/23 07:55 [From Latuda] - Social History Does the pt smoke?: Yes Smoking Status: Current every day smoker Does the pt drink ETOH?: No Does the pt have substance abuse?: Yes - Immunizations Immunizations are current?: Yes - POLST Patient has POLST: No PD ED PE NORMAL - Vitals Vital signs reviewed: Yes - General General: Alert and oriented X 3, No acute distress, Well developed/nourished - HEENT HEENT: Atraumatic, PERRL, EOMI, Moist mucous membranes - Neck Neck: Supple, no meningeal sign - Cardiac Cardiac: RRR, No murmur - Respiratory Respiratory: No respiratory distress, Clear bilaterally - Abdomen Abdomen: Soft, Non distended, Other (Tender epigastrium. No incarcerated hernia noted in either the umbilical or the inguinal regions.) - Derm Derm: Normal color, Warm and dry, No rash - Extremities Extremities: No deformity, No edema - Neuro Neuro: Other (Alert, grossly intact) - Psych Psych: Normal mood, Normal affect Results - Vitals Vitals: Oxygen O2 Source Room air - EKG (time done) 0828 EKG releavant findings:: EKG personally interpreted by author of this note. Relevant findings are: Rhythm: NSR [place]: Normal Intervals: Normal [place] QRS: Normal Ischemia: Normal ST segments Compare to prior EKG: Old EKG unavailable Computer interpretation: Agree with computer - Rads (name of study) Chest x-ray Relevant Findings:: Final report received, See rad report (Negative) PD Medical Decision Making - ED course Complexity details: reviewed results, re-evaluated patient, considered differential, d/w patient ED course: The patient was worked up with chest x-ray and EKG due to his chest discomfort and this was negative. I reviewed his labs and CT from last time and found the patient had to minimal, fat-containing hernias, 1 in the periumbilical region in one of the left inguinal area. I discussed with the patient that there is no evidence of incarceration at this point in time and that he will need to follow- up with the surgeons if he has further concerns. We have discussed avoidance of heavy lifting and the usual indications for return. Departure - Departure Disposition: 01 Home, Self Care Clinical Impression: Anxiety, Upper respiratory infection Condition: Stable Instructions: ED Panic Attack, ED URI Viral Prescriptions: Benzonatate [Tessalon] 100 mg PO TID #30 cap Comments: Your lungs are clear today and your oxygen levels look good. Your chest x-ray does not show any pneumonia or other issue. You had some very small hernias, 1 in your bellybutton and 1 down in your left groin, that were found on your CT scan few days ago. These do not pose any danger to your health, but can be uncomfortable. If you wish to follow-up with the surgery clinic to get these evaluated for repair, you certainly may. No other emergent findings came up and either your blood work or your CT scan and there is no indication for repeating any of those today. Your EKG looks good and you have a completely normal rate and rhythm. You were treated for your anxiety and you were also offered a dose of steroid for your cough but have declined this. There is no indication for breathing treatment because you had no wheezing and your airways were all very open. Most likely the left shoulder pain you get is musculoskeletal. Please follow-up with your primary doctor and with your specialists as planned. Talk to your doctor about being treated for your anxiety. A prescription for cough medicine has been electronically transmitted to the [facility] pharmacy in [place], your pharmacy of choice on record. Please pick this up and take as needed. Forms: PCP List Discharge Date/Time: 12/07/23 10:30
[2023-12-07 10:49] VITALS: BP 124/89
== END 2023-12-07 10:30 | disposition home or self-care (01) ==
LOC: ED 08:10
DX: J06.9 Acute upper respiratory infection, unspecified (principal); K42.9 Umbilical hernia without obstruction or gangrene; K40.90 Unilateral inguinal hernia, without obstruction or gangrene, not specified as recurrent; F41.9 Anxiety disorder, unspecified; M25.512 Pain in left shoulder; F17.200 Nicotine dependence, unspecified, uncomplicated
CPT/HCPCS: 71045; 93005; A9270; 99283; 99284

== ENCOUNTER 2023-12-09 16:40 | Outpatient (CLI) | payer MEDICARE, MEDICAID | END 2023-12-09 23:59 | disposition EMS.NT | LOC: EMS 16:40 | DX: R10.814 Left lower quadrant abdominal tenderness (principal); R10.813 Right lower quadrant abdominal tenderness; R45.1 Restlessness and agitation ==

== ENCOUNTER 2023-12-15 07:19 | Outpatient (CLI) | payer MEDICARE, MEDICAID | END 2023-12-15 23:59 | disposition critical access hospital (66) | LOC: EMS 07:19 | DX: S71.132A Puncture wound without foreign body, left thigh, initial encounter (principal); W25.XXXA Contact with sharp glass, initial encounter; Y93.84 Activity, sleeping; Y92.003 Bedroom of unspecified non-institutional (private) residence as the place of occurrence of the external cause | CPT/HCPCS: A0425; A0429 ==

== ENCOUNTER 2023-12-15 07:39 | Emergency (ER) | payer MEDICARE, MEDICAID ==
--- NOTE | 2023-12-15 07:53 | ED Physician Documentation ---
History of Present Illness - Stated complaint Stated Complaint: L LEG INFECTION - History obtained from History obtained from: Patient, EMS - History of Present Illness Timing: How many weeks ago (3) - Additonal information Additional information: 43-year-old male on Vyvanse presents to the emergency department with a sore on his left thigh. He is coming in by ambulance for evaluation. He has had this sore for about 3 weeks. He feels like maybe he slept in some clothes that had glass in them. He has had MRSA previously and feels like he still has something going on. He has had a cough and congestion for several weeks he has had a fever off-and-on and with a cough he developed some problem with hernia and was evaluated emergency department for abdominal pain. He has been seen at the [facility] ent care clinic given a steroid for URI. Review of Systems Constitutional: reports: Fever, Myalgias, Sweats Eyes: denies: Decreased vision Ears: reports: Ear pain Nose: reports: Rhinorrhea / runny nose, Congestion Throat: reports: Sore throat Cardiac: denies: Chest pain / pressure, Palpitations Respiratory: reports: Cough. denies: Dyspnea GI: reports: Abdominal Pain. denies: Vomiting, Diarrhea : denies: Dysuria, Frequency Skin: reports: Lesions (thigh). denies: Rash PD PAST MEDICAL HISTORY - Past Medical History Cardiovascular: Hypertension Respiratory: Other Neuro: CVA, Migraines, Seizure disorder Endocrine/Autoimmune: None GI: GERD, Hiatal hernia, Diverticulitis, Other : Retention, Other HEENT: None Psych: Depression, Anxiety, Bipolar disorder, ADD/ADHD, Post traumatic stress disorder, Other Musculoskeletal: Osteoarthritis, Chronic back pain Derm: Other - Past Surgical History Past Surgical History: Yes General: EGD, Colonoscopy Ortho: Other Derm: Skin grafts - Present Medications Home Medications: Ambulatory Orders Medication Instructions Recorded Confirmed Furosemide [Lasix] 20 mg PO DAILY 04/21/22 12/15/23 Albuterol Sulf [Ventolin Hfa 1 - 2 puffs INH Q4HR PRN 11/11/22 12/15/23 Inhaler] Lisinopril [Zestril] 10 mg PO DAILY 11/11/22 12/15/23 Buprenorphine HCl/Naloxone HCl 1 each SL BID 05/18/23 12/15/23 [Buprenorphine-Nalox 8-2Mg Film] Lisdexamfetamine Dimesylate 30 mg PO DAILY 05/18/23 12/15/23 [Vyvanse] Gabapentin [Neurontin] 600 mg PO QID 06/29/23 12/15/23 OLANZapine [Zyprexa] 10 mg PO HS 09/01/23 12/15/23 OXcarbazepine [Trileptal] 10 mg PO BID 10/11/23 12/15/23 PARoxetine [Paxil] 20 mg PO DAILY 10/11/23 12/15/23 Benzonatate [Tessalon] 100 mg PO TID #30 cap 12/07/23 12/15/23 Azithromycin [Zithromax] 250 mg PO DAILY #6 tablet 12/15/23 Mupirocin 2% Oint [Bactroban 2% 1 applic TOP BID #50 gm 12/15/23 Oint] - Allergies Allergies/Adverse Reactions: Allergies Allergy/AdvReac Type Severity Reaction Status Date / Time cefdinir Allergy Severe Itching Verified 12/15/23 07:53 cephalexin Allergy Severe Rash Verified 12/15/23 07:53 Cephalosporins Allergy Severe Unknown Verified 12/15/23 07:53 Penicillins Allergy Intermediate Edema Verified 12/15/23 07:53 tramadol Allergy Intermediate Edema Verified 12/15/23 07:53 ciprofloxacin Allergy Anaphylaxis Verified 12/15/23 07:53 morphine Allergy Anaphylaxis Verified 12/15/23 07:53 paliperidone [From Invega] Allergy painful Verified 12/15/23 07:53 erections Sulfa (Sulfonamide Allergy Unknown Verified 12/15/23 07:53 Antibiotics) ziprasidone [From Geodon] Allergy Unknown Verified 12/15/23 07:53 lurasidone HCl * AdvReac Itching Verified 12/15/23 07:55 [From Latuda] - Social History Does the pt smoke?: Yes Smoking Status: Current every day smoker Does the pt drink ETOH?: No Does the pt have substance abuse?: Yes - Immunizations Immunizations are current?: Yes - POLST Patient has POLST: No PD ED PE NORMAL - Vitals Vital signs reviewed: Yes (hypertensive ) - General General: Alert and oriented X 3, No acute distress, Well developed/nourished, Other (43 y/o male with his left thigh exposed showing a 4mm escar anterior with minimal surrounding inflammation. ) - HEENT HEENT: Atraumatic, PERRL, EOMI, Other (Both TMs are erythematous with distortion of the landmarks the pharynx shows dry mucous membranes.) - Neck Neck: Supple, no meningeal sign, No bony TTP - Cardiac Cardiac: RRR, No murmur - Respiratory Respiratory: No respiratory distress, Clear bilaterally - Abdomen Abdomen: Soft, Non tender - Back Back: No CVA TTP, No spinal TTP - Derm Derm: Normal color, Warm and dry, No rash, Other (Over the left anterior thigh is a 4 mm area of eschar with minimal inflammation and it is nontender and there is no exudate. This appears to be a minimally inflamed superficial skin infection.) - Extremities Extremities: No deformity, No edema - Neuro Neuro: Alert and oriented X 3, in process inspector 2-12 intact, No motor deficit, No sensory deficit, Normal speech Eye Opening: Spontaneous Motor: Obeys Commands Verbal: Oriented GCS Score: 15 - Psych Psych: Normal mood, Normal affect Results - Vitals Vitals: Oxygen O2 Source Room air PD Medical Decision Making - ED course Complexity details: considered differential, d/w patient ED course: 43-year-old male on Vyvanse presents to the emergency department with a small sore on his left thigh. I did not determine this to be any type of a life- threatening emergency. He did have a history of cough that has been persistent intermittent fever and enough of a cough that has developed some problem with hernia he is also coughing up some yellow phlegm. On examination he has an obvious otitis. We will treat the otitis and we will treat the skin lesion with some mupirocin for MRSA. Departure - Departure Disposition: 01 Home, Self Care Clinical Impression: MRSA infection, non-invasive Otitis media Qualifiers: Otitis media type: suppurative Chronicity: acute Laterality: bilateral Recurrence: recurrent Spontaneous tympanic membrane rupture: without spontaneous rupture Qualified Code(s): H66.006 - Acute suppurative otitis media without spontaneous rupture of ear drum, recurrent, bilateral Condition: Stable Instructions: ED Otitis Media Acute Adult, ED Skin Infec MRSA Suspect Conf Follow-Up: Fernanda Davila, [employer] PAYABLE REPRESENTATIVE [Provider Admit Priv/Credential] - Prescriptions: Mupirocin 2% Oint [Bactroban 2% Oint] 1 applic TOP BID #50 gm Azithromycin [Zithromax] 250 mg PO DAILY #6 tablet Comments: Carroll, today it looks like the cough you are having is related to a middle ear infection and I have E scribed some azithromycin (the Z-Александр) to the [facility] in [place]. In addition for this sore that is on your thigh, application of mupirocin ointment twice per day should effect resolution of this within 10 to 14 days.
[2023-12-15 08:18] VITALS: BP 136/82; O2SAT 98
== END 2023-12-15 08:08 | disposition home or self-care (01) ==
LOC: EDUNIT# → ED 07:39
DX: L08.89 Other specified local infections of the skin and subcutaneous tissue (principal); B95.62 Methicillin resistant Staphylococcus aureus infection as the cause of diseases classified elsewhere; H66.006 Acute suppurative otitis media without spontaneous rupture of ear drum, recurrent, bilateral; F17.200 Nicotine dependence, unspecified, uncomplicated
CPT/HCPCS: 99283

== ENCOUNTER 2023-12-23 07:21 | Outpatient (CLI) | payer MEDICARE, MEDICAID | END 2023-12-23 23:59 | disposition critical access hospital (66) | LOC: EMS 07:21 | DX: R10.32 Left lower quadrant pain (principal); R07.9 Chest pain, unspecified; M79.602 Pain in left arm; R20.0 Anesthesia of skin | CPT/HCPCS: A0425; A0429 ==

== ENCOUNTER 2023-12-23 07:42 | Emergency (ER) | payer MEDICARE, MEDICAID ==
[2023-12-23 07:55] VITALS: BP 153/101; O2SAT 95
--- NOTE | 2023-12-23 08:01 | ED Physician Documentation ---
PD HPI ABD PAIN - Stated complaint Stated Complaint: ABD PX - Chief complaint Chief Complaint: General - History obtained from History obtained from: Patient, EMS - History of Present Illness Timing - onset: How many days ago (several days of pain in left chest, left shoulder/capular area and down to left lumbar area. He feels there is swelling there.) Timing - details: Gradual onset, Waxing and waning Quality: Cramping, Aching, Pain Location: LUQ Radiation: Chest, Lower back, Left flank, Upper back Improved by: Laying still. No: Eating Worsened by: Moving. No: Eating, Palpation Associated symptoms: Constipation. No: Fever, Nausea, Vomiting, Diarrhea Similar symptoms before: Work up / diagnostics (has had labs for heart, CXR, abd/pelic CT all in past couple of weeks. No positive findings.) Recently seen: Emergency Dept Review of Systems Constitutional: denies: Fever, Chills PD PAST MEDICAL HISTORY - Past Medical History Cardiovascular: Hypertension Respiratory: Other Neuro: CVA, Migraines, Seizure disorder Endocrine/Autoimmune: None GI: GERD, Hiatal hernia, Diverticulitis, Other : Retention, Other HEENT: None Psych: Depression, Anxiety, Bipolar disorder, ADD/ADHD, Post traumatic stress disorder, Other Musculoskeletal: Osteoarthritis, Chronic back pain Derm: Other - Past Surgical History Past Surgical History: Yes General: EGD, Colonoscopy Ortho: Other Derm: Skin grafts - Present Medications Home Medications: Ambulatory Orders Medication Instructions Recorded Confirmed Furosemide [Lasix] 20 mg PO DAILY 04/21/22 12/15/23 Albuterol Sulf [Ventolin Hfa 1 - 2 puffs INH Q4HR PRN 11/11/22 12/15/23 Inhaler] Lisinopril [Zestril] 10 mg PO DAILY 11/11/22 12/15/23 Buprenorphine HCl/Naloxone HCl 1 each SL BID 05/18/23 12/15/23 [Buprenorphine-Nalox 8-2Mg Film] Lisdexamfetamine Dimesylate 30 mg PO DAILY 05/18/23 12/15/23 [Vyvanse] Gabapentin [Neurontin] 600 mg PO QID 06/29/23 12/15/23 OLANZapine [Zyprexa] 10 mg PO HS 09/01/23 12/15/23 OXcarbazepine [Trileptal] 10 mg PO BID 10/11/23 12/15/23 PARoxetine [Paxil] 20 mg PO DAILY 10/11/23 12/15/23 Benzonatate [Tessalon] 100 mg PO TID #30 cap 12/07/23 12/15/23 Azithromycin [Zithromax] 250 mg PO DAILY #6 tablet 12/15/23 Mupirocin 2% Oint [Bactroban 2% 1 applic TOP BID #50 gm 12/15/23 Oint] - Allergies Allergies/Adverse Reactions: Allergies Allergy/AdvReac Type Severity Reaction Status Date / Time cefdinir Allergy Severe Itching Verified 12/15/23 07:53 cephalexin Allergy Severe Rash Verified 12/15/23 07:53 Cephalosporins Allergy Severe Unknown Verified 12/15/23 07:53 Penicillins Allergy Intermediate Edema Verified 12/15/23 07:53 tramadol Allergy Intermediate Edema Verified 12/15/23 07:53 ciprofloxacin Allergy Anaphylaxis Verified 12/15/23 07:53 morphine Allergy Anaphylaxis Verified 12/15/23 07:53 paliperidone [From Invega] Allergy painful Verified 12/15/23 07:53 erections Sulfa (Sulfonamide Allergy Unknown Verified 12/15/23 07:53 Antibiotics) ziprasidone [From Geodon] Allergy Unknown Verified 12/15/23 07:53 lurasidone HCl * AdvReac Itching Verified 12/15/23 07:55 [From Latuda] - Social History Does the pt smoke?: Yes Smoking Status: Current every day smoker Does the pt drink ETOH?: No Does the pt have substance abuse?: Yes - Immunizations Immunizations are current?: Yes - POLST Patient has POLST: No PD ED PE NORMAL - Vitals Vital signs reviewed: Yes - General General: Alert and oriented X 3, Well developed/nourished, Other (does not appear in pain but does seem emotionally anxious about not having ever had positive testings for his chest/abd/back pains. ) - Neck Neck: Supple, no meningeal sign, No adenopathy - Cardiac Cardiac: RRR, No murmur - Respiratory Respiratory: No respiratory distress, Clear bilaterally - Abdomen Abdomen: Normal bowel sounds, Soft, Non distended, No organomegaly, Other (mild tender in lateral abd/oblique muscle area and around to back but whole length of back from iliac crest to shoulder. No redness. He states swelling of soft tissue, but I do not appreciate any in areas he points out. ) - Back Back: No spinal TTP - Derm Derm: Normal color, Warm and dry - Extremities Extremities: No edema, No calf tenderness / cord - Neuro Neuro: Alert and oriented X 3, No motor deficit, Normal speech Results - Vitals Vitals: Vital Signs - 24 hr 12/23/23 07:51 Temperature 98.2 C H Heart Rate 87 Respiratory 18 Rate Blood Pressure 153/101 H O2 Saturation 95 Oxygen O2 Source Room air PD Medical Decision Making - ED course Complexity details: reviewed old records (recent ER visits. Also reviewed recent abd/pelvic CT report and images. ), considered differential (patient with chest, back, lumbar pains. Has had evals and recent CT abd/pelvis in past 2 weeks for similar. He is very anxious about something wrong. Given prior evals/testings, I feel repeat imaging is not fruitful. Consider some repeat labs. Otherwise I was discussing with him meds for anxiety.), d/w patient ED course: He takes Suboxone, so opioid meds would not be very effective. Consider other categories. I would consider dosing ketamine small dose slowly for pain and would help wiht anxiety as well. His exam did not have any concerning findings to suggest more than myofascial type pains currently in back. Departure - Departure Disposition: Left Prior to Disposition Clinical Impression: Mid back pain on left side, Abdominal pain Condition: Stable Forms: PCP List Discharge Date/Time: 12/23/23 08:39
[2023-12-23] MEDS ORDERED: KETOROLAC 15 MG/ML VIAL IVP STA (08:34)
[2023-12-23] MEDS ORDERED: HYDROmorphone 1 MG/ML CARPUJECT IVP STA (08:34)
[2023-12-23] MEDS ORDERED: KETAMINE (50MG/ML) 40 MG in SODIUM CHLORIDE 0.9% 100ML 100 ML IV STA (08:39)
[2023-12-23] MEDS ORDERED: SODIUM CHLORIDE 0.9% 1,000 ML IV STA (08:42)
== END 2023-12-23 08:39 | disposition home or self-care (01) ==
LOC: EDUNIT# → ED 07:42
DX: R10.12 Left upper quadrant pain (principal); M54.6 Pain in thoracic spine; I10 Essential (primary) hypertension; F17.200 Nicotine dependence, unspecified, uncomplicated; Z79.899 Other long term (current) drug therapy
CPT/HCPCS: 80053; 83690; 83735; 85025; 99282; 99283

== ENCOUNTER 2023-12-24 16:20 | Outpatient (CLI) | payer MEDICARE, MEDICAID | END 2023-12-24 23:59 | disposition left against medical advice (07) | LOC: EMS 16:20 | DX: R06.00 Dyspnea, unspecified (principal); R46.89 Other symptoms and signs involving appearance and behavior ==

== ENCOUNTER 2024-01-05 08:57 | Outpatient (CLI) | payer MEDICARE, MEDICAID | END 2024-01-05 23:59 | disposition critical access hospital (66) | LOC: EMS 08:57 | DX: R20.0 Anesthesia of skin (principal); R41.0 Disorientation, unspecified | CPT/HCPCS: A0425; A0429 ==

== ENCOUNTER 2024-01-05 09:16 | Emergency (ER) | payer MEDICARE, MEDICAID ==
[2024-01-05 09:38] LABS: BASOPHILS % (AUTO) 0.4 %; EOSINOPHILS % (AUTO) 0.5 %; HCT - HEMATOCRIT 43.4 % (42.0-52.0); HGB - HEMOGLOBIN 14.4 g/dL (14.0-18.0); LYMPHOCYTES # (AUTO) 1.7 10^3/uL (1.5-3.5); MEAN CORPUSCULAR HEMOGLOBIN 31.8 pg (27.0-31.0); MEAN CORPUSCULAR HGB CONC 33.2 g/dL (32.0-36.0); MEAN CORPUSCULAR VOLUME 95.8 fL (80.0-94.0); MEAN PLATELET VOLUME 10.2 fL (7.4-11.4); MONOCYTES # (AUTO) 0.4 10^3/uL (0.0-1.0); MONOCYTES % (AUTO) 4.4 %; NEUTROPHILS # (AUTO) 6.1 10^3/uL (1.5-6.6); NEUTROPHILS % (AUTO) 74.5 %; PLT - PLATELET COUNT 235 10^3/uL (130-450); RED BLOOD COUNT 4.53 10^6/uL (4.70-6.10); RED CELL DISTRIBUTION WIDTH 12.9 % (12.0-15.0); WHITE BLOOD COUNT 8.2 x10^3/uL (4.8-10.8)
[2024-01-05 09:56] LABS: ALBUMIN 4.3 g/dL (3.2-5.5); ALBUMIN/GLOBULIN RATIO 1.7 (1.0-2.2); BILIRUBIN,TOTAL 0.4 mg/dL (0.2-1.0); CALCIUM 9.5 mg/dL (8.5-10.3); CREATININE 0.8 mg/dL (0.6-1.3); POTASSIUM 4.3 mmol/L (3.5-4.5); TOTAL PROTEIN 6.9 g/dL (6.4-8.9)
--- NOTE | 2024-01-05 10:00 | CT Report ---
PROCEDURE: Head WO INDICATIONS: fall, head pain TECHNIQUE: Noncontrast 4.5 mm thick angled axial sections acquired from the foramen magnum to the vertex. For r adiation dose reduction, the following was used: automated exposure control, adjustment of mA and/or kV according to patient size. COMPARISON: 04/21/2022. FINDINGS: Image quality: Excellent. CSF spaces: Basal cisterns are patent. No extra-axial fluid collections. Ventricles are normal in size and shape. Brain: No midline shift. No intracranial masses or hemorrhage. Boudreaux-white matter interface is norm al. Skull and face: Calvarium and visualized facial bones are intact, without suspicious lesions. Sinuses: Visualized sinuses and mastoids are clear. IMPRESSION: No acute intracranial pathology. Reviewed by: Artis Fraser MD on 01/05/2024 9:59 AM PDT Approved by: Artis Fraser MD on 01/05/2024 9:59 AM PDT Station ID: [id number]
--- NOTE | 2024-01-05 10:03 | CT Report ---
PROCEDURE: Cervical Spine WO INDICATIONS: fall, neck pain TECHNIQUE: Noncontrast 3 mm thick sections acquired from the skull base to the T4 level. Sagittal and coronal r eformats were then constructed. For radiation dose reduction, the following was used: automated exp osure control, adjustment of mA and/or kV according to patient size. COMPARISON: None. FINDINGS: Image quality: Excellent. Bones: No fractures or dislocations. Visualized superior ribs are intact. Cervical spondylosis is centered at C5-C6 and C6-C7. There is a degree of canal stenosis at these levels. There is chronic di sc height loss and posterior disc osteophyte complex and uncovertebral joint hypertrophy resulting in foraminal narrowing. Soft tissues: Prevertebral soft tissues are normal in thickness. No paravertebral hematomas. No ap ical pneumothoraces. IMPRESSION: 1. No acute cervical fracture or dislocation. 2. Cervical spondylosis. Reviewed by: Artis Fraser MD on 01/05/2024 10:01 AM PDT Approved by: Artis Fraser MD on 01/05/2024 10:01 AM PDT Station ID: [id number]
--- NOTE | 2024-01-05 10:51 | ED Physician Documentation ---
History of Present Illness - Stated complaint Stated Complaint: NUMBNESS - Chief complaint Chief Complaint: Trauma Hd/Nk - History obtained from History obtained from: Patient - History of Present Illness Timing: How many weeks ago (5-6) Pain level max: 3 Pain level now: 3 - Additonal information Additional information: 43-year-old male presents to the emergency department stating that about 5 to 6 weeks ago he fell and injured his head and neck. He states that he has had an MRI of his neck since that time. He states that that was negative. He states that over the past few days he is noted numbness to the left occiput. He also has occasional tingling to the bilateral arms. No focal weakness. No fevers. No cough. No congestion. He is concerned about the numbness on the back of the head. Nothing seems to make it better or worse. He states that he is concerned because no one has looked at my head. No LOC. no vomiting. No seizure activity. No medication changes. Review of Systems Constitutional: denies: Fever, Chills Ears: denies: Ear pain Nose: denies: Rhinorrhea / runny nose, Congestion Throat: denies: Sore throat Cardiac: denies: Chest pain / pressure Respiratory: denies: Dyspnea, Cough, Wheezing GI: denies: Abdominal Pain, Vomiting Skin: denies: Rash Neurologic: denies: Focal weakness, Seizure, Confused PD PAST MEDICAL HISTORY - Past Medical History Past Medical History: Yes Cardiovascular: Hypertension Respiratory: Other Neuro: CVA, Migraines, Seizure disorder Endocrine/Autoimmune: None GI: GERD, Hiatal hernia, Diverticulitis, Other : Retention, Other HEENT: None Psych: Depression, Anxiety, Bipolar disorder, ADD/ADHD, Post traumatic stress disorder, Other Musculoskeletal: Osteoarthritis, Chronic back pain Derm: Other - Past Surgical History Past Surgical History: Yes General: EGD, Colonoscopy Ortho: Other Derm: Skin grafts - Present Medications Home Medications: Ambulatory Orders Medication Instructions Recorded Confirmed Furosemide [Lasix] 20 mg PO DAILY 04/21/22 01/05/24 Albuterol Sulf [Ventolin Hfa 1 - 2 puffs INH Q4HR PRN 11/11/22 01/05/24 Inhaler] Lisinopril [Zestril] 10 mg PO DAILY 11/11/22 01/05/24 Buprenorphine HCl/Naloxone HCl 1 each SL BID 05/18/23 01/05/24 [Buprenorphine-Nalox 8-2Mg Film] Lisdexamfetamine Dimesylate 30 mg PO DAILY 05/18/23 01/05/24 [Vyvanse] Gabapentin [Neurontin] 600 mg PO QID 06/29/23 01/05/24 OLANZapine [Zyprexa] 10 mg PO HS 09/01/23 01/05/24 OXcarbazepine [Trileptal] 10 mg PO BID 10/11/23 01/05/24 PARoxetine [Paxil] 20 mg PO DAILY 10/11/23 01/05/24 Benzonatate [Tessalon] 100 mg PO TID #30 cap 12/07/23 01/05/24 Mupirocin 2% Oint [Bactroban 2% 1 applic TOP BID #50 gm 12/15/23 01/05/24 Oint] methylPREDNISolone [Medrol] 4 mg PO DAILY #1 each 01/05/24 - Allergies Allergies/Adverse Reactions: Allergies Allergy/AdvReac Type Severity Reaction Status Date / Time cefdinir Allergy Severe Itching Verified 12/15/23 07:53 cephalexin Allergy Severe Rash Verified 01/05/24 09:22 Cephalosporins Allergy Severe Unknown Verified 01/05/24 09:22 Penicillins Allergy Intermediate Edema Verified 01/05/24 09:22 tramadol Allergy Intermediate Edema Verified 01/05/24 09:22 ciprofloxacin Allergy Anaphylaxis Verified 01/05/24 09:22 morphine Allergy Anaphylaxis Verified 01/05/24 09:22 paliperidone [From Invega] Allergy painful Verified 01/05/24 09:22 erections Sulfa (Sulfonamide Allergy Unknown Verified 01/05/24 09:22 Antibiotics) ziprasidone [From Geodon] Allergy Unknown Verified 01/05/24 09:22 lurasidone HCl * AdvReac Itching Verified 01/05/24 09:22 [From Latuda] - Social History Does the pt smoke?: Yes Smoking Status: Current every day smoker Does the pt drink ETOH?: No Does the pt have substance abuse?: Yes - Immunizations Immunizations are current?: Yes - POLST Patient has POLST: No PD ED PE NORMAL - Vitals Vital signs reviewed: Yes - General General: Alert and oriented X 3, No acute distress, Well developed/nourished - HEENT HEENT: PERRL, EOMI, Ears normal, Moist mucous membranes, Pharynx benign - Neck Neck: Supple, no meningeal sign, No bony TTP, No JVD, No bruit - Cardiac Cardiac: RRR, Strong equal pulses - Respiratory Respiratory: No respiratory distress, Clear bilaterally - Abdomen Abdomen: Soft, Non tender, Non distended - Back Back: No spinal TTP - Derm Derm: Warm and dry - Extremities Extremities: No tenderness to palpate, Normal ROM s pain - Neuro Neuro: Alert and oriented X 3, director of billing 2-12 intact, No motor deficit, Other (mild decreased sensation over the occiput) Eye Opening: Spontaneous Motor: Obeys Commands Verbal: Oriented GCS Score: 15 - Psych Psych: Normal mood, Normal affect Results - Vitals Vitals: Vital Signs - 24 hr 01/05/24 01/05/24 09:17 11:00 Temperature 36.7 C Heart Rate 91 81 Respiratory 18 18 Rate Blood Pressure 148/97 H 134/91 H O2 Saturation 97 98 Oxygen O2 Source Room air - Labs Labs: Laboratory Tests 01/05/24 01/05/24 09:33 09:33 WBC 8.2 RBC 4.53 L Hgb 14.4 Hct 43.4 MCV 95.8 H MCH 31.8 H MCHC 33.2 RDW 12.9 Plt Count 235 MPV 10.2 Neut # (Auto) 6.1 Lymph # (Auto) 1.7 Burke # (Auto) 0.4 Eos # (Auto) 0.0 Baso # (Auto) 0.0 Absolute Nucleated RBC 0.00 Nucleated RBC % 0.0 Sodium 138 Potassium 4.3 Chloride 103 Carbon Dioxide 28 Anion Gap 7.0 BUN 10 Creatinine 0.8 Estimated GFR (MDRD) 106 Glucose 113 H Calcium 9.5 Total Bilirubin 0.4 AST 18 ALT 18 Alkaline Phosphatase 124 H Total Protein 6.9 Albumin 4.3 Globulin 2.6 Albumin/Globulin Ratio 1.7 Lipase 22 - Rads (name of study) head CT Relevant Findings:: Final report received, See rad report c spine CT Relevant Findings:: Final report received, See rad report PD Medical Decision Making - ED course Complexity details: reviewed results, re-evaluated patient, considered differential, d/w patient ED course: patient with paresthesia of unclear etiology. No acute findings on head CT. No acute findings on cervical spine CT. No focal neurological deficits in the emergency department. No indication for MRI. He states he has already had an outpatient MRI. Likely cervical ridiculopathy. We will place him on steroids for home and have him follow up with his doctor for further care. Patient counseled regarding signs and symptoms for which I believe an urgent re-evaluation would be necessary. Patient with good understanding of and agreement to plan and is comfortable going home at this time. This document was made in part using voice recognition software. While efforts are made to proofread this document, sound alike and grammatical errors may occur. Departure - Departure Disposition: Home, Self Care Clinical Impression: Cervical radiculopathy Closed head injury Qualifiers: Encounter type: initial encounter Qualified Code(s): S09.90XA - Unspecified injury of head, initial encounter Condition: Good Instructions: ED Head Injury Closed, ED Cervical Radiculopathy Follow-Up: your,doctor in 1 week [Other] Prescriptions: methylPREDNISolone [Medrol] 4 mg PO DAILY #1 each Comments: Your prescription was sent to [facility] in [place]. You appear to be having symptoms related to nerve pain. We will trial you on steroids to see if this helps your symptoms. Your head CT and cervical spine CT do not show any acute abnormalities. Please return if you worsen. Forms: PCP List Discharge Date/Time: 01/05/24 11:00
[2024-01-05 11:11] VITALS: BP 134/91; O2SAT 98
== END 2024-01-05 11:00 | disposition home or self-care (01) ==
LOC: EDUNIT# → ED 09:16
DX: M54.12 Radiculopathy, cervical region (principal); S09.90XD Unspecified injury of head, subsequent encounter; W18.39XD Other fall on same level, subsequent encounter; I10 Essential (primary) hypertension; Z79.899 Other long term (current) drug therapy; F17.200 Nicotine dependence, unspecified, uncomplicated
CPT/HCPCS: 36415; 80053; 83690; 85025; 99283; 99284

== ENCOUNTER 2024-01-12 14:23 | Outpatient (CLI) | payer MEDICARE, MEDICAID | END 2024-01-12 14:24 | disposition EMS.NT | LOC: EMS 14:23 | DX: R68.84 Jaw pain (principal); Y04.2XXA Assault by strike against or bumped into by another person, initial encounter ==

== ENCOUNTER 2024-03-04 09:19 | Outpatient (CLI) | payer MEDICARE, MEDICAID | END 2024-03-04 09:20 | disposition EMS.NT | LOC: EMS 09:19 | DX: R45.89 Other symptoms and signs involving emotional state (principal) ==

== ENCOUNTER 2024-03-06 07:10 | Outpatient (CLI) | payer MEDICARE, MEDICAID | END 2024-03-06 23:59 | disposition critical access hospital (66) | LOC: EMS 07:10 | DX: R20.2 Paresthesia of skin (principal); R53.1 Weakness | CPT/HCPCS: A0425; A0429 ==

== ENCOUNTER 2024-03-06 07:29 | Emergency (ER) | payer MEDICARE, MEDICAID ==
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
[2024-03-06 07:53] LABS: BILIRUBIN,URINE NEGATIVE (NEGATIVE); GLUCOSE, URINE (UA) NEGATIVE (NEGATIVE); KETONES,URINE (UA) NEGATIVE (NEGATIVE); LEUKOCYTE ESTERASE, URINE NEGATIVE (NEGATIVE); NITRITE,URINE NEGATIVE (NEGATIVE); OCCULT BLOOD,URINE NEGATIVE (NEGATIVE); PROTEIN,URINE NEGATIVE (NEGATIVE); UROBILINOGEN,URINE 0.2 (NORMAL) E.U./dL (NORMAL)
[2024-03-06 07:54] LABS: CLARITY,URINE CLEAR (CLEAR)
[2024-03-06 07:57] LABS: VBG BASE EXCESS 0.7 mmol/L (-2 - +2); VBG HCO3 28.1 mmol/L (23-28); VBG OXYGEN SATURATION 43.8 % (60-80); VBG PCO2 56.2 mmHg (41-51); VBG PH 7.317 (7.31-7.41); VBG PO2 23.2 mmHg (25-47); VBG TOTAL CO2 29.8 mmol/L (24-29)
[2024-03-06 08:01] LABS: BASOPHILS # (AUTO) 0.1 10^3/uL (0.0-0.1); BASOPHILS % (AUTO) 0.7 %; EOSINOPHILS # (AUTO) 0.3 10^3/uL (0.0-0.7); EOSINOPHILS % (AUTO) 3.6 %; HCT - HEMATOCRIT 41.4 % (42.0-52.0); HGB - HEMOGLOBIN 13.7 g/dL (14.0-18.0); LYMPHOCYTES # (AUTO) 2.3 10^3/uL (1.5-3.5); LYMPHOCYTES % (AUTO) 32.9 %; MEAN CORPUSCULAR HEMOGLOBIN 31.9 pg (27.0-31.0); MEAN CORPUSCULAR HGB CONC 33.1 g/dL (32.0-36.0); MEAN CORPUSCULAR VOLUME 96.3 fL (80.0-94.0); MEAN PLATELET VOLUME 9.6 fL (7.4-11.4); MONOCYTES # (AUTO) 0.5 10^3/uL (0.0-1.0); MONOCYTES % (AUTO) 7.5 %; NEUTROPHILS # (AUTO) 3.8 10^3/uL (1.5-6.6); NEUTROPHILS % (AUTO) 54.9 %; PLT - PLATELET COUNT 232 10^3/uL (130-450)
[2024-03-06 08:03] LABS: AMPHETAMINE SCREEN,URINE POSITIVE (NEGATIVE); BARBITURATE SCREEN,UR NEGATIVE (NEGATIVE); BENZODIAZEPINES SCREEN, URINE NEGATIVE (NEGATIVE); BUPRENORPHINE SCREEN, URINE POSITIVE (NEGATIVE); COCAINE SCREEN URINE NEGATIVE (NEGATIVE); METHADONE SCREEN, URINE NEGATIVE (NEGATIVE); METHAMPHETAMINES SCREEN, URINE NEGATIVE (NEGATIVE); OPIATE SCREEN, URINE NEGATIVE (NEGATIVE); OXYCODONE SCREEN, URINE NEGATIVE (NEGATIVE); THC CANNABINOID SCREEN, URINE POSITIVE (NEGATIVE); TRICYCLIC ANTIDEPRESSANT,URINE NEGATIVE (NEGATIVE)
[2024-03-06 08:06] LABS: ALBUMIN 4.7 g/dL (3.2-5.5); ALBUMIN/GLOBULIN RATIO 2.1 (1.0-2.2); ALKALINE PHOSPHATASE 125 IU/L (42-121); ALT ALANINE AMINOTRANSFERASE 18 IU/L (10-60); AST ASPARTATE AMINOTRANSFERASE 17 IU/L (10-42); BILIRUBIN,TOTAL 0.6 mg/dL (0.2-1.0); BUN - BLOOD UREA NITROGEN 13 mg/dL (6-20); CALCIUM 9.6 mg/dL (8.5-10.3); CARBON DIOXIDE - CO2 27 mmol/L (21-32); CHLORIDE 97 mmol/L (101-111); CK- CREATINE KINASE 227 IU/L (30-223); CREATININE 0.8 mg/dL (0.6-1.3); ETOH - ETHANOL < 10.0 mg/dL; GFR - MDRD 106 (>89); GLUCOSE 103 mg/dL (74-104); MAGNESIUM 1.7 mg/dL (1.7-2.3); POTASSIUM 4.5 mmol/L (3.5-4.5); SODIUM 131 mmol/L (135-145); TOTAL PROTEIN 6.9 g/dL (6.4-8.9)
--- NOTE | 2024-03-06 08:27 | XRAY Report ---
PROCEDURE: Chest 2V INDICATIONS: cough TECHNIQUE: 2 views of the chest were acquired. COMPARISON: 01/06/2024, 12/03/2023 FINDINGS: Surgical changes and devices: None. Lungs and pleura: No pleural effusions or pneumothorax. Lungs are clear. Mediastinum: Mediastinal contours appear normal. Heart size is normal. Bones and chest wall: No suspicious bony lesions. Overlying soft tissues appear unremarkable. IMPRESSION: No acute cardiopulmonary process. Reviewed by: Kanu Steinberg MD on 03/06/2024 8:26 AM PDT Approved by: Kanu Steinberg MD on 03/06/2024 8:26 AM PDT Station ID: [id number]
--- NOTE | 2024-03-06 08:28 | CT Report ---
PROCEDURE: Head WO INDICATIONS: head/neck inj TECHNIQUE: Noncontrast 4.5 mm thick angled axial sections acquired from the foramen magnum to the vertex. For r adiation dose reduction, the following was used: automated exposure control, adjustment of mA and/or kV according to patient size. COMPARISON: 01/05/2024, 04/21/2022 FINDINGS: Image quality: Excellent. CSF spaces: Basal cisterns are patent. No extra-axial fluid collections. Ventricles are normal in size and shape. Brain: No midline shift. No intracranial masses or hemorrhage. Boudreaux-white matter interface is norm al. Skull and face: Calvarium and visualized facial bones are intact, without suspicious lesions. Sinuses: Visualized sinuses and mastoids are clear. IMPRESSION: No acute intracranial pathology. Reviewed by: Kanu Steinberg MD on 03/06/2024 8:27 AM PDT Approved by: Kanu Steinberg MD on 03/06/2024 8:27 AM PDT Station ID: [id number]
--- NOTE | 2024-03-06 08:30 | CT Report ---
PROCEDURE: Cervical Spine WO INDICATIONS: head/neck inj TECHNIQUE: Noncontrast 3 mm thick sections acquired from the skull base to the T4 level. Sagittal and coronal r eformats were then constructed. For radiation dose reduction, the following was used: automated exp osure control, adjustment of mA and/or kV according to patient size. COMPARISON: 01/05/2024. FINDINGS: Image quality: Excellent. Bones: No fractures or dislocations. Degenerative endplate changes, loss of disc height and mild xuan ateral uncovertebral hypertrophic changes are noted throughout cervical spine more notably at C4-5 th rough C6-7 levels. This is not significantly changed from recent study. Visualized superior ribs are intact. Soft tissues: Prevertebral soft tissues are normal in thickness. No paravertebral hematomas. No ap ical pneumothoraces. IMPRESSION: 1. No acute cervical spine fracture or dislocation. 2. Mild to moderate degenerative disc disease throughout cervical spine not significantly changed fro m previous study. Reviewed by: Kanu Steinberg MD on 03/06/2024 8:28 AM PDT Approved by: Kanu Steinberg MD on 03/06/2024 8:28 AM PDT Station ID: [id number]
[2024-03-06 08:48] VITALS: BP 155/93; O2SAT 96
== END 2024-03-06 08:48 | disposition home or self-care (01) ==
LOC: ED 07:29
DX: L03.114 Cellulitis of left upper limb (principal); S16.1XXA Strain of muscle, fascia and tendon at neck level, initial encounter; Y04.2XXA Assault by strike against or bumped into by another person, initial encounter; R05.9 Cough, unspecified; I10 Essential (primary) hypertension; F17.200 Nicotine dependence, unspecified, uncomplicated; Z86.73 Personal history of transient ischemic attack (TIA), and cerebral infarction without residual deficits; Z79.899 Other long term (current) drug therapy
CPT/HCPCS: 36415; 70450; 71046; 72125; 80053; 80306; 81003; 82550; 82803; 83735; 85025; 93005; 99284; G0480; 81001; 82077; 87086

== ENCOUNTER 2024-03-07 17:40 | Outpatient (CLI) | payer MEDICARE, MEDICAID | END 2024-03-07 23:59 | disposition EMS.NT | LOC: EMS 17:40 | DX: R07.89 Other chest pain (principal) ==